=== PATIENT | female | born 1955 | race Caucasian/White ===

== ENCOUNTER 2020-07-02 12:55 | Observation (INO) | payer MEDICARE, SELFPAY ==
[2020-07-02] VITALS (10 sets, daily range): BP systolic 121–157; BP diastolic 62–90; PULSE 57–69; RESP 16–22; TEMP 36.3–36.8; O2SAT 94–100; BMI 54.7
--- NOTE | ~2020-07-02 | XR_ITS ---
EXAMINATION: XR chest 2V DATE: 07/02/2020 13:16 INDICATION: Chest pain. Shortness of breath. TECHNIQUE: Frontal and lateral views of the chest were obtained. COMPARISON: Chest single view 11/28/2018 FINDINGS: There is mild atelectasis in left upper lobe. No pleural effusion or pneumothorax. Cardiome maritza is noted. IMPRESSION: 1. Mild atelectasis in left upper lobe. 2. Cardiomegaly. Reviewed, dictated and finalized at location A.
--- NOTE | ~2020-07-02 | CT_ITS ---
EXAMINATION: CTA chest PE protocol DATE: 07/02/2020 15:26 INDICATION: Shortness of breath and chest pain TECHNIQUE: Computed tomography angiography (CTA) of the chest was performed with 100 mL Omnipaque-350 intravenous contrast timed to evaluate the pulmonary arteries. Coronal maximum intensity projection 3D-reconstructions were created by the technologist. The dose-length product (DLP) was 961.35 mGy-cm. Automated exposure control and iterative reconstruction technique were employed. COMPARISON: None. FINDINGS: The pulmonary arteries are well-opacified. No pulmonary embolism is identified. An apparent tiny filling defect of the right upper lobe adjacent to the superior vena cava is likely the result of beam hardening from contrast. There is mild emphysema. Mild atelectasis is noted in the lingula. T here is no pleural effusion or pneumothorax. No pathologically enlarged thoracic lymph nodes are iden tified. The heart size is normal. There is mild thoracic spondylosis. IMPRESSION: 1. No pulmonary embolism or acute cardiopulmonary abnormality. Reviewed, dictated and finalized at location A.
--- NOTE | ~2020-07-02 | CT_ITS ---
EXAMINATION: CT soft tissue neck wo con DATE: 07/03/2020 19:31 INDICATION: Neck pain TECHNIQUE: Computed tomography (CT) of the neck was performed without intravenous contrast. Automated exposure control and iterative reconstruction technique were employed. The dose-length product was 5 54.19 mGy-cm. COMPARISON: None FINDINGS: Thyroid gland is unremarkable. Submandibular and parotid glands are normal and symmetric. There are scattered normal-sized lymph nodes in the neck, no lymphadenopathy. No masses identified. Changes of bilateral intraocular lens replacement. Mild mucosal thickening in the bilateral ethmoid and maxillary sinuses. Patient is edentulous. Normal epiglottis. The airway and visualized apices of the lungs are clear. Superior mediastinum is unremarkable. Moderate cervical spondylosis with mild to moderate disc height loss at several levels and moderate to severe bilateral cervical facet osteoart hritis. Moderate left glenohumeral osteoarthritis IMPRESSION: 1. Moderate cervical spondylosis. Reviewed, dictated and finalized at location A.
--- NOTE | ~2020-07-02 | CT_ITS ---
EXAMINATION: CT brain wo con INDICATION: Dizziness COMPARISON: 11/28/2018 TECHNIQUE: Standard unenhanced head CT. The dose-length product (DLP) was 605.33 mGy-cm. The mA was a djusted according to patient size. Iterative reconstruction technique was employed. FINDINGS: There is no intracranial hemorrhage, acute infarction, or abnormal mass lesion. The ventric les are normal. There is no abnormal mass effect or midline shift. The barraza-white matter differentiat ion is normal. The basal cisterns are patent. The orbits are normal. There is mild mucosal thickening of the paranasal sinuses. IMPRESSION: 1. No acute intracranial abnormality. Reviewed, dictated and finalized at location A.
--- NOTE | ~2020-07-02 | CT_ITS ---
EXAMINATION: CT brain wo/w con DATE: 07/03/2020 19:30 INDICATION: Right-sided face and neck pain TECHNIQUE: Computed tomography (CT) of the head was performed without and with 100 mL Omnipaque-350 i ntravenous contrast. Sagittal and coronal reconstructions were performed. The mA was adjusted accordi ng to patient size. Iterative reconstruction technique was employed. The dose-length product was 1210 .67 mGy-cm. COMPARISON: head CT dated 07/02/2020 FINDINGS: No acute intracranial hemorrhage, acute infarction or abnormal extra axial fluid collection. Ventricl es are normal and symmetric. No mass/mass effect. Mild mucosal thickening the bilateral ethmoid and m axillary sinuses. The orbits and mastoid air cells are normal. No abnormally enhancing lesions. Hyper ostosis frontalis. IMPRESSION: 1. Normal brain. No acute intracranial process. Reviewed, dictated and finalized at location A.
--- NOTE | 2020-07-02 13:01 | ECG_ITS ---
Measurements Intervals [place] Rate: 67 P: 35 DE: 141 QRS: 61 QRSD: 88 T: 77 QT: 408 QTc: 433 Interpretive Statements SINUS RHYTHM WITH SINUS ARRHYTHMIA LOW QRS VOLTAGE IN PRECORDIAL LEADS NONSPECIFIC T-WAVE ABNORMALITY- ANTEROLAT/HIGH LAT LEADS BASELINE ARTIFACT- I, III, AVL BORDERLINE ECG Electronically Signed On 07-02-2020 13:18:30 CDT by Darin Xiong D.O.
--- NOTE | 2020-07-02 13:01 | PC.NURSE ---
pt says that she has taken 1162 mg of aspirin since midnight last night
[2020-07-02 13:17] LABS: Basophils Absolute Auto 0.1 K/mm3 (0.0-0.1); Basophils Percent Auto 0.6 % (0.2-1.2); Eosinophils Absolute Auto 0.5 K/mm3 (0-0.3); Eosinophils Percent Auto 5.4 % (0-4.4); Hemoglobin 12.3 g/dL (12.0-15.0); Immature Granulocyte Absolute 0.04 K/mm3 (0.00-0.031); Immature Granulocyte Percent A 0.4 % (0-0.5); Lymphocytes Absolute Auto 1.59 K/mm3 (0.9-3.2); Lymphocytes Percent Auto 16.5 % (18.3-44.2); Mean Corpuscular HGB Conc 33.2 g/dl (32-36); Mean Corpuscular Hemoglobin 31.9 pg (26-34); Mean Corpuscular Volume 95.9 fl (80-100); Mean Platelet Volume 10.1 fl (7.4-10.4); Monocytes Absolute Auto 0.7 K/mm3 (0.1-0.6); Monocytes Percent Auto 7.2 % (2.6-8.5); Neutrophils Absolute Auto 6.8 K/mm3 (1.3-6.7); Neutrophils Percent Auto 69.9 % (45.5-73.1); Platelet Count Result 341 k/mm3 (150-375); Red Blood Count 3.86 M/mm3 (4.2-5.4); Red Cell Distribution Width 15.1 % (11.5-14.5); White Blood Count 9.7 K/mm3 (4.5-10.0)
--- NOTE | 2020-07-02 13:32 | ED.CHESTPAIN ---
HPI - Chest Pain General Chief Complaint: Chest Pain Stated Complaint: CP Time Seen by Provider: 07/02/20 13:08 Source: patient Mode of arrival: EMS Limitations: no limitations History of Present Illness HPI narrative: This is a 64 year old female that presents to the ER for chest pain x 3 days. Reports it is intermittent in nature. It is sharp. Worse with exertion. Also reports she has been more short of breath than usual. Reports a sore throat. Reports some nausea. Reports she has been lightheaded. Denies fever, cough, abdominal pain, vomiting, or dysuria. Related Data Home Medications Medication Instructions Recorded Confirmed alprazolam 0.5 mg PO BID PRN 07/02/20 bupropion HCl 150 mg PO QAM 07/02/20 citalopram 40 mg PO DAILY 07/02/20 diphenhydramine HCl [Benadryl] 25 mg PO HS PRN 07/02/20 furosemide 20 mg PO DAILY 07/02/20 levothyroxine 75 mcg PO DAILY 07/02/20 ropinirole 1 mg PO BID 07/02/20 zolpidem 5 mg PO HS PRN 07/02/20 Allergies Allergy/AdvReac Type Severity Reaction Status Date / Time ibandronate sodium Allergy Severe Other Verified 07/02/20 13:02 morphine Allergy Intermediate Other Verified 07/02/20 13:02 Uilniuc-Tsy-Xqt Reductase Allergy Intermediate Other Verified 07/02/20 13:02 Inhibitor sertraline Allergy Mild Other Verified 07/02/20 13:02 Review of Systems Review of Systems: Narrative: CONSTITUTIONAL: Denies fever ENT: Reports sore throat. Denies rhinorrhea, congestion CARDIOVASCULAR: Reports chest pain. Denies edema. RESPIRATORY: Reports dyspnea. Denies cough GASTROINTESTINAL: Reports nausea. Denies abdominal pain, vomiting, or diarrhea. GENITOURINARY: Denies dysuria or hematuria. All systems reviewed & are unremarkable except as noted in HPI and below PMFSH Past Medical History Medical History (Updated 07/02/20 @ 17:12 by Marie Nolan PA-C) History of anxiety History of COPD History of hypothyroidism Social History Social History Gender identity (if verbalized by the patient): Female Exam Narrative: Exam Narrative: GENERAL: Well-appearing, obese, and in no acute distress. HEAD: Normocephalic, atraumatic. EYES: PERRLA and EOMI. ENT: Nares clear, no rhinorrhea or epistaxis. Mucous membranes moist. Oropharynx without tonsillar hypertrophy exudate or other lesions. Bilateral TMs pearly barraza non-bulging NECK: Supple. No adenopathy or masses. CHEST: Clear to auscultation. No respiratory distress. No wheezes rales or rhonchi HEART: Regular rate and rhythm. No murmur heard. Normal peripheral pulses. EXTREMITIES: Normal range of motion. No edema. Strength equal in bilateral upper and lower extremities (5/5) SKIN: Warm, dry, no rash. NEURO: No focal deficits. Alert and oriented x3. CN II-XII grossly intact PSYCH: Normal mood and affect Course Consultations Consultation #1: Spoke with hospitalist about patient and work-up who accepts admission. Date: 07/02/20 Time: 17:10 Consultation #2: Spoke with cardiology who will consult Date: 07/02/20 Time: 17:11 Vital Signs Vital signs: Vital Signs Temperature 98.2 F 07/02/20 12:56 Pulse Rate 69 07/02/20 12:56 Respiratory Rate 22 H 07/02/20 12:56 Blood Pressure 157/66 H 07/02/20 12:56 Pulse Oximetry 99 07/02/20 12:56 Temperature 98.2 F 07/02/20 12:56 Pulse Rate 65 07/02/20 15:36 Respiratory Rate 17 07/02/20 15:36 Blood Pressure 156/79 H 07/02/20 15:36 Pulse Oximetry 98 07/02/20 15:36 MDM - Chest Pain MDM Narrative Medical decision making narrative: Patient presents to the emergency department for intermittent chest pain and shortness of breath for the last 3 days. She is afebrile and nontoxic-appearing. CBC and metabolic panel without concerning findings. Lactic acid is not elevated. EKG with nonspecific ST changes. Baseline troponin is negative. Strep screen negative. Due to sore throat and shortness of breath coronavirus swab sent. Chest x-ray shows atelectasis and cardiomegaly. B
[2020-07-02 14:05] LABS: INR 1.1; Prothrombin Time 13.9 Seconds (11.1-14.7)
[2020-07-02 14:06] LABS: Partial Thromboplastin Time 28.9 SECONDS (22.3-36.8)
[2020-07-02 14:07] LABS: Alanine Aminotransferase 27 U/L (4-35); Albumin Level 3.8 g/dL (3.5-5.1); Alkaline Phosphatase 95 U/L (38-126); Anion Gap 6 mmol/L (8-16); Aspartate Amino Transferase 26 U/L (14-36); Bilirubin,Total 0.3 mg/dL (0.2-1.3); Blood Urea Nitrogen 18 mg/dL (7-17); Calcium 8.7 mg/dL (8.4-10.2); Carbon Dioxide 26 mmol/L (22-30); Chloride 105 mmol/L (98-107); Estimated Glomerular Filt Rate > 60; Glucose 114 mg/dL (65-105); Lipase 60 U/L (23-300); Potassium 4.1 mmol/L (3.4-5.0); Sodium 137 mmol/L (137-145)
[2020-07-02 14:08] LABS: D Dimer 0.84 ug/mL (<0.48); Lactic Acid Reflex 0.8 mmol/L (0.7-2.1)
[2020-07-02 14:16] LABS: NT Pro B Type Natriuretic Pept 67 PG/ML (5-100)
[2020-07-02 14:18] LABS: CRP 2.3 mg/dL (<1.0); Lactate Dehydrogenase 373 U/L (313-618); Troponin I < 0.012 ng/mL (0.000-0.034)
[2020-07-02 17:47] LABS: Troponin I < 0.012 ng/mL (0.000-0.034)
[2020-07-02 19:32] LABS: Troponin I < 0.012 ng/mL (0.000-0.034)
--- NOTE | 2020-07-02 20:50 | ADMGEN ---
This patient, Shanita Gallo, was admitted to Intensive Care Unit-1. Patient/family oriented to hospital policies and general routines including ID bracelet, bed and alarms, visiting hours, pain management, procedures, bathroom and other care routines, personal items, smoking policy, room service/diet, and visiting hours. Valuables list has been completed. Information on how to activate the Rapid Response Team has been discussed. Patient/Family are encouraged to report perceived risks to care and to ask questions if they do not understand what they are told or what they should do.
--- NOTE | 2020-07-02 23:30 | PM.IMHP ---
H&P: HPI History of Present Illness Date/Time: 07/02/20 23:30 <Soni Zhang PA-C - Last Filed: 07/03/20 01:06> Chief complaint: Chest pain. <Soni Zhang PA-C - Last Filed: 07/03/20 01:06> Narrative: Shanita Gallo is a 64-year-old female with COPD, obstructive sleep apnea on BiPAP, type 2 diabetes mellitus, and anxiety who presented to the emergency department earlier today home for evaluation of chest pain. Three days ago on Monday simply while sitting down she developed sudden onset of left upper chest pain that she describes as sharp and constant in nature. It lasted the entire day but did improve somewhat and she was able slept that night. Since that time, the pain has recurred intermittently, and without obvious pattern. She told the ED provider that the pain was worse with exertion, but she did not indicate that to me. Associated symptoms include intermittent nausea and shortness of breath. With further questioning, she has also had a mild sore throat and reports dysphagia with pills and bread. In fact, she took her Zantac for possible GERD, which seemed to help somewhat. She takes aspirin, up to 1000 milligrams at a time for generalized aches and pains, but not every day. She denies significant alcohol and caffeine intake. No vomiting, hematemesis, or melena. She also denies pleuritic pain and calf pain. Of note, she reports a history of PR, but it sounds as though she had no intervention on cardiac catheterization 2016. <Soni Zhang PA-C - Last Filed: 07/03/20 01:06> Review of Systems Review of Systems: Narrative: Twelve systems were reviewed with pertinent positives and negatives as per HPI. No fever, chills, or sweats. Currently complaining of a right sided headache. She denies concerns for aspiration. She wears upper and lower dentures. She denies sinus congestion, rhinorrhea, or otalgia. No recent travel or sick contacts. Denies exposure to those positive for COVID-19. No orthopnea or PND. She is compliant with her BiPAP at nighttime. She has chronic lower extremity edema, which is unchanged. <Soni Zhang PA-C - Last Filed: 07/03/20 01:06> [facility] Past Medical History Medical History: Medical History (Updated 07/03/20 @ 10:18 by Shane Perez MD) Anxiety Chronic obstructive pulmonary disease Coronary artery disease With reported history of PR in 2016. She had a cardiac catheterization at that time, with no intervention. Diastolic dysfunction Echocardiogram in December 2018 showed normal left ventricular size and function with an ejection fraction of 60% and diastolic dysfunction. Dysphagia Gastroesophageal reflux disease Hypothyroidism Morbid obesity with BMI of 50.0-59.9, adult Obstructive sleep apnea treated with BiPAP Osteoarthritis Tobacco abuse Type 2 diabetes mellitus <Soni Zhang PA-C - Last Filed: 07/03/20 01:06> Surgical History Surgical History: Surgical History (Updated 07/03/20 @ 00:48 by Soni Zhang PA-C) History of bilateral carpal tunnel release (~2005) History of bilateral cataract extraction (~2015) History of cardiac catheterization (~2016) History of hysterectomy (~1999) History of total bilateral knee replacement (~2017) History of tubal ligation (~1980) <Soni Zhang PA-C - Last Filed: 07/03/20 01:06> Family History Family History: Family History Father Chronic obstructive pulmonary disease Prostate carcinoma Diabetes mellitus Congestive heart failure Mother Cerebrovascular accident Grandparent Colon cancer Sibling Cystic fibrosis Chronic obstructive pulmonary disease Parkinson disease <Soni Zhang PA-C - Last Filed: 07/03/20 01:06> Social History Social History: Social History (Updated 07/03/20 @ 00:49 by Soni Zhang PA-C) Social History: Surrogate decision maker: Dev Banks
[2020-07-03] VITALS (17 sets, daily range): BP systolic 101–135; BP diastolic 46–92; PULSE 52–98; RESP 16–22; TEMP 35.9–36.7; O2SAT 92–97
[2020-07-03] MEDS: ACETAMINOPHEN 325 MG TABLET 650 MG PO ×3 (00:42→21:02)
[2020-07-03] MEDS: ZOLPIDEM TARTRATE 5 MG TABLET PO ×2 (00:57→21:59)
[2020-07-03] MEDS: diphenhydrAMINE HCl CAP 25 MG CAPSULE 50 MG PO ×2 (00:57→21:59)
[2020-07-03] MEDS: rOPINIRole HCL 1 MG TABLET PO ×2 (00:58→21:02)
[2020-07-03] MEDS: CITALOPRAM HYDROBROMIDE 20 MG TABLET 40 MG PO ×2 (00:58→21:03)
--- NOTE | 2020-07-03 01:05 | ECHO_ITS ---
Patient Info Name: Shanita Gallo Age: 64 years : 1955 Gender: Female Ht: 59 in Wt: 270 lbs BSA: 2.35 m2 HR: 55 bpm BP: 134 / 55 mmHg Technical Quality: Poor Exam Date: 07/03/2020 2:31 PM Exam Location: [facility] Patient Status: Outpatient Admit Date: 07/02/2020 Staff Ordering Physician: Soni Zhang PA-C Information Systems Coordinator: Jacqueline Reyna RDCS Attending Provider: Lenin Galvan MD Referring Physician: Vicente KEE; Exam Type: CA echo dop color flow w con Study Info Indications I51.7 - Cardiomegaly I10 - Essential (primary) hypertension R07.9 - Chest pain, unspecified Complete two-dimensional, color flow and Doppler transthoracic echocardiogram is performed with contrast to opacify the left ventricle and to improve the deliniation of the left ventricle endocardial borders. Contrast/Agitated Saline Contrast/Ag. Saline: Definity Amount: 2.50 ml Administered By: Philip Gutierrez RN Reason for Poor Study: patient body habitus Summary 1. Left ventricular chamber dimension is normal. 2. Definity contrast administered improved wall motion interpretation. 3. Left ventricular systolic function is normal, estimated at 65-70%. 4. There is mildly increased left ventricular wall thickness. 5. The left ventricular diastolic function is abnormal. 6. E/e' 12 is mildly elevated. 7. The aortic valve is not well visualized. 8. There is mild aortic valve sclerosis. 9. No pulmonary hypertension, estimated pulmonary arterial systolic pressure is 21 mmHg. Left Ventricle E/e' 12 is mildly elevated. Definity contrast administered improved wall motion interpretation. Left ventricular chamber dimension is normal. Left ventricular systolic function is normal, estimated at 65-70%. There is mildly increased left ventricular wall thickness. The left ventricular diastolic function is abnormal. Right Ventricle Right ventricular chamber dimension is normal. Right ventricular systolic function is normal. Left Atria Left atrial chamber dimension is normal. Right Atria Right atrial chamber dimension is normal. Aortic Valve Cannot determine number of aortic valve leaflets. The aortic valve is not well visualized. There is mild aortic valve sclerosis. There is no aortic valve stenosis. There is no aortic valve regurgitation. Pulmonic Valve There is no pulmonic regurgitation. Mitral Valve There is no mitral valve stenosis. There is no mitral valve regurgitation. Tricuspid Valve There is no tricuspid valve regurgitation. No pulmonary hypertension, estimated pulmonary arterial systolic pressure is 21 mmHg. Pericardium/Pleural There is no pericardial effusion. Inferior Vena Cava Normal inferior vena cava with >50% collapse upon inspiration consistent with normal right atrial pressure, 5 mmHg. Aorta The aortic root size at the sinus of Valsalva is normal. Left Ventricular Outflow Tract Name Value Normal LVOT 2D LVOT Diameter 2.01 cm LVOT Doppler LVOT Peak Gradient 11 mmHg LVOT Mean Gradien
[2020-07-03 02:53] LABS: SARS-CoV-2 RNA PCR Negative
[2020-07-03] MEDS: LEVOTHYROXINE SODIUM 75 MCG TABLET PO (06:06)
[2020-07-03 06:28] LABS: Anion Gap 5 mmol/L (8-16); Blood Urea Nitrogen 16 mg/dL (7-17); Calcium 8.4 mg/dL (8.4-10.2); Carbon Dioxide 27 mmol/L (22-30); Chloride 104 mmol/L (98-107); Estimated Glomerular Filt Rate > 60; Glucose 111 mg/dL (65-105); Potassium 4.2 mmol/L (3.4-5.0); Sodium 136 mmol/L (137-145)
[2020-07-03] MEDS: buPROPion HCL XL (24 HR) 150 MG TABCR PO (08:16)
[2020-07-03] MEDS: PANTOPRAZOLE SODIUM IV 40 MG VIAL IV PUSH ×2 (08:17→21:01)
--- NOTE | 2020-07-03 09:23 | PC.NURSE ---
This patient, Shanita Gallo, was transferred to [[id number]] on 07/03/20 at 0924. Personal belongings sent with patient. Report given to [Cat RN]. Appropriate documentation sent with patient.
--- NOTE | 2020-07-03 09:48 | PC.NURSE ---
This patient, Shanita Gallo, was received from [ ICU/1] on 07/03/20 at 0937. Personal belongings list checked and signed. Patient/family oriented to unit policies and routines. Report received from Nita Haynes RN.
--- NOTE | 2020-07-03 10:07 | WPDANESEPPF ---
Anes - Initial Pre Proc Eval Procedure: Operation Date: 07/03/20 12:45 Proposed Procedures p Esophagogastroduodenoscopy - Johnny Villalta MD Date/Time: 07/03/20 10:07 Surgeon: Lenin Galvan MD Pre Op Diagnosis: Chest pain. Patient Data Age: 64 Gender: F Height: 1.5 m Weight: 124.4 kg Last Vital Signs Temp 35.9 C L 07/03/20 08:00 Pulse 78 07/03/20 08:00 Resp 21 H 07/03/20 08:00 BP 109/66 07/03/20 08:00 Pulse Ox 92 07/03/20 08:00 Allergies Allergy/AdvReac Type Severity Reaction Status Date / Time ibandronate sodium Allergy Severe Other Verified 07/02/20 13:02 morphine Allergy Intermediate Other Verified 07/02/20 13:02 Bprnxpg-Niz-Vfz Reductase Allergy Intermediate Other Verified 07/02/20 13:02 Inhibitor sertraline Allergy Mild Other Verified 07/02/20 13:02 Home Medications Medication Instructions Recorded Confirmed Type alprazolam 0.5 mg PO TID PRN 07/02/20 07/02/20 History bupropion HCl 150 mg PO QAM 07/02/20 07/02/20 History citalopram 40 mg PO HS 07/02/20 07/02/20 History diphenhydramine HCl [Benadryl] 50 mg PO HS PRN 07/02/20 07/02/20 History furosemide 20 mg PO DAILY PRN 07/02/20 07/02/20 History levothyroxine 75 mcg PO DAILY 07/02/20 07/02/20 History ropinirole 1 mg PO HS 07/02/20 07/02/20 History zolpidem 5 mg PO HS PRN 07/02/20 07/02/20 History Laboratory Tests 07/02/20 07/02/20 07/02/20 13:10 13:10 13:42 WBC 9.7 K/mm3 K/mm3 (4.5-10.0) RBC 3.86 M/mm3 L M/mm3 (4.2-5.4) Hgb 12.3 g/dL g/dL (12.0-15.0) Hct 37.0 % % (37.0-47.0) MCV 95.9 fl fl (80-100) MCH 31.9 pg pg (26-34) MCHC 33.2 g/dl g/dl (32-36) RDW 15.1 % H % (11.5-14.5) Plt Count 341 k/mm3 k/mm3 (150-375) MPV 10.1 fl fl (7.4-10.4) Immature Gran % (Auto) 0.4 % % (0-0.5) Neut % (Auto) 69.9 % % (45.5-73.1) Lymph % (Auto) 16.5 % L % (18.3-44.2) [place] % (Auto) 7.2 % % (2.6-8.5) Eos % (Auto) 5.4 % H % (0-4.4) Baso % (Auto) 0.6 % % (0.2-1.2) Lymph # (Auto) 1.59 K/mm3 K/mm3 (0.9-3.2) [place] # (Auto) 0.7 K/mm3 H K/mm3 (0.1-0.6) Eos # (Auto) 0.5 K/mm3 H K/mm3 (0-0.3) Baso # (Auto) 0.1 K/mm3 K/mm3 (0.0-0.1) Abs Immat Gran (auto) 0.04 K/mm3 H K/mm3 (0.00-0.031) Absolute Neuts (auto) 6.8 K/mm3 H K/mm3 (1.3-6.7) Absolute Nucleated RBC 0.0 K/mm3 K/mm3 (0.0-0.012) Nucleated RBC % 0.0 % % (0.0-0.2) PT INR APTT D-Dimer Sodium Cancelled Potassium Cancelled Chloride Cancelled Carbon Dioxide Cancelled Anion Gap Cancelled BUN Cancelled Creatinine Cancelled Estim Creat Clear Calc Cancelled Estimated GFR Cancelled Glucose Cancelled Lactic Acid Calcium Cancelled Ferritin Total Bilirubin AST ALT Alkaline Phosphatase Lactate Dehydrogenase Troponin I C-Reactive Protein NT-Pro-B Natriuret Pep Total Protein Albumin Lipase TSH (Reflex) 2.290 uIU/mL uIU/mL (0.465-4.68) SARS-CoV-2 RNA (RT-PCR) 08/07/02/20 07/02/20 13:46 13:46 13:46 WBC RBC Hgb Hct MCV MCH MCHC RDW Plt Count MPV Immature Gran % (Auto) Neut % (Auto) Lymph % (Auto) [place] % (Auto) Eos % (Auto) Baso % (Auto) Lymph # (Auto) [place] # (Auto) Eos # (Auto) Baso # (Auto) Abs Gayle
--- NOTE | 2020-07-03 10:30 | WPDGICN ---
Assessment and Plan Assessment and plan (1) Dysphagia: Code(s): R13.10 - Dysphagia, unspecified Status: Acute Assessment and Plan: will proceed with EGD, I am concerned high amount of aspirin that she is taking, she may have ulcers, esophagitis, etc (2) Gastroesophageal reflux disease: Code(s): K21.9 - Gastro-esophageal reflux disease without esophagitis Status: Acute Assessment and Plan: start on ppi (3) Non-cardiac chest pain: Code(s): R07.89 - Other chest pain Status: Acute Assessment and Plan: cardiac work up negative (4) Obstructive sleep apnea treated with BiPAP: Code(s): G47.33 - Obstructive sleep apnea (adult) (pediatric) Status: Acute Assessment and Plan: on bipap as needed (5) Morbid obesity with BMI of 50.0-59.9, adult: Code(s): E66.01 - Morbid (severe) obesity due to excess calories; Z68.43 - Body mass index (BMI) 50.0-59.9, adult Status: Acute Assessment and Plan: she is planning to see a bariatric surgeon (6) Chronic obstructive pulmonary disease: Code(s): J44.9 - Chronic obstructive pulmonary disease, unspecified Status: Acute GI Consult Note Consult date/time: 07/03/20 10:28 Reason for consult: gerd, dysphagia HPI: Shanita Gallo is a 64 year old female with multiple medical problems including morbid obesity (she had EGD about 1 year ago apparently unremarkable as part of routine care before seeing a bariatric surgery, she says that ideally would like to get it done at some point), also COPD, obstructive sleep apnea on BiPAP, type 2 diabetes mellitus, and anxiety who came to ER with sudden onset of left upper chest pain, also sour taste and sensation of knot in throat, discomfort neck and right side of face. She occasioally will take antacids, not using ppi. She has been taking aspirin 1000mg daily for pain. Cardiac work up unremarkable. CTA chest and CT head unremarkable. Review of Systems Constitutional: Constitutional: Denies chills, Reports headache(s) and Reports lethargy Eyes: Eyes: Denies blurry vision ENT: Reports Normal hearing present, Denies headache(s) and Denies neck pain Comments: pain in neck Cardiovascular: Cardiovascular: Denies chest pain and Denies dyspnea Respiratory: Respiratory: Reports cough Gastrointestinal: Gastrointestinal: Reports nausea Genitourinary: Genitourinary: Denies dysuria Musculoskeletal: Musculoskeletal: Reports neck pain Integumentary/Breasts: Skin/Breast: Denies dry skin Neurologic: Reports Normal hearing present, Reports headache(s) and Denies weakness Psychiatric: Psychiatric: Reports anxiety Endocrine: Endocrine: Denies change in body appearance Hematologic/Lymphatic: Hematologic/Lymphatic: Denies easy bleeding Allergic/Immunologic: Allergic/Immunologic: Denies urticaria PMFSH Past Medical History Medical History (Updated 07/03/20 @ 13:38 by Johnny Villalta MD) Anxiety Chronic obstructive pulmonary disease Coronary artery disease With reported history of [place] in 2017. She had a cardiac catheterization at that time, with no intervention. Diastolic dysfunction Echocardiogram in December 2018 showed normal left ventricular size and function with an ejection fraction of 60% and diastolic dysfunction. Dysphagia Gastroesophageal reflux disease Hypothyroidism Morbid obesity with BMI of 50.0-59.9, adult Non-cardiac chest pain Obstructive sleep apnea treated with BiPAP Osteoarthritis Tobacco abuse Type 2 diabetes mellitus Surgical History Surgical History (Updated 07/03/20 @ 00:48 by Soni Zhang PA-C) History of bilateral carpal tunnel release (~2005) History of bilateral cataract extraction (~2015) History of cardiac catheterization (~2016) History of hysterectomy (~1999) History of total bilateral knee replacement (~2017) History of tubal ligation (~1980) Family History Family History (Reviewed 07/03/20 @ 0
--- NOTE | 2020-07-03 11:15 | PC.NURSE ---
To GI Lab per eric, IV saline locked. Report given to RISSA Garcia for EGD consent sent with patient on hard chart.
[2020-07-03] MEDS: LACTATED RINGERS 1,000 ML 150 ML IV CONT (11:37)
[2020-07-03 11:51] LABS: Glucose Point of Care 94 (65-105)
[2020-07-03] MEDS: BENZOCAINE (*SP) 60 ML SPRAY CAN (HURRICAINE) 1 SPRAY MUCOUS MEM (12:46)
--- NOTE | 2020-07-03 12:56 | PM.IMPN ---
Progress Note: A&P Assessment and Plan (1) Chest pain: Qualifiers: Chest pain type: unspecified Qualified Code(s): R07.9 - Chest pain, unspecified Code(s): R07.9 - Chest pain, unspecified Status: Acute Assessment and Plan: Ruled out for acute coronary syndrome by serial troponins. Given reported history of [place] and cardiomegaly, will obtain echocardiogram. Her chest pain is, however, atypical for cardiac pain in may very well be GI in etiology. 07/03/20 12:56 Patient is 64 y/o morbidly obese female with hx of COPD sleep apnea, on BiPAP, presented emergency department with a complaint of chest pain her 3 sets of cardiac enzymes are negative there was concern the patient may have GI issue rather than cardiac, today patient was seen by GI and had a EGD it showed patient has erosive gastritis and patient is being treated Protonix 40 mg IV b.i.d, currently patient denies any chest palpitation fever or chills, complaint of pain on the right side of her neck worse with movement most likely muscular will apply Lidoderm patch. continue to monitor the patient and further recommendation to, patient was discharged to COVID-19 and negative (2) Person under investigation for severe acute respiratory syndrome coronavirus 2 (SARS-CoV-2) infection: Code(s): Z20.828 - Contact with and (suspected) exposure to other viral communicable diseases Status: Acute Assessment and Plan: She was swabbed for COVID in the emergency department for unclear reasons. I have a very low suspicion for COVID, however she will need to be in isolation pending those results. (3) Obstructive sleep apnea treated with BiPAP: Code(s): G47.33 - Obstructive sleep apnea (adult) (pediatric) Status: Acute Assessment and Plan: BiPAP will be provided for the patient while she is hospitalized. (4) Hypothyroidism: Code(s): E03.9 - Hypothyroidism, unspecified Status: Acute Assessment and Plan: Continue levothyroxine check TSH. (5) Chronic obstructive pulmonary disease: Code(s): J44.9 - Chronic obstructive pulmonary disease, unspecified Status: Acute Assessment and Plan: No acute issues or bronchospasm. Continue maintenance inhalers. (6) Dysphagia: Code(s): R13.10 - Dysphagia, unspecified Status: Acute Assessment and Plan: Will start PPI given her symptoms. Dr. Villalta consulted. Subjective Date/time seen: 07/03/20 12:56 Patient is 64 y/o morbidly obese female with hx of COPD sleep apnea, on BiPAP, presented emergency department with a complaint of chest pain her 3 sets of cardiac enzymes are negative there was concern the patient may have GI issue rather than cardiac, today patient was seen by GI and had a EGD it showed patient has erosive gastritis and patient is being treated Protonix 40 mg IV b.i.d, currently patient denies any chest palpitation fever or chills, complaint of pain on the right side of her neck worse with movement most likely muscular will apply Lidoderm patch. continue to monitor the patient and further recommendation to, patient was discharged to [facility]-19 and negative Review of Systems Review of Systems: All systems reviewed & are unremarkable except as noted in HPI and below Exam Narrative: Exam Narrative: morbidly obese with BMI of 55 Const: General: comfortable and no acute distress HENMT: General nose exam: Normal nares present Mouth: Yes moist mucous membranes Eyes: General: appearance normal, both eyes and all related structures Neck: Neck: supple Other: tender
--- NOTE | 2020-07-03 13:38 | PC.NURSE ---
Returned from GI Lab. Report received from RISSA Loya.
[2020-07-03] MEDS: PERFLUTREN LIPID MICROSPHERES 1.5 ML VIAL DILUTED TO 10 ML TOTAL VOLUME IV PUSH (15:26)
--- NOTE | 2020-07-03 16:00 | PM.CNCAR ---
Assessment and Plan Additional Plan 64-year-old lady with morbid obesity admitted with chest pain syndrome which is very atypical and not suggestive in all myocardial ischemia. She provides the history of having had a negative coronary angiogram about 5 or 6 years ago. There is no evidence of acute coronary syndrome looking at her EKG and biomarkers. She was found to have some gastritis and some mild gastric ulcer disease the symptoms she is having TRACEY are not highly suggestive of her ulcer disease causing it but certainly that is a I suppose in the differential diagnosis. At this point I would not recommend further inpatient cardiac workup. She can be discharged for follow-up with her physicians. She does have established follow-up with Dr. Amandeep Howe of the [facility] medical group for Cardiology therefore I will not anticipate making her an appointment in our office. Tristian Hdz MD [facility] History of Present Illness History of Present Illness Consult date/time: 07/03/20 16:00 Consult reason: chest pain Reason For Visit: Chest pain. Narrative: This is a 64-year-old woman I am seeing at the request of the hospitalist because of some chest pain for which she was brought to the hospital yesterday at the request of her primary physician. Patient has a primary physician who is not on staff here at [facility] and who was consulted last evening with the patient on the telephone because she was experiencing intermittent episodes of chest pain for a couple of days. She describes sharp stabbing episodes of central and sometimes left lateral chest discomfort that would come and go in an unpredictable fashion. She was not reporting anything that sounds like exertional anginal-type chest pain. The patient has a blood pressure cuff at home was measuring her blood pressure would be reduced into the 90s when she would have these symptoms and so her physician told her to come in for evaluation. Her electrocardiogram in the emergency room was negative. She was admitted to the hospital for observation and evaluation. The patient has had 3- troponin samples done since admission to the hospital. I came by to see her in consultation earlier today but she was not in the room, she was downstairs in GI lab having an upper endoscopy performed. The endoscopic results did show some evidence of gastric ulcer disease which sounds like it is relatively mild as well as some erosive gastritis. Medical treatment of this has been recommended. The patient has not lived in this area for long she is a lady that he lived in [place] for many years recently moved here for family reasons. She is morbidly obese with a BMI of 55.4. She has been seeking the to consider bariatric surgery for treatment of this. She states that she is not known to have significant coronary artery disease she does remember being told of coronary calcium in her a a imaging studies in [place] 5 or 6 years ago this led to a coronary angiogram being done which she was told was unremarkable. She is sitting in the chair at the bedside in room at the time of this consultation her only complaint is occasional pain up the posterior aspect of her neck she apparently has some cervical spine disease that bothers her from time to time. The patient despite her obesity is moderately active and states she spends most of her time caring for her who is disabled and also a young granddaughter. She reports a history of hypercholesterolemia and she reports that she is intolerant of statins having been tried on several of them with severe muscle weakness resulting from all of the statins that have been attempted. She states her physicians have discussed with 3rd attempting to use a PSK 9 inhibitor. Review of Systems Constitutional: Constitutional: Reports fatigue Eyes: Eyes: Reports no additional eye complaints ENT: Reports system reviewed and no additional complaints, except as documented Cardiovascular: Cardio
[2020-07-03] MEDS: LIDOCAINE 5% PATCH 2 PATCH TRANSDERM (18:29)
[2020-07-04] VITALS: BP 128/58; PULSE 59; PULSE 63; RESP 20; TEMP 36.6; O2SAT 94
[2020-07-04 02:59] VITALS: PULSE 65; RESP 15; O2SAT 92
[2020-07-04 04:00] VITALS: BP 114/57; PULSE 63; RESP 20; TEMP 36.3; O2SAT 96
[2020-07-04 05:40] LABS: Basophils Absolute Auto 0.1 K/mm3 (0.0-0.1); Basophils Percent Auto 0.7 % (0.2-1.2); Eosinophils Absolute Auto 0.5 K/mm3 (0-0.3); Eosinophils Percent Auto 5.7 % (0-4.4); Hematocrit 36.1 % (37.0-47.0); Hemoglobin 11.4 g/dL (12.0-15.0); Immature Granulocyte Absolute 0.04 K/mm3 (0.00-0.031); Immature Granulocyte Percent A 0.5 % (0-0.5); Lymphocytes Absolute Auto 1.59 K/mm3 (0.9-3.2); Lymphocytes Percent Auto 18.8 % (18.3-44.2); Mean Corpuscular HGB Conc 31.6 g/dl (32-36); Mean Corpuscular Hemoglobin 30.8 pg (26-34); Mean Corpuscular Volume 97.6 fl (80-100); Mean Platelet Volume 9.2 fl (7.4-10.4); Monocytes Absolute Auto 0.6 K/mm3 (0.1-0.6); Monocytes Percent Auto 7.3 % (2.6-8.5); Neutrophils Absolute Auto 5.7 K/mm3 (1.3-6.7); Platelet Count Result 342 k/mm3 (150-375); Red Cell Distribution Width 14.5 % (11.5-14.5); White Blood Count 8.4 K/mm3 (4.5-10.0)
[2020-07-04 05:56] LABS: Alanine Aminotransferase 24 U/L (4-35); Albumin Level 3.6 g/dL (3.5-5.1); Alkaline Phosphatase 95 U/L (38-126); Anion Gap 5 mmol/L (8-16); Aspartate Amino Transferase 22 U/L (14-36); Bilirubin,Total 0.4 mg/dL (0.2-1.3); Blood Urea Nitrogen 16 mg/dL (7-17); Calcium 8.6 mg/dL (8.4-10.2); Carbon Dioxide 28 mmol/L (22-30); Chloride 103 mmol/L (98-107); Estimated Glomerular Filt Rate 50; Glucose 101 mg/dL (65-105); Magnesium 2.1 mg/dL (1.6-2.3); Potassium 4.2 mmol/L (3.4-5.0); Sodium 136 mmol/L (137-145)
[2020-07-04] MEDS: LEVOTHYROXINE SODIUM 75 MCG TABLET PO (06:20)
[2020-07-04 08:00] VITALS: PULSE 72
[2020-07-04] MEDS: PANTOPRAZOLE SODIUM IV 40 MG VIAL IV PUSH (08:15)
[2020-07-04] MEDS: buPROPion HCL XL (24 HR) 150 MG TABCR PO (08:15)
--- NOTE | 2020-07-04 09:21 | WPDGIPROGNO ---
Progress Note: A&P Assessment and Plan (1) Erosive gastritis: Code(s): K29.60 - Other gastritis without bleeding Status: Acute Assessment and Plan: found yesterday, probably from high dose of daily aspirin recommend to discontinue, avoid nsaids and she will need PPI twice daily she can follow up in office in 3-4 weeks ok to go home by gi standpoint (2) Non-cardiac chest pain: Code(s): R07.89 - Other chest pain Status: Acute Assessment and Plan: probably related to egd findings tolerating diet she also was evaluated by cardiology (3) Morbid obesity with BMI of 50.0-59.9, adult: Code(s): E66.01 - Morbid (severe) obesity due to excess calories; Z68.43 - Body mass index (BMI) 50.0-59.9, adult Status: Acute (4) Dysphagia: Code(s): R13.10 - Dysphagia, unspecified Status: Acute (5) Gastroesophageal reflux disease: Code(s): K21.9 - Gastro-esophageal reflux disease without esophagitis Status: Acute Assessment and Plan: will start ppi bid (6) Obstructive sleep apnea treated with BiPAP: Code(s): G47.33 - Obstructive sleep apnea (adult) (pediatric) Status: Acute Subjective Date/time seen: 07/04/20 09:21 Interval history: she is feeling better today with less pain and tolerating diet. EGD yesterday with erosive gastritis Review of Systems Review of Systems: All systems reviewed & are unremarkable except as noted in HPI and below Exam Const: General: comfortable and no acute distress Other: obese HENMT: General nose exam: Normal nares present Eyes: General: appearance normal, both eyes and all related structures Neck: Neck: no JVD Resp: Auscultation: clear to auscultation bilaterally Cardio: Rate: regular rate Rhythm: regular rhythm GI: Inspection: non-distended GI Palp: Yes Soft to palpation and No Tenderness to palpation present (GI) Auscultation: normal bowel sounds Skin: General skin exam: normal color Neuro: General: gait normal Speech: normal speech Extrem: General: normal to inspection Psych: Mental Status: mental status grossly normal Objective Data Vital Signs Vital Signs: Vital Signs - 24 hr 07/03/20 09:43 07/03/20 11:53 07/03/20 12:01 Temperature 98 F Pulse Rate 61 63 Respiratory Rate 20 Blood Pressure 114/46 L Pulse Oximetry 92 92 07/03/20 13:01 07/03/20 13:21 07/03/20 16:00 Temperature Pulse Rate 64 64 63 Respiratory Rate 17 17 Blood Pressure 135/55 L 127/51 L Pulse Oximetry 95 95 07/03/20 18:00 07/03/20 20:00 07/03/20 23:45 Temperature 98.1 F 97.5 F L Pulse Rate 75 65 59 L Respiratory Rate 20 22 H 16 Blood Pressure 129/57 L 128/70 Pulse Oximetry 95 94 97 07/04/20 00:00 07/04/20 02:59 07/04/20 04:00 Temperature 97.8 F 97.3 F L Pulse Rate 63 65 63 Respiratory Rate 20 15 20 Blood Pressure 128/58 L 114/57 L Pulse Oximetry 94 92 96 Intake/Output Intake/Output: Intake & Output 07/01/20 07/02/20 07/03/20 07/04/20 23:59 23:59 23:59 23:59 Intake Total 940 200 Output Total 450 450 Balance 490 -250 Meds/Results Medications: Active Medications Generic Name Dose Route Start Last Admin Trade Name Freq PRN Reason Stop Dose Admin Acetaminophen 650 mg 07/03/20 00:17 07/03/20 21:02 Tylenol Tablet PO 650 mg Q6H PRN Administration Mild Pain (1-3) or Fever Alprazolam 0.5 mg 07/03/20 00:31 Xanax PO TID PRN Anxiety Bupropion HCl 150 mg 07/03/20 09:00 07/04/20 08:15 Wellbutrin Xl (24 Hr) PO 150 mg QAM VALENTIN Administration Citalopram Hydrobromide 40 mg 07/03/20 21:00 07/03/20 21:03 Celexa PO 40 mg HS VALENTIN Administration Diphenhydramine HCl 50 mg 07/03/20 00:31 07/03/20 21:59 Benadryl Cap PO 50 mg HS PRN Administration Itching Furosemide 20 mg 07/03/20 00:31 Lasix Tablet PO DAILY PRN Edema Levothyroxine Sodium 75 mcg 07/03/20 06:30 07/04/20 06:20
[2020-07-04 10:00] VITALS: BP 106/56; PULSE 58; RESP 18; TEMP 36.6; O2SAT 97
--- NOTE | 2020-07-04 11:11 | WPDANESPN ---
Anes - Prog Note Post-Op Date/Time: 07/04/20 11:11 Cardiovascular status: normal Respiratory status: normal Airway patency: baseline Mental status: baseline Post-Op hydration status: normal Vital Signs: Last Vital Signs Temp 36.3 C L 07/04/20 04:00 Pulse 72 07/04/20 08:00 Resp 20 07/04/20 04:00 BP 114/57 L 07/04/20 04:00 Pulse Ox 96 07/04/20 04:00 I/O: Intake & Output 07/03/20 07/04/20 07/04/20 23:59 07:59 15:59 Intake Total 340 200 Output Total 450 Balance 340 -250 Laboratory Tests 07/04/20 05:04 07/04/20 05:04 07/03/20 07/04/20 07/04/20 11:30 05:04 05:04 WBC 8.4 RBC 3.70 L Hgb 11.4 L Hct 36.1 L MCV 97.6 MCH 30.8 MCHC 31.6 L RDW 14.5 Plt Count 342 MPV 9.2 Immature Gran % (Auto) 0.5 Neut % (Auto) 67.0 Lymph % (Auto) 18.8 Wilkes % (Auto) 7.3 Eos % (Auto) 5.7 H Baso % (Auto) 0.7 Lymph # (Auto) 1.59 Wilkes # (Auto) 0.6 Eos # (Auto) 0.5 H Baso # (Auto) 0.1 Abs Immat Gran (auto) 0.04 H Absolute Neuts (auto) 5.7 Absolute Nucleated RBC 0.0 Nucleated RBC % 0.0 Sodium 136 L Potassium 4.2 Chloride 103 Carbon Dioxide 28 Anion Gap 5 L BUN 16 Creatinine 1.10 H Estim Creat Clear Calc Not Reportable Estimated GFR 50 L Glucose 101 POC Capillary Glucose 94 Calcium 8.6 Magnesium 2.1 Total Bilirubin 0.4 AST 22 ALT 24 Alkaline Phosphatase 95 Total Protein 7.0 Albumin 3.6 Microbiology 07/02/20 14:05 Throat Group A Streptococcus Culture - Final 07/02/20 13:45 Blood Blood Culture - Preliminary 07/02/20 13:45 Blood Blood Culture - Preliminary Post-procedural complaints: none Patient Feedback: Patient satisfied with anesthetic care.
[2020-07-04 12:00] VITALS: PULSE 65
--- NOTE | 2020-07-30 10:51 | PM.DS ---
DS: Admitting Diagnosis Admitting Diagnosis Admitting Diagnosis: Chest pain. DS: Discharge Diagnosis Discharge Diagnosis (1) Chest pain: Qualifiers: Chest pain type: unspecified Qualified Code(s): R07.9 - Chest pain, unspecified Code(s): R07.9 - Chest pain, unspecified Status: Acute Assessment and Plan: Ruled out for acute coronary syndrome by serial troponins. Given reported history of [place] and cardiomegaly, will obtain echocardiogram. Her chest pain is, however, atypical for cardiac pain in may very well be GI in etiology. 07/03/20 12:56 Patient is 64 y/o morbidly obese female with hx of COPD sleep apnea, on BiPAP, presented emergency department with a complaint of chest pain her 3 sets of cardiac enzymes are negative there was concern the patient may have GI issue rather than cardiac, today patient was seen by GI and had a EGD it showed patient has erosive gastritis and patient is being treated Protonix 40 mg IV b.i.d, currently patient denies any chest palpitation fever or chills, complaint of pain on the right side of her neck worse with movement most likely muscular will apply Lidoderm patch. continue to monitor the patient and further recommendation to, patient was discharged to COVID-19 and negative (2) Person under investigation for severe acute respiratory syndrome coronavirus 2 (SARS-CoV-2) infection: Code(s): Z20.828 - Contact with and (suspected) exposure to other viral communicable diseases Status: Acute Assessment and Plan: She was swabbed for COVID in the emergency department for unclear reasons. I have a very low suspicion for COVID, however she will need to be in isolation pending those results. (3) Obstructive sleep apnea treated with BiPAP: Code(s): G47.33 - Obstructive sleep apnea (adult) (pediatric) Status: Acute Assessment and Plan: BiPAP will be provided for the patient while she is hospitalized. (4) Hypothyroidism: Code(s): E03.9 - Hypothyroidism, unspecified Status: Acute Assessment and Plan: Continue levothyroxine check TSH. (5) Chronic obstructive pulmonary disease: Code(s): J44.9 - Chronic obstructive pulmonary disease, unspecified Status: Acute Assessment and Plan: No acute issues or bronchospasm. Continue maintenance inhalers. (6) Dysphagia: Code(s): R13.10 - Dysphagia, unspecified Status: Acute Assessment and Plan: Will start PPI given her symptoms. Dr. Villalta consulted. DS: Summary Hospital Course Reason for hospitalization: Narrative: Shanita Gallo is a 64-year-old female with COPD, obstructive sleep apnea on BiPAP, type 2 diabetes mellitus, and anxiety who presented to the emergency department earlier today home for evaluation of chest pain. Three days ago on Monday simply while sitting down she developed sudden onset of left upper chest pain that she describes as sharp and constant in nature. It lasted the entire day but did improve somewhat and she was able slept that night. Since that time, the pain has recurred intermittently, and without obvious pattern. She told the ED provider that the pain was worse with exertion, but she did not indicate that to me. Associated symptoms include intermittent nausea and shortness of breath. With further questioning, she has also had a mild sore throat and reports dysphagia with pills and bread. In fact, she took her Zantac for possible GERD, which seemed to help somewhat. She takes aspirin, up to 1000 milligrams at a time for generalized aches and pains, bu
== END 2020-07-04 14:35 | disposition home or self-care (01) ==
LOC: ANHED 17:12 → ANHICU 20:27 → ANH2MED 07-03 09:35
PROVIDERS: Internal Medicine Gastroenterology; Physician Assistant; Admitting Provider Family Medicine; Emergency Provider Emergency Medicine; PCP Student in an Organized Health Care Education/Training Program; Visit Provider Family Medicine
PROC: 0DJ08ZZ Inspection of Upper Intestinal Tract, Via Natural or Artificial Opening Endoscopic (ICD-10-PCS; CPT 43235; principal; 2020-07-03 12:45)
DX: R07.89 Other chest pain (principal); K29.00 Acute gastritis without bleeding; K29.50 Unspecified chronic gastritis without bleeding; Z20.828 Contact with and (suspected) exposure to other viral communicable diseases; R13.10 Dysphagia, unspecified; M54.2 Cervicalgia; G47.33 Obstructive sleep apnea (adult) (pediatric); J44.9 Chronic obstructive pulmonary disease, unspecified; E66.01 Morbid (severe) obesity due to excess calories; Z68.43 Body mass index [BMI] 50.0-59.9, adult; E03.9 Hypothyroidism, unspecified; F17.210 Nicotine dependence, cigarettes, uncomplicated; F17.290 Nicotine dependence, other tobacco product, uncomplicated; E11.9 Type 2 diabetes mellitus without complications; F41.9 Anxiety disorder, unspecified; I25.10 Atherosclerotic heart disease of native coronary artery without angina pectoris; I25.2 Old myocardial infarction; Z79.82 Long term (current) use of aspirin; Z79.899 Other long term (current) drug therapy; Z96.653 Presence of artificial knee joint, bilateral
CPT/HCPCS: 43239; 36415; 70450; 70470; 70490; 71046; 71275; 80048; 80053; 82728; 83605; 83615; 83690; 83735; 83880; 84443; 84484; 85025; 85380; 85610; 85730; 86140; 87040; 87081; 87635; 87880; 88305; 93005; 96374; 96375; 96376; 99285; A9270; C8929; C9113; C9803; G0378; J2704; J7120; Q9957; Q9967; U0003

== ENCOUNTER → 2020-08-27 10:07 | Outpatient (CLI) | payer MEDICARE, SELFPAY ==
--- NOTE | ~2020-08-27 | MM_ITS ---
EXAMINATION: MM screening dimas BI w faiza HISTORY: Screening TECHNIQUE: Craniocaudal and mediolateral oblique 3-D tomosynthesis images were obtained and synthetic 2-D images were generated. CAD analysis was submitted and interpreted. COMPARISON: No prior mammogram is available for comparison at this institution. BREAST PARENCHYMAL COMPOSITION: There are scattered areas of fibroglandular density. FINDINGS: There is no evidence of suspicious mass, calcification, or architectural distortion to sugg est malignancy in either breast. There has been no suspicious interval change. IMPRESSION: 1. No mammographic evidence of malignancy. 2. Recommend routine screening mammography in one year. BI-RADS Category 1: Negative Reviewed, dictated and finalized at location A.
== END ==
PROVIDERS: PCP Student in an Organized Health Care Education/Training Program; Visit Provider Nurse Practitioner Obstetrics & Gynecology
DX: Z12.31 Encounter for screening mammogram for malignant neoplasm of breast (principal)
CPT/HCPCS: 77063; 77067

== ENCOUNTER → 2020-08-27 10:09 | Outpatient (CLI) | payer MEDICARE, SELFPAY ==
--- NOTE | ~2020-08-27 | DEXA_ITS ---
Bone Density Report Name: Shanita Gallo Age: 64 Sex: Female Ethnicity: White Date of : 1955 Indication: hyperparathyroidism; inflammatory bowel disease; anorexia or bulimia; asthma or emphysema; hysterectomy; secondary osteoporosis; postmenopausal Referring Provider: Wale, Tenzin Study: Bone densitometry was performed. Exam Date: August 27, 2020 Accession number: [id number] Bone Density: Region BMD T-score Z-score Classification AP Spine (L1-L4) 0.939 -1.0 0.9 Normal Femoral Neck (Left) 0.679 -1.5 0.1 Osteopenia Total Hip (Left) 0.983 0.3 1.7 Normal Femoral Neck (Right) 0.842 -0.1 1.5 Normal Total Hip (Right) 1.042 0.8 2.1 Normal Total Hip Mean 1.013 0.6 1.9 Normal World Health Organization criteria for BMD impression classify patients as: Normal (T-score at or above -1.0), Osteopenia (T-score between -1.0 and -2.5), or Osteoporosis (T-score at or below -2.5). 10-year Fracture Risk(1): Major Osteoporotic Fracture 7.1% Hip Fracture 0.7% Reported Risk Factors: [place] (), Neck BMD=0.679, BMI=55.8, secondary osteoporosis (1) FRAX(R) Version 3.08. Fracture probability calculated for an untreated patient. Fracture probability may be lower if the patient has received treatment. Clinical Information Provided by Patient: Has secondary osteoporosis Has used the following medications: Vitamin D, Calcium Has the following medical conditions: Anorexia or Bulimia, Asthma or Emphysema, Inflammatory bowel diseases, Hyperparathyroidism, Hysterectomy Patient maximum height was 59 Menopause Age: 45 No regular weight bearing exercise Does not regularly consume dairy products Drinks caffeinated beverages Onset of menses at age 9 Number of children 2 Impression: The patient has low bone mass, based on the Left Femoral Neck T-score. The patient has an estimated ten-year risk of hip fracture of 0.7% and an estimated ten-year risk of major fracture of 7.1%, based on the WHO FRAX algorithm. Discussion: BONE DENSITY IS LOW AT ONE OR MORE SKELETAL SITES. This patient's lowest T-score is low at one or more skeletal sites. It meets the World Health Organization's (WHO) criteria for ?low bone mass? (T-score between -1.0 and -2.5). The patient's 10-year risk of fracture as calculated by FRAX is less than the threshold where pharmacological therapy is recommended by the National Osteoporosis Foundation (NOF). However, all treatment decisions require clinical judgment and consideration of individual patient factors, including patient preferences, comorbidities, previous drug use, risk factors not captured in the FRAX model (e.g., frailty, falls, vitamin D deficiency, increased bone turnover, interval significant decline in bone density) and possible under or overestimation of fracture risk by
== END ==
PROVIDERS: PCP Student in an Organized Health Care Education/Training Program; Visit Provider Student in an Organized Health Care Education/Training Program
DX: Z78.0 Asymptomatic menopausal state (principal); M85.852 Other specified disorders of bone density and structure, left thigh
CPT/HCPCS: 77080

== ENCOUNTER → 2021-01-30 01:20 | Outpatient (CLI) | payer MEDICARE, SELFPAY ==
[2021-01-30 19:13] LABS: SARS-CoV-2 RNA PCR Negative
== END ==
PROVIDERS: PCP Student in an Organized Health Care Education/Training Program; Visit Provider Internal Medicine Gastroenterology
DX: Z01.812 Encounter for preprocedural laboratory examination (principal); Z20.822 Contact with and (suspected) exposure to COVID-19
CPT/HCPCS: C9803; U0003; U0005

== ENCOUNTER 2021-02-02 00:22 | Day surgery (SDC) | payer MEDICARE, SELFPAY ==
[2021-01-21 10:58] VITALS: BMI 57.4
[2021-02-02 07:47] VITALS: BP 152/78; PULSE 78; RESP 22; TEMP 36.1; O2SAT 93; BMI 56.9
--- NOTE | 2021-02-02 07:51 | PM.HPGS ---
History of Present Illness History of Present Illness Consent: Risks, benefits, and alternatives have been discussed and questions answered. Patient agrees to proceed with procedure. Chief complaint: neoplasm screening Narrative: Shanita Gallo is a 65 year old female here for colon cancer screening. Her grandmother had colon cancer Review of Systems Review of Systems: All systems reviewed & are unremarkable except as noted in HPI and below PMFSH Past Medical History Medical History Anxiety Chronic obstructive pulmonary disease Colon cancer screening Coronary artery disease With reported history of [place] in 2017. She had a cardiac catheterization at that time, with no intervention. Diastolic dysfunction Echocardiogram in December 2018 showed normal left ventricular size and function with an ejection fraction of 60% and diastolic dysfunction. Dysphagia Erosive gastritis Gastroesophageal reflux disease Hypothyroidism Morbid obesity with BMI of 50.0-59.9, adult Non-cardiac chest pain Obstructive sleep apnea treated with BiPAP Osteoarthritis Tobacco abuse Type 2 diabetes mellitus Surgical History Surgical History History of bilateral carpal tunnel release (~2005) History of bilateral cataract extraction (~2015) History of cardiac catheterization (~2016) History of hysterectomy (~1999) History of total bilateral knee replacement (~2017) History of tubal ligation (~1980) Family History Family History Father Chronic obstructive pulmonary disease Prostate carcinoma Diabetes mellitus Congestive heart failure Mother Cerebrovascular accident Grandparent Colon cancer Sibling Cystic fibrosis Chronic obstructive pulmonary disease Parkinson disease Social History Social History Social History: Surrogate decision maker: Dev Gallo, spouse. Code status: Full code. Smoking packs per day: 1 Smoking cigarettes per day: 20.0 Years smoked: 50 Smoking pack-years: 50.00 Smoking status: Former smoker Tobacco type: cigarettes Additional smoking assessment comments: As of June 2020, the patient vapes. Alcohol intake: never Substance use: never Substance use type: does not use Living arrangements: with family Additional living arrangements comments: Resides in [place] with her spouse. Gender identity (if verbalized by the patient): Female Spiritual care concerns: No Meds Home Medications and Allergies Home Medications Medication Instructions Recorded Confirmed Type alprazolam 0.5 mg PO TID PRN 07/02/20 02/02/21 History bupropion HCl 150 mg PO QAM 07/02/20 02/02/21 History citalopram 40 mg PO HS 07/02/20 02/02/21 History furosemide 20 mg PO DAILY PRN 07/02/20 02/02/21 History levothyroxine 75 mcg PO DAILY 07/02/20 02/02/21 History ropinirole 1 mg PO HS 07/02/20 02/02/21 History zolpidem 5 mg PO HS PRN 07/02/20 02/02/21 History sod picosulf 10 mg-magnes 3.5 160 ml PO BID #160 ml 01/19/21 02/02/21 Rx gram-citric 12 gram/160 mL oral solution diphenhydramine HCl [Benadryl] 50 mg PO HS 01/21/21 02/02/21 History pantoprazole [Protonix] 40 mg PO DAILY 01/21/21 02/02/21 History phentermine 37.5 mg PO DAILY 01/21/21 02/02/21 History Allergies Allergy/AdvReac Type Severity Reaction Status Date / Time sertraline [From Zoloft] Allergy Severe Hallucinati Verified 02/02/21 07:46 ng Zsgovfi-[id number]-Kab Reductase Allergy Severe Muscle Pain Verified 02/02/21 07:46 Inhibitor morphine Allergy Intermediate Hives Verified 02/02/21 07:46 Exam Const: General: cooperative Nutritional Appearance: obese Resp: Auscultation: clear to auscultation bilaterally Cardio: Rate: regular rate Rhythm: regular rhythm GI: GI Palp: No abdominal tenderness and Y
--- NOTE | 2021-02-02 07:52 | WPDANESEPPF ---
Anes - Initial Pre Proc Eval Procedure: Operation Date: 02/02/21 09:00 Proposed Procedures p Screening Colonoscopy - Shiva Xavier MD Date/Time: 02/02/21 07:52 Surgeon: Shiva Xavier MD Pre Op Diagnosis: neoplasm screening Patient Data Age: 65 Gender: F Height: 4 ft 11 in Weight: 129 kg Allergies Allergy/AdvReac Type Severity Reaction Status Date / Time sertraline [From Zoloft] Allergy Severe Hallucinati Verified 02/02/21 07:46 ng Mhnvlyc-Gys-Lpl Reductase Allergy Severe Muscle Pain Verified 02/02/21 07:46 Inhibitor morphine Allergy Intermediate Hives Verified 02/02/21 07:46 Home Medications Medication Instructions Recorded Confirmed Type alprazolam 0.5 mg PO TID PRN 07/02/20 02/02/21 History bupropion HCl 150 mg PO QAM 07/02/20 02/02/21 History citalopram 40 mg PO HS 07/02/20 02/02/21 History furosemide 20 mg PO DAILY PRN 07/02/20 02/02/21 History levothyroxine 75 mcg PO DAILY 07/02/20 02/02/21 History ropinirole 1 mg PO HS 07/02/20 02/02/21 History zolpidem 5 mg PO HS PRN 07/02/20 02/02/21 History sod picosulf 10 mg-magnes 3.5 160 ml PO BID #160 ml 01/19/21 02/02/21 Rx gram-citric 12 gram/160 mL oral solution diphenhydramine HCl [Benadryl] 50 mg PO HS 01/21/21 02/02/21 History pantoprazole [Protonix] 40 mg PO DAILY 01/21/21 02/02/21 History phentermine 37.5 mg PO DAILY 01/21/21 02/02/21 History Patient hx anesthesia problems: none Family hx anesthesia problems: none PMFSH Past Medical History Medical History (Updated 07/17/20 @ 12:19 by Johnny Villalta MD) Anxiety Chronic obstructive pulmonary disease Colon cancer screening Coronary artery disease With reported history of [place] in 2016. She had a cardiac catheterization at that time, with no intervention. Diastolic dysfunction Echocardiogram in December 2018 showed normal left ventricular size and function with an ejection fraction of 60% and diastolic dysfunction. Dysphagia Erosive gastritis Gastroesophageal reflux disease Hypothyroidism Morbid obesity with BMI of 50.0-59.9, adult Non-cardiac chest pain Obstructive sleep apnea treated with BiPAP Osteoarthritis Tobacco abuse Type 2 diabetes mellitus Surgical History Surgical History (Updated 07/03/20 @ 00:48 by Soni Zhang PA-C) History of bilateral carpal tunnel release (~2005) History of bilateral cataract extraction (~2015) History of cardiac catheterization (~2016) History of hysterectomy (~1999) History of total bilateral knee replacement (~2017) History of tubal ligation (~1980) Family History Family History Father Chronic obstructive pulmonary disease Prostate carcinoma Diabetes mellitus Congestive heart failure Mother Cerebrovascular accident Grandparent Colon cancer Sibling Cystic fibrosis Chronic obstructive pulmonary disease Parkinson disease Social History Social History (Updated 07/03/20 @ 00:49 by Soni Zhang PA-C) Social History: Surrogate decision maker: Dev Gallo, spouse. Code status: Full code. Smoking packs per day: 1 Smoking cigarettes per day: 20.0 Years smoked: 50 Smoking pack-years: 50.00 Smoking status: Former smoker Tobacco type: cigarettes Additional smoking assessment comments: As of June 2020, the patient vapes. Alcohol intake: never Substance use: never Substance use type: does not use Living arrangements: with family Additional living arrangements comments: Resides in [place] with her spouse. Gender identity (if verbalized by the patient): Female Spiritual care concerns: No Anes - Eval Final PreProcedure Day of Procedure 02/02/21 07:52 Patient weight: super morbidly obese Heart: regular rate and rhythm Lungs: clear to auscultation Airway: Mallampati scale class III Neurological: alert and oriented Last oral intake: >/= 8 hours ASA classification: IV Emergent: no
[2021-02-02] MEDS: LACTATED RINGERS 1,000 ML 150 ML IV CONT (08:09)
[2021-02-02 08:55] VITALS: BP 118/53; PULSE 88; RESP 22; O2SAT 100
[2021-02-02 09:05] VITALS: BP 122/50; PULSE 82; RESP 20; O2SAT 100
[2021-02-02 09:15] VITALS: BP 133/51; PULSE 80; RESP 20; O2SAT 100
== END 2021-02-02 09:26 | disposition home or self-care (01) ==
PROVIDERS: PCP Student in an Organized Health Care Education/Training Program; Visit Provider Internal Medicine Gastroenterology
PROC: 0DJD8ZZ Inspection of Lower Intestinal Tract, Via Natural or Artificial Opening Endoscopic (ICD-10-PCS; CPT 45378; principal; 2021-02-02 09:00)
DX: Z12.11 Encounter for screening for malignant neoplasm of colon (principal); D12.3 Benign neoplasm of transverse colon; I25.10 Atherosclerotic heart disease of native coronary artery without angina pectoris; J44.9 Chronic obstructive pulmonary disease, unspecified; I11.9 Hypertensive heart disease without heart failure; E03.9 Hypothyroidism, unspecified; G47.33 Obstructive sleep apnea (adult) (pediatric); E11.9 Type 2 diabetes mellitus without complications; K21.9 Gastro-esophageal reflux disease without esophagitis; F41.9 Anxiety disorder, unspecified; Z87.891 Personal history of nicotine dependence; E66.01 Morbid (severe) obesity due to excess calories; Z68.43 Body mass index [BMI] 50.0-59.9, adult
CPT/HCPCS: 45381; 45385; 88305; J2704; J7120

== ENCOUNTER 2021-06-14 13:11 | Emergency (ER) | payer MEDICARE, SELFPAY ==
--- NOTE | ~2021-06-14 | XR_ITS ---
EXAMINATION: XR chest 1V portable DATE: 06/14/2021 18:33 INDICATION: Bladder pain. TECHNIQUE: A single frontal view of the chest was obtained on 2 radiographs. COMPARISON: Chest 2 views 07/02/2020, CT abdomen and pelvis 06/14/2021 FINDINGS: There is mild atelectasis in left upper lobe. No pleural effusion or pneumothorax. The hear t size is normal. IMPRESSION: 1. Mild atelectasis in left upper lobe. Reviewed, dictated and finalized at location A.
--- NOTE | ~2021-06-14 | CT_ITS ---
EXAMINATION: CT abdomen pelvis w con DATE: 06/14/2021 17:31 INDICATION: Right upper quadrant abdominal pain and flank pain for one month. Hematuria. TECHNIQUE: Computed tomography (CT) of the abdomen and pelvis was performed with 100 cc Omnipaque 350 intravenous contrast. Automated exposure control and iterative reconstruction technique were employe d. Exam dose: 1393.09 mGy-cm total exam DLP. COMPARISON: 10/08/2019 right upper quadrant abdominal ultrasound examination FINDINGS: There is mild discoid atelectasis or scarring at the lung bases. Cardiomegaly. No pericardial or pleural effusion. The gallbladder is present. No gallbladder wall thickening or pericholecystic fluid or fat stranding. No hepatic space-occupying mass lesion or bile duct dilatation. No pancreatic mass lesion or calcific ation or pancreatic duct dilatation. Normal splenic size. Normal morphology of the adrenal glands. No renal or ureteral or urinary bladder calculus or hydroureteronephrosis is detected. No renal space occupying mass lesion. Normal caliber of the abdominal aorta and iliac arteries. No abdominal aortic aneurysm. No intraperitoneal or retroperitoneal or pelvic mass lesion or adenopathy or ascites is detected. Status post hysterectomy. Diverticulosis of the sigmoid colon and to a lesser extent right colon; no CT evidence of diverticuli tis. No bowel obstruction or intraperitoneal free air. No CT evidence of appendicitis. No suspicious osteolytic or osteoblastic lesions are noted. IMPRESSION: No urinary tract calculus or hydroureteronephrosis Diverticulosis of the colon; no CT evidence of diverticulitis Cardiomegaly Reviewed, dictated and finalized at Location A. Reviewed, dictated and finalized at location B.
[2021-06-14 13:22] VITALS: BP 152/84; PULSE 74; RESP 14; TEMP 36.4; O2SAT 99
[2021-06-14 13:44] LABS: Basophils Absolute Auto 0.1 K/mm3 (0.0-0.1); Basophils Percent Auto 0.8 % (0.2-1.2); Eosinophils Absolute Auto 0.5 K/mm3 (0-0.3); Eosinophils Percent Auto 5.7 % (0-4.4); Hematocrit 38.5 % (37.0-47.0); Hemoglobin 12.1 g/dL (12.0-15.0); Immature Granulocyte Absolute 0.05 K/mm3 (0.00-0.031); Immature Granulocyte Percent A 0.6 % (0-0.5); Lymphocytes Absolute Auto 1.75 K/mm3 (0.9-3.2); Lymphocytes Percent Auto 20.3 % (18.3-44.2); Mean Corpuscular HGB Conc 31.4 g/dl (32-36); Mean Corpuscular Hemoglobin 31.3 pg (26-34); Mean Corpuscular Volume 99.7 fl (80-100); Mean Platelet Volume 9.3 fl (7.4-10.4); Monocytes Absolute Auto 0.6 K/mm3 (0.1-0.6); Monocytes Percent Auto 7.2 % (2.6-8.5); Neutrophils Absolute Auto 5.7 K/mm3 (1.3-6.7); Neutrophils Percent Auto 65.4 % (45.5-73.1); Platelet Count Result 388 k/mm3 (150-375); Red Blood Count 3.86 M/mm3 (4.2-5.4); White Blood Count 8.6 K/mm3 (4.5-10.0)
[2021-06-14 14:17] LABS: Anion Gap 6 mmol/L (8-16); Blood Urea Nitrogen 16 mg/dL (7-17); Calcium 9.3 mg/dL (8.4-10.2); Carbon Dioxide 32 mmol/L (22-30); Chloride 100 mmol/L (98-107); Estimated Glomerular Filt Rate > 60; Glucose 124 mg/dL (65-110); Potassium 4.5 mmol/L (3.4-5.0); Sodium 138 mmol/L (137-145)
[2021-06-14 14:29] LABS: Add Urine Microscopic? YES; Appearance Urine Cloudy (Clear); Bacteria Urine Trace /hpf; Bilirubin Urine Negative (Negative); Blood Urine Negative (Negative); Color Urine Yellow (Yellow); Glucose Urine UA Negative (Negative); Ketones Urine Negative (Negative); Leukocyte Esterase Ur Negative LEU/UL (Negative); Mucus Urine Few /lpf; Nitrate Urine Negative (Negative); Protein Urine 1+ mg/dL (Negative); RBC Urine 0-2 /hpf (0-2); Specific Grav Ur 1.028 (1.001-1.035); Squamous Epithelial Cell Urine Many /hpf (Few); WBC Urine 0-3 /hpf
[2021-06-14 16:31] VITALS: PULSE 65; RESP 16; TEMP 35.7; O2SAT 97
--- NOTE | 2021-06-14 16:56 | PC.NURSE ---
called phlebotomy and added labs, spoke to Kinza at this time
--- NOTE | 2021-06-14 17:07 | ED.ABDPAIN ---
HPI - Abdominal Pain General Chief Complaint: Urogenital-Female Stated Complaint: uti Time Seen by Provider: 06/14/21 16:40 Source: patient and RN notes reviewed Limitations: no limitations History of Present Illness HPI narrative: Patient 65 years old white female presented to the ED with right upper quadrant pain radiating to right mid back and right shoulder started over 1 month ago. Intermittent. Associated with nausea and chills. History of hysterectomy, appendectomy. History of diabetes, not taking any medication anymore at this time, depression, peptic ulcer disease, anxiety, restless leg syndrome. Related Data Home Medications Medication Instructions Recorded Confirmed alprazolam 0.5 mg PO TID PRN 07/02/20 02/02/21 bupropion HCl 150 mg PO QAM 07/02/20 02/02/21 citalopram 40 mg PO HS 07/02/20 02/02/21 furosemide 20 mg PO DAILY PRN 07/02/20 02/02/21 levothyroxine 75 mcg PO DAILY 07/02/20 02/02/21 ropinirole 1 mg PO HS 07/02/20 02/02/21 zolpidem 5 mg PO HS PRN 07/02/20 02/02/21 diphenhydramine HCl [Benadryl] 50 mg PO HS 01/21/21 02/02/21 pantoprazole [Protonix] 40 mg PO DAILY 01/21/21 02/02/21 phentermine 37.5 mg PO DAILY 01/21/21 02/02/21 Allergies Allergy/AdvReac Type Severity Reaction Status Date / Time sertraline [From Zoloft] Allergy Severe Hallucinati Verified 06/14/21 16:37 ng Pwasfgu-Cxa-Bor Reductase Allergy Severe Muscle Pain Verified 06/14/21 16:37 Inhibitor morphine Allergy Intermediate Hives Verified 06/14/21 16:37 denosumab [From Prolia] Allergy Other Verified 06/14/21 16:37 Review of Systems Review of Systems: CONSTITUTIONAL: Denies fever, chills, or sweats. EYES: Denies visual changes, redness, or discharge. ENT: Denies rhinorrhea, congestion, sore throat, or otalgia. CARDIOVASCULAR: Denies chest pain, palpitations, or edema. RESPIRATORY: Denies cough or dyspnea. GASTROINTESTINAL: Denies abdominal pain, nausea, vomiting, or diarrhea. GENITOURINARY: Denies dysuria or hematuria. SKIN: Denies rash or itching. MUSCULOSKELETAL: Denies back pain, joint pain, or myalgia. NEUROLOGIC: Denies headache, numbness, or weakness. PSYCHIATRIC: Denies anxiety or depression. [facility] Past Medical History Medical History Anxiety Chronic obstructive pulmonary disease Colon cancer screening Coronary artery disease With reported history of [place] in [place]. She had a cardiac catheterization at that time, with no intervention. Diastolic dysfunction Echocardiogram in December 2018 showed normal left ventricular size and function with an ejection fraction of 60% and diastolic dysfunction. Dysphagia Erosive gastritis Gastroesophageal reflux disease Hypothyroidism Morbid obesity with BMI of 50.0-59.9, adult Non-cardiac chest pain Obstructive sleep apnea treated with BiPAP Osteoarthritis Tobacco abuse Type 2 diabetes mellitus Surgical History Surgical History History of bilateral carpal tunnel release (~2005) History of bilateral cataract extraction (~2015) History of cardiac catheterization (~2016) History of hysterectomy (~1999) History of total bilateral knee replacement (~2017) History of tubal ligation (~1980) Family History Family History Father Chronic obstructive pulmonary disease Prostate carcinoma Diabetes mellitus Congestive heart failure Mother Cerebrovascular accident Grandparent Colon cancer Sibling Cystic fibrosis Chronic obstructive pulmonary disease Parkinson disease Social History Social History Social History: Surrogate decision maker: Dev Gallo, spouse. Code status: Full code. Smoking packs per day: 1 Smoking cigarettes per day: 20.0 Years smoked: 50 Smoking pack-years: 50.00 Smoking status: Former smoker Tobacco type: cigarettes Additional smo
[2021-06-14 17:08] LABS: Alanine Aminotransferase 26 U/L (4-35); Alkaline Phosphatase 83 U/L (38-126); Aspartate Amino Transferase 29 U/L (14-36); Bilirubin,Total 0.2 mg/dL (0.2-1.3)
[2021-06-14] MEDS: SODIUM CHLORIDE 0.9% IV 1,000 ML 999 ML IV CONT (17:47)
[2021-06-14 18:24] VITALS: BP 139/86; PULSE 64; RESP 22; O2SAT 98
--- NOTE | 2021-06-14 19:26 | PC.NURSE ---
Assumed care of pt at this time. Pt alert and upright on stretcher, states she is ready to go home.
[2021-06-14 19:44] VITALS: BP 127/92; PULSE 93; RESP 16; O2SAT 96
--- NOTE | 2021-06-14 19:56 | PC.NURSE ---
Pt refused remaining amount of IV fluids.
== END 2021-06-14 20:03 | disposition home or self-care (01) ==
PROVIDERS: Emergency Medicine; Emergency Provider Emergency Medicine; PCP Student in an Organized Health Care Education/Training Program
DX: R10.11 Right upper quadrant pain (principal); M54.9 Dorsalgia, unspecified; E11.9 Type 2 diabetes mellitus without complications; F32.9 Major depressive disorder, single episode, unspecified; G25.81 Restless legs syndrome; J44.9 Chronic obstructive pulmonary disease, unspecified; I25.10 Atherosclerotic heart disease of native coronary artery without angina pectoris; F41.9 Anxiety disorder, unspecified; E66.01 Morbid (severe) obesity due to excess calories; Z68.43 Body mass index [BMI] 50.0-59.9, adult; G47.33 Obstructive sleep apnea (adult) (pediatric); M19.90 Unspecified osteoarthritis, unspecified site; Z87.11 Personal history of peptic ulcer disease; Z98.42 Cataract extraction status, left eye; Z98.41 Cataract extraction status, right eye; Z96.653 Presence of artificial knee joint, bilateral; Z87.891 Personal history of nicotine dependence; K57.90 Diverticulosis of intestine, part unspecified, without perforation or abscess without bleeding; I51.7 Cardiomegaly
CPT/HCPCS: 36415; 71045; 74177; 80048; 80076; 81001; 85025; 96360; 96361; 99284; J7030; Q9967

== ENCOUNTER → 2021-07-30 01:26 | Outpatient (CLI) | payer MEDICARE, SELFPAY ==
[2021-07-30 19:38] LABS: SARS-CoV-2 RNA PCR Negative
== END ==
PROVIDERS: PCP Student in an Organized Health Care Education/Training Program; Visit Provider Internal Medicine Gastroenterology
DX: Z01.812 Encounter for preprocedural laboratory examination (principal); Z20.822 Contact with and (suspected) exposure to COVID-19
CPT/HCPCS: C9803; U0003; U0005

== ENCOUNTER 2021-08-02 01:12 | Day surgery (SDC) | payer MEDICARE, SELFPAY ==
[2021-07-22 10:38] VITALS: BMI 57.6
[2021-08-02 08:02] VITALS: BP 145/66; PULSE 65; RESP 22; TEMP 36.7; O2SAT 96
[2021-08-02] MEDS: LACTATED RINGERS 1,000 ML 150 ML IV CONT (08:16)
--- NOTE | 2021-08-02 08:21 | WPDHPUPDATE1 ---
History and Physical Update Update Date/Time: 08/02/21 08:21 History and Physical has been reviewed, including an updated exam of the patient. There are NO changes in the patient's condition. Risks, benefits, and alternatives have been discussed and questions answered. Patient agrees to proceed with procedure.
--- NOTE | 2021-08-02 08:23 | WPDANESEPPF ---
Anes - Initial Pre Proc Eval Procedure: Operation Date: 08/02/21 09:00 Proposed Procedures p Esophagogastroduodenoscopy - Johnny Villalta MD Date/Time: 08/02/21 08:23 Surgeon: Johnny Villalta MD Pre Op Diagnosis: right upper quadrant pain Patient Data Age: 65 Gender: F Height: 1.5 m Weight: 130.6 kg Last Vital Signs Temp 98.1 F 08/02/21 08:02 Pulse 65 08/02/21 08:02 Resp 22 H 08/02/21 08:02 BP 145/66 H 08/02/21 08:02 Pulse Ox 96 08/02/21 08:02 Allergies Allergy/AdvReac Type Severity Reaction Status Date / Time sertraline [From Zoloft] Allergy Severe Hallucinati Verified 08/02/21 08:01 ng Upuprrr-Gdi-Ijt Reductase Allergy Severe Muscle Pain Verified 08/02/21 08:01 Inhibitor morphine Allergy Intermediate Hives Verified 08/02/21 08:01 denosumab [From Prolia] Allergy Other Verified 08/02/21 08:01 Home Medications Medication Instructions Recorded Confirmed Type alprazolam 0.5 mg PO TID PRN 07/02/20 08/02/21 History citalopram 40 mg PO HS 07/02/20 08/02/21 History furosemide 20 mg PO DAILY PRN 07/02/20 08/02/21 History ropinirole 1 mg PO HS 07/02/20 08/02/21 History zolpidem 5 mg PO HS PRN 07/02/20 08/02/21 History sod picosulf 10 mg-magnes 3.5 160 ml PO BID #160 ml 01/19/21 08/02/21 Rx gram-citric 12 gram/160 mL oral solution diphenhydramine HCl [Benadryl] 50 mg PO HS 01/21/21 08/02/21 History pantoprazole [Protonix] 40 mg PO DAILY 01/21/21 08/02/21 History levothyroxine 75 mcg tablet 100 mcg PO DAILY tablet 07/01/21 08/02/21 History Patient hx anesthesia problems: none Family hx anesthesia problems: none PMFSH Past Medical History Medical History (Updated 07/01/21 @ 14:08 by Johnny Villalta MD) Adenomatous colon polyp Anxiety Chronic obstructive pulmonary disease Colon cancer screening Coronary artery disease With reported history of [place] in 2017. She had a cardiac catheterization at that time, with no intervention. Diastolic dysfunction Echocardiogram in December 2018 showed normal left ventricular size and function with an ejection fraction of 60% and diastolic dysfunction. Dysphagia Erosive gastritis Gastroesophageal reflux disease Hypothyroidism Morbid obesity with BMI of 50.0-59.9, adult Non-cardiac chest pain Obstructive sleep apnea treated with BiPAP Osteoarthritis Tobacco abuse Type 2 diabetes mellitus Surgical History Surgical History History of bilateral carpal tunnel release (~2005) History of bilateral cataract extraction (~2015) History of cardiac catheterization (~2016) History of hysterectomy (~1999) History of total bilateral knee replacement (~2017) History of tubal ligation (~1980) Family History Family History Father Chronic obstructive pulmonary disease Prostate carcinoma Diabetes mellitus Congestive heart failure Mother Cerebrovascular accident Grandparent Colon cancer Sibling Cystic fibrosis Chronic obstructive pulmonary disease Parkinson disease Social History Social History Social History: Surrogate decision maker: Dev Gallo, spouse. Code status: Full code. Smoking packs per day: 1 Smoking cigarettes per day: 20.0 Years smoked: 54 Smoking pack-years: 54.00 Smoking status: Former smoker Tobacco type: cigarettes Additional smoking assessment comments: As of June 2020, the patient vapes. Alcohol intake: never Substance use: never Substance use type: does not use Additional living arrangements comments: Resides in [place] with her spouse. Gender identity (if verbalized by the patient): Female Spiritual care concerns: No Anes - Eval Final PreProcedure Day of Procedure 08/02/21 08:23 Patient weight: super morbidly obese Heart: regular rate and rhyt
[2021-08-02] MEDS: BENZOCAINE (*SP) 60 ML SPRAY CAN (HURRICAINE) 1 SPRAY MUCOUS MEM (08:27)
[2021-08-02 08:43] VITALS: BP 177/80; PULSE 81; RESP 20; O2SAT 94
[2021-08-02 08:53] VITALS: BP 161/77; PULSE 68; RESP 24; O2SAT 94
[2021-08-02 09:03] VITALS: BP 166/77; PULSE 66; RESP 22; O2SAT 94
== END 2021-08-02 09:20 | disposition home or self-care (01) ==
PROVIDERS: PCP Student in an Organized Health Care Education/Training Program; Visit Provider Internal Medicine Gastroenterology
PROC: 0DJ08ZZ Inspection of Upper Intestinal Tract, Via Natural or Artificial Opening Endoscopic (ICD-10-PCS; CPT 43235; principal; 2021-08-02 09:00)
DX: R10.11 Right upper quadrant pain (principal); K21.9 Gastro-esophageal reflux disease without esophagitis; K29.70 Gastritis, unspecified, without bleeding; I25.10 Atherosclerotic heart disease of native coronary artery without angina pectoris; I51.89 Other ill-defined heart diseases; E03.9 Hypothyroidism, unspecified; G47.33 Obstructive sleep apnea (adult) (pediatric); E11.9 Type 2 diabetes mellitus without complications; F41.9 Anxiety disorder, unspecified; J44.9 Chronic obstructive pulmonary disease, unspecified; F17.290 Nicotine dependence, other tobacco product, uncomplicated; E66.01 Morbid (severe) obesity due to excess calories; Z68.43 Body mass index [BMI] 50.0-59.9, adult
CPT/HCPCS: 43239; 88305; J7120

== ENCOUNTER 2021-08-25 11:37 | Outpatient (CLI) | payer MEDICARE, SELFPAY ==
--- NOTE | ~2021-08-25 | US_ITS ---
EXAMINATION: US venous doppler LE EXAM DATE: 08/25/2021 12:19 INDICATION: Bilateral lower extremity swelling. TECHNIQUE: Multiple grayscale, color flow and Doppler images of the lower extremity deep venous syste ms bilaterally were obtained and reviewed. There is no prior study for comparison. FINDINGS: Right side: The right common femoral, femoral and profunda veins demonstrate normal color flow, respi ratory variation, augmentation and compressibility. Compressibility, color flow confirmed within the right popliteal, posterior tibial, peroneal, and greater saphenous veins. Left side: The left common femoral, femoral and profunda veins demonstrate normal color flow, respira tory variation, augmentation and compressibility. Compressibility, color flow confirmed within the l eft popliteal, posterior tibial, peroneal, and greater saphenous veins. IMPRESSION: 1. No lower extremity deep venous thrombosis bilaterally. Reviewed, dictated and finalized at location A.
--- OUTSIDE RECORDS SUMMARY | 2021-12-28 11:26 | XMS_ITS | Referral Summary ---
:1955 Author Organization [facility] Address [address] [place] [id number] [place] [id number] Care Team Providers Name Role Phone Ederjudithperrydevante Devon JAY Primary Care Provider Stefanie Howe MD Unavailable Reason for Referral Consultation (Routine) - New Request Specialty Diagnoses / Procedures Referred By Contact Refer red To Contact ENDOCRINOLOGY Diagnoses Type 2 diabetes mellitus without complication, without long-term current use of insulin (CMS/HCC) Aleida Hicks FNP Sitaula, Sujata, MD [address] [place] [id number] [place] [phone] Fax: Referral ID Status Reason Start Date Expiration Date Visits V isits Requested Authorized [id number] New Request 12/20/2021 01/17/2023 1 1 C JOURNALIST Consultation (Routine) - New Request Specialty Diagnoses / Procedures Referred By Contact Refer red To Contact NUTRITION Diagnoses Type 2 diabetes mellitus without complication, without long-term current use of insulin (CMS/HCC) BMI 50.0-59.9, adult (CMS/HCC) Aleida Hicks FNP [address] [place] [id number] [place] [address]
== END 2021-08-25 11:38 | disposition home or self-care (01) ==
LOC: ANHIMG 11:41
PROVIDERS: PCP Student in an Organized Health Care Education/Training Program; Visit Provider Student in an Organized Health Care Education/Training Program
DX: M79.89 Other specified soft tissue disorders (principal)
CPT/HCPCS: 93970

== ENCOUNTER 2022-01-22 13:06 | Emergency (ER) | payer MEDICARE, SELFPAY ==
[2022-01-22] VITALS (23 sets, daily range): BP systolic 127–181; BP diastolic 63–84; PULSE 60–73; RESP 12–25; TEMP 36.2–36.3; O2SAT 78–100
--- NOTE | ~2022-01-22 | XR_ITS ---
EXAMINATION: XR chest 2V DATE: 01/22/2022 15:18 INDICATION: Shortness of breath and intermittent chest pain. Leg edema and weakness. TECHNIQUE: PA and lateral views of the chest were obtained. COMPARISON: Chest radiograph dated 06/14/2021 FINDINGS: Cardiomegaly and pulmonary vascular congestion but without gordo pulmonary edema. Couple unchanged li near bands of chronic discoid atelectasis/scarring at the left midlung zone. No pleural effusion or p neumothorax. Mediastinal silhouette is normal. Mild thoracic spondylosis. IMPRESSION: 1. Cardiomegaly with pulmonary vascular congestion but without gordo pulmonary edema. 2. Unchanged chronic discoid atelectasis/scarring at the left midlung zone. Reviewed, dictated and finalized at location A. TESTER
--- NOTE | ~2022-01-22 | NM_ITS ---
EXAMINATION: NM pulmonary perfusion DATE: 01/22/2022 18:28 INDICATION: Wrist pain, shortness of breath and elevated d-dimer. TECHNIQUE: 5.1 Tc-99m MAA by intravenous route. Scintigraphic images of the chest were obtained. COMPARISON: Chest radiograph dated 01/22/[address] dated 07/02/2020 FINDINGS: There is relatively homogeneous perfusion throughout the lungs. No discrete perfusion defects identif ied. Cardiomegaly. IMPRESSION: 1. Low probability for pulmonary embolism. Reviewed, dictated and finalized at location A. ERS SUPERVISOR
--- NOTE | 2022-01-22 13:07 | ECG_ITS ---
Measurements Intervals [place] Rate: 63 P: 60 DE: 141 QRS: 63 QRSD: 89 T: 72 QT: 367 QTc: 377 Interpretive Statements SINUS RHYTHM LOW QRS VOLTAGE IN PRECORDIAL LEADS [QRS DEFLECTION < 1.0 mV IN CHEST LEADS] NONSPECIFIC T-WAVE ABNORMALITY COMPARED TO ECG 07/02/2020 13:04:28 NO SIGNIFICANT CHANGE Electronically Signed On 01-22-2022 13:24:56 POINT OF CARE TECHNICIAN by Muna Young M.D.
[2022-01-22 13:49] LABS: Basophils Absolute Auto 0.1 K/mm3 (0.0-0.1); Basophils Percent Auto 0.8 % (0.2-1.2); Eosinophils Absolute Auto 0.4 K/mm3 (0-0.3); Eosinophils Percent Auto 4.8 % (0-4.4); Hematocrit 38.4 % (37.0-47.0); Hemoglobin 12.3 g/dL (12.0-15.0); Immature Granulocyte Absolute 0.04 K/mm3 (0.00-0.031); Immature Granulocyte Percent A 0.5 % (0-0.5); Lymphocytes Absolute Auto 1.34 K/mm3 (0.9-3.2); Lymphocytes Percent Auto 17.5 % (18.3-44.2); Mean Corpuscular Hemoglobin 31.5 pg (26-34); Mean Corpuscular Volume 98.5 fl (80-100); Mean Platelet Volume 8.9 fl (7.4-10.4); Monocytes Absolute Auto 0.5 K/mm3 (0.1-0.6); Monocytes Percent Auto 6.9 % (2.6-8.5); Neutrophils Absolute Auto 5.3 K/mm3 (1.3-6.7); Neutrophils Percent Auto 69.5 % (45.5-73.1); Platelet Count Result 345 k/mm3 (150-375); White Blood Count 7.7 K/mm3 (4.5-10.0)
[2022-01-22 14:01] LABS: Alanine Aminotransferase 25 U/L (4-35); Albumin Level 4.2 g/dL (3.5-5.1); Alkaline Phosphatase 92 U/L (38-126); Anion Gap 7 mmol/L (8-16); Aspartate Amino Transferase 27 U/L (14-36); Bilirubin,Total 0.4 mg/dL (0.2-1.3); Blood Urea Nitrogen 17 mg/dL (7-17); Calcium 8.7 mg/dL (8.4-10.2); Carbon Dioxide 30 mmol/L (22-30); Chloride 102 mmol/L (98-107); Estimated Glomerular Filt Rate > 60; Glucose 134 mg/dL (65-110); Potassium 4.3 mmol/L (3.4-5.0); Sodium 139 mmol/L (137-145)
--- NOTE | 2022-01-22 14:17 | PC.NURSE ---
IV attempts x2 unsuccessful per this RN.
--- NOTE | 2022-01-22 14:20 | PC.NURSE ---
Note dyspnea on approx 10 foot trip to restroom. Pt states for the past 4 weeks has been feeling more short of breath.
[2022-01-22 14:39] LABS: NT Pro B Type Natriuretic Pept 66 pg/mL (5-100)
--- NOTE | 2022-01-22 14:40 | ED.SOB ---
HPI - SOB/Dyspnea General Chief Complaint: Shortness of Breath/Dyspnea Stated Complaint: shortness of breath Time Seen by Provider: 01/22/22 13:52 Source: patient Mode of arrival: ambulatory Limitations: no limitations History of Present Illness HPI Narrative: This is a 66 year old female that presents to the ER for worsening shortness of breath. Ongoing over the last couple of weeks. Worsened with exertion. Reports some chest tightness intermittently noted over the last couple of days. Does report a cough and lower extremity edema. Denies fever. Related Data Home Medications Medication Instructions Recorded Confirmed alprazolam 0.5 mg PO TID PRN 07/02/20 08/02/21 citalopram 40 mg PO HS 07/02/20 08/02/21 furosemide 20 mg PO DAILY PRN 07/02/20 08/02/21 ropinirole 1 mg PO HS 07/02/20 08/02/21 zolpidem 5 mg PO HS PRN 07/02/20 08/02/21 diphenhydramine HCl [Benadryl] 50 mg PO HS 01/21/21 08/02/21 pantoprazole [Protonix] 40 mg PO DAILY 01/21/21 08/02/21 levothyroxine 75 mcg tablet 100 mcg PO DAILY tablet 07/01/21 08/02/21 duloxetine mg PO 01/22/22 01/22/22 Allergies Allergy/AdvReac Type Severity Reaction Status Date / Time morphine Allergy Intermediate Hives Verified 01/22/22 13:59 denosumab [From Prolia] Allergy Unknown Other Verified 01/22/22 13:59 sertraline [From Zoloft] AdvReac Severe Hallucinati Verified 01/22/22 13:59 ng Whfttnc-TVA-UpA Reductase AdvReac Severe Muscle Pain Verified 01/22/22 13:59 Inhibitor [Yqdcrvf-Jzo-Edj Reductase Inhibitor] Review of Systems Review of Systems: CONSTITUTIONAL: Denies fever CARDIOVASCULAR: Reports chest pain, and edema. RESPIRATORY: Reports cough and dyspnea. All systems reviewed & are unremarkable except as noted in HPI and below PMFSH Past Medical History Medical History (Updated 01/22/22 @ 19:11 by Marie Nolan PA-C) Adenomatous colon polyp Anxiety Chronic obstructive pulmonary disease Colon cancer screening Coronary artery disease With reported history of [place] in 2017. She had a cardiac catheterization at that time, with no intervention. Diastolic dysfunction Echocardiogram in December 2018 showed normal left ventricular size and function with an ejection fraction of 60% and diastolic dysfunction. Dysphagia Erosive gastritis Gastroesophageal reflux disease Hypothyroidism Morbid obesity with BMI of 50.0-59.9, adult Non-cardiac chest pain Obstructive sleep apnea treated with BiPAP Osteoarthritis Tobacco abuse Type 2 diabetes mellitus Surgical History Surgical History History of bilateral carpal tunnel release (~2005) History of bilateral cataract extraction (~2015) History of cardiac catheterization (~2016) History of hysterectomy (~1999) History of total bilateral knee replacement (~2017) History of tubal ligation (~1980) Family History Family History Father Chronic obstructive pulmonary disease Prostate carcinoma Diabetes mellitus Congestive heart failure Mother Cerebrovascular accident Grandparent Colon cancer Sibling Cystic fibrosis Chronic obstructive pulmonary disease Parkinson disease Social History Social History Social History: Surrogate decision maker: Dev Gallo, spouse. Code status: Full code. Smoking packs per day: 1 Smoking cigarettes per day: 20.0 Years smoked: 54 Smoking pack-years: 54.00 Smoking status: Former smoker Tobacco type: cigarettes Additional smoking assessment comments: As of June 2020, the patient vapes. Alcohol intake: never Substance use: never Substance use type: does not use Additional living arrangements comments: Resides in [place] with her spouse. Gender identity (if verbalized by the patient): Female Spiritual care concerns: No Exam Narrative: GENERAL:
[2022-01-22 14:55] LABS: Troponin I < 0.012 ng/mL (0.000-0.034)
[2022-01-22 14:58] LABS: Alveolar/Arterial O2 Gradient 25.7 mmHg; Base Excess ABG 1.7 mEq/l (+/-2.0); Carboxyhemoglobin 0.6 % THb (0-2.0); Fractional Inspired Oxygen 21 %; HCO3 ABG 26.1 mEq/l (22.0-26.0); Methemoglobin ABG 0.2 %THb (0-1.5); Oxygen Content ABG 17.2 %vol (16.0-22.0); Oxygen Saturation ABG 95.6 % (95.0-100.0); Oxyhemoglobin 94.1 % THb (90.0-100.0); PCO2 ABG 40.2 mmHg (35.0-45.0); PO2 ABG 75.9 mmHg (80.0-100.0); PO2 FiO2 Ratio Arterial Blood 3.61 %; Reduced Hemoglobin 5.1 %THb (0-5.0)
[2022-01-22 14:59] LABS: Device ROOM AIR; Modified Allen's Test Pass; Site Drawn RIGHT RADIAL
--- NOTE | 2022-01-22 15:29 | PC.NURSE ---
Pt returns from second trip to xray. Erik Rios, attempting to initiate IV with ultrasound.
--- NOTE | 2022-01-22 15:46 | PC.NURSE ---
IV unsuccessful with ultrasound per RISSA Rios.
[2022-01-22 16:42] LABS: INR 0.9; Prothrombin Time 12.1 Seconds (11.1-14.7)
--- NOTE | 2022-01-22 17:02 | PC.NURSE ---
Note d-dimer elevated, continue to attempt to obtain IV access for further testing.
--- NOTE | 2022-01-22 17:34 | PC.NURSE ---
VQ contacted to come in for Scan as unable to obtain IV access after numerous attempts.
--- NOTE | 2022-01-22 17:56 | PC.NURSE ---
Per Keira in Nuclear med states an IV is needed in order to do a scan. JOSE ANTONIO Salazar, and Dr. Forman made aware.
--- NOTE | 2022-01-22 19:12 | PC.NURSE ---
Report to RISSA Giraldo, to continue care. Pt ambulatory to br
== END 2022-01-22 20:00 | disposition home or self-care (01) ==
PROVIDERS: Physician Assistant; Emergency Provider Emergency Medicine; PCP Student in an Organized Health Care Education/Training Program
DX: R06.00 Dyspnea, unspecified (principal); J44.9 Chronic obstructive pulmonary disease, unspecified; I25.10 Atherosclerotic heart disease of native coronary artery without angina pectoris; I25.2 Old myocardial infarction; E03.9 Hypothyroidism, unspecified; G47.33 Obstructive sleep apnea (adult) (pediatric); E11.9 Type 2 diabetes mellitus without complications; K21.9 Gastro-esophageal reflux disease without esophagitis; F41.9 Anxiety disorder, unspecified; Z86.010 Personal history of colon polyps; Z98.42 Cataract extraction status, left eye; Z98.41 Cataract extraction status, right eye; Z96.653 Presence of artificial knee joint, bilateral; F17.290 Nicotine dependence, other tobacco product, uncomplicated; I51.7 Cardiomegaly; R09.89 Other specified symptoms and signs involving the circulatory and respiratory systems; R94.31 Abnormal electrocardiogram [ECG] [EKG]
CPT/HCPCS: 36415; 36600; 71046; 78580; 80053; 82375; 82805; 83050; 83880; 84484; 85025; 85380; 85610; 85730; 93005; 99284; A9540

== ENCOUNTER → 2022-02-15 00:26 | Outpatient (CLI) | payer MEDICARE, SELFPAY ==
[2022-02-15 11:12] LABS: SARS-CoV-2 RNA PCR Negative
== END ==
PROVIDERS: Visit Provider Internal Medicine Critical Care Medicine
DX: R68.89 Other general symptoms and signs (principal); Z20.822 Contact with and (suspected) exposure to COVID-19
CPT/HCPCS: C9803; U0003; U0005

== ENCOUNTER 2022-02-17 07:40 | Outpatient (CLI) | payer MEDICARE, SELFPAY ==
--- NOTE | 2022-03-03 15:27 | WPDSLEEPSTUD ---
Sleep Study Date of Study: 02/17/22 Ordering Provider: Daljit Franks MD Interpreting Physician: Imelda Gonzalez, Sleep Study Type: BiPAP Titration Height: 1.5 m Weight: 133.81 kg Body Mass Index: 59.5 Neck Circumference (inches): 23 [place]: 0 Reason for Sleep Study The patient is currently on BPAP with oxygen at home. She feels like she is not getting enough air. Sleep History The patient is a 66-year-old female with anxiety, COPD, coronary artery disease, congestive heart failure, GERD, hypothyroidism, morbid obesity, type 2 diabetes, DAE on BiPAP, history of tobacco use and history of myocardial infarction and 2017 had a BiPAP titration ordered by her disability representative. The patient is currently on BiPAP 21/16 cm H2O. Her residual AHI is 1.1. The patient frequently awakens from sleep short of breath. She rarely awakens at night with heartburn, belching or cough. She denies snoring loud enough that others complain. She rarely has trouble sleeping she has a cold. She occasionally wakes up gasping for air throughout the night. She denies having breathing problems at night observed by herself or others. She occasionally sweats excessively at night. She occasionally has heart palpitations or irregular heartbeats during the night. She frequently falls asleep during the day but never while driving. She denies sleep paralysis, and cataplexy. She rarely experiences vivid dreamlike scenes upon awakening or falling asleep. She denies having nightmares. She occasionally remembers her dreams. She occasionally has thoughts racing through her mind. She denies feeling sad or depressed. She denies having anxiety. He frequently has muscular tension. She rarely notices parts of her body jerk. She rarely kicks during the night. He rarely has crawling and aching feelings in her legs but denies leg pain during the night. She denies grinding her teeth during sleep and awakening with morning jaw pain. She is constantly bothered by pain during the day. She constantly wakes up feeling stiff in the morning with sore or achy muscles. She constantly wakes up with pain in the neck, spine and other joints. She goes to bed between 11:00 p.m. and 1:00 a.m. on both weekdays and weekends. He can take a 1-2 hours to fall asleep with the medication. She wakes up 2-3 times throughout the night. When she awakens, she will go back to sleep after she checks her mask for air. She can fall back asleep within 2-3 minutes. She wakes up between 630 and 7:00 a.m. on both weekdays and weekends. She typically gets 4-5 hours of sleep per night. She will stay in bed for 15 minutes after waking up in the morning. She currently lives with her . She denies consuming any caffeinated beverages within 2 hours of bedtime. She does not engage in physical exercise before bedtime. She will watch television before falling asleep. She will take naps in the afternoon or the evening but they are not refreshing. She currently drinks 2 cups of caffeinated beverage per day. She quit smoking cigarettes 2 years ago. She denies alcohol and recreational drug use. [facility] Past Medical History Medical History Adenomatous colon polyp Anxiety Chronic obstructive pulmonary disease Colon cancer screening Coronary artery disease With reported history of [place] in 2016. She had a cardiac catheterization at that time, with no intervention. Diastolic dysfunction Echocardiogram in December 2018 showed normal left ventricular size and function with an ejection fraction of 60% and diastolic dysfunction. Dysphagia Erosive gastritis Gastroesophageal reflux disease Hypothyroidism Morbid obesity with BMI of 50.0-59.9, adult Non-cardiac chest pain Obstructive sleep apnea treated with BiPAP Osteoarthritis Tobacco abuse Type 2 diabetes mellitus Surgical History Surgical History (Reviewed 03/03/22 @ 15:42 by Imelda Gonzalez
[2022-03-03 15:31] VITALS: BMI 59.5
== END 2022-02-18 06:56 | disposition home or self-care (01) ==
LOC: ANHCSM 10:00
PROVIDERS: Visit Provider Internal Medicine Pulmonary Disease
DX: G47.33 Obstructive sleep apnea (adult) (pediatric) (principal)
CPT/HCPCS: 95811

== ENCOUNTER 2022-02-22 12:44 | Outpatient (CLI) | payer MEDICARE, SELFPAY ==
[2022-02-22 13:00] VITALS: PULSE 69; O2SAT 93
[2022-02-22 13:05] VITALS: PULSE 96; O2SAT 87
[2022-02-22 13:10] VITALS: PULSE 102; O2SAT 88
[2022-02-22 13:15] VITALS: PULSE 112; O2SAT 90
[2022-02-22 13:25] VITALS: PULSE 72; O2SAT 93
--- NOTE | 2022-02-22 15:08 | HOMEO2EVAL ---
Evaluation was performed at [facility] Home Oxygen Evaluation RC: Home Oxygen (O2) Evaluation Start: 02/22/22 15:05 Freq: Status: Active Protocol: RPE Activity Type Activity Date Activity User E-Sign Co-Sign Detail Recorded Client Recorded Date Recorded By Document 02/22/22 13:00 DJO [email or web address] 02/22/22 15:08 DJO Document 02/22/22 13:05 DJO [email or web address] 02/22/22 15:08 DJO Document 02/22/22 13:10 DJO [email or web address] 02/22/22 15:08 DJO Document 02/22/22 13:15 [email or web address] [email or web address] 02/22/22 15:08 DJO Document 02/22/22 13:25 DJO [email or web address] 02/22/22 15:08 DJO 02/22/22 02/22/22 02/22/22 13:00 13:05 13:10 Home O2 Evaluation Test Phase Resting Exercise Exercise Oxygen Delivery Room Air Room Air Nasal Cannula Oxygen Flow Rate (L/min) 1 Pulse Oximetry (90-100 %) 93 87 L 88 L Pulse Rate (60-100 beats/min) 69 96 102 H Activity Tolerance Ambulation Distance (feet) Ambulation Distance (meters) Treatment Charges O2 Evaluation - Outpatient 02/22/22 02/22/22 13:15 13:25 Home O2 Evaluation Test Phase Exercise Resting Oxygen Delivery Nasal Cannula Room Air Oxygen Flow Rate (L/min) 2 Pulse Oximetry (90-100 %) 90 93 Pulse Rate (60-100 beats/min) 112 H 72 Activity Tolerance Poor Ambulation Distance (feet) 400 Ambulation Distance (meters) 121.91 Treatment Charges
--- NOTE | 2022-02-22 16:45 | WPDPFTINT ---
PFT Procedure Performed PFT Procedure Performed Spirometry with Pre/Post Bronchodilator Plethysmography (Lung Vol) Diffusing Cap (DLCO) Flow Vol Loop PFT Interpretation This is a pulmonary function test with pre and post-bronchodilator spirometry, plethysmography and diffusing capacity. The test was performed and results interpreted in accordance with the 2019 and 2005 ATS/ERS Task Force guidelines respectively using the Global Lung Function Initiative-2012 reference equations. Patient demonstrated good effort and cooperation. Reproducibility criteria were met. The quality of the pre bronchodilator spirometry maneuver was Grade A and post bronchodilator spirometry maneuver was Grade A. Findings: Spirometry: There is decreased maximal expiratory airflow at all lung volumes with a concave expiratory flow tracing. The pre bronchodilator FVC is 1.60 L, 66% predicted. The pre bronchodilator FEV1 is 1.02 L, 53% predicted. The FEV1: FVC ratio 64%. The post bronchodilator FVC is 1.54 L, representing a 3% decrease. The post bronchodilator FEV1 is 1.05 L, representing a 3% increase. The post bronchodilator FEV1: FVC ratio 68%. Plethysmography: The total lung capacity is 3.77 L, 88% predicted. The functional residual capacity is 1.95 L, 80% predicted. The residual volume is 1.90 L, 100% predicted. Diffusing capacity: The diffusing capacity unadjusted for hemoglobin and carboxyhemoglobin is 12.1, 65% predicted. The diffusing capacity adjusted for alveolar volume is 5.18, 114% predicted. Impression: There is a moderately severe obstructive abnormality without significant improvement after inhaling a single dose of albuterol. The lung volumes are normal. The diffusing capacity unadjusted for hemoglobin and carboxyhemoglobin is mildly decreased and normalizes when adjusted for alveolar volume. There are no prior studies for comparison
== END 2022-02-22 12:45 | disposition home or self-care (01) ==
LOC: ANHPFT 12:45
PROVIDERS: Visit Provider Internal Medicine Pulmonary Disease
DX: R06.02 Shortness of breath (principal); J44.9 Chronic obstructive pulmonary disease, unspecified; E66.01 Morbid (severe) obesity due to excess calories
CPT/HCPCS: 94060; 94618; 94726; 94729

== ENCOUNTER 2022-03-09 14:30 | Outpatient (RCR) | payer MEDICARE, SELFPAY | END 2022-05-09 13:14 | disposition home or self-care (01) | LOC: ANHDMC 14:30 | DX: E11.65 Type 2 diabetes mellitus with hyperglycemia (principal); Z68.43 Body mass index [BMI] 50.0-59.9, adult; Z71.89 Other specified counseling | CPT/HCPCS: 99199; C9803; G0108; G0109; U0003; U0005 ==

== ENCOUNTER 2022-03-16 10:06 | Outpatient (CLI) | payer MEDICARE, SELFPAY ==
--- NOTE | ~2022-03-16 | MR_ITS ---
CORRECTED REPORT Report and images moved from [id number] to [id number] 03/30/[facility] EXAMINATION: MR cervical spine wo con DATE: 03/16/2022 11:12 INDICATION: Left shoulder pain. Cervical radiculopathy. TECHNIQUE: Magnetic resonance imaging (MRI) of the cervical spine was performed without intravenous contrast. Sequences included sagittal T2-weighted FSE, sagittal T2-weighted FS FSE, sagittal T1-weighted FSE, axial MERGE, and axial T2-weighted FSE. COMPARISON: None FINDINGS: There is kyphosis of cervical spine. Vertebral body heights are normal. There is mildly decreased disc height at C6-C7. There is a hemangioma in T2 vertebral body. The spinal cord signal intensity is normal. The following disc levels are specifically discussed: C2-C3: There is a central protrusion. There is no uncovertebral joint osteoarthritis. There is moderate bilateral facet joint osteoarthritis. There is no neural foraminal stenosis. There is no central canal stenosis. C3-C4: The disc does not extend beyond the endplate margin. There is no uncovertebral joint osteoarthritis. There is severe right and moderate left facet joint osteoarthritis. There is mild bilateral neural foraminal stenosis. There is no central canal stenosis. C4-C5: The disc does not extend beyond the endplate margin. There is no uncovertebral joint osteoarthritis. There is severe right and mild left facet joint osteoarthritis. There is mild bilateral neural foraminal stenosis. There is no central canal stenosis. C5-C6: The disc does not extend beyond the endplate margin. There is no uncovertebral joint osteoarthritis. There is moderate right facet joint osteoarthritis. There is no neural foraminal stenosis. There is no central canal stenosis. C6-C7: There is a right central protrusion. There is moderate right and mild left uncovertebral joint osteoarthritis. There is moderate right and mild left facet joint osteoarthritis. There is mild right neural foraminal stenosis. There is mild central canal stenosis. C7-T1: The disc is bulging. There is mild bilateral uncovertebral joint osteoarthritis. There is mild bilateral facet joint osteoarthritis. There is mild left neural foraminal stenosis. There is mild central canal stenosis. IMPRESSION: 1. Mild cervical spondylosis. Reviewed, dictated and finalized at location B. MTDD
== END 2022-03-16 10:07 | disposition home or self-care (01) ==
DX: M47.23 Other spondylosis with radiculopathy, cervicothoracic region (principal); M48.03 Spinal stenosis, cervicothoracic region
CPT/HCPCS: 72141

== ENCOUNTER 2022-03-29 09:23 | Emergency (ER) | payer MEDICARE, SELFPAY ==
[2022-03-29] VITALS (8 sets, daily range): BP systolic 125–161; BP diastolic 47–86; PULSE 64–90; RESP 18–26; TEMP 36.2; O2SAT 88–99
--- NOTE | ~2022-03-29 | XR_ITS ---
XR chest 1V portable 03/29/2022 10:21 Indication: Dyspnea. Covid Procedure: AP portable chest Comparison: Comparison to multiple prior studies sequentially, with oldest reviewed study dated 11/28. Findings: Cardiomegaly. No focal air space disease, pulmonary edema, pleural effusion or suspected pn eumothorax. Impression: 1: No acute cardiopulmonary disease. Reviewed, dictated and finalized at location A. Impression: 1: No acute cardiopulmonary disease.
--- NOTE | 2022-03-29 09:34 | ECG_ITS ---
Measurements Intervals [place] Rate: 68 P: HI: 0 QRS: 76 QRSD: 99 T: 110 QT: 392 QTc: 419 Interpretive Statements SINUS RHYTHM WITH SINUS ARRHYTHMIA ATRIAL PREMATURE COMPLEX DELAYED PRECORDIAL R/S TRANSITION BORDERLINE T WAVE ABNORMALITY- DIFFUSE LEADS BASELINE ARTIFACT- I, II, III, AVR, AVL, AVF, V1-V6 BORDERLINE ECG Electronically Signed On 03-29-2022 10:20:27 CDT by Darin Xiong D.O.
[2022-03-29 09:46] LABS: Basophils Percent Auto 0.7 % (0.2-1.2); Eosinophils Absolute Auto 0.1 K/mm3 (0-0.3); Eosinophils Percent Auto 1.6 % (0-4.4); Hematocrit 38.7 % (37.0-47.0); Hemoglobin 11.9 g/dL (12.0-15.0); Immature Granulocyte Absolute 0.04 K/mm3 (0.00-0.031); Immature Granulocyte Percent A 0.9 % (0-0.5); Lymphocytes Absolute Auto 0.94 K/mm3 (0.9-3.2); Mean Corpuscular HGB Conc 30.7 g/dl (32-36); Mean Corpuscular Hemoglobin 30.9 pg (26-34); Mean Corpuscular Volume 100.5 fl (80-100); Monocytes Absolute Auto 0.5 K/mm3 (0.1-0.6); Neutrophils Absolute Auto 2.7 K/mm3 (1.3-6.7); Neutrophils Percent Auto 63.8 % (45.5-73.1); Platelet Count Result 284 k/mm3 (150-375); Red Blood Count 3.85 M/mm3 (4.2-5.4); Red Cell Distribution Width 15.1 % (11.5-14.5); White Blood Count 4.3 K/mm3 (4.5-10.0)
--- NOTE | 2022-03-29 09:53 | ED.SOB ---
HPI - SOB/Dyspnea General Chief Complaint: Shortness of Breath/Dyspnea Stated Complaint: difficulty breathing, ?COVID+ Time Seen by Provider: 03/29/22 09:28 Source: patient Mode of arrival: EMS Limitations: no limitations History of Present Illness HPI Narrative: 66 y/o female presents to the ER today for complaints of fever, cough, body aches and shortness of breath. She says that symptoms started 4 days ago. Her is currently in the ICU with covid. She is morbidly obese with history of COPD and CHF. She says that she has not had her lasix for the past couple of days because she has been feeling so poorly. She says that the cough and shortness of breath got much worse this morning. EMS put her on 2L of O2 for comfort because she was tachypnic. Her O2 sats have been in the mid 90s. She has not had any tylenol or motrin this morning. she reports nausea but has not had any nausea or vomiting. Related Data Home Medications Medication Instructions Recorded Confirmed alprazolam 0.5 mg PO TID PRN 07/02/20 08/02/21 citalopram 40 mg PO HS 07/02/20 08/02/21 furosemide 20 mg PO DAILY PRN 07/02/20 08/02/21 zolpidem 5 mg PO HS PRN 07/02/20 08/02/21 diphenhydramine HCl [Benadryl] 50 mg PO HS 01/21/21 08/02/21 pantoprazole [Protonix] 40 mg PO DAILY 01/21/21 08/02/21 levothyroxine 75 mcg tablet 100 mcg PO DAILY tablet 07/01/21 08/02/21 duloxetine mg PO 01/22/22 01/22/22 duloxetine mg PO 03/29/22 furosemide 03/29/22 levothyroxine 03/29/22 nitroglycerin mg 03/29/22 pantoprazole PO 03/29/22 ropinirole mg 03/29/22 zolpidem 03/29/22 Allergies Allergy/AdvReac Type Severity Reaction Status Date / Time morphine Allergy Intermediate Hives Verified 02/01/22 14:53 denosumab [From Prolia] Allergy Unknown Other Verified 02/01/22 14:53 sertraline [From Zoloft] AdvReac Severe Hallucinati Verified 02/01/22 14:53 ng Luhxpct-UPG-LcK Reductase AdvReac Severe Muscle Pain Verified 02/01/22 14:53 Inhibitor [Gbwasgo-Mlc-Lwe Reductase Inhibitor] Review of Systems Constitutional: Constitutional: Reports chills, Reports fatigue and Reports fever(s) Eyes: Eyes: Reports no additional eye complaints ENT: Denies nasal congestion and Denies sore throat Cardiovascular: Cardiovascular: Denies chest pain Respiratory: Respiratory: Reports cough, Reports dyspnea and Reports wheezing Gastrointestinal: Gastrointestinal: Denies diarrhea, Reports nausea and Denies vomiting Genitourinary: Genitourinary: Reports no additional female genitourinary complaints Musculoskeletal: Musculoskeletal: Denies back pain and Denies myalgias Integumentary/Breasts: Skin/Breast: Denies rash Neurologic: Denies vertigo, Denies dizziness, Denies syncope and Denies focal weakness Psychiatric: Psychiatric: Reports no additional psychiatric complaints Endocrine: Endocrine: Reports fatigue Hematologic/Lymphatic: Hematologic/Lymphatic: Reports no additional hematologic/lymphatic complaints Allergic/Immunologic: Allergic/Immunologic: Reports no additional allergic/immunologic complaints [facility] Past Medical History Medical History Adenomatous colon polyp Anxiety Chronic obstructive pulmonary disease Colon cancer screening Coronary artery disease With reported history of [place] in 2017. She had a cardiac catheterization at that time, with no intervention. Diastolic dysfunction Echocardiogram in December 2018 showed normal left ventricular size and function with an ejection fraction of 60% and diastolic dysfunction. Dysphagia Erosive gastritis Gastroesophageal reflux disease Hypothyroidism Morbid obesity with BMI of 50.0-59.9, adult Non-cardiac chest pain Obstructive sleep apnea treated with BiPAP Osteoarthritis Tobacco abuse Type 2 diabetes mellitus Surgical History Surgical History History of bilateral carpal tunnel release (~
[2022-03-29 09:57] LABS: Alanine Aminotransferase 29 U/L (6-35); Albumin Level 3.8 g/dL (3.5-5.1); Alkaline Phosphatase 95 U/L (38-126); Anion Gap 6 mmol/L (8-16); Aspartate Amino Transferase 31 U/L (14-36); Bilirubin,Total 0.3 mg/dL (0.2-1.3); Blood Urea Nitrogen 12 mg/dL (7-17); Calcium 8.1 mg/dL (8.4-10.2); Carbon Dioxide 27 mmol/L (22-30); Chloride 103 mmol/L (98-107); Estimated Glomerular Filt Rate 49; Glucose 155 mg/dL (65-110); Magnesium 1.9 mg/dL (1.6-2.3); Potassium 3.9 mmol/L (3.4-5.0); Sodium 136 mmol/L (137-145)
[2022-03-29 10:02] LABS: Prothrombin Time 12.9 Seconds (11.1-14.7)
[2022-03-29 10:03] LABS: Partial Thromboplastin Time 31.7 SECONDS (22.3-36.8)
[2022-03-29 10:09] LABS: NT Pro B Type Natriuretic Pept 52 pg/mL (5-100); Troponin I < 0.012 ng/mL (0.000-0.034)
[2022-03-29] MEDS: ALBUTEROL SULFATE NEB 2.5 MG/3 ML INH 5 MG INHALATION ×3 (10:18→11:05)
[2022-03-29] MEDS: IPRATROPIUM BR 0.02% INH SOLN 0.5 MG/2.5 ML VIAL INHALATION (10:19)
[2022-03-29 10:24] LABS: Appearance Urine Clear (Clear); Bilirubin Urine Negative (Negative); Blood Urine Negative (Negative); Color Urine Yellow (Yellow); Glucose Urine UA Negative (Negative); Ketones Urine Negative (Negative); Leukocyte Esterase Ur Negative LEU/UL (Negative); Nitrate Urine Negative (Negative); Protein Urine Trace mg/dL (Negative); Urobilinogen Urine 0.2 mg/dL (<2.0); pH Urine 5.5 (5.0-9.0)
[2022-03-29 10:29] LABS: Influenza A QL RT-PCR Negative (Negative); Influenza B QL RT-PCR Negative (Negative); SARS-CoV-2 RNA PCR Positive
[2022-03-29 10:30] LABS: Mucus Urine Rare /lpf; RBC Urine 0-2 /hpf (0-2); Squamous Epithelial Cell Urine Rare /hpf (Few); WBC Urine 0-3 /hpf
[2022-03-29 10:34] LABS: Add Urine Microscopic? NO
--- NOTE | 2022-03-29 12:02 | PC.NURSE ---
this tech road test this patient. Patient was winded and weak O2 dropped to 91%. While patient was walking, patient became very weak and began shaking. pt was then placed in wheelchair and taken back to room. EDP and Nurse made aware.
--- NOTE | 2022-03-29 12:15 | PM.SD2 ---
Same Day Admit/Disch: HPI History of Present Illness Chief complaint: difficulty breathing, ?COVID+ Narrative: Shanita Gallo is a 66 year old female Who presented to the emergency room with complaints of shortness of breath. Patient states that her had been having similar complaints and tested himself for COVID on Monday and came back positive. Patient states that she began having a runny nose, sore throat, and headache on Monday. Patient states that she then noted shortness of breath on Monday and she took a home COVID-19 test which was negative. Patient states she took a 2nd test yesterday which was also negative. Patient states her shortness of breath continued and with a history of COPD she decided to come the emergency room for further evaluation. Patient states she did no fevers at home with a T-max of 101.4? F. upon evaluation in emergency room patient was noted to be saturating in the low 90s. With ambulation patient became extremely tachypneic and appeared to have increased work of breathing per the emergency room staff. Patient's saturations were 89-90% while ambulating. it was decided to admit the patient to the hospital so she can be monitored overnight to see if home oxygen was needed. Patient denied any chest pain, lightheadedness, dizziness, syncopal, or near syncopal episodes. Patient denied being vaccinated for COVID-19 at any point. Patient has a known history of hypothyroidism, depression, restless leg syndrome, peptic ulcer disease, and obstructive sleep apnea. Patient states she has smoked a pack of cigarettes a day for last 50 years. [facility] Past Medical History Medical History Adenomatous colon polyp Anxiety Chronic obstructive pulmonary disease Colon cancer screening Coronary artery disease With reported history of [place] in 2016. She had a cardiac catheterization at that time, with no intervention. Diastolic dysfunction Echocardiogram in December 2018 showed normal left ventricular size and function with an ejection fraction of 60% and diastolic dysfunction. Dysphagia Erosive gastritis Gastroesophageal reflux disease Hypothyroidism Morbid obesity with BMI of 50.0-59.9, adult Non-cardiac chest pain Obstructive sleep apnea treated with BiPAP Osteoarthritis Tobacco abuse Type 2 diabetes mellitus Surgical History Surgical History History of bilateral carpal tunnel release (~2005) History of bilateral cataract extraction (~2015) History of cardiac catheterization (~2016) History of hysterectomy (~1999) History of total bilateral knee replacement (~2017) History of tubal ligation (~1980) Family History Family History Father Chronic obstructive pulmonary disease Prostate carcinoma Diabetes mellitus Congestive heart failure Mother Cerebrovascular accident Grandparent Colon cancer Sibling Cystic fibrosis Chronic obstructive pulmonary disease Parkinson disease Social History Social History Social History: Surrogate decision maker: Dev Gallo, spouse. Code status: Full code. Smoking packs per day: 1 Smoking cigarettes per day: 20.0 Years smoked: 54 Smoking pack-years: 54.00 Smoking status: Former smoker Tobacco type: cigarettes Additional smoking assessment comments: As of June 2020, the patient vapes. Alcohol intake: never Substance use: never Substance use type: does not use Additional living arrangements comments: Resides in [place] with her spouse. Gender identity (if verbalized by the patient): Female Spiritual care concerns: No Same Day Admit/Disch: Med Pre-admit Medications Home Medications Medication Instructions Recorded Confirmed Type alprazolam 0.5 mg PO TID PRN 07/02/20 08/02/21 Hist
[2022-03-29 12:53] LABS: Alveolar/Arterial O2 Gradient 45.6 mmHg; Base Excess ABG -0.4 mEq/l (+/-2.0); Fractional Inspired Oxygen 21 %; HCO3 ABG 24.3 mEq/l (22.0-26.0); Oxygen Content ABG 15.4 %vol (16.0-22.0); Oxygen Saturation ABG 89.2 % (95.0-100.0); Oxyhemoglobin 88.4 % THb (90.0-100.0); PCO2 ABG 40.2 mmHg (35.0-45.0); PO2 FiO2 Ratio Arterial Blood 2.67 %; Total Hemoglobin 12.4 g/dL (12.0-18.0)
[2022-03-29 12:57] LABS: Modified Allen's Test Pass; Site Drawn LEFT RADIAL
--- NOTE | 2022-03-29 14:09 | PC.NURSE ---
patient called sign writer hand into room stating that she feels like she is able to go home. she has home O2 and has assistance if needed
--- NOTE | 2022-03-29 14:19 | PC.NURSE ---
Agus Simpson aware that patient would like to go home and not be admitted. AMA papers signed.
--- NOTE | 2022-03-29 14:37 | PC.NURSE ---
patient was able to get dressed and ambulate without assistance in room prior to leaving AMA. after getting in wheelchair, patient has labored breathing. offered patient to stay and return on oxygen. she refused stating, I'll get oxygen when I get home . daughter on way to pickle maker patient
== END 2022-03-29 14:40 | disposition left against medical advice (07) ==
PROVIDERS: Emergency Provider Nurse Practitioner Family
DX: U07.1 COVID-19 (principal); R09.02 Hypoxemia; R06.00 Dyspnea, unspecified; I50.9 Heart failure, unspecified; I25.10 Atherosclerotic heart disease of native coronary artery without angina pectoris; E03.9 Hypothyroidism, unspecified; E11.9 Type 2 diabetes mellitus without complications; Z87.891 Personal history of nicotine dependence
CPT/HCPCS: 36415; 36600; 51701; 71045; 80053; 81003; 82805; 83735; 83880; 84484; 85025; 85610; 85730; 87502; 93005; 94640; 96374; 99284; C9803; J1100; U0003; U0005

== ENCOUNTER 2022-05-02 09:27 | Outpatient (CLI) | payer MEDICARE, SELFPAY ==
--- NOTE | ~2022-05-02 | US_ITS ---
EXAMINATION: US carotid duplex BI DATE: 05/02/2022 11:41 INDICATION: Near syncope TECHNIQUE: Grayscale, color Doppler, and pulsed Doppler images of the cervical carotid arteries were obtained. The degree of vessel stenosis is placed in one of the following categories: normal, <50%, 5 0-69%, >=70% but less than near-occlusion, near-occlusion, or total occlusion. Note that percent sten osis relative to normal distal artery lumen diameter is indirectly measured from velocity measurement s as described by Jacob, et al. Radiology 2003; 229:[id number]. COMPARISON: None. FINDINGS: RIGHT: The right common carotid artery (CCA) peak systolic velocity (PSV) is 113 cm/s. The right internal ca rotid artery (ICA) PSV is 105 cm/s. The right ICA end-diastolic velocity (EDV) is 22 cm/s. The right ICA/CCA PSV ratio is 0.9. Grayscale and color Doppler images yield an estimate of <50% diameter reduc tion from plaque in the ICA. The external carotid artery (ECA) PSV is 144 cm/s. There is antegrade fl ow in the right vertebral artery. LEFT: The left CCA PSV is 111 cm/s. The left ICA PSV is 124 cm/s. The left ICA EDV is 29 cm/s. The left ICA /CCA PSV ratio is 1.1. Grayscale and color Doppler images yield an estimate of <50% diameter reductio n from plaque in the ICA. The ECA PSV is 158 cm/s. There is antegrade flow in the left vertebral michel ry. IMPRESSION: 1. <50% stenosis in the right internal carotid artery. 2. <50% stenosis in the left internal carotid artery. Reviewed, dictated and finalized at location B.
[2022-05-02 10:45] LABS: Basophils Absolute Auto 0.1 K/mm3 (0.0-0.1); Basophils Percent Auto 0.5 % (0.2-1.2); Eosinophils Absolute Auto 0.2 K/mm3 (0-0.3); Eosinophils Percent Auto 1.7 % (0-4.4); Hematocrit 38.5 % (37.0-47.0); Hemoglobin 12.3 g/dL (12.0-15.0); Immature Granulocyte Absolute 0.12 K/mm3 (0.00-0.031); Immature Granulocyte Percent A 1.2 % (0-0.5); Lymphocytes Absolute Auto 2.08 K/mm3 (0.9-3.2); Lymphocytes Percent Auto 20.7 % (18.3-44.2); Mean Corpuscular HGB Conc 31.9 g/dl (32-36); Mean Corpuscular Hemoglobin 31.1 pg (26-34); Mean Corpuscular Volume 97.2 fl (80-100); Mean Platelet Volume 9.3 fl (7.4-10.4); Monocytes Absolute Auto 0.9 K/mm3 (0.1-0.6); Monocytes Percent Auto 8.7 % (2.6-8.5); Neutrophils Absolute Auto 6.8 K/mm3 (1.3-6.7); Neutrophils Percent Auto 67.2 % (45.5-73.1); Platelet Count Result 407 k/mm3 (150-375); Red Blood Count 3.96 M/mm3 (4.2-5.4); Red Cell Distribution Width 15.4 % (11.5-14.5); White Blood Count 10.1 K/mm3 (4.5-10.0)
[2022-05-02 11:14] LABS: Free T4 Free Thyroxine 1.43 ng/mL (0.78-2.19)
[2022-05-02 11:33] LABS: Alanine Aminotransferase 30 U/L (6-35); Albumin Level 4.1 g/dL (3.5-5.1); Alkaline Phosphatase 84 U/L (38-126); Anion Gap 6 mmol/L (8-16); Aspartate Amino Transferase 26 U/L (14-36); Bilirubin,Total 0.3 mg/dL (0.2-1.3); Blood Urea Nitrogen 22 mg/dL (7-17); Carbon Dioxide 31 mmol/L (22-30); Chloride 102 mmol/L (98-107); Estimated Glomerular Filt Rate 45; Glucose 100 mg/dL (65-110); Potassium 3.8 mmol/L (3.4-5.0); Sodium 139 mmol/L (137-145)
[2022-05-02 11:46] LABS: Hepatitis C Virus Antibody Negative (Negative)
[2022-05-02 12:26] LABS: Vitamin B12 > 1000.0 pg/mL (239-931)
== END 2022-05-02 09:28 | disposition home or self-care (01) ==
PROVIDERS: PCP Student in an Organized Health Care Education/Training Program; Referring Provider Nurse Practitioner Family; Visit Provider Student in an Organized Health Care Education/Training Program
DX: E03.9 Hypothyroidism, unspecified (principal); E11.9 Type 2 diabetes mellitus without complications; U07.1 COVID-19; R55 Syncope and collapse; Z11.59 Encounter for screening for other viral diseases; J12.82 Pneumonia due to coronavirus disease 2019; I65.23 Occlusion and stenosis of bilateral carotid arteries
CPT/HCPCS: 36415; 80053; 82607; 84439; 84443; 85025; 86803; 93880

== ENCOUNTER 2022-06-30 13:13 | Outpatient (CLI) | payer MEDICARE, SELFPAY ==
--- NOTE | ~2022-06-30 | US_ITS ---
US thyroid INDICATION: Dysphagia TECHNIQUE: Real-time sonographic images of the thyroid gland were obtained. COMPARISON: No prior studies for comparison. FINDINGS: The right thyroid lobe measures 3.2 x 1.3 x 1.3 cm. The left thyroid lobe measures 3 x 1.3 x 0.9 cm. There is normal echotexture and echogenicity throughout the thyroid gland. In the right lo be there is a circumscribed oval hypoechoic mass which appears solid, wider than tall, smoothly manish nated without punctate echogenic foci. This mass measures 6 x 4 x 4 mm. (TR 4). Left lobe measures 3 x 1.3 x 0.9 cm and the left lobe there is a 5 mm cyst, benign. Normal vascular flow is present. IMPRESSION: 1. Right thyroid mass measuring 6 mm, TR 4. This does not meet sonographic criteria for biopsy. Alexander gn left thyroid cyst measuring 5 mm. Reviewed, dictated and finalized at location B. IMPRESSION: 1. Right thyroid mass measuring 6 mm, TR 4. This does not meet sonographic cri teria for biopsy. Benign left thyroid cyst measuring 5 mm.
== END 2022-06-30 13:14 | disposition home or self-care (01) ==
LOC: ANHIMG 13:15
PROVIDERS: PCP Student in an Organized Health Care Education/Training Program; Visit Provider Nurse Practitioner Family
DX: E03.9 Hypothyroidism, unspecified (principal); R13.10 Dysphagia, unspecified
CPT/HCPCS: 76536

== ENCOUNTER 2022-06-30 13:16 | Outpatient (CLI) | payer MEDICARE, SELFPAY ==
--- NOTE | ~2022-06-30 | CT_ITS ---
EXAMINATION: CT lung screening DATE: 06/30/2022 14:23 INDICATION: Personal history of tobacco dependence TECHNIQUE: Computed tomography (CT) of the chest was performed without intravenous contrast. The dose -length product was 548.76 mGy-cm. Automated exposure control and iterative reconstruction technique were employed. COMPARISON: CT dated 07/02/2020 FINDINGS: There is atherosclerosis of the aorta and coronary arteries. Mild cardiomegaly. No signific ant pleural or pericardial effusion. Visualized aspects of the upper abdomen are unremarkable. There is lingular and left lower lobe atelectasis. No focal pneumonia. No endobronchial lesions. No pneumot horax. There were a few small 1-2 mm pulmonary nodules, likely benign. Mild emphysema. Mild thoracic spondylosis. No acute osseous abnormality. IMPRESSION: 1. Lung-RADS category 2: Benign appearance or behavior. Continue annual screening with noncontrast lo w-dose chest CT in 12 months. Reviewed, dictated and finalized at location B. IMPRESSION: 1. Lung-RADS category 2: Benign appearance or behavior. Continue annual screeni ng with noncontrast low-dose chest CT in 12 months.
== END 2022-06-30 13:17 | disposition home or self-care (01) ==
PROVIDERS: PCP Student in an Organized Health Care Education/Training Program; Visit Provider Student in an Organized Health Care Education/Training Program
DX: F17.210 Nicotine dependence, cigarettes, uncomplicated (principal)
CPT/HCPCS: 71271; 76536

== ENCOUNTER 2022-07-14 14:41 | Outpatient (CLI) | payer MEDICARE, SELFPAY ==
--- NOTE | ~2022-07-14 | MM_ITS ---
EXAMINATION: MM screening dimas BI w faiza HISTORY: Screening mammogram TECHNIQUE: Craniocaudal and mediolateral oblique 3-D tomosynthesis images were obtained and synthetic 2-D images were generated. CAD analysis was submitted and interpreted. COMPARISON: 08/27/2020 BREAST PARENCHYMAL COMPOSITION: There are scattered areas of fibroglandular density. FINDINGS: There is no suspicious mass, calcification, or architectural distortion to suggest malignan cy in either breast. There has been no suspicious interval change. IMPRESSION: 1. No mammographic evidence of malignancy. 2. Recommend routine screening mammography in one year. BI-RADS Category 1: Negative Reviewed, dictated and finalized at location A.
== END 2022-07-14 14:42 | disposition home or self-care (01) ==
PROVIDERS: PCP Student in an Organized Health Care Education/Training Program; Visit Provider Nurse Practitioner Family
DX: Z12.31 Encounter for screening mammogram for malignant neoplasm of breast (principal)
CPT/HCPCS: 77063; 77067

== ENCOUNTER 2023-01-25 07:19 | Outpatient (CLI) | payer MEDICARE, SELFPAY ==
--- NOTE | ~2023-01-25 | US_ITS ---
Limited Abdominal Sonogram: Real-time sonographic imaging of the right upper quadrant was performed. Clinical History: Right upper quadrant pain Findings: The liver appears mildly echogenic, with no evidence of mass lesion or bile duct dilatatio n. Main portal vein demonstrates normal direction of flow. The gallbladder is well distended, and shani ears normal with no evidence of gallstone or wall thickening. The common bile duct measures 7 mm. Th e visualized pancreas, aorta, and IVC are unremarkable. Impression: Fatty infiltration of liver. Reviewed, dictated and finalized at location M. Impression: Fatty infiltration of liver.
[2023-01-25 09:25] LABS: Basophils Absolute Auto 0.1 K/mm3 (0.0-0.1); Basophils Percent Auto 0.8 % (0.2-1.2); Eosinophils Absolute Auto 0.5 K/mm3 (0-0.3); Eosinophils Percent Auto 6.2 % (0-4.4); Hematocrit 37.6 % (37.0-47.0); Hemoglobin 12.1 g/dL (12.0-15.0); Immature Granulocyte Absolute 0.03 K/mm3 (0.00-0.031); Immature Granulocyte Percent A 0.4 % (0-0.5); Lymphocytes Absolute Auto 1.63 K/mm3 (0.9-3.2); Mean Corpuscular HGB Conc 32.2 g/dl (32-36); Mean Corpuscular Hemoglobin 31.5 pg (26-34); Mean Corpuscular Volume 97.9 fl (80-100); Mean Platelet Volume 9.1 fl (7.4-10.4); Monocytes Absolute Auto 0.6 K/mm3 (0.1-0.6); Monocytes Percent Auto 6.4 % (2.6-8.5); Neutrophils Absolute Auto 5.8 K/mm3 (1.3-6.7); Neutrophils Percent Auto 67.2 % (45.5-73.1); Platelet Count Result 352 k/mm3 (150-375); Red Blood Count 3.84 M/mm3 (4.2-5.4); Red Cell Distribution Width 14.9 % (11.5-14.5); White Blood Count 8.6 K/mm3 (4.5-10.0)
[2023-01-25 09:35] LABS: Alanine Aminotransferase 19 U/L (6-35); Albumin Level 4.2 g/dL (3.5-5.1); Alkaline Phosphatase 92 U/L (38-126); Anion Gap 5 mmol/L (8-16); Aspartate Amino Transferase 21 U/L (14-36); Bilirubin,Total 0.5 mg/dL (0.2-1.3); Blood Urea Nitrogen 16 mg/dL (7-17); Calcium 8.7 mg/dL (8.4-10.2); Carbon Dioxide 30 mmol/L (22-30); Chloride 103 mmol/L (98-107); Cholesterol 184 mg/dL (0-200); Creatine Kinase 56 U/L (30-135); Estimated Glomerular Filt Rate 55; Glucose 93 mg/dL (65-110); HDL Direct 35 mg/dL; Potassium 4.4 mmol/L (3.4-5.0); Sodium 138 mmol/L (137-145); Triglycerides 228 mg/dL (<150)
[2023-01-25 09:46] LABS: LDL Cholesterol Direct 90 mg/dL
[2023-01-25 10:35] LABS: Vitamin D 25 Hydroxy 25.5 ng/mL
[2023-01-25 14:25] LABS: Free T4 Free Thyroxine Reflex 0.92 ng/dL (0.78-2.19)
[2023-01-25 16:00] LABS: Total Triiodothyronine (T3) 1.14 NG/ML (0.97-1.69)
== END 2023-01-25 07:20 | disposition home or self-care (01) ==
PROVIDERS: PCP Student in an Organized Health Care Education/Training Program; Visit Provider Student in an Organized Health Care Education/Training Program
DX: R10.11 Right upper quadrant pain (principal); E11.9 Type 2 diabetes mellitus without complications; I50.32 Chronic diastolic (congestive) heart failure; E78.2 Mixed hyperlipidemia; E55.9 Vitamin D deficiency, unspecified; K76.0 Fatty (change of) liver, not elsewhere classified
CPT/HCPCS: 36415; 76705; 80053; 80061; 82306; 82550; 84439; 84443; 84480; 85025

== ENCOUNTER 2023-07-31 16:38 | Outpatient (CLI) | payer MEDICARE, SELFPAY ==
--- NOTE | ~2023-07-31 | CT_ITS ---
EXAMINATION: CT brain wo con INDICATION: Speech difficulty, visual disturbance COMPARISON: 07/03/2020 TECHNIQUE: Standard unenhanced head CT. The dose-length product (DLP) was 605.33 mGy-cm. The mA was a djusted according to patient size. Iterative reconstruction technique was employed. FINDINGS: No acute intraparenchymal hemorrhage. No evidence of mass lesion. No evidence of acute infa rction. There is mild periventricular and subcortical hypodensity probably related to small vessel is chemic disease. There is mild prominence of the sulci and ventricles related to cerebral atrophy. Int racranial calcified cerebral atherosclerosis is noted. No extra-axial collections. No mass effect or midline shift. Changes in the globes are likely from ocular lens surgery. The visualized sinuses and mastoid air cells are well aerated. IMPRESSION: 1. No acute intracranial abnormality. 2. Age related findings. Reviewed, dictated and finalized at location B.
== END 2023-07-31 16:39 | disposition home or self-care (01) ==
PROVIDERS: PCP Student in an Organized Health Care Education/Training Program; Visit Provider Student in an Organized Health Care Education/Training Program
DX: G45.9 Transient cerebral ischemic attack, unspecified (principal)
CPT/HCPCS: 70450

== ENCOUNTER 2023-09-08 07:44 | Outpatient (CLI) | payer MEDICARE, SELFPAY ==
[2023-09-08 08:42] LABS: Basophils Absolute Auto 0.1 K/mm3 (0.0-0.1); Basophils Percent Auto 0.8 % (0.2-1.2); Eosinophils Absolute Auto 0.6 K/mm3 (0-0.3); Eosinophils Percent Auto 7.1 % (0-4.4); Hematocrit 38.4 % (37.0-47.0); Hemoglobin 12.2 g/dL (12.0-15.0); Immature Granulocyte Absolute 0.02 K/mm3 (0.00-0.031); Immature Granulocyte Percent A 0.3 % (0-0.5); Lymphocytes Absolute Auto 1.65 K/mm3 (0.9-3.2); Lymphocytes Percent Auto 20.6 % (18.3-44.2); Mean Corpuscular HGB Conc 31.8 g/dl (32-36); Mean Corpuscular Hemoglobin 31.6 pg (26-34); Mean Corpuscular Volume 99.5 fl (80-100); Mean Platelet Volume 8.9 fl (7.4-10.4); Monocytes Absolute Auto 0.5 K/mm3 (0.1-0.6); Monocytes Percent Auto 6.5 % (2.6-8.5); Neutrophils Absolute Auto 5.2 K/mm3 (1.3-6.7); Neutrophils Percent Auto 64.7 % (45.5-73.1); Platelet Count Result 393 k/mm3 (150-375); Red Blood Count 3.86 M/mm3 (4.2-5.4); Red Cell Distribution Width 14.1 % (11.5-14.5)
[2023-09-08 09:00] LABS: Alanine Aminotransferase 22 U/L (6-35); Alkaline Phosphatase 87 U/L (38-126); Anion Gap 6 mmol/L (8-16); Aspartate Amino Transferase 22 U/L (14-36); Bilirubin,Total 0.6 mg/dL (0.2-1.3); Blood Urea Nitrogen 20 mg/dL (7-17); Calcium 9.1 mg/dL (8.4-10.2); Carbon Dioxide 26 mmol/L (22-30); Chloride 105 mmol/L (98-107); Estimated Glomerular Filt Rate 45; Glucose 98 mg/dL (65-110); Potassium 4.3 mmol/L (3.4-5.0); Sodium 137 mmol/L (137-145)
== END 2023-09-08 07:45 | disposition home or self-care (01) ==
PROVIDERS: PCP Student in an Organized Health Care Education/Training Program; Visit Provider Student in an Organized Health Care Education/Training Program
DX: I10 Essential (primary) hypertension (principal); G45.9 Transient cerebral ischemic attack, unspecified
CPT/HCPCS: 36415; 80053; 84443; 85025

== ENCOUNTER 2023-09-08 07:50 | Outpatient (CLI) | payer MEDICARE, SELFPAY ==
--- NOTE | ~2023-09-08 | CT_ITS ---
EXAMINATION:CT lung screening DATE: 09/08/2023 09:11 INDICATION: Nicotine dependence. Smoker who quit 4 years ago with 50 pack year history. TECHNIQUE: Computed tomography (CT) of the chest was performed without intravenous contrast. Automate d exposure control and iterative reconstruction technique were employed. The dose-length product (DLP ) was 498.26 mGy-cm. COMPARISON: Chest CT 06/30/2022 FINDINGS: The lungs demonstrate mild atelectasis. A calcified right lung nodule is consistent with ol d granulomatous disease. No pleural effusion. The heart size is normal. No pericardial effusion. Ther e is moderate cervical spondylosis and mild thoracic spondylosis. IMPRESSION: 1. Lung-RADS category 1: Negative. Continue annual screening with noncontrast low-dose chest CT in 12 months. Reviewed, dictated and finalized at location E. IMPRESSION: 1. Lung-RADS category 1: Negative. Continue annual screening with noncontrast l ow-dose chest CT in 12 months.
== END 2023-09-08 07:51 | disposition home or self-care (01) ==
LOC: ANHIMG 07:51
PROVIDERS: PCP Student in an Organized Health Care Education/Training Program; Visit Provider Student in an Organized Health Care Education/Training Program
DX: Z12.2 Encounter for screening for malignant neoplasm of respiratory organs (principal); Z87.891 Personal history of nicotine dependence
CPT/HCPCS: 36415; 71271; 80053; 84443; 85025

== ENCOUNTER 2023-11-21 07:54 | Outpatient (CLI) | payer MEDICARE, SELFPAY ==
--- NOTE | ~2023-11-21 | DEXA_ITS ---
Bone Density Report Name: LILLI SUERO Age: 68 Sex: Female Ethnicity: White Date of : 1955 Indication: postmenopausal; screening for osteoporosis; height loss; asthma or emphysema; hysterectomy; Referring Provider: THU HASSAN Study: Bone densitometry was performed. Exam Date: November 21, 2023 Accession number: [id number] Bone Density: Region BMD T-score Z-score Classification AP Spine(L1-L4) 0.964 -0.8 1.4 Normal Femoral Neck (Left) 0.605 -2.2 -0.4 Osteopenia Total Hip (Left) 0.992 0.4 1.9 Normal Femoral Neck (Right) 0.729 -1.1 0.7 Osteopenia Total Hip (Right) 1.017 0.6 2.1 Normal Total Hip Mean 1.005 0.5 2.0 Normal World Health Organization criteria for BMD impression classify patients as: Normal (T-score at or above -1.0), Osteopenia (T-score between -1.0 and -2.5), or Osteoporosis (T-score at or below -2.5). 10-year Fracture Risk(1): Major Osteoporotic Fracture 10% Hip Fracture 3.0% Reported Risk Factors: [place] (), Neck BMD=0.605, BMI=51.2, smoking (1) FRAX(R) Version 3.08. Fracture probability calculated for an untreated patient. Fracture probability may be lower if the patient has received treatment. Clinical Information Provided by Patient: Smokes Has used the following medications: Vitamin D, Calcium Has the following medical conditions: Asthma or Emphysema, Hysterectomy Patient maximum height was 59.0 Menopause Age: 33 No regular weight bearing exercise Drinks caffeinated beverages Onset of menses at age 9 Number of children 2 Impression: The patient has low bone mass, based on the Left Femoral Neck T-score. The patient has an estimated ten-year risk of hip fracture of 3% and an estimated ten-year risk of major fracture of 10%, based on the WHO FRAX algorithm. The patient has risk factors, including: smoking. Discussion: BONE DENSITY IS LOW AT ONE OR MORE SKELETAL SITES. THE PATIENT'S BMD AND CLINICAL RISK FACTORS CONTRIBUTE TO THIS PATIENT'S INCREASED RISK OF FRACTURE. This patient's lowest T-score is low at one or more skeletal sites. It meets the World Health Organization's (WHO) criteria for ?low bone mass? (T-score between -1.0 and -2.5). The patient's 10-year risk of hip fracture as calculated by FRAX exceeds the threshold where pharmacological therapy is recommended by the National Osteoporosis Foundation (NOF). However, all treatment decisions require clinical judgment and consideration of individual patient factors, including patient preferences, comorbidities, previous drug use, risk factors not captured in the FRAX model (e.g., frailty, falls, vitamin D deficiency, increased bone turnover, interval significant decline in bone density) and possible under or overestimation of fracture risk by FRAX. The patient should follow a
== END 2023-11-21 07:55 | disposition home or self-care (01) ==
PROVIDERS: PCP Student in an Organized Health Care Education/Training Program; Visit Provider Internal Medicine Endocrinology, Diabetes & Metabolism
DX: M85.88 Other specified disorders of bone density and structure, other site (principal); Z78.0 Asymptomatic menopausal state
CPT/HCPCS: 77080

== ENCOUNTER 2023-11-30 15:20 | Outpatient (CLI) | payer MEDICARE, SELFPAY ==
--- NOTE | ~2023-11-30 | MM_ITS ---
EXAMINATION: MM screening dimas BI w faiza HISTORY: Screening TECHNIQUE: Craniocaudal and mediolateral oblique 3-D tomosynthesis images were obtained and synthetic 2-D images were generated. CAD analysis was submitted and interpreted. COMPARISON: No prior mammogram is available for comparison at this institution. BREAST PARENCHYMAL COMPOSITION: There are scattered areas of fibroglandular density. FINDINGS: There is no evidence of suspicious mass, calcification, or architectural distortion to sugg est malignancy in either breast. There has been no suspicious interval change. IMPRESSION: 1. No mammographic evidence of malignancy. 2. Recommend routine screening mammography in one year. BI-RADS Category 1: Negative Reviewed, dictated and finalized at location A. [employer]
== END 2023-11-30 15:21 | disposition home or self-care (01) ==
PROVIDERS: PCP Student in an Organized Health Care Education/Training Program; Visit Provider Student in an Organized Health Care Education/Training Program
DX: Z12.31 Encounter for screening mammogram for malignant neoplasm of breast (principal)
CPT/HCPCS: 77063; 77067

== ENCOUNTER 2024-06-22 12:02 | Emergency (ER) | payer MEDICARE, SELFPAY ==
[2024-06-22 12:04] VITALS: BP 137/63; PULSE 69; RESP 20; TEMP 36.3; O2SAT 98
--- NOTE | 2024-06-22 14:24 | PC.NURSE ---
1423-PATIENT STATES SHE DOES NOT WISH TO WAIT ANY LONGER. PATIENT ENCOURAGED TO WAIT BUT DECLINED.
== END 2024-06-22 14:23 | disposition left against medical advice (07) ==
PROVIDERS: PCP Student in an Organized Health Care Education/Training Program
DX: R19.7 Diarrhea, unspecified (principal)
CPT/HCPCS: 99199

== ENCOUNTER 2024-08-12 10:03 | Outpatient (CLI) | payer MEDICARE, SELFPAY ==
[2024-08-12 10:50] LABS: Basophils Absolute Auto 0.1 K/mm3 (0.0-0.1); Basophils Percent Auto 0.9 % (0.2-1.2); Eosinophils Absolute Auto 0.6 K/mm3 (0-0.3); Eosinophils Percent Auto 6.5 % (0-4.4); Hematocrit 40.8 % (37.0-47.0); Hemoglobin 13.2 g/dL (12.0-15.0); Immature Granulocyte Absolute 0.05 K/mm3 (0.00-0.031); Immature Granulocyte Percent A 0.6 % (0-0.5); Lymphocytes Absolute Auto 2.37 K/mm3 (0.9-3.2); Lymphocytes Percent Auto 26.4 % (18.3-44.2); Mean Corpuscular HGB Conc 32.4 g/dl (32-36); Mean Corpuscular Hemoglobin 33.1 pg (26-34); Mean Corpuscular Volume 102.3 fl (80-100); Mean Platelet Volume 9.3 fl (7.4-10.4); Monocytes Absolute Auto 0.6 K/mm3 (0.1-0.6); Monocytes Percent Auto 6.9 % (2.6-8.5); Neutrophils Absolute Auto 5.3 K/mm3 (1.3-6.7); Neutrophils Percent Auto 58.7 % (45.5-73.1); Platelet Count Result 373 k/mm3 (150-375); Red Blood Count 3.99 M/mm3 (4.2-5.4)
[2024-08-12 11:11] LABS: LDL Cholesterol Direct 169 mg/dL
[2024-08-12 11:44] LABS: MALB Creatinine Ratio 8.3 mg/g (0-30); Microalbumin Urine Random 13.4 mg/L (0-16.7)
[2024-08-12 12:10] LABS: Alanine Aminotransferase 16 U/L (6-35); Albumin Level 3.8 g/dL (3.5-5.1); Alkaline Phosphatase 79 U/L (38-126); Anion Gap 8 mmol/L (4-12); Aspartate Amino Transferase 23 U/L (14-36); Bilirubin,Total 0.4 mg/dL (0.2-1.3); Blood Urea Nitrogen 17 mg/dL (7-17); Calcium 9.1 mg/dL (8.4-10.2); Carbon Dioxide 27 mmol/L (22-30); Chloride 104 mmol/L (98-107); Cholesterol 293 mg/dL (0-200); Estimated Glomerular Filt Rate 55; Glucose 83 mg/dL (65-110); HDL Direct 46 mg/dL; Potassium 5.2 mmol/L (3.4-5.0); Sodium 139 mmol/L (137-145); Triglycerides 206 mg/dL (<150)
[2024-08-12 14:10] LABS: Vitamin D 25 Hydroxy 33.7 ng/mL
== END 2024-08-12 10:04 | disposition home or self-care (01) ==
PROVIDERS: PCP Student in an Organized Health Care Education/Training Program; Visit Provider Student in an Organized Health Care Education/Training Program
DX: E11.9 Type 2 diabetes mellitus without complications (principal); E55.9 Vitamin D deficiency, unspecified
CPT/HCPCS: 36415; 80053; 80061; 82043; 82306; 84443; 85025

== ENCOUNTER 2025-02-19 07:28 | Outpatient (CLI) | payer MEDICARE, MEDICAID, SELFPAY ==
--- OUTSIDE RECORDS SUMMARY | 2025-02-19 07:36 | XMS_ITS | Clinical Summary ---
Author Organization [facility] Address [facility] [place] [address] Care Team Providers Care Manager Employee Relations Name Role Phone Tenzin Echevarria DO Primary Care Provider + Amandeep Howe MD Unavailable [phone] Allergies Active Allergy Reactions Criticality Noted Date Comments Morphine Hives,Swelling 11/19/2018 Denosumab Redness 11/19/2018 Soybean-Containing Drug Products GI Upset 09/13/2019 Statins Myalgias Medium 05/27/2019 ALL STATINS - Horrible muscle cramps Sertraline Hallucinations 01/21/2019 Medications diphenhydrAMINE 25 MG tablet Take 1 tablet (25 mg total) by mouth every 6 (six) hours as needed for Itching. Active Multiple Vitamins-Minerals (MULTIVITAMIN ADULT EXTRA C OR) Take 1 tablet by mouth daily. Active OneTouch Delica Lancets 33G MiscIndications:Ty pe 2 diabetes mellitus without complication, without long-term current use of insulin ([facility] HHS/HCC) Test once daily 100 each 1 02/23/20 22 Active semaglutide (OZEMPIC, 1 MG/DOSE,) 2 MG/1.5ML injection (PEN) Inject 1 mg into the skin every 7 days. Active ONETOUCH VERIO test stripIndications:T ype 2 diabetes mellitus without complication, without long-term current use of insulin ([facility] HHS/HCC) USE TO TEST BLOOD SUGARS ONCE DAILY 100 strip 1 03/02/20 23 Active Cholecalciferol (VITAMIN D-3) 25 MCG (1000 UT) Cap Take 1 capsule by mouth daily. Active albuterol sulfate HFA 108 (90 Base) MCG/ACT inhalerIndications :Chronic obstructive pulmonary disease, unspecified COPD type ([facility] HHS/HCC) Inhale 2 puffs into the lungs every 4 (four) hours as needed for Wheezing or Shortness of breath. 18 g 5 03/21/20 24 Active levothyroxine (SYNTHROID) 112 MCG tabletIndications: Acquired hypothyroidism take 1 tablet by mouth every morning 30 tablet 2 04/09/20 24 Active pravastatin (PRAVACHOL) 20 MG tablet TAKE 1 TABLET (20 MG TOTAL) BY MOUTH NIGHTLY AT BEDTIME. ON MONDAYS AND THURSDAYS 24 tablet 1 04/18/20 24 Active Additional Information Patient not taking.Reported on 10/18/2024 CPAP MACHINE Active nitroglycerin (NITROSTAT) 0.4 MG SL tabletIndications: Chronic diastolic heart failure ([facility] HHS/HCC) Place 1 tablet (0.4 mg total) under the tongue every 5 (five) minutes as needed for Chest Pain. Max of 3 doses, then call 911 25 tablet 1 07/03/20 24 Active betamethasone dipropionate 0.05 % creamIndications:R izabel Apply topically 2 (two) times daily. Do not use for more than 4 weeks continuously 45 g 1 07/03/20 24 Active HYDROcodone-acetam inophen (NORCO) 5-325 MG tabletIndications: Acute Pain < 7 Day Supply Take 1 tablet by mouth every 6 (six) hours as needed for Pain. Indications: Acute Pain < 7 Day Supply 28 tablet 10/18/20 24 Active pregabalin (LYRICA) 150 MG capsuleIndications :Other chronic pain TAKE 1 CAPSULE BY MOUTH TWICE A DAY 60 capsule 2 11/19/19 25 Active zolpidem (AMBIEN) 5 MG tabletIndications: Primary insomnia TAKE 0.5 TABLETS BY MOUTH NIGHTLY NEEDED FOR SLEEP. 45 tablet 12/18/19 25 Active furosemide (LASIX) 80 MG tabletIndications: Chronic diastolic heart failure ([facility] HHS/HCC) TAKE 1 TABLET (80 MG TOTAL) BY MOUTH DAILY NEEDED (SWELLING). 90 tablet 1 12/30/19 25 Active rOPINIRole (REQUIP) 1 MG tabletIndications: RLS (restless legs syndrome) TAKE 2 TABLETS BY MOUTH AT BEDTIME 180 tablet 01/07/20 25 Active DULoxetine (CYMBALTA) 60 MG capsuleIndications :Current mild episode of major depressive disorder, unspecified whether recurrent TAKE 2 CAPSULES BY MOUTH EVERY DAY 180 capsule 01/07/20 25 Active buPROPion XL (WELLBUTRIN XL) 300 MG 24 hr tabletIndications: Current mild episode of major depressive disorder, unspecified whether recurrent Take 1 tablet (300 mg total) by mouth daily. 30 tablet 5 01/08/20 25 Active cefdinir (OMNICEF) 300 MG Cap capsule Take 1 capsule (300 mg total) by mouth 2 (two) times daily for 6 days. 12 capsule 02/16/20 25 025 Active azithromycin (ZITHROMAX) 250 MG tablet Please take 1 tablet daily for the next 4 days. 4 tablet 02/16/20 25 025 Active Problems Problem Noted Date Diagnosed Date Morbid (severe) obesity due to excess calories 0 01/18/2024 Body mass index (BMI) 45.0-49.9, adult 4 Primary osteoarthritis of right shoulder 023 Nontraumatic incomplete tear of right rotator cu ff 08/08/2023 Impingement syndrome of right shoulder 3 Osteoarthritis of right acromioclavicular joint 08/08/2023 Nicotine dependence, cigaret mayra, with other nicotine-induced disorders 01/05/2023 Carotid artery plaque, bilateral 09/16/2022 Coronary artery calcification seen on CAT scan 1 11/13/2021 Body mass index (BMI) 50.0-59.9, adult 2 Adenomatous colon polyp 02/03/2022 Dyspnea 02/03/2022 Mixed hyperlipidemia 10/13/2021 Pericardial effusion (HHS/HCC) 10/13/2021 Syncope and collapse 07/14/2021 Dysphagia 06/16/2021 Cigarette nicotine dependence in remission 12/14 Stomach ulcer 07/13/2020 Chronic respiratory failure with hypoxia and hypercapnia (CMS/HCC HHS/HCC) 09/05/2019 Acquired hypothyroidism 05/27/2019 Overview (01/21/2021): Last Assessment & Plan: continue current Levothyroxine 50 mcg oral daily Recheck TSH now, based on that further plans Instructions for taking levothyroxine Brand name is preferred Take thyroid pill all by itself Take thyroid pill one hour before food or 2 to 3 hours after food Heat, humidity, and direct sunlight will cause a loss of potency Never store thyroid pill in the bathroom The medication should be taken daily. If one or more pills are missing in a week, they can be taken all together at once, making sure at the end of the week, 7 tabs have been taken. Last Assessment & Plan: Patient currently on Levothyroxine 100 mcg oral daily Recheck thyroid labs soon and based on that further plans Follow up in 6 months Familial hypercholesterolemia 05/27/2019 Overview (01/21/2021): Last Assessment & Plan: Hyperlipidemia noted Currently patient patient on Zetia Patient intolerant to statin therapy No known cardiovascular disease at this point Family history of hypercholesterolemia Positive for smoking ASCVD risk calculator shows high risk Follows with Appliance Service Supervisor Thyroid cyst 05/27/2019 Overview (01/21/2021): Last Assessment & Plan: Performed thyroid ultrasound in office 05/2019 Noted subcentimeter simple right thyroid cyst No FNA needed No follow up thyroid uls needed , until physical exam or pt symptoms warrants Exercise hypoxemia 02/25/2019 Chronic obstructive pulmonar y disease, unspecified COPD type ([facility]) 02/25/2019 Vitamin D deficiency 01/21/2019 Diastolic dysfunction with heart failure ([facility]) 01/21/2019 Nocturnal hypoxemia 12/21/2018 Shortness of breath 12/21/2018 Essential hypertension 11/23/2018 Current mild episode of alverto r depressive disorder, unspecified whether recurrent 11/23/2018 Type 2 diabetes mellitus wit hout complication, without long-term current use of insulin ([facility]) 11/23/2018 Overview (01/21/2021): Last Assessment & Plan: A1c Today 5.8% Continue dietary control Increase physical activity Start ozempic 0.25 mg SQ weekly for 2 weeks than increase to 0.5 mg SQ weekly Multinodular goiter 11/23/2018 Overview (10/11/2019): Last Assessment & Plan: Performed thyroid ultrasound in office 05/2019 Noted subcentimeter simple right thyroid cyst No FNA needed No follow up thyroid uls needed , until physical exam or pt symptoms warrants DAE on CPAP 11/23/2018 Resolved Problems Problem Noted Date Diagnosed Date Resolved Date Statin intolerance 10/18/2019 3 Small vessel disease 01/21/2019 023 Encounter for screening for lung cancer 12/21/2018 07/24/2020 Tobacco abuse 11/23/2018 09/05/2019 Cigarette smoker 11/23/2018 09/05/2019 Encounters Date Type Department Care Team Description 02/14/2025 3:48 PM CDT - 02/14/2025 9:52 PM CDT Emergency [facility] [place] [address] Thlema Hernandez, Chest Pain Discharge Disposition: Home or Self Care (Routine Discharge) 02/14/2025 Travel 01/08/2025 Scan [facility] Scanned, [facility] 12/14/2024 Scan [facility] INFO SRVCS Scanned, Doc [facility] from Last 3 Months Immunizations Name Administration Dates Next Due Fluzone 6 Months+ Quad (0.5 mL Prefilled Syringe) 08/28/2020 Fluzone High Dose - >Age 65 (Prefilled Syringe) 08/17/2023,10/05/2022,08/25/2021,2018 Influenza Adult (Generic) 08/17/2023 Pneumococcal (Pneumovax 23) 07/01/2020, 3 Pneumococcal (Prevnar 13) 11/20/2018 Td (Generic) 12/19/2012 Family History Medical History Relation Comments Colon Cancer Brother Early Brother Arthritis Father COPD Father Cancer Father Diabetes Father Early Father Early Hearing Loss Father Heart Disease Father Hypertension Father Lung Disease Father Colon Cancer Maternal Grandmother Stroke Maternal Grandmother Depression Mother Early Mother Heart Disease Mother Hypertension Mother Kidney Disease Mother Miscarriages / Stillbirths Mother Stroke Mother Cancer Paternal Grandmother Stroke Paternal Grandmother Early Sister Other Sister cystic fibrosis Relation Status Comments Brother Father Maternal Grandmother Mother Paternal Grandmother Sister Social History Tobacco Use Types Packs/Day Years Used Date Smoking Tobacco: Some Days Cigarettes Last attempted to quit: 12/19/1968 Passive Smoke Exposure: Past Smokeless Tobacco: Never Tobacco Cessation:Ready to Q uit: No; Counseling Given: Yes Comments:Provider to residence counselor patient smoking 1 pack per week Reports quitting 3 beginning of Jul. Reports smoking cigarettes some days when it gets really bad . Reported usage 1 pack per month. 10/18/2024. Alcohol Use Standard Drinks/Week Comments Yes 0 (1 standard drink = 0.6 oz pur e alcohol) maybe a few times a year AUDIT-C Answer Date Recorded Q1: How often do you have a drink containing alcohol? Monthly or less 07/02/2024 Q2: How many drinks containi ng alcohol do you have on a typical day when you are drinking? Patient does not drink Q3: How often do you have si x or more drinks on one occasion? Never 07/02/2024 PHQ-2 Answer Date Recorded Patient Health Questionnaire-2 Score 1 07/02/2024 Comments No Sex and Gender Information Value Date Recorded Sex Assigned at Female 01/12/2023 2:48 PM EYEGLASS FITTER Legal Sex Female 1:07 PM EYEGLASS FITTER Gender Identity Female 01/12/2023 2:48 PM EYEGLASS FITTER Sexual Orientation Straight 01/12/2023 2: 48 PM EYEGLASS FITTER Occupation Industry Job Start Date Job End Date Not on file Not on file Not on file Not on file Last Filed Vital Signs Vital Sign Reading Time Taken Comments Blood Pressure 148/66 02/14/2025 9:00 PM CDT Pulse 69 02/14/2025 9:00 PM CDT Temperature 36.7 C (98 F) 02/14/2025 9:00 PM CDT Respiratory Rate 14 02/14/2025 9:00 PM CDT Oxygen Saturation 96% 02/14/2025 9:00 PM CDT Inhaled Oxygen Concentration - - Weight 115 kg (253 lb 8.5 oz) 02/14/2025 3:50 PM CDT Height 147.3 cm (4' 10 ) 02/14/2025 3:50 PM CDT Body Mass Index 52.99 02/14/2025 3:50 PM CDT Plan of Treatment Upcoming Encounters Date Type Department Care Team (Late st Contact Info) Description 02/21/2025 8:40 AM CDT Office Visit [facility] - [place] [address] [place] [address] Tenzin Echevarria DO [address] [place] [address] Health Maintenance Due Date Last Done Comments Zoster Vaccines (1 of 2) 2003 DTaP, Tdap and Td Vaccines (1 - Tdap) 12/20/2012 12/19/2012 RSV Immunization or 60+ Years (1 - Risk 60-74 years 1-dose series) 2013 ASCVD LDL 12/23/2022 12/23/2021, 03/13, 09/27/2019, Additional history exists Lipid Panel 12/23/2022 12/23/2021, 03/13, 01/18/2021, Additional history exists Diabetes: Retinopathy Eye Exam 11/01/2024 11/01/2022, 01/20/2021, 09/08/2020 PHQ-2 (Physician [place]) 11/13/2024 07/02/2024 Mammogram Screening 11/30/2024 11/30/2023, 07/14/2022, 08/27/2020 Hemoglobin A1C 04/18/2025 10/18/2024, 06/14, 01/18/2024, Additional history exists Annual Medicare Wellness Visit 07/04/2025 07/03/2024 Kidney Health Evaluation 08/12/2025 08/12/2024 COVID-19 Vaccine ( season) 2025 Postponed from 07/14/2024 (Patient Refused) Colorectal Cancer Screening Colonoscopy (10 Years) 02/02/2026 Pneumococcal Vaccine: 65+ Years Completed 07/01/2020, 11/20/2018, 03/02/2013 Hepatitis C Completed 05/02/2022 Dexa Scan (General) Completed 11/21/2023, 0 Meningococcal B Vaccine Aged Out No l onger eligible based on patient's age to complete this topic Meningococcal Vaccine Aged Out No isaac zachary eligible based on patient's age to complete this topic RSV Immunizations Under 20 Months Aged Out No longer eligible based on patient's age to complete this topic Procedures Procedure Name Priority Date/Time Associated Diagnosis Comments TROPONIN, QUANT STAT 02/14/2025 6:20 PM CDT ECG 12-LEAD STAT 02/14/2025 5:53 PM CDT D-DIMER, QUANTITATIVE STAT 02/14/2025 5:00 PM CDT PRO-BRAIN NATRIURETIC PEPTIDE STAT 02/14/2025 5:00 PM CDT CBC W/DIFF AUTOMATED EMORY 02/14/2025 5:00 PM CDT XR CHEST PORTABLE STAT 02/14/2025 4:3 2 PM CDT TROPONIN, QUANT STAT 02/14/2025 3:56 PM CDT COMPREHENSIVE METABOLIC PANEL STAT 02/14/2025 3:56 PM CDT ECG 12-LEAD STAT 02/14/2025 3:49 PM CDT HEMOGLOBIN, GLYCOSYLATED Routine 10/18/2024 Type 2 diabetes mellitus without complication, without long-term current use of insulin ([facility]HCC [facility]) MAMMOGRAM GENERIC (SCAN ORDER) 11/30/2023 BONE DENSITY GENERIC (SCAN ORDER) 11/21/2023 DIABETIC RETINOPATHY EXAM (NEGATIVE)(SCAN ORDER) Routine 11/01/2022 HEP C SCANNED ORDERS Routine 05/02/2022 LIPID PANEL Routine 12/23/2021 8:01 AM EYEGLASS FITTER Type 2 diabetes mellitus without complication, without long-term current use of insulin Essential hypertension from Last 3 Months or Most Recently Relevant to Health Maintenance Results * TROPONIN, QUANT (02/14/2025 6:20 PM CDT) Only the most recent of2 resultswithin the time period is included. TROPONIN I HIGH SENSITIVITY 6 <54 ng/L 02/14/2025 6:58 PM CDT [facility] Comment: HIGH DOSES OF BIOTIN, TROPONIN-SPECIFIC AUTOANTIBODIES, AND ANTIBODY THERAPY CONTAINING HAMA MAY INTERFERE WITH THIS TEST RESULT. CORRELATION TO CLINICAL HISTORY AND PRESENTATION RECOMMENDED. 02/14/2025 6:20 PM CDT Thelma Hernandez DO LABORATORY Final Result [facility] [address] [place] [address], * ECG 12 lead (02/14/2025 5:53 PM CDT) Only the most recent of2 resultswithin the time period is included. 02/14/2025 5:53 PM CDT Narrative [facility] (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 : 1955 Requested By: THELMA HERNANDEZ Order Number: [id number] Reading MD: Helga Caballero Measurements Intervals [place] Rate: 66 P: 44 MT: 161 QRS: 75 QRSD: 86 T: 77 QT: 390 QTc: 410 Interpretive Statements SINUS RHYTHM WITH SINUS ARRHYTHMIA LOW QRS VOLTAGE IN PRECORDIAL LEADS [QRS DEFLECTION < 1.0 mV IN CHEST LEADS] POSSIBLE RIGHT VENTRICULAR CONDUCTION DELAY [RSR (QR) IN V1/V2] NONSPECIFIC T-WAVE ABNORMALITY Compared to ECG 02/14/2025 15:49:30 Low QRS voltage now present Procedure Note Helga Caballero MD - 02/14/[address] Test Date: 2025-02-14 Pat Name: SHANITA SUERO Department: 41 Room: [place] [address] 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) RAD * PRO-BRAIN NATRIURETIC PEPTIDE (02/14/2025 5:00 PM CDT) PRO-B TYPE NATRIURETIC PEPTIDE 121 <125 PG/ML 02/14/2025 5:41 PM CDT [facility] Comment: CUT POINTS ESTABLISHED BY [employer] ON NT PROBNP (ICON) STUDY (2006). AGE INDEPENDENT: <300 PG/ML HAS A 99% NEGATIVE PREDICTIVE VALUE FOR EXCLUDING ACUTE CHF <50 YEARS: >450 PG/ML IS CONSISTENT WITH ACUTE CHF 50-75 YEARS: >900 PG/ML IS CONSISTENT WITH ACUTE CHF >75 YEARS: >1800 PG/ML IS CONSISTENT WITH ACUTE CHF IN PATIENTS WITH RENAL INSUFFICIENCY (GFR <60), >1200 PG/ML YIELDS A DIAGNOSTIC SENSITIVITY AND SPECIFICITY OF 89% AND 72% FOR ACUTE CHF. 02/14/2025 5:00 PM CDT us Thelma Hernandez DO LABORATORY Final Result Performing Organization Address City/[facility]/ZIP Co de Phone Number [facility] [address] [place] [address], [place] [phone] * (ABNORMAL) D-DIMER, QUANTITATIVE (02/14/2025 5:00 PM CDT) D-DIMER 664(HH) 0 - 500 ng{FEU}/mL 02/14/2025 5:50 PM CDT [facility] Comment: D-Dimer values less than or equal to 500 ng/mL FEU have a negative predictive value of >95% for exclusion of deep vein thrombosis and pulmonary embolism. In patients over 50 (who tend to have higher normal baseline D-Dimer values), recent studies suggest age-adjusted D-Dimer cutoff values (calculated as: age [years] x 10 ng/mL) result in equivalent outcomes and no additional false negative findings. Successful Call: DDIMR called 02/14/2025 05:51 PM to EMERGENCY ROOM ([place]/EUGENIA DIAZ) by [id number]. Read Back: Yes 02/14/2025 5:00 PM CDT Thelma Hernandez DO LABORATORY Final Result Performing Organization Address City/[facility]/ZIP Co de Phone Number [facility] [address] [place] [address], [place] [phone] * (ABNORMAL) CBC W/DIFF AUTOMATED (02/14/2025 5:00 PM CDT) WBC 9.86 4.5 - 11.0 x10'3/uL 02/14/2025 5:14 PM CDT [facility] RBC 3.76(L) 4.20 - 5.40 x10'6/uL 02/14/2025 5:14 PM CDT [facility] HGB 12.1 12.0 - 16.0 G/DL 02/14/2025 5:14 PM CDT [facility] HCT 37.0(L) 38.0 - 48.0 % 02/14/2025 5:14 PM CDT [facility] MCV 98.4 81.0 - 99.0 FL 02/14/2025 5:14 PM CDT [facility] MCH 32.2(H) 27.0 - 31.0 PG 02/14/2025 5:14 PM CDT [facility] MCHC 32.7 32.0 - 36.0 G/DL 02/14/2025 5:14 PM CDT [facility] RDW 14.1 11.5 - 14.5 % 02/14/2025 5:14 PM CDT [facility] PLT 385 130 - 400 x10'3/uL 02/14/2025 5:14 PM CDT [facility] MPV 9.7 9.3 - 12.2 FL 02/14/2025 5:14 PM CDT [facility] DIFFERENTIAL TYPE AUTOMATED DIFFERENTIAL 02/14/2025 5:14 PM CDT [facility] NEUTROPHILS % 59.9 % 02/14/2025 5:14 PM CDT [facility] LYMPHOCYTES % 26.9 % 02/14/2025 5:14 PM CDT [facility] MONOCYTES % 6.9 % 02/14/2025 5:14 PM CDT [facility] EOSINOPHILS 5.1 % 02/14/2025 5:14 PM CDT [facility] BASOPHILS 0.8 % 02/14/2025 5:14 PM CDT [facility] IMMATURE GRANS % 0.4 % 02/15/20 5:14 PM CDT [facility] ABS. NEUTROPHILS 5.91 1.80 - 7.70 x10'3/uL 02/14/2025 5:14 PM CDT [facility] ABS. LYMPHOCYTES 2.65 1.00 - 4.80 x10'3/uL 02/14/2025 5:14 PM CDT [facility] ABS. MONOCYTES 0.68 0.24 - 0.86 x10'3/uL 02/14/2025 5:14 PM CDT [facility] ABS. EOSINOPHILS 0.50(H) 0.04 - 0.36 x10'3/uL 02/14/2025 5:14 PM CDT [facility] ABS. BASOPHILS 0.08 0.01 - 0.08 x10'3/uL 02/14/2025 5:14 PM CDT [facility] ABS. IMMATURE GRANULOCYTES 0.04 0.00 - 0.49 x10'3/uL 02/14/2025 5:14 PM CDT [facility] 02/14/2025 5:00 PM CDT Thelma Hernandez DO LABORATORY Final Result [facility] [address] [place] [address], * XR CHEST PORTABLE (02/14/2025 4:32 PM CDT) Anatomical Region Laterality Modality Chest Radiographic Libra ging 02/14/2025 4:33 PM CDT Impressions 02/14/2025 4:38 PM CDT IMPRESSION: Nonspecific opacity silhouetting the left costophrenic angle, atelectasis, pleural effusion, and/or infection are all possible. Referred By: Interpreted By: Fabio Rabago MD, 02/14/2025 4:33 PM Narrative 02/14/2025 4:38 PM [address]T [address] [address] Examination: XR CHEST PORTABLE Exam time: 02/14/2025 4:10 PM Indication: Chest pain. Comparison: 04/12/2022 Technique: Portable AP view of the chest, one image. Findings: Mild prominence of the cardiac silhouette with minimal prominence of the pulmonary vasculature, unchanged from the prior examination. Linear areas of atelectasis in the left midlung. No pneumothorax. Silhouetting of the left costophrenic angle, nonspecific and could represent atelectasis, early infection, or pleural effusion. No acute osseous abnormality. Procedure Note Fabio Rabago MD - 02/14/[address] [address] Examination: XR CHEST PORTABLE Exam time: 02/14/2025 4:10 PM Indication: Chest pain. Comparison: 04/12/2022 Technique: Portable AP view of the chest, one image. Findings: Mild prominence of the cardiac silhouette with minimalprominence of the pulmonary vasculature, unchanged from the priorexamination. Linear areas of atelectasis in the left midlung. Nopneumothorax. Silhouetting of the left costophrenic angle, nonspecificand could represent atelectasis, early infection, or pleural effusion. Noacute osseous abnormality. IMPRESSION: Nonspecific opacity silhouetting the left costophrenic angle,atelectasis, pleural effusion, and/or infection are all possible. Referred By: Interpreted By: Fabio Rabago MD, 02/14/2025 4:33 PM Thelma Hernandez DO GENERAL IMAGING Final Result * (ABNORMAL) COMPREHENSIVE METABOLIC PANEL (02/14/2025 3:56 PM CDT) [facility] GLUCOSE 81 70 - 99 MG/DL 02/14/2025 5:25 PM CDT [facility] BUN 17 7 - 18 MG/DL 02/14/2025 5:25 PM CDT [facility] CREATININE S/P/B 0.92 0.55 - 1.02 MG/DL 02/14/2025 5:25 PM CDT [facility] SODIUM S/P/B 137 136 - 145 MMOL/L 02/14/2025 5:25 PM CDT [facility] POTASSIUM S/P/B 4.2 3.5 - 5.1 MMOL/L 02/14/2025 5:25 PM CDT [facility] CHLORIDE S/P/B 107 97 - 115 MMOL/L 02/14/2025 5:25 PM CDT [facility] CO2 23.6 21 - 32 MMOL/L 02/14/2025 5:25 PM CDT [facility] CALCIUM S/P/B 8.6 8.5 - 10.1 MG/DL 02/14/2025 5:25 PM CDT [facility] BILIRUBIN TOTAL S/P/B 0.2 0.2 - 1.2 MG/DL 02/14/2025 5:25 PM CDT [facility] Comment: THIS ASSAY IS NOT RECOMMENDED FOR PATIENTS UNDERGOING TREATMENT WITH ELTROMBOPAG DUE TO THE POTENTIAL FOR FALSELY ELEVATED RESULTS. TOTAL PROTEIN S/P/B 7.5 6.4 - 8.2 G/DL 02/14/2025 5:25 PM CDT [facility] ALBUMIN S/P/B 3.0(L) 3.4 - 5.0 G/DL 02/14/2025 5:25 PM CDT [facility] AST 19 15 - 37 U/L 02/14/2025 5:25 PM CDT [facility] ALT 22 14 - 55 U/L 02/14/2025 5:25 PM CDT [facility] ALKALINE PHOSPHATASE S/P/B 77 50 - 136 U/L 02/14/2025 5:25 PM CDT [facility] ANION GAP 6.4 2 - 10 MMOL/L 02/14/2025 5:25 PM CDT [facility] BUN CREATININE RATIO 18.4 6 - 26 02/14/2025 5:25 PM CDT [facility] A/G RATIO 0.7(L) 1.0 - 2.0 RATIO 02/14/2025 5:25 PM CDT [facility] GFR ESTIMATE 67(L) >90 ML/MIN/1.7 3 M2 02/14/2025 5:25 PM CDT [facility] Comment: NOTE: eGFR is not calculated for patients <18 years of age or gender unknown. This is an estimated GFR calculation using the new CKD EPI creatinine equation without race and so does not require a correction factor for race. This estimated GFR should not be used for calculating drug doses. 02/14/2025 3:56 PM CDT Thelma Hernandez DO LABORATORY Final Result [facility] [address] [place] [address], [place] [phone] * HEMOGLOBIN, GLYCOSYLATED (10/18/2024) HGB A1C 5.5 % [facility] 10/18/2024 us Tenzin Echevarria DO LABORATORY Final Re sult [facility] [address] [place] [address], [place] * MAMMOGRAM GENERIC (SCAN ORDER) (11/30/2023) Anatomical Region Laterality Modality Other 11/30/2023 us Doc [facility] Scanned SCANNING Final Resu lt * BONE DENSITY GENERIC (11/21/2023) Anatomical Region Laterality Modality Other 11/21/2023 us [facility] Scanned SCANNING Final Resu lt * DIABETIC RETINOPATHY EXAM (NEGATIVE)(SCAN) (11/01/2022) us Doc Med Group Scanned SCANNING Final Resu lt [facility] * HEP C SCANNED ORDERS (05/02/2022) us Documents Scanned SCANNING Final Result Performing Organization Address City/[facility]/ZIP Co de Phone Number [facility] * (ABNORMAL) LIPID PANEL (12/23/2021 8:01 AM EYEGLASS FITTER) CHOLESTEROL 262(H) 100 - 199 mg/dL [facility] 1 TRIGLYCERIDES 258(H) 0 - 149 mg/dL [facility] 1 HDL 41 >39 mg/dL [facility] 1 VLDL CALCULATION 49(H) 5 - 40 mg/dL [facility] 1 LDL (CALCULATED) 172(H) 0 - 99 mg/dL [facility] 1 12/23/2021 8:01 AM EYEGLASS FITTER 12/23/2021 Narrative [facility] - 12/24/2021 4:10 PM EYEGLASS FITTER Performed at: 01 - [facility] [address] [id number] Float Builder: Ruddy Evrin PhD, Phone: [phone] us Aleida Hicks CLIENT SALES AND SERVICE OFFICER LABORATORY Final Result [facility] [address] [place] [address] [facility] 1 from Last 3 Months or Most Recently Relevant to Health Maintenance Insurance [employer] MEDICAID Care Teams Manager Employee Relations Relationship Specialty Start Date End Date Tenzin Echevarria DO [address] [place] [id number] PCP - General FAMILY PRACTICE 11/19/18 Amandeep Howe MD [address] [facility] [address] [place] [address] [employer] Service Supervisor CARDIOVASCULAR DISEASE 08/27/19
--- OUTSIDE RECORDS SUMMARY | 2025-02-19 07:36 | XMS_ITS | Clinical Summary ---
Author Organization [facility] [address] [place] [id number] Care Team Providers Care Primer Inserting Machine Operator Name Role Phone Tenzin Echevarria DO Primary Care Provide r Allergies Active Allergy Reactions Criticality Noted Date Comments Morphine Hives Medium 05/27/2019 Denosumab Other (See comments) Low 05/27/2019 Warm feeling Mpldgjk-Ylw-Aym Reductase Inhibitors Muscle pain Medium 05/27/2019 Sertraline Hallucinations Medium 05/27/2019 Medications albuterol HFA (PROVENTIL HFA,VENTOLIN HFA,PROAIR HFA) 90 mcg/actuation inhaler Inhale 2 puffs daily as needed 3 9 Active ergocalciferol (VITAMIN D) 50,000 unit capsule Take 1 capsule (50,000 Units total) by mouth 2 (two) times a week 1 9 Active rOPINIRole (REQUIP) 1 mg tablet Take 1 tablet (1 mg total) by mouth daily 1 9 Active zolpidem (AMBIEN) 5 mg tabletIndicatio ns:Sleep-Onset Insomnia Take 1 tablet (5 mg total) by mouth nightly as needed for sleep Active ALPRAZolam (XANAX) 0.5 mg tablet Take 1 tablet (0.5 mg total) by mouth nightly as needed for anxiety Active triamcinolone (KENALOG) 0.1 % ointment Apply topically 2 (two) times a day 15 g 9 Active cyanocobalamin (Vitamin B-12) 250 mcg tablet Take 1 tablet (250 mcg total) by mouth daily Active diphenhydrAMINE (BENADRYL ALLERGY) 25 mg capsule Take 1 tablet/capsule (25 mg total) by mouth 2 (two) times a day 9 Active oxygen 2 L/min by Not Applicable route nightly 9 Active multivitamin tablet Take 1 tablet by mouth daily Active pantoprazole DR (PROTONIX) 40 mg EC tablet Take 1 tablet (40 mg total) by mouth daily [address] (CYMBALTA) 60 mg capsule Take 1 capsule (60 mg total) by mouth daily 1 Active furosemide (LASIX) 20 mg tablet Take 4 tablets (80 mg total) by mouth daily 1 Active nitroglycerin (NITROSTAT) 0.[address] 1 TABLET UNDER TONGUE EVERY 5 MINS, UP TO 3 DOSES NEEDED FOR CHEST PAIN, THEN CALL 911 2 Active levothyroxine (SYNTHROID) 112 mcg tablet Take 1 tablet (112 mcg total) by mouth every morning 4 Active cholecalciferol (VITAMIN D-3) 1,000 unit capsule Take 1 capsule (1,000 Units total) by mouth daily Active semaglutide (Ozempic) 1 mg/dose (2 mg/1.5 mL) pen injector injection Inject 1 mg under the skin once a week Active Active Problems Problem Noted Date Diagnosed Date DAE (obstructive sleep apnea) 03/04/2024 Assessment & Plan (06/17/2024 10:44 AM CDT): Patient continue to wear her CPAP 16 cm water pressure. The patient's DME is [employer]. Assessment & Plan (03/04/2024 11:28 AM CDT): The patient is currently using BiPAP with oxygen at 2 L bled into the circuit. She has recently intentionally lost almost 100 lb and I have recommended a new diagnostic nocturnal polysomnogram with a split night protocol if necessary and no MSLT. I would then order a new CPAP/BiPAP unit for her. I will also send an order to [employer]-who will be her new supplier-to show her a variety of new styles of fullface mask. She will follow up here in 3 months. I will also ask her to sign a release so we can get any sleep studies that were performed at [facility]. Chronic diastolic heart failure 02/24/2022 Type 2 diabetes mellitus wit hout complication, without long-term current use of insulin 05/27/2019 Assessment & Plan (04/01/2021 4:22 PM CDT): A1c 5.5 on no medication for diabetes. Continue to focus on diet and exercise. Check BG once daily rotating.Schedule dilated eye exam. BP improved after sitting and she reports 120/80 at home Assessment & Plan (01/18/2021 5:00 PM SEASONAL GREENERY BUNDLER): A1c Today 5.8% Continue dietary control Increase physical activity Start ozempic 0.25 mg SQ weekly for 2 weeks than increase to 0.5 mg SQ weekly Assessment & Plan (08/03/2020 1:27 PM CDT): Recent 07/2020 A1c 5.7% Continue dietary control Increase physical activity Recommend no medications at this point Assessment & Plan (04/13/2020 3:45 PM CDT): A1c today 5.7% Continue dietary control Increase physical activity Recommend no medications at this point Assessment & Plan (09/16/2019 9:29 PM SEASONAL GREENERY BUNDLER): A1c today 5.7% Continue dietary control Increase physical activity Recommend no medications at this point Assessment & Plan (05/27/2019 5:22 PM CDT): A1c today 5.7% Continue dietary control Increase physical activity Recommend no medications at this point Acquired hypothyroidism 05/27/2019 Assessment & Plan (04/01/2021 4:24 PM CDT): TSH elevated, FT4 WNL. Missed 10 days of medication. Discussed importance of taking medication regularly and to take missed doses the next morning rather than skipping them. Assessment & Plan (01/18/2021 1:06 PM SEASONAL GREENERY BUNDLER): Patient currently on Levothyroxine 100 mcg oral daily Recheck thyroid labs soon and based on that further plans Follow up in 6 months Assessment & Plan (08/03/2020 1:27 PM CDT): Reviewed recent TSH - 6.6 Increase Levothyroxine to 100 mcg oral daily Recheck TSH in 3 months Assessment & Plan (04/13/2020 3:47 PM CDT): Reviewed recent TSH levels 03/2020 worsening Plan to increase Levothyroxine to 75 mcg oral daily Recheck TSH in 3 months Assessment & Plan (09/16/2019 9:32 PM SEASONAL GREENERY BUNDLER): continue current Levothyroxine 50 mcg oral daily [...] the week, 7 tabs have been taken. Assessment & Plan (05/27/2019 5:22 PM CDT): Currently patient off of levothyroxine therapy Recheck TSH level and further plans based on the test results Thyroid cyst 05/27/2019 Assessment & Plan (08/03/2020 1:29 PM CDT): Performed thyroid ultrasound in office 05/2019 Noted subcentimeter simple right thyroid cyst No FNA needed No follow up thyroid uls needed , until physical exam or pt symptoms warrants Assessment & Plan (04/13/2020 3:45 PM CDT): Performed thyroid ultrasound in office 05/2019 Noted subcentimeter simple right thyroid cyst No FNA needed No follow up thyroid uls needed , until physical exam or pt symptoms warrants Assessment & Plan (09/16/2019 9:37 PM SEASONAL GREENERY BUNDLER): Performed thyroid ultrasound in office 05/2019 Noted subcentimeter simple right thyroid cyst No FNA needed No follow up thyroid uls needed , until physical exam or pt symptoms warrants Assessment & Plan (05/27/2019 5:23 PM CDT): Performed thyroid ultrasound in office today Noted subcentimeter simple right thyroid cyst No FNA needed Recommend nofollow-up thyroid ultrasound needed at this point under physical examination or pt symptoms warrants Morbid obesity with BMI of 50.0-59.9, adult 05/13 Assessment & Plan (04/01/2021 4:18 PM CDT): Agree with pt decision to pursue bariatric surgery in the Fall. Assessment & Plan (01/18/2021 5:01 PM SEASONAL GREENERY BUNDLER): Chronic,, worsening Discussed about healthy lifestyle habits advise to work on healthy diet, avoid processed foods , increase vegetables and protein and cut back on carb portions and also avoid fruit juices and regular soda and desserts Increase physical activity , recommend at least 150 min of aerobic activity per week and include resistance training 2 x weekly - advised patient to strongly consider Bariatric surgery On Phentermine therapy - failed Topiramate in past Assessment & Plan (08/03/2020 1:29 PM CDT): Chronic, slowly improving Discussed about healthy lifestyle habits advise to work on healthy diet, avoid processed foods , increase vegetables and protein and cut back on carb portions and also avoid fruit juices and regular soda and desserts Increase physical activity , recommend at least 150 min of aerobic activity per week and include resistance training 2 x weekly - pt not interested in Bariatric surgery Restart Phentermine therapy Assessment & Plan (04/13/2020 3:46 PM CDT): Chronic, improving with lifestyle modifications Recommend healthy lifestyle options Advised to do a carb control, portion control diet Advised to increase physical activity as tolerated Restart Phentermine therapy Assessment & Plan (09/16/2019 9:35 PM SEASONAL GREENERY BUNDLER): Chronic, worsening Recommend healthy lifestyle options Advised to do a carb control, portion control diet Advised to increase physical activity as tolerated Pt is currently enrolled into a dietary program in a Bariatric clinic Assessment & Plan (05/27/2019 5:24 PM CDT): Chronic, worsening Recommend healthy lifestyle options Advised to do a carb control, portion control diet Advised to increase physical activity as tolerated Familial hypercholesterolemia 05/27/2019 Assessment & Plan (04/01/2021 4:21 PM CDT): LDL , trigs and T chol elevated. Focus on diet. Agree with bariatric surgery. Consider low dose statin. Assessment & Plan (08/03/2020 1:28 PM CDT): Hyperlipidemia noted Currently patient patient on Zetia Patient intolerant to statin therapy No known cardiovascular disease at this point Family history of hypercholesterolemia Positive for smoking ASCVD risk calculator shows high risk Follows with Emergency Department Clinician Assessment & Plan (04/13/2020 3:46 PM CDT): Hyperlipidemia noted Currently patient patient on Zetia Patient intolerant to statin therapy No known cardiovascular disease at this point Family history of hypercholesterolemia Positive for smoking ASCVD risk calculator shows high risk Follows with Emergency Department Clinician Assessment & Plan (09/16/2019 9:36 PM SEASONAL GREENERY BUNDLER): Hyperlipidemia noted Currently patient patient on Zetia Patient intolerant to statin therapy No known cardiovascular disease at this point Family history of hypercholesterolemia Positive for smoking ASCVD risk calculator shows 8.1% - plan to recheck fasting lipid panel and further plans based on that Assessment & Plan (05/27/2019 5:27 PM CDT): Hyperlipidemia noted Currently patient patient on Zetia Patient intolerant to statin therapy No known cardiovascular disease at this point Family history of hypercholesterolemia Positive for smoking ASCVD risk calculator shows 8.1% - plan to recheck fasting lipid panel and further plans based on that Surgical History Surgery Date Site/Laterality Comments TUBAL LIGATION HYSTERECTOMY total REPLACEMENT TOTAL KNEE BILATERAL KNEE ARTHROSCOPY W/ ACL RECONSTRUCTION Le ft CARPAL TUNNEL RELEASE Bilateral CATARACT EXTRACTION, BILATERAL TRIGGER FINGER RELEASE Bilateral Medical History Medical History Date Comments Type 2 diabetes mellitus (HCC) Anxiety COPD (chronic obstructive pulmonary disease) (HC C) Hearing loss Hyperlipidemia History of stomach ulcers Family History Medical History Relation Name Comments Diabetes Brother Hypertension Brother Skin cancer Brother Diabetes Father Heart failure Father Hypertension Father Prostate cancer Father Skin cancer Father Colon cancer Maternal Grandmother d Hypertension Mother Kidney failure Mother Stroke Mother Relation Name Status Comments Brother Father Maternal Grandmother Mother Social History Tobacco Use Types Packs/Day Years Used Date Smoking Tobacco: Every Day Vaping Smokeless Tobacco: Never Tobacco Cessation:Ready to Q uit: Not Asked; Counseling Given: Not Answered Alcohol Use Standard Drinks/Week Comments Not Currently 0 (1 standard drink = 0.6 oz pur e alcohol) AUDIT-C Answer Date Recorded Q1: How often do you have a drink containing alcohol? Never 06/17/2024 Q2: How many drinks containi ng alcohol do you have on a typical day when you are drinking? Patient does not drink Q3: How often do you have si x or more drinks on one occasion? Never 06/17/2024 PHQ-2 Answer Date Recorded PHQ-2 Total Score (If total score is 3 or more points, staff should administer the PHQ-9) 0 01/18/2021 Personal Safety Answer Date Recorded Getting School Help Needed Not on file 01/27 Comments Unknown Sex and Gender Information Value Date Recorded Sex Assigned at Not on file Legal Sex Female 11:36 AM CDT Gender Identity Not on file Sexual Orientation Not on file Obstetrics History Last Filed Vital Signs Vital Sign Reading Time Taken Comments Blood Pressure 108/64 06/17/2024 9:48 AM CDT Pulse 73 06/17/2024 9:48 AM CDT Temperature 36.1 C (97 F) 06/17/2024 9:48 AM CDT Respiratory Rate 18 06/17/2024 9:48 AM CDT Oxygen Saturation 97% 06/17/2024 9:48 AM CDT Inhaled Oxygen Concentration - - Weight 105.7 kg (233 lb) 06/17/2024 9:48 AM CDT Height 149.9 cm (4' 11 ) 06/17/2024 9:48 AM CDT Body Mass Index 47.06 06/17/2024 9:48 AM CDT Plan of Treatment Health Maintenance Due Date Last Done Comments Colon Cancer Screening-Colonoscopy 1955 Fall Risk Assessment 1955 Hepatitis C Screening 1955 Osteoporosis Screening-Bone Density Scan 1955 Dilated Eye Exam 1953 Hepatitis B Screening 1971 Zoster Vaccine (1 of 2) 2003 DTaP/Tdap/Td Vaccine (1 - Tdap) 12/20/2012 3 Well Visit 65+ 2018 Albumin Creatinine Ratio, Urine 05/28/2020 9 eGFR 07/22/2021 07/22/2020, 05/28/2019 Breast Cancer Screening-Mammogram 08/27/2021 020 Hemoglobin A1C 10/02/2021 04/01/2021, 03/0 06/2021, 07/22/2020, Additional history exists Depression Screening 01/18/2022 01/18/2021, 08/03/2020, 04/13/2020, Additional history exists Foot Exam 04/01/2022 04/01/2021, 03/0 06/2021, 08/03/2020, Additional history exists Lipid Panel 12/23/2022 12/23/2021, 03/13, 01/18/2021, Additional history exists Influenza Vaccine (#1) 2024 3, 08/28/2020, 11/20/2018 Pneumococcal vaccine 65+ Completed 020, 11/20/2018, 03/02/2013 Procedures Procedure Name Priority Date/Time Associated Diagnosis Comments POCT HEMOGLOBIN A1C Routine 04/01/2021 1 1:09 AM CDT Type 2 diabetes mellitus without complication, without long-term current use of insulin (HCC) POCT LIPID PANEL Routine 01/18/2021 1:12 PM SEASONAL GREENERY BUNDLER Type 2 diabetes mellitus without complication, without long-term current use of insulin (HCC) COMPREHENSIVE METABOLIC PANEL Routine 07/22/2020 8:00 AM CDT ALBUMIN CREATININE RATIO, URINE Routine 05/28/2019 8:25 AM CDT from Last 3 Months or Most Recently Relevant to Health Maintenance Results * POCT hemoglobin A1c (04/01/2021 11:09 AM CDT) Hemoglobin A1C, POC 5.5 4.0 - 6.0 Blood specimen (specimen) 04/01/2021 11:09 AM CDT Jane Nur NP POINT OF CARE TEST ORDERABLE S Final Result * POCT lipid panel (01/18/2021 1:12 PM SEASONAL GREENERY BUNDLER) Cholesterol, POC 289 mg/dL HDL, POC 40 mg/dL Triglycerides, POC 295 mg/dL LDL Cholesterol POC 190 mg/dL Capillary blood 01/18/2021 1 :12 PM SEASONAL GREENERY BUNDLER Bee Rodriguez MD POINT OF CARE TEST ORDERABLES Final Result * (ABNORMAL) Comprehensive metabolic panel (07/22/2020 8:00 AM CDT) SCRIBED Sodium 139 134 - 144 mmol/L EXTERNAL LAB SCRIBED Potassium 4.8 3.5 - 5.2 mmol/L EXTERNAL LAB SCRIBED Chloride 100 96 - 106 mmol/L EXTERNAL LAB SCRIBED Carbon Dioxide 28 20 - 29 mmol/L EXTERNAL LAB SCRIBED Urea Nitrogen (BUN) 15 12 - 28 mg/dl EXTERNAL LAB SCRIBED Creatinine 1.08(A) 0.57 - 1.00 mg/dl EXTERNAL LAB SCRIBED Glucose 102(A) 65 - 99 mg/dl EXTERNAL LAB SCRIBED Calcium 8.9 8.7 - 10.3 mg/dl EXTERNAL LAB SCRIBED Bilirubin 0.2 0.0 - 1.2 mg/dl EXTERNAL LAB SCRIBED Plasma Protein 6.9 6.0 - 8.5 g/dl EXTERNAL LAB SCRIBED Albumin 4.0 3.8 - 4.8 g/dl EXTERNAL LAB SCRIBED Alkaline Phosphatase 98 39 - 117 Units/L EXTERNAL LAB SCRIBED Alanine Transaminase (ALT) 26 0 - 40 Units/L EXTERNAL LAB SCRIBED Aspartate Transaminase (AST) 19 0 - 40 Units/L EXTERNAL LAB SCRIBED eGFR in 62 >59 - NA EXTERNAL LAB SCRIBED eGFR in NonAfrican Citizen Of [place] 54 >59 - NA EXTERNAL LAB Blood specimen (specimen) 07/22/2020 8:00 AM CDT us Historical Provider LAB BLOOD ORDERABLES Edit ed Result - Final EXTERNAL LAB * (ABNORMAL) Albumin Creatinine Ratio, Urine (05/28/2019 8:25 AM CDT) Creatinine ur 83.6 Not Estab. mg/dL [facility] - 01 Microalbumin, ur 71.1 Not Estab. ug/mL [facility] - 01 Microalbumin/cr eat ratio 85.0(H) 0.0 - 30.0 mg/g creat [facility] - 01 Comment: Normal: 0.0 - 30.0 Albuminuria: 31.0 - 300.0 Clinical albuminuria: >300.0 05/28/2019 8:25 AM CDT 05/28/2019 Narrative [facility] - 05/29/2019 2:09 PM CDT Performed at: [address] [place] [id number] Baby Sitter: Ruddy Ervin PhD, Phone: [phone] Bee Rodriguez MD LAB URINE ORDERABLE S Final Result Performing Organization Address City/[facility] Co de Phone Number [facility] - 01 from Last 3 Months or Most Recently Relevant to Health Maintenance Insurance MEDICARE COMMERCIAL GENERIC Care Teams Primer Inserting Machine Operator Relationship Specialty Start Date End Date Tenzin Echevarria DO PCP - General Family Medicine 03/07/19
--- OUTSIDE RECORDS SUMMARY | 2025-02-19 07:36 | XMS_ITS | Clinical Summary ---
Author Organization [facility] Address [address] [place] [address] Care Team Providers Care Greenbelt Name Role Phone EderjudithTenzin medina Devon JAY Primary Care Provider + Source Comments [facility],non-owned Affiliates and Associated Physician Practices is amultiple site organization consisting of ambulatory clinics and hospital sitesin [place], [place], [place] and [place]. This disclosure is being madepursuant to the Care Everywhere program and may not contain all information available regarding this patient. Last updated 18.[facility] Allergies Active Allergy Reactions Criticality Noted Date Comments Morphine Swelling 07/12/2018 Medications * Be aware that medications may not be up to date on this document. Alwaysverify current medications with the patient. Medication Sig Dispensed Refills Start Date End Date Status metFORMIN (GLUCOPHAGE) 500 MG tablet Take 500 mg by mouth 2 times daily with morning and evening meal Active furosemide (LASIX) 20 MG tablet Take 20 mg by mouth once daily Active ezetimibe (ZETIA) 10 MG tablet Take 10 mg by mouth once daily Active vitamin D, ergocalciferol, (DRISDOL) 55833 UNITS capsule Take 50,000 Units by mouth every 30 days Active citalopram (CELEXA) 40 MG tablet Take 40 mg by mouth once daily Active zolpidem SL (EDLUAR) 5 MG tablet Dissolve 5 mg under the tongue nightly as needed for Insomnia Active diphenhydrAMINE (BENADRYL ALLERGY) 25 MG capsule Take 25 mg by mouth at bedtime Active cyclobenzaprine (FLEXERIL) 5 MG tablet Take 5 mg by mouth 3 times daily as needed Active levothyroxine (SYNTHROID) 112 MCG tablet Take 112 mcg by mouth daily before breakfast Active Family History Medical History Relation Name Comments CAD (Coronary Artery Disease) Father Diabetes - Type 2 Father Cancer - Colon Maternal Grandmother CAD (Coronary Artery Disease) Mother CVA Mother Hypertension Mother Relation Name Status Comments Father Maternal Grandmother Mother Social History Tobacco Use Types Packs/Day Years Used Date Smoking Tobacco: Former Smokeless Tobacco: Former Comments:quit 3 years Alcohol Use Standard Drinks/Week Comments Yes 0 (1 standard drink = 0.6 oz pur e alcohol) rare Sex and Gender Information Value Date Recorded Sex Assigned at Not on file Gender Identity Not on file Sexual Orientation Not on file Last Filed Vital Signs Vital Sign Reading Time Taken Comments Blood Pressure 138/76 07/12/2018 1:27 PM CDT Pulse 56 07/12/2018 1:27 PM CDT Temperature - - Respiratory Rate - - Oxygen Saturation - - Inhaled Oxygen Concentration - - Weight 116.6 kg (257 lb) 07/12/2018 2:49 PM CDT Height 143.5 cm (4' 8.5 ) 07/12/2018 2:49 PM CDT Body Mass Index 56.6 07/12/2018 2:49 PM CDT Plan of Treatment Health Maintenance Due Date Last Done Comments BONE DENSITY TESTING 1955 COLOGUARD (AGES 45-75) - COL ON CA SCREENING 1953 COLON MONITORING 1953 COLONOSCOPY - COLON CA SCREENING 1953 CT COLONOGRAPHY - COLON CA SCREENING 1955 Colorectal Cancer Screening 1955 FIT - COLON CA SCREENING 1953 FLEX SIG - COLON CA SCREENING 1953 LIPID TESTING 1955 MAMMOGRAM 1955 MEDICARE AWV 12 MONTHS 1953 HEPATITIS C SCREENING 10/23/1971 DTAP/TDAP/TD VACCINES (1 - Tdap) 1972 PNEUMOCOCCAL VACCINE 50+ (1 of 1 - PCV) 2003 ZOSTER VACCINE (1 of 2) 2003 Respiratory Syncytial Virus (RSV) Vaccine Pt: or over 60 yrs (1 - Risk 60-74 years 1-dose series) 2013 SCREENING FOR DIABETES 07/12/2018 COVID-19 VACCINE ( - 2023-2 5 season) 2024 DEPRESSION SCREENING 11/13/2024 INFLUENZA VACCINE (Season Ended) 2025 HEPATITIS B VACCINE Aged Out No longe r eligible based on patient's age to complete this topic HIB VACCINE Aged Out No longer eligi ble based on patient's age to complete this topic HPV VACCINE Aged Out No longer eligi ble based on patient's age to complete this topic MENINGOCOCCAL (Group B) VACC INE SHARED DECISION-MAKING Aged Out No longer eligibl e based on patient's age to complete this topic MENINGOCOCCAL GROUPS A/C/Y/W VACCINE Aged Out No longer eligible b ased on patient's age to complete this topic Care Teams Greenbelt Relationship Specialty Start Date End Date Tenzin Echevarria DO [address] [place] [id number] PCP - General 02/18/21
--- OUTSIDE RECORDS SUMMARY | 2025-02-19 07:36 | XMS_ITS | Referral Summary ---
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 Chronic diastolic heart failure 02/24/2022 Type [...] home Assessment & Plan (01/18/2021 5:00 PM LIME SUPERVISOR): A1c Today 5.8% Continue dietary control Increase [...] point Assessment & Plan (09/16/2019 9:29 PM LIME SUPERVISOR): A1c today 5.7% Continue dietary control Increase [...] them. Assessment & Plan (01/18/2021 1:06 PM LIME SUPERVISOR): Patient currently on Levothyroxine 100 mcg oral [...] months Assessment & Plan (09/16/2019 9:32 PM LIME SUPERVISOR): continue current Levothyroxine 50 mcg oral daily [...] warrants Assessment & Plan (09/16/2019 9:37 PM LIME SUPERVISOR): Performed thyroid ultrasound in office 05/2019 Noted [...] Fall. Assessment & Plan (01/18/2021 5:01 PM LIME SUPERVISOR): Chronic,, worsening Discussed about healthy lifestyle habits [...] therapy Assessment & Plan (09/16/2019 9:35 PM LIME SUPERVISOR): Chronic, worsening Recommend healthy lifestyle options Advised [...] risk calculator shows high risk Follows with Montessori Lead Teacher Assessment & Plan (04/13/2020 3:46 PM CDT): Hyperlipidemia noted Currently patient patient on Zetia Patient intolerant to statin therapy No known cardiovascular disease at this point Family history of hypercholesterolemia Positive for smoking ASCVD risk calculator shows high risk Follows with [facility] Lead Teacher Assessment & Plan (09/16/2019 9:36 PM LIME SUPERVISOR): Hyperlipidemia noted Currently patient patient on Zetia [...] panel and further plans based on that Social History Tobacco Use Types Packs/Day Years [...] 06/17/2024 9:48 AM CDT Plan of Treatment Not on file Procedures Procedure Name Priority Date/Time Associated Diagnosis Comments POCT HEMOGLOBIN A1C Routine 04/01/2021 1 1:09 AM CDT Type 2 diabetes mellitus without complication, without long-term current use of insulin (HCC) POCT LIPID PANEL Routine 01/18/2021 1:12 PM LIME SUPERVISOR Type 2 diabetes mellitus without complication, without [...] * POCT lipid panel (01/18/2021 1:12 PM LIME SUPERVISOR) Cholesterol, POC 289 mg/dL HDL, POC 40 mg/dL Triglycerides, POC 295 mg/dL LDL Cholesterol POC 190 mg/dL Capillary blood 01/18/2021 1 :12 PM LIME SUPERVISOR Bee Rodriguez MD POINT OF CARE TEST [...] NA EXTERNAL LAB SCRIBED eGFR in NonAfrican [place]er 54 >59 - NA EXTERNAL LAB Blood specimen (specimen) 07/22/2020 8:00 AM CDT Historical Provider LAB BLOOD ORDERABLES Edit ed Result - Final Performing Organization Address City/[facility]/ZIP Co de Phone Number EXTERNAL LAB * (ABNORMAL) Albumin Creatinine Ratio, [...] - 05/29/2019 2:09 PM CDT Performed at: 01 - [facility] [place] [id number] [place]: Ruddy Ervin PhD, Phone: [phone] Bee Rodriguez MD LAB URINE ORDERABLE S Final Result Performing Organization Address [facility] de Phone Number [facility] - 01 from Last 3 Months or Most Recently Relevant to Health Maintenance Insurance MEDICARE COMMERCIAL GENERIC Care Teams Tire Recapping Machine Operator Relationship Specialty Start Date End Date Tenzin Echevarria DO PCP - General Family Medicine 03/07/19
--- OUTSIDE RECORDS SUMMARY | 2025-02-19 07:36 | XMS_ITS | Data Portability ---
Author Organization [facility] [place] Address [address] [place] [address] Assessment Encounter Date Assessment Date Assessment LastModified by Organization Details LastModified Time 05/20/2020 05/20/2020 Annual gynecological exam performed. Patient will come back in a year unless there are new symptoms. [email or web address] Not available 05/20/2020 11:00:38 Plan of Treatment Reminders Order Date Submit Date Provider Last Modified By Organization Details Last Modified Time Details Appointments None record ed. Lab None record ed. Referral None record ed. Procedures None record ed. Surgeries None record ed. Imaging None record ed. Medication Orders None record ed. Patient TargetsNo targets recorded. Patient Instructions Encounter Date Encounter Id Patient Instructions Last Modified By Organization Details Last Modified Time 05/20/2020 [id number] [email or web address] Not available 11:30:45 Reason for Referral None Reported. Results Created Date Observation Date Name Description Value Unit Range Abnormal Flag Note LastModifiedBy Organization Detail LastModifiedTime 08/27/2008/27/2020 MAMMO , scree timbo, bilat eral No observ ation [facility] ed. [facility] [address], [place], [address], 09/01/2020 15:30:22 08/28/20 20 08/27/2020 bone densi ty No observ ation record ed. [facility] [address], [place], [address], 09/03/2020 12:16:56 Result Notes None recorded. Procedures Surgical History Date Name Laterality Status Provider Name and Address Organization Details Recorded Time Tubal Ligation completed Lucero Nguyen [place] - [facility] 05/20/2020 11:05:23 Total Hysterectomy completed [facility] 05/20/2020 11:05:29 Carpal tunnel surgery completed [facility] 05/20/2020 11:05:39 cataract surgery [address] [facility] 05/20/2020 11:05:48 Total knee arthroplasty completed [facility] 05/20/2020 11:05:54 Imaging Results Imaging Date Name Status LastModified by Organiz ation Details LastModified Time 08/27/2020 MAMMO, screening, bilateral completed [facility] [address], [place], [address], 09/01/2020 15:30:22 08/27/2020 bone density completed [facility] [address], [place], [address], 09/03/2020 12:16:56 Procedure Notes None recorded. Medical Equipment None Reported. Allergies No known drug allergies Medications Name Sig Start Date Stop Date Status Note LastModified by Organization Details LastModified Time ropinirole 1 mg tablet active Not Available Not Available Not Available citalopram 40 mg tablet active Not Available Not Available No t Available triamcinolone acetonide 0.1 % topical cream active Not Available Not Availabl e Not Available levothyroxine 75 mcg tablet active Not Available Not Availabl e Not Available alprazolam 0.5 mg tablet active Not Available Not Available No t Available oseltamivir 75 mg capsule active Not Available Not Available N ot Available zolpidem 10 mg tablet active Not Available Not Available Not Available bupropion HCl XL 150 mg 24 hr tablet, extended release active Not Available Not Available Not Available levothyroxine active Not Available Not Available Not Available citalopram active Not Available Not Av ailable Not Available phentermine active Not Available Not A vailable Not Available ropinirole active Not Available Not Av ailable Not Available furosemide active Not Available Not Av ailable Not Available alprazolam active Not Available Not Av ailable Not Available zolpidem active Not Available Not Avai lable Not Available HCG active Not Available Not Availa ble Not Available topiramate active Not Available Not Av ailable Not Available triamcinolone (bulk) active Not Available Not Available Not Available bupropion HBr active Not Available Not Available Not Available Vitals Date Recorded Body height Body mass index (BMI) Body weight Systolic blood pressure Diastolic blood pressure Provider Name and Address Organization Details Last Updated DateTime 05/20/2020 149.86 cm 54.7 kg/m2 856247.5 3 g 103 mm[Hg] 65 mm[Hg] Lucero Nguyen [facility] 0 11:10:40 Social History None recorded. Functional Status None recorded. Mental Status None recorded. Family History Relationship Description Onset Age of this Age Resolved Age Notes LastModified by Organization Details LastModified Time Father Anemia [email or web address] Not available 11:03:14 Father Asthma [email or web address] Not available 11:03:20 Father Heart disease [email or web address] Not available 2019 11:03:56 Father Diabetes mellitus [email or web address] Not available 2019 11:04:13 Father Hypercholest erolemia [email or web address] Not available 2019 11:04:41 Father Hypertensive disorder [email or web address] Not available 2019 11:04:56 Paternal Grandmother Carcinoma in situ of breast [email or web address] Not available 2019 11:03:33 Paternal Grandmother Hypercholest erolemia [email or web address] Not available 2019 11:04:41 Maternal Aunt Carcinoma in situ of breast [email or web address] Not available 2019 11:03:33 Maternal Grandmother Carcinoma in situ of colon [email or web address] Not available 2019 11:03:46 Maternal Grandmother Hypercholest erolemia [email or web address] Not available 2019 11:04:41 Mother Heart disease [email or web address] Not available 2019 11:03:56 Mother Hypercholest erolemia [email or web address] Not available 2019 11:04:41 Mother Hypertensive disorder [email or web address] Not available 2019 11:04:56 Paternal Grandfather Diabetes mellitus [email or web address] Not available 2019 11:04:13 Paternal Grandfather Hypercholest erolemia [email or web address] Not available 2019 11:04:41 Brother Diabetes mellitus [email or web address] Not available 2019 11:04:13 Brother Hypercholest erolemia [email or web address] Not available 2019 11:04:41 Brother Hypertensive disorder [email or web address] Not available 2019 11:04:56 Medical History Condition Response Thyroid Problems Y Gynecological History Statement/Question Response Current Control Method None Obstetrics History GPAL:G 0 P 0 0 0 0 Past Encounters Encounter ID Performer Location Encounter Start Date Encounter Closed Date Diagnosis/Indication Diagnosis SNOMED-CT Code Diagnosis ICD10 Code Diagnosis Note [id number] Chasity Mendes , [facility] [address] [address] 05/20/2020 10:57:04 05/20/2020 11:45:59 Gynecologic examination 47039316 Z01.419 Take Calcium with Vitamin D 12-1500mg daily. Do monthly self breast exams. It is advised to get annual flu shot in the fall and she could obtain at [facility] or [facility] care clinic. If you haven't received the Tdap vaccine in the last 10 years you should obtain one as well. Have mammogram yearly, bone density every 2-3 years and colonoscop y every 5-10 years depending on findings and history. Engage in daily exercise of low impact aerobic exercise 45-60 minutes 4-5 times weekly. Avoid tobacco and illicit drugs as well as using moderation with alcohol intake less than 1-2 8 oz beverages daily. This lifestyle behavior pattern will lead to less health conditions and longer life span. If BMI greater than 25 weight watchers or dietary consult advised. Questions have been answered. Patient appears to understand instructio ns, but if you have any further questions call or respond to this email Mammo ordered Dexa PCP Colonoscop y UTD PCP Pap/HPV d/c. Hx hysterecot my for benign indication s. Health Concerns Section Related Observation LastModified by Organization Detai ls LastModified Time None Recorded Concern Status LastModified by Organization Details LastModified Time None Recorded Advance Directives Directive None Recorded Payers Encounter Date Sequence Insurance Name Policy Number Policy Aguilar Covered Member ID Aguilar Member ID Guarantor Name 05/20/2020 2 BASIL (MEDICARE SUPPLEMENT) Shanita Gallo [id number] Shanita Gallo 05/20/2020 1 [place] Shanita Lloyd Gallo [id number] Shanita Gallo Notes Date Note Type Note Provider Name and Address Organization Details Recorded Time 05/20/2020 text/html Annual GYNReport ed bypatient.History: Hx hysterectomy for benign indications. Menstrual cycle:Normal menses Urinary symptoms:No hematuria; No incontinence Vulva:No genital lesion Vagina:Normal vaginal discharge Breast:No breast pain; No breast lump; No nipple discharge Current Contraception:Post menopause Sexual complaints:No sexual complaints; No pain during intercourse; Normal libido Menopausal Symptoms:No menopausal symptoms; Normal vaginal lubrication Psychological symptoms:No depression; No anxiety; No PMDD Preventive measures:Encourage self breast examination; Encourage regular exercise; Encourage no tobacco use; Needs to schedule mammogram; Up to date on colonoscopy screening; Considering weight loss surgery Chasity Mendes, [facility]- [address], [place], [address], [facility] 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 Status 05/20/20 20 1 CLOSED Fetus Data First Name Last Name Admitted to NICU Weight (g) Sex Living Outcome Pediatric Complications Fetus ID Race Codes Race Delivery Type [id number] Darrell Calculation Initial Darrell Date Initial Exam Date Initial Exam Provider Initial Ultrasound Date Last Menstrual Period Date Ultra Sound Weeks Gestation 0 Eighteen To Twenty Week Darrell Update Ultra Sound Date Fundal Height At Umbil Quickening Date Ultra Sound Latest Weeks Gestation Final Darrell Confirmed By Final Darrell Confirmed Date Final Darrell Date Ultra Sound Latest Days Gestation 0 0 Menstrual History Last Menstrual Date Menses Monthly On Bcp Conception Prior Menses Frequency Hcg Plus Date Menarche Onset Age Delivery Information Delivery Date Delivery Type Labor Anesthesia Weeks Gestation Incision Type Labor Labor Length Hrs Delivered By Post Complications Tubal Sterilization Discharge Date Comments 3 Discharge Information Feeding Method Contraceptive Method Maternal HG B and HCT Levels Ob Episode Information Episode Created Date Number of Fetuses Patient Bloodtype Patient rh Status Prepregnancy Weight lbs Domestic Partner Domestic Partner Phone Father Name Branch Billing Payroll Clerk Status 05/20/20 20 1 CLOSED Fetus Data First Name Last Name Admitted to NICU Weight (g) Sex Living Outcome Pediatric Complications Fetus ID Race Codes Race Delivery Type [id number] Darrell Calculation Initial Darrell Date Initial Exam Date Initial Exam Provider Initial Ultrasound Date Last Menstrual Period Date Ultra Sound Weeks Gestation 0 Eighteen To Twenty Week Darrell Update Ultra Sound Date Fundal Height At Umbil Quickening Date Ultra Sound Latest Weeks Gestation Final Darrell Confirmed By Final Darrell Confirmed Date Final Darrell Date Ultra Sound Latest Days Gestation 0 0 Menstrual History Last Menstrual Date Menses Monthly On Bcp Conception Prior Menses Frequency Hcg Plus Date Menarche Onset Age Delivery Information Delivery Date Delivery Type Labor Anesthesia Weeks Gestation Incision Type Labor Labor Length Hrs Delivered By Post Complications Tubal Sterilization Discharge Date Comments 7 Discharge Information Feeding Method Contraceptive Method Maternal HG B and HCT Levels
[2025-02-19 08:29] LABS: Alanine Aminotransferase 33 U/L (6-35); Alkaline Phosphatase 83 U/L (38-126); Anion Gap 8 mmol/L (4-12); Aspartate Amino Transferase 28 U/L (14-36); Bilirubin,Total 0.4 mg/dL (0.2-1.3); Blood Urea Nitrogen 17 mg/dL (7-17); Calcium 8.9 mg/dL (8.4-10.2); Carbon Dioxide 31 mmol/L (22-30); Chloride 101 mmol/L (98-107); Cholesterol 192 mg/dL (0-200); Estimated Glomerular Filt Rate 51; Glucose 98 mg/dL (65-110); HDL Direct 50 mg/dL; Potassium 4.4 mmol/L (3.4-5.0); Sodium 140 mmol/L (137-145); Triglycerides 196 mg/dL (<150)
[2025-02-19 08:41] LABS: LDL Cholesterol Direct 92 mg/dL
[2025-02-19 09:28] LABS: Parathyroid Intact 84.9 pg/mL (14.5-75.2)
[2025-02-19 10:01] LABS: Microalbumin Urine Random 16.4 mg/L (0-16.7)
[2025-02-19 10:02] LABS: Creatinine Urine 119.7 mg/dL; MALB Creatinine Ratio 13.7 mg/g (0-30)
[2025-02-19 10:34] LABS: Free T4 Free Thyroxine 1.01 ng/dL (0.78-2.19)
[2025-02-19 15:52] LABS: Vitamin D 25 Hydroxy 36.8 ng/mL
== END 2025-02-19 07:29 | disposition home or self-care (01) ==
PROVIDERS: PCP Student in an Organized Health Care Education/Training Program; Visit Provider Internal Medicine Endocrinology, Diabetes & Metabolism
DX: M85.80 Other specified disorders of bone density and structure, unspecified site (principal); Z78.0 Asymptomatic menopausal state; E03.9 Hypothyroidism, unspecified; R79.89 Other specified abnormal findings of blood chemistry; E11.9 Type 2 diabetes mellitus without complications
CPT/HCPCS: 36415; 80053; 80061; 82043; 82306; 82607; 83970; 84439; 84443

== ENCOUNTER 2025-02-21 10:22 | Outpatient (CLI) | payer MEDICARE, MEDICAID, SELFPAY ==
--- NOTE | ~2025-02-21 | US_ITS ---
EXAMINATION:US venous doppler LE BI INDICATION:Localized swelling TECHNIQUE: Multiple grayscale, color flow and Doppler images of the bilateral lower extremity deep ve nous systems were obtained and reviewed. COMPARISON:Ultrasound dated 08/25/2021 FINDINGS: The common femoral, superficial femoral and popliteal veins demonstrate normal respiratory variation, augmentation and compressibility. Color flow is also seen within the posterior tibial, pe roneal, greater saphenous and profunda veins. IMPRESSION: 1: No lower extremity deep venous thrombosis. Reviewed, dictated and finalized at location A.
--- OUTSIDE RECORDS SUMMARY | 2025-02-21 11:00 | XMS_ITS | Clinical Summary ---
Author Organization [facility] Address [facility] [place] [address] Care Team Providers Care Public Policy Professor Name Role Phone Tenzin Echevarria DO Primary Care Provider + Amandeep Howe MD Unavailable [phone] Allergies Active Allergy Reactions Criticality Noted [...] mouth daily. Active OneTouch Delica Lancets 33G MiscIndications:T ype 2 diabetes mellitus without complication, without long-term current use of insulin ([facility] HHS/HCC) Test once daily 100 each 1 02/23/20 22 Active semaglutide (OZEMPIC, 1 MG/DOSE,) 2 MG/1.5ML injection (PEN) Inject 1 mg into the skin every 7 days. Active ONETOUCH VERIO test stripIndications: Type 2 diabetes mellitus without complication, without long-term current use of insulin ([facility] HHS/HCC) USE TO TEST BLOOD SUGARS ONCE DAILY 100 strip 1 03/02/20 23 Active Cholecalciferol (VITAMIN D-3) 25 MCG (1000 UT) Cap Take 1 capsule by mouth daily. Active levothyroxine (SYNTHROID) 112 MCG tabletIndications :Acquired hypothyroidism take 1 tablet by mouth every morning 30 tablet 2 04/09/20 24 Active CPAP MACHINE Active nitroglycerin (NITROSTAT) 0.4 MG SL tabletIndications :Chronic diastolic heart failure ([facility] HHS/HCC) Place 1 tablet (0.4 mg total) under the tongue every 5 (five) minutes as needed for Chest Pain. Max of 3 doses, then call 911 25 tablet 1 07/03/20 24 Active betamethasone dipropionate 0.05 % creamIndications: Rash Apply topically 2 (two) times daily. Do not use for more than 4 weeks continuously 45 g 1 07/03/20 24 Active HYDROcodone-aceta minophen (NORCO) 5-325 MG tabletIndications :Acute Pain < 7 Day Supply Take 1 tablet by mouth every 6 (six) hours as needed for Pain. Indications: Acute Pain < 7 Day Supply 28 tablet 10/18/20 24 Active furosemide (LASIX) 80 MG tabletIndications :Chronic diastolic heart failure ([facility] HHS/HCC) Take 1 tablet (80 mg total) by mouth daily as needed (swelling). Take 1 tablet twice daily for 2 weeks, then take 1 tablet daily as needed 02/22/20 25 Active Suvorexant (BELSOMRA) 10 MG TabIndications:Pr imary insomnia Take 10 mg by mouth daily as needed. 30 tablet 2 02/22/20 25 Active albuterol sulfate HFA 108 (90 Base) MCG/ACT inhalerIndication s:Chronic obstructive pulmonary disease, unspecified COPD type ([facility]) Inhale 2 puffs into the lungs every 4 (four) hours as needed for Wheezing or Shortness of breath. 18 g 5 02/22/20 25 Active rOPINIRole (REQUIP) 1 MG tabletIndications :RLS (restless legs syndrome) Take 1 tablet (1 mg total) by mouth nightly at bedtime. 90 tablet 1 02/22/20 25 Active pregabalin (LYRICA) 150 MG capsuleIndication s:Other chronic pain Take 1 capsule (150 mg total) by mouth 2 (two) times daily. 60 capsule 2 02/22/20 25 Active albuterol sulfate HFA 108 (90 Base) MCG/ACT inhalerIndication s:Chronic obstructive pulmonary disease, unspecified COPD type ([facility]) Inhale 2 puffs into the lungs every 4 (four) hours as needed for Wheezing or Shortness of breath. 18 g 5 03/21/20 24 025 Discontinu ed(Reorder ) pravastatin (PRAVACHOL) 20 MG tablet TAKE 1 TABLET (20 MG TOTAL) BY MOUTH NIGHTLY AT BEDTIME. ON MONDAYS AND THURSDAYS 24 tablet 1 04/18/20 24 025 Discontinu ed(Therapy completed) pregabalin (LYRICA) 150 MG capsuleIndication s:Other chronic pain TAKE 1 CAPSULE BY MOUTH TWICE A DAY 60 capsule 2 11/19/19 25 025 Discontinu ed(Reorder ) zolpidem (AMBIEN) 5 MG tabletIndications :Primary insomnia TAKE 0.5 TABLETS BY MOUTH NIGHTLY NEEDED FOR SLEEP. 45 tablet 12/18/19 25 025 Discontinu ed(Side effects) furosemide (LASIX) 80 MG tabletIndications :Chronic diastolic heart failure ([facility]) TAKE 1 TABLET (80 MG TOTAL) BY MOUTH DAILY NEEDED (SWELLING). 90 tablet 1 12/30/19 25 025 Discontinu ed(Reorder ) rOPINIRole (REQUIP) 1 MG tabletIndications :RLS (restless legs syndrome) TAKE 2 TABLETS BY MOUTH AT BEDTIME 180 tablet 01/07/20 25 025 Discontinu ed(Formula ry change) DULoxetine (CYMBALTA) 60 MG capsuleIndication s:Current mild episode of major depressive disorder, unspecified whether recurrent TAKE 2 CAPSULES BY MOUTH EVERY DAY 180 capsule 01/07/20 25 025 Discontinu ed(Therapy completed) buPROPion XL (WELLBUTRIN XL) 300 MG 24 hr tabletIndications :Current mild episode of major depressive disorder, unspecified whether recurrent Take 1 tablet (300 mg total) by mouth daily. 30 tablet 5 01/08/20 25 025 Discontinu ed(Therapy completed) cefdinir (OMNICEF) 300 MG Cap capsule Take 1 capsule (300 mg total) by mouth 2 (two) times daily for 6 days. 12 capsule 02/16/20 25 025 Discontinu ed(Therapy completed) azithromycin (ZITHROMAX) 250 MG tablet Please take 1 tablet daily for the next 4 days. 4 tablet 02/16/20 25 025 rOPINIRole (REQUIP) 1 MG tablet Take 1 tablet (1 mg total) by mouth nightly at bedtime. 025 Discontinu ed(Reorder ) Active Problems Problem Noted Date Diagnosed Date [...] risk calculator shows high risk Follows with Speedometer Inspector Thyroid cyst 05/27/2019 Overview (01/21/2021): Last Assessment & Plan: Performed thyroid ultrasound in office 05/2019 Noted subcentimeter simple right thyroid cyst No FNA needed No follow up thyroid uls needed , until physical exam or pt symptoms warrants Exercise hypoxemia 02/25/2019 Chronic obstructive pulmonar y disease, unspecified COPD type ([facility]) 02/25/2019 Vitamin D deficiency 01/21/2019 Diastolic dysfunction with heart failure ([facility]) 01/21/2019 Nocturnal hypoxemia 12/21/2018 Shortness of breath 12/21/2018 Essential hypertension 11/23/2018 Current mild episode of alverto r depressive disorder, unspecified whether recurrent 11/23/2018 Type 2 diabetes mellitus wit hout complication, without long-term current use of insulin ([facility]) 11/23/2018 Overview (01/21/2021): Last Assessment & Plan: [...] Encounters Date Type Department Care Team Description 02/21/2025 8:40 AM CDT Office Visit [facility] [address] [address] Tenzin Echevarria DO Diabetes (3 month follow up ); ER F/U (The patient went to [facility] for pneumonia 1 week ago. ) 02/21/2025 Care Management [facility] [address] [address] Georgette Smith, RESEARCH ENGINEER [employer] 02/21/2025 Travel 02/14/2025 3:48 PM CDT - 02/14/2025 9:52 PM CDT Emergency [facility] [place] [address] Thelma Hernandez DO Chest Pain Discharge Disposition: Home or Self [...] uit: No; Counseling Given: Yes Comments:Provider to appliance counselor patient smoking 1 pack per week Reports quitting 3 beginning of Jul. Reports smoking cigarettes some days when it gets really bad . Reported usage 1 pack per month. 10/18/2024. Alcohol Use Standard Drinks/Week Comments Not Currently 0 (1 standard drink = 0.6 oz pur e alcohol) Above 2a year AUDIT-C Answer Date Recorded Q1: How [...] Answer Date Recorded Patient Health Questionnaire-2 Score 0 02/21/2025 Comments No Sex and Gender Information Value Date Recorded Sex Assigned at Female 01/12/2023 2:48 PM DEPARTMENT SECRETARY Legal Sex Female 1:07 PM DEPARTMENT SECRETARY Gender Identity Female 01/12/2023 2:48 PM DEPARTMENT SECRETARY Sexual Orientation Straight 01/12/2023 2: 48 PM DEPARTMENT SECRETARY Occupation Industry Job Start Date Job End Date Not on file Not on file Not on file Not on file Last Filed Vital Signs Vital Sign Reading Time Taken Comments Blood Pressure 124/70 02/21/2025 9:00 AM CDT Pulse 73 02/21/2025 9:00 AM CDT Temperature 36.8 C (98.3 F) 02/21/2025 9:00 AM CDT Respiratory Rate 16 02/21/2025 9:00 AM CDT Oxygen Saturation 97% 02/21/2025 9:00 AM CDT Inhaled Oxygen Concentration - - Weight 115.4 kg (254 lb 8 oz) 02/21/2025 9:00 AM CDT Height 147.3 cm (4' 10 ) 02/21/2025 9:00 AM CDT Body Mass Index 53.19 02/21/2025 9:00 AM CDT Plan of Treatment Health Maintenance Due Date Last Done Comments ASCVD LDL 12/23/2022 12/23/2021, 03/13, 09/27/2019, Additional history exists Lipid Panel 12/23/2022 12/23/2021, 03/13, 01/18/2021, Additional history exists Diabetes: Retinopathy Eye Exam 11/01/2024 11/01/2022, 01/20/2021, 09/08/2020 Mammogram Screening 11/30/2024 11/30/2023, 07/14/2022, 08/27/2020 Annual Medicare Wellness Visit 07/04/2025 07/03/2024 Kidney Health Evaluation 08/12/2025 08/12/2024 Hemoglobin A1C 08/23/2025 02/21/2025, 12/0 04/2024, 07/03/2024, Additional history exists COVID-19 Vaccine ( season) 2025 Postponed from 07/14/2024 (Patient Refused) Dexa Scan (General) 11/21/2025 11/21/2023, Colorectal Cancer Screening Colonoscopy (10 Years) 02/02/2026 DTaP, Tdap and Td Vaccines (1 - Tdap) 02/21/2026 12/19/2012 Postponed from 12/20/2012 (No Insurance Coverage) RSV Immunization or 60+ Years (1 - Risk 60-74 years 1-dose series) 02/21/2026 Postponed fro m 2013 (Going to Outside Clinic) Zoster Vaccines (1 of 2) 02/21/2026 Pos tponed from 2003 (Going to Outside Clinic) Pneumococcal Vaccine: 65+ Years Completed 07/01/2020, 11/20/2018, 03/02/2013 Hepatitis C Completed 05/02/2022 PHQ-2 (Physician [place]) Completed 02/21/2025 Meningococcal B Vaccine Aged Out No l onger eligible based on patient's age to complete this topic Meningococcal Vaccine Aged Out No isaac zachary eligible based on patient's age to complete this topic RSV Immunizations Under 20 Months Aged Out No longer eligible based on patient's age to complete this topic Procedures Procedure Name Priority Date/Time Associated Diagnosis Comments COLLECT.CAPILLARY (FNGR,HEEL,EAR) Routine 02/21/2025 8:48 AM CDT Type 2 diabetes mellitus without complication, without long-term current use of insulin ([facility]) HEMOGLOBIN, GLYCOSYLATED Routine 02/21/2025 Type 2 diabetes mellitus without complication, without long-term current use of insulin ([facility]) TROPONIN, QUANT STAT 02/14/2025 6:20 PM CDT [...] ECG 12-LEAD STAT 02/14/2025 3:49 PM CDT MAMMOGRAM GENERIC (SCAN ORDER) 11/30/2023 BONE DENSITY GENERIC (SCAN ORDER) 11/21/2023 DIABETIC RETINOPATHY EXAM (NEGATIVE)(SCAN ORDER) Routine 11/01/2022 HEP C SCANNED ORDERS Routine 05/02/2022 LIPID PANEL Routine 12/23/2021 8:01 AM DEPARTMENT SECRETARY Type 2 diabetes mellitus without complication, without long-term current use of insulin Essential hypertension from Last 3 Months or Most Recently Relevant to Health Maintenance Results * HEMOGLOBIN, GLYCOSYLATED (02/21/2025) HGB A1C 5.5 % [facility] 02/21/2025 Tenzin Echevarria DO LABORATORY Final Re sult [facility] [address] [place] [address], [place] * TROPONIN, QUANT (02/14/2025 6:20 PM CDT) Only the most recent of2 resultswithin the time period is included. Pathologist [facility] TROPONIN I HIGH SENSITIVITY 6 <54 ng/L 02/14/2025 6:58 PM CDT [facility] Comment: HIGH DOSES OF BIOTIN, TROPONIN-SPECIFIC AUTOANTIBODIES, AND ANTIBODY THERAPY CONTAINING HAMA MAY INTERFERE WITH THIS TEST RESULT. CORRELATION TO CLINICAL HISTORY AND PRESENTATION RECOMMENDED. 02/14/2025 6:20 PM CDT Thelma Hernandez DO LABORATORY Final Result Performing Organization Address City/[facility]/ZIP Co de Phone Number [facility] [address] [place] [address], [place] [phone] * ECG 12 lead (02/14/2025 5:53 PM CDT) Only the most recent of2 resultswithin the time period is included. 02/14/2025 5:53 PM CDT Narrative [facility] ([facility]) RAD - 02/14/2025 6:02 PM CDT [address] Test Date: 2025-02-14 Pat Name: SHANITA SUERO Department: 41 Room: [place] [address] Gender: Female Slunk Skinner: [id number] : 1955 Requested By: THELMA HERNANDEZ Order Number: [id number] [place] MD: Helga Caballero Measurements Intervals Smiley Rate: 66 P: 44 MT: 161 QRS: [...] Procedure Note Helga Caballero MD - 02/14/[address] Test Date: 2025-02-14 Pat Name: SHANITA SUERO Department: 41 Room: [place] [address] Gender: Female Slunk Skinner: [id number] : 1955 Requested By: THELMA HERNANDEZ Order Number: [id number] [place] MD: Helga Caballero Measurements Intervals Smiley Rate: 66 P: 44 MT: 161 QRS: [...] Thelma Hernandez DO ECG ORDERABLES Final Result [facility] ([facility]) RAD * PRO-BRAIN NATRIURETIC PEPTIDE (02/14/2025 5:00 PM CDT) PRO-B TYPE NATRIURETIC PEPTIDE 121 <125 PG/ML 02/14/2025 5:41 PM CDT [facility] Comment: CUT POINTS ESTABLISHED BY INTERNATIONAL [...] FOR ACUTE CHF. 02/14/2025 5:00 PM CDT Thelma Hernandez DO LABORATORY Final Result Performing Organization Address City/[facility]/ZIP Co de Phone Number [facility] [address] [place] [address], [place] [phone] * (ABNORMAL) D-DIMER, QUANTITATIVE (02/14/2025 5:00 PM CDT) D-DIMER 664(HH) 0 - 500 ng{FEU}/mL 02/14/2025 5:50 PM CDT [facility] Comment: D-Dimer values less than or [...] PM to EMERGENCY ROOM ([place]/EUGENIA DIAZ) by [id number]. Read Back: Yes 02/14/2025 5:00 PM CDT Thelma Hernandez DO LABORATORY Final Result Performing Organization Address City/[facility]/ZIP Co de Phone Number [facility] [address] [place] [address], [place] [phone] * (ABNORMAL) CBC W/DIFF AUTOMATED (02/14/2025 5:00 PM CDT) [facility] WBC 9.86 4.5 - 11.0 x10'3/uL 02/14/2025 5:14 PM CDT [facility] RBC 3.76(L) 4.20 - 5.40 x10'6/uL 02/14/2025 5:14 PM CDT [facility] HGB 12.1 12.0 - 16.0 G/DL 02/14/2025 5:14 PM CDT [facility] HCT 37.0(L) 38.0 - 48.0 % 02/14/2025 5:14 PM CDT [facility] MCV 98.4 81.0 - 99.0 FL 02/14/2025 5:14 PM CDT [facility] MCH 32.2(H) 27.0 - 31.0 PG 02/14/2025 5:14 PM CDT [facility] MCHC 32.7 32.0 - 36.0 G/DL 02/14/2025 5:14 PM CDT [facility] RDW 14.1 11.5 - 14.5 % 02/14/2025 5:14 PM CDT [facility] PLT 385 130 - 400 x10'3/uL 02/14/2025 5:14 PM CDT [facility] MPV 9.7 9.3 - 12.2 FL 02/14/2025 5:14 PM CDT [facility] DIFFERENTIAL TYPE AUTOMATED DIFFERENTIAL 02/14/2025 5:14 PM CDT [facility] NEUTROPHILS % 59.9 % 02/14/2025 5:14 PM CDT [facility] LYMPHOCYTES % 26.9 % 02/14/2025 5:14 PM CDT [facility] MONOCYTES % 6.9 % 02/14/2025 5:14 PM CDT [facility] EOSINOPHILS 5.1 % 02/14/2025 5:14 PM CDT [facility] BASOPHILS 0.8 % 02/14/2025 5:14 PM CDT [facility] IMMATURE GRANS % 0.4 % 02/15/20 5:14 PM CDT [facility] ABS. NEUTROPHILS 5.91 1.80 - 7.70 x10'3/uL 02/14/2025 5:14 PM CDT [facility] ABS. LYMPHOCYTES 2.65 1.00 - 4.80 x10'3/uL 02/14/2025 5:14 PM CDT [facility] ABS. MONOCYTES 0.68 0.24 - 0.86 x10'3/uL 02/14/2025 5:14 PM CDT [facility] ABS. EOSINOPHILS 0.50(H) 0.04 - 0.36 x10'3/uL 02/14/2025 5:14 PM CDT [facility] ABS. BASOPHILS 0.08 0.01 - 0.08 x10'3/uL 02/14/2025 5:14 PM CDT [facility] ABS. IMMATURE GRANULOCYTES 0.04 0.00 - 0.49 x10'3/uL 02/14/2025 5:14 PM CDT [facility] 02/14/2025 5:00 PM CDT us Thelma Hernandez DO LABORATORY Final Result [facility] [address] [place] [address], [place] [phone] * XR CHEST PORTABLE (02/14/2025 4:32 PM CDT) Anatomical Region Laterality Modality Chest Radiographic Libra ging 02/14/2025 4:33 PM CDT Impressions 02/14/2025 4:38 PM CDT IMPRESSION: Nonspecific opacity silhouetting the left costophrenic angle, atelectasis, pleural effusion, and/or infection are all possible. Referred By: Interpreted By: Fabio Rabago MD, 02/14/2025 4:33 PM Narrative 02/14/2025 4:38 PM [address]T [address] [address] Examination: XR CHEST PORTABLE Exam time: 02/14/2025 [...] Procedure Note Fabio Rabago MD - 02/14/[address] [address] Examination: XR CHEST PORTABLE Exam time: 02/14/2025 [...] Rabago MD, 02/14/2025 4:33 PM Thelma Hernandez GENERAL IMAGING Final Result * (ABNORMAL) COMPREHENSIVE METABOLIC PANEL (02/14/2025 3:56 PM CDT) Pathologist [facility] GLUCOSE 81 70 - 99 MG/DL 02/14/2025 5:25 PM CDT [facility] BUN 17 7 - 18 MG/DL 02/14/2025 5:25 PM CDT [facility] CREATININE S/P/B 0.92 0.55 - 1.02 MG/DL 02/14/2025 5:25 PM CDT [facility] SODIUM S/P/B 137 136 - 145 MMOL/L 02/14/2025 5:25 PM CDT [facility] POTASSIUM S/P/B 4.2 3.5 - 5.1 MMOL/L 02/14/2025 5:25 PM CDT [facility] CHLORIDE S/P/B 107 97 - 115 MMOL/L 02/14/2025 5:25 PM CDT [facility] CO2 23.6 21 - 32 MMOL/L 02/14/2025 5:25 PM CDT [facility] CALCIUM S/P/B 8.6 8.5 - 10.1 MG/DL 02/14/2025 5:25 PM CDT [facility] BILIRUBIN TOTAL S/P/B 0.2 0.2 - 1.2 MG/DL 02/14/2025 5:25 PM CDT [facility] Comment: THIS ASSAY IS NOT RECOMMENDED FOR PATIENTS UNDERGOING TREATMENT WITH ELTROMBOPAG DUE TO THE POTENTIAL FOR FALSELY ELEVATED RESULTS. TOTAL PROTEIN S/P/B 7.5 6.4 - 8.2 G/DL 02/14/2025 5:25 PM CDT [facility] ALBUMIN S/P/B 3.0(L) 3.4 - 5.0 G/DL 02/14/2025 5:25 PM CDT [facility] AST 19 15 - 37 U/L 02/14/2025 5:25 PM CDT [facility] ALT 22 14 - 55 U/L 02/14/2025 5:25 PM CDT [facility] ALKALINE PHOSPHATASE S/P/B 77 50 - 136 U/L 02/14/2025 5:25 PM CDT [facility] ANION GAP 6.4 2 - 10 MMOL/L 02/14/2025 5:25 PM CDT [facility] BUN CREATININE RATIO 18.4 6 - 26 02/14/2025 5:25 PM CDT [facility] A/G RATIO 0.7(L) 1.0 - 2.0 RATIO 02/14/2025 5:25 PM CDT [facility] GFR ESTIMATE 67(L) >90 ML/MIN/1.7 3 M2 02/14/2025 5:25 PM CDT [facility] Comment: NOTE: eGFR is not calculated for patients <18 years of age or gender unknown. This is an estimated GFR calculation using the new CKD EPI creatinine equation without race and so does not require a correction factor for race. This estimated GFR should not be used for calculating drug doses. 02/14/2025 3:56 PM CDT us Thelma Hernandez DO LABORATORY Final Result [facility] [address] [place] [address], * MAMMOGRAM GENERIC (SCAN ORDER) (11/30/2023) Anatomical Region Laterality Modality Other 11/30/2023 [facility] Scanned SCANNING Final Resu lt * BONE DENSITY GENERIC (11/21/2023) Anatomical Region Laterality Modality Other 11/21/2023 [facility] Scanned SCANNING Final Resu lt * DIABETIC RETINOPATHY EXAM (NEGATIVE)(SCAN) (11/01/2022) [facility] Scanned SCANNING Final Resu lt [facility] * HEP C SCANNED ORDERS (05/02/2022) us Documents Scanned SCANNING Final Result [facility] * (ABNORMAL) LIPID PANEL (12/23/2021 8:01 AM DEPARTMENT SECRETARY) CHOLESTEROL 262(H) 100 - 199 mg/dL [facility] 1 TRIGLYCERIDES 258(H) 0 - 149 mg/dL [facility] 1 HDL 41 >39 mg/dL [facility] 1 VLDL CALCULATION 49(H) 5 - 40 mg/dL [facility] 1 LDL (CALCULATED) 172(H) 0 - 99 mg/dL [facility] 1 12/23/2021 8:01 AM DEPARTMENT SECRETARY 12/23/2021 Narrative [facility] - 12/24/2021 4:10 PM DEPARTMENT SECRETARY Performed at: 01 - [address] [id number] Glass Glazier: Ruddy Ervin PhD, Phone: [phone] us Aleida Hicks CUSTOMER COMPLAINT SERVICE SUPERVISOR LABORATORY Final Result [facility] [address] [place] [address] [facility] 1 from Last 3 Months or Most Recently Relevant to Health Maintenance Insurance [employer]ICA[employer] Care Teams Public Policy Professor Relationship Specialty Start Date End Date Tenzin Echevarria DO [address] [place] [id number] PCP - General FAMILY PRACTICE 11/19/18 Amandeep Howe MD [address] [facility] [address] [place] [id number] [place] Speedometer Inspector CARDIOVASCULAR DISEASE 08/27/19
--- OUTSIDE RECORDS SUMMARY | 2025-02-21 11:00 | XMS_ITS | Data Portability ---
Author Organization [facility], [place] Address [address] [place] [address] Assessment Encounter Date Assessment Date Assessment LastModified [...] By Organization Details Last Modified Time 05/20/2020 [id number] [email or web address] Not available 11:30:45 Reason for Referral None Reported. Results Created Date Observation Date Name Description Value Unit Range Abnormal Flag Note LastModifiedBy Organization Detail LastModifiedTime 08/27/2008/27/2020 MAMMO , scree timbo, bilat eral No observ ation record ed[facility] [address], [place], [address], 09/01/2020 15:30:22 08/28/20 20 08/27/2020 bone densi ty No observ ation record ed. [facility] [address], [place], [address], 09/03/2020 12:16:56 Result Notes None recorded. Procedures Surgical History Date Name Laterality Status Provider Name and Address Organization Details Recorded Time Tubal Ligation completed Lucero Nguyen [place] - [facility] 05/20/2020 11:05:23 Total Hysterectomy completed [facility] 05/20/2020 11:05:29 Carpal tunnel surgery completed [facility] 05/20/2020 11:05:39 cataract surgery completed [facility] 05/20/2020 11:05:48 Total knee arthroplasty completed [facility] 05/20/2020 11:05:54 Imaging Results Imaging Date Name Status LastModified by Organiz ation Details LastModified Time 08/27/2020 MAMMO, screening, bilateral completed [facility] [address], [place], [address], 09/01/2020 15:30:22 08/27/2020 bone density completed [facility] [address], [place], [address], 09/03/2020 12:16:56 Procedure Notes None recorded. Medical [...] Updated DateTime 05/20/2020 149.86 cm 54.7 kg/m2 375390.5 3 g 103 mm[Hg] 65 mm[Hg] Lucero Nguyen [facility] 0 11:10:40 Social History None recorded. [...] SNOMED-CT Code Diagnosis ICD10 Code Diagnosis Note [id number] hCasity Mendes , [facility] [address] [address] 05/20/2020 10:57:04 05/20/2020 11:45:59 Gynecologic examination [id number] Z01.419 Take Calcium with Vitamin D 12-1500mg daily. Do monthly self breast exams. It is advised to get annual flu shot in the fall and she could obtain at [facility] or [facility] care clinic. If you haven't received the [...] 05/20/2020 2 BASIL (MEDICARE SUPPLEMENT) Shanita Gallo [id number] Shanita Gallo 05/20/2020 1 [place] ([place]IC[place]) Shanita Lloyd Gallo [id number] Shanita Gallo Notes Date Note Type Note [...] screening; Considering weight loss surgery Chasity Mendes, [facility]- [address], [place], [address], [facility] 05/20/2020 11:31:11 OBGyn Episode Ob Episode Information Episode Created Date Number of Fetuses Patient Bloodtype Patient rh Status Prepregnancy Weight lbs Domestic Partner Domestic Partner Phone Father Name Electronic Gluer Status 05/20/20 20 1 CLOSED Fetus Data [...] Weeks Gestation Final Darrell Confirmed By Final Adrrell Confirmed Date Final Darrell Date Ultra Sound [...] Domestic Partner Domestic Partner Phone Father Name Electronic Gluer Status 05/20/20 20 1 CLOSED Fetus Data [...]
--- OUTSIDE RECORDS SUMMARY | 2025-02-21 11:00 | XMS_ITS | Encounter Summary ---
Author Organization [facility] Address [facility] [place] [address] Care Team Providers Care Independent Contractor Name Role Phone Tenzin Echevarria DO Primary Care Provider + Amandeep Howe MD Unavailable [phone] Encounter Details Date Type Department Care Team (Late st Contact Info) Description 02/21/2025 Care Management [facility] Family & Internal Medicine [address] [address] Georgette Smith, JUNIOR DATA ANALYST [address] [place] [address] Social History Tobacco Use Types Packs/Day Years Used Date Smoking Tobacco: Some Days Cigarettes Last attempted to quit: 12/19/1968 Passive Smoke Exposure: Past Smokeless Tobacco: Never Comments:Provider to certified genetic counselor patient smoking 1 pack per week [...] Sex Assigned at Female 01/12/2023 2:48 PM NAIL PROFESSIONAL Legal Sex Female 1:07 PM NAIL PROFESSIONAL Gender Identity Female 01/12/2023 2:48 PM NAIL PROFESSIONAL Sexual Orientation Straight 01/12/2023 2: 48 PM NAIL PROFESSIONAL Occupation Industry Job Start Date Job End Date Not on file Not on file Not on file Not on file documented as of this encounter Plan of Treatment Not on file documented as of this encounter Visit Diagnoses Not on filedocumented in this encounter Additional Health Concerns Assessment Noted Time PHQ-9 Depression Total Score: 9 07/02/20 24 1:42 PM CDT documented as of this encounter Care Teams Independent Contractor Relationship Specialty Start Date End Date Tenzin Echevarria DO [address] [place] [address] PCP - General FAMILY PRACTICE 11/19/18 Amandeep Howe MD [address] [facility] [address] [place] [phone] [place] Sales And Marketing Engineer CARDIOVASCULAR DISEASE 08/27/19 documented as of this encounter
--- OUTSIDE RECORDS SUMMARY | 2025-02-21 11:00 | XMS_ITS | Encounter Summary ---
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 [...] Sex Assigned at Female 01/12/2023 2:48 PM FIELD TRAFFIC INVESTIGATOR Legal Sex Female 1:07 PM FIELD TRAFFIC INVESTIGATOR Gender Identity Female 01/12/2023 2:48 PM FIELD TRAFFIC INVESTIGATOR Sexual Orientation Straight 01/12/2023 2: 48 PM FIELD TRAFFIC INVESTIGATOR Occupation Industry Job Start Date Job End [...] documented as of this encounter Care Teams Chronic Care Nurse Relationship Specialty Start Date End Date Tenzin Echevarria DO [address] [place] [address] PCP - General FAMILY PRACTICE 11/19/18 Amandeep Howe MD [address] [facility] [address] [place] [address] [employer] Professional CARDIOVASCULAR DISEASE 08/27/19 documented as of this encounter
--- OUTSIDE RECORDS SUMMARY | 2025-02-21 11:00 | XMS_ITS | Clinical Summary ---
Author Organization [facility] Address [address] [facility] [place] [address] Care Team Providers Care Spine Supervisor Name Role Phone EderjudithTenzin medina Devon JAY Primary Care Provider + Source Comments [facility],non-owned Affiliates and Associated Physician Practices is amultiple site organization consisting of ambulatory clinics and hospital sitesin [place], [place], [place]. This disclosure is being madepursuant to the Care Everywhere program and may not contain all information available regarding this patient. Last updated 18.[facility] Allergies Active Allergy Reactions Criticality Noted Date [...] once daily Active vitamin D, ergocalciferol, (DRISDOL) 43605 UNITS capsule Take 50,000 Units by mouth [...] age to complete this topic Care Teams Spine Supervisor Relationship Specialty Start Date End Date Tenzin Echevarria DO [address] [place] [address] PCP - General 02/18/21
--- OUTSIDE RECORDS SUMMARY | 2025-02-21 11:00 | XMS_ITS | Encounter Summary ---
Author Organization [facility] Address [facility] [place] [address] Care Team Providers Care Diet Consultant Name Role Phone Tenzin Echevarria DO Primary Care Provider + Amandeep Howe MD Unavailable [phone] Reason for Referral * Imaging (Emergency) - Authorized Specialty Diagnoses / Procedures Referred By Contac t Referred To Contact RADIOLOGY Diagnoses Leg swelling Procedures USV CLAUDINE DUPLEX LOW EXT TAMMI Tenzin Echevarria DO [address] [place] [address] Phone: tel: fax: [place] [address] Phone: tel: fax: Referral ID Status Reason Start Date Expiration Date V isits Requested Visits Authorized [id number] Authorized 02/21/2025 02/21/2026 1 1 * Imaging (Routine) - Authorized Specialty Diagnoses / Procedures Referred By Contac t Referred To Contact RADIOLOGY Diagnoses Screening mammogram for breast cancer Procedures MG SCREENING W DEWAYNE TAMMI DIGI Tenzin Echevarria DO [address] [place] [address] Phone: tel: fax: [place] [address] Phone: tel: fax: Referral ID Status Reason Start Date Expiration Date V isits Requested Visits Authorized [id number] Authorized 02/21/2025 04/23/2026 1 1 Reason for Visit * Reason Comments Diabetes 3 month follow up ER F/U The patient went to [facility] for pneumonia 1 week ago. Encounter Details Date Type Department Care Team (Late st Contact Info) Description 02/21/2025 8:40 AM CDT Office Visit [facility] Family & Internal Medicine [address] [address] Tenzin Echevarria DO [address] [place] [address] Diabetes (3 month follow up ); ER F/U (The patient went to [facility] for pneumonia 1 week ago. 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 smoking 1 pack per week [...] Sex Assigned at Female 01/12/2023 2:48 PM KEYPUNCHER Legal Sex Female 1:07 PM KEYPUNCHER Gender Identity Female 01/12/2023 2:48 PM KEYPUNCHER Sexual Orientation Straight 01/12/2023 2: 48 PM KEYPUNCHER Occupation Industry Job Start Date Job End Date Not on file Not on file Not on file Not on file documented as of this encounter Last Filed Vital Signs Vital Sign Reading [...] Mass Index 53.19 02/21/2025 9:00 AM CDT documented in this encounter Plan of Treatment Scheduled Orders Name Type Priority Associated Diagnoses Orde r Schedule MG SCREENING W DEWAYNE TAMMI DIGI MAMMO Routine Screening mammogram for breast cancer Expected: 02/21/2025, Expires: 04/23/2026 USV CLAUDINE DUPLEX LOW EXT TAMMI US VASC STAT Leg swelling Expected: 02/21/2025, Expires: 02/21/2026 documented as of this encounter Procedures Procedure Name Priority Date/Time Associated Diagnosis Comments COLLECT.CAPILLARY (FNGR,HEEL,EAR) Routine 02/21/2025 8:48 AM CDT Type 2 diabetes mellitus without complication, without long-term current use of insulin ([facility] HEMOGLOBIN, GLYCOSYLATED Routine 02/21/2025 Type 2 diabetes mellitus without complication, without long-term current use of insulin ([facility]) documented in this encounter Results * HEMOGLOBIN, GLYCOSYLATED (02/21/2025) HGB A1C 5.5 % YOHANNES NICHOLS 02/21/2025 us Tenzin Echevarria DO LABORATORY Final Re sult -[facility] [address] [place] [address], documented in this encounter Visit Diagnoses Diagnosis Pneumonia of left lung due to infectious organism, unspecified part of lung- Primary Leg swelling Swelling of limb Primary insomnia Persistent disorder of initiating or maintaining sleep Chronic diastolic heart failure ([facility]) Chronic diastolic heart failure Type 2 diabetes mellitus without complication, without long-term current use of insulin ([facility]) Screening mammogram for breast cancer Chronic obstructive pulmonary disease, unspecified COPD type ([facility]) Other chronic pain RLS (restless legs syndrome) Restless legs syndrome (RLS) documented in this encounter Additional Health Concerns Assessment Noted Time PHQ-9 Depression Total Score: 9 07/02/20 24 1:42 PM CDT documented as of this encounter Care Teams Diet Consultant Relationship Specialty Start Date End Date Tenzin Echevarria DO [address] [place] [address] PCP - General FAMILY PRACTICE 11/19/18 Amandeep Howe MD [address] [facility] [address] [place] [address] [place] Trauma Registrar CARDIOVASCULAR DISEASE 08/27/19 documented as of this encounter
== END 2025-02-21 10:23 | disposition home or self-care (01) ==
PROVIDERS: PCP Student in an Organized Health Care Education/Training Program; Visit Provider Student in an Organized Health Care Education/Training Program
DX: M79.89 Other specified soft tissue disorders (principal)
CPT/HCPCS: 93970

== ENCOUNTER 2025-02-24 09:33 | Outpatient (CLI) | payer MEDICARE, MEDICAID, SELFPAY ==
--- OUTSIDE RECORDS SUMMARY | 2025-02-24 10:25 | XMS_ITS | Clinical Summary ---
Author Organization [facility] [address] [place] [address] Care Team Providers Care Chemical Plant Operator Name Role Phone Tenzin Echevarria DO Primary Care Provide r Allergies Active Allergy Reactions Criticality Noted Date Comments Morphine Hives Medium 05/27/2019 Denosumab Other (See comments) Low 05/27/2019 Warm feeling Fxnfpxk-Bqp-Iod Reductase Inhibitors Muscle pain Medium 05/27/2019 Sertraline [...] any sleep studies that were performed at [facility]. Chronic diastolic heart failure 02/24/2022 Type 2 [...] home Assessment & Plan (01/18/2021 5:00 PM TAMPING MACHINE OPERATOR): A1c Today 5.8% Continue dietary control Increase [...] point Assessment & Plan (09/16/2019 9:29 PM TAMPING MACHINE OPERATOR): A1c today 5.7% Continue dietary control Increase [...] them. Assessment & Plan (01/18/2021 1:06 PM TAMPING MACHINE OPERATOR): Patient currently on Levothyroxine 100 mcg oral [...] months Assessment & Plan (09/16/2019 9:32 PM TAMPING MACHINE OPERATOR): continue current Levothyroxine 50 mcg oral daily [...] warrants Assessment & Plan (09/16/2019 9:37 PM TAMPING MACHINE OPERATOR): Performed thyroid ultrasound in office 05/2019 Noted [...] Fall. Assessment & Plan (01/18/2021 5:01 PM TAMPING MACHINE OPERATOR): Chronic,, worsening Discussed about healthy lifestyle habits [...] therapy Assessment & Plan (09/16/2019 9:35 PM TAMPING MACHINE OPERATOR): Chronic, worsening Recommend healthy lifestyle options Advised [...] risk calculator shows high risk Follows with Lead Burner Supervisor Assessment & Plan (04/13/2020 3:46 PM CDT): Hyperlipidemia noted Currently patient patient on Zetia Patient intolerant to statin therapy No known cardiovascular disease at this point Family history of hypercholesterolemia Positive for smoking ASCVD risk calculator shows high risk Follows with Lead Burner Supervisor Assessment & Plan (09/16/2019 9:36 PM TAMPING MACHINE OPERATOR): Hyperlipidemia noted Currently patient patient on Zetia [...] POCT LIPID PANEL Routine 01/18/2021 1:12 PM TAMPING MACHINE OPERATOR Type 2 diabetes mellitus without complication, without [...] * POCT lipid panel (01/18/2021 1:12 PM TAMPING MACHINE OPERATOR) Cholesterol, POC 289 mg/dL HDL, POC 40 mg/dL Triglycerides, POC 295 mg/dL LDL Cholesterol POC 190 mg/dL Capillary blood 01/18/2021 1 :12 PM TAMPING MACHINE OPERATOR Bee Rodriguez MD POINT OF CARE TEST [...] NA EXTERNAL LAB SCRIBED eGFR in NonAfrican Uzbek 54 >59 - NA EXTERNAL LAB Blood [...] - 05/29/2019 2:09 PM CDT Performed at: [address] [place] [id number] Biotechnician: Ruddy Ervin PhD, Phone: [phone] Bee Rodriguez MD LAB URINE ORDERABLE S Final Result Performing Organization Address City/[facility] Co de Phone Number [facility] - 01 from Last 3 Months or Most Recently Relevant to Health Maintenance Insurance MEDICARE COMMERCIAL GENERIC Care Teams Chemical Plant Operator Relationship Specialty Start Date End Date Tenzin Echevarria DO PCP - General Family Medicine 03/07/19
--- OUTSIDE RECORDS SUMMARY | 2025-02-24 10:25 | XMS_ITS | Referral Summary ---
Author Organization [facility] [address] [place] [address] Care Team Providers Care Dog License Officer Supervisor Name Role Phone Tenzin Echevarria DO Primary Care Provide r Allergies Active Allergy Reactions Criticality Noted Date Comments Morphine Hives Medium 05/27/2019 Denosumab Other (See comments) Low 05/27/2019 Warm feeling Awwaxuh-Yrd-Sls Reductase Inhibitors Muscle pain Medium 05/27/2019 Sertraline [...] any sleep studies that were performed at [facility]. Chronic diastolic heart failure 02/24/2022 Type [...] home Assessment & Plan (01/18/2021 5:00 PM SCRATCHER): A1c Today 5.8% Continue dietary control Increase [...] point Assessment & Plan (09/16/2019 9:29 PM SCRATCHER): A1c today 5.7% Continue dietary control Increase [...] them. Assessment & Plan (01/18/2021 1:06 PM SCRATCHER): Patient currently on Levothyroxine 100 mcg oral [...] months Assessment & Plan (09/16/2019 9:32 PM SCRATCHER): continue current Levothyroxine 50 mcg oral daily [...] warrants Assessment & Plan (09/16/2019 9:37 PM SCRATCHER): Performed thyroid ultrasound in office 05/2019 Noted [...] Fall. Assessment & Plan (01/18/2021 5:01 PM SCRATCHER): Chronic,, worsening Discussed about healthy lifestyle habits [...] therapy Assessment & Plan (09/16/2019 9:35 PM SCRATCHER): Chronic, worsening Recommend healthy lifestyle options Advised [...] risk calculator shows high risk Follows with Drier Helper Assessment & Plan (04/13/2020 3:46 PM CDT): Hyperlipidemia noted Currently patient patient on Zetia Patient intolerant to statin therapy No known cardiovascular disease at this point Family history of hypercholesterolemia Positive for smoking ASCVD risk calculator shows high risk Follows with Drier Helper Assessment & Plan (09/16/2019 9:36 PM SCRATCHER): Hyperlipidemia noted Currently patient patient on Zetia [...] POCT LIPID PANEL Routine 01/18/2021 1:12 PM SCRATCHER Type 2 diabetes mellitus without complication, without [...] * POCT lipid panel (01/18/2021 1:12 PM SCRATCHER) Cholesterol, POC 289 mg/dL HDL, POC 40 mg/dL Triglycerides, POC 295 mg/dL LDL Cholesterol POC 190 mg/dL Capillary blood 01/18/2021 1 :12 PM SCRATCHER Bee Rodriguez MD POINT OF CARE TEST [...] NA EXTERNAL LAB SCRIBED eGFR in NonAfrican Kittitian 54 >59 - NA EXTERNAL LAB Blood specimen (specimen) 07/22/2020 8:00 AM CDT Historical Provider LAB BLOOD ORDERABLES Edit ed Result - Final Performing Organization Address City/[facility]/ZIP Co de Phone Number EXTERNAL LAB * [...] 2:09 PM CDT Performed at: 01 - [facility] [id number] Sap Basis Consultant: Ruddy Ervin PhD, Phone: [phone] Bee Rodriguez MD LAB URINE ORDERABLE S Final Result Performing Organization Address [facility] de Phone Number [facility] - 01 from Last 3 Months or Most Recently Relevant to Health Maintenance Insurance MEDICARE COMMERCIAL GENERIC Care Teams Dog License Officer Supervisor Relationship Specialty Start Date End Date Tenzin Echevarria DO PCP - General Family Medicine 03/07/19
--- OUTSIDE RECORDS SUMMARY | 2025-02-24 10:25 | XMS_ITS | Clinical Summary ---
Author Organization [facility] Address [facility] [place] [address] Care Team Providers Care [place] Name Role Phone Tenzin Echevarria DO Primary Care Provider + Amandeep Howe MD Unavailable [phone] Allergies Active Allergy Reactions Criticality Noted [...] complication, without long-term current use of insulin ([facility] HHS/HCC) Test once daily 100 each 1 02/23/20 22 Active semaglutide (OZEMPIC, 1 MG/DOSE,) 2 MG/1.5ML injection (PEN) Inject 1 mg into the skin every 7 days. Active ONETOUCH VERIO test stripIndications: Type 2 diabetes mellitus without complication, without long-term current use of insulin ([facility] HHS/HCC) USE TO TEST BLOOD [...] MG SL tabletIndications :Chronic diastolic heart failure ([facility] HHS/HCC) Place 1 tablet (0.4 [...] 80 MG tabletIndications :Chronic diastolic heart failure ([facility] HHS/HCC) Take 1 tablet (80 [...] s:Chronic obstructive pulmonary disease, unspecified COPD type ([facility] HHS/[facility]) Inhale 2 puffs into the [...] s:Chronic obstructive pulmonary disease, unspecified COPD type ([facility]) Inhale 2 puffs into the [...] 80 MG tabletIndications :Chronic diastolic heart failure ([facility]) TAKE 1 TABLET (80 MG [...] risk calculator shows high risk Follows with Manager Of Warehouse Thyroid cyst 05/27/2019 Overview (01/21/2021): Last Assessment & Plan: Performed thyroid ultrasound in office 05/2019 Noted subcentimeter simple right thyroid cyst No FNA needed No follow up thyroid uls needed , until physical exam or pt symptoms warrants Exercise hypoxemia 02/25/2019 Chronic obstructive pulmonar y disease, unspecified COPD type ([facility]) 02/25/2019 Vitamin D deficiency 01/21/2019 Diastolic dysfunction with heart failure ([facility]) 01/21/2019 Nocturnal hypoxemia 12/21/2018 Shortness of breath 12/21/2018 Essential hypertension 11/23/2018 Current mild episode of alverto r depressive disorder, unspecified whether recurrent 11/23/2018 Type 2 diabetes mellitus wit hout complication, without long-term current use of insulin ([facility]) 11/23/2018 Overview (01/21/2021): Last Assessment [...] Description 02/21/2025 8:40 AM CDT Office Visit [facility] [address] [address] Tenzin Echevarria, Diabetes (3 month follow up ); ER F/U (The patient went to [facility] for pneumonia 1 week ago. ) 02/21/2025 Telephone [facility] [address] [address] Tenzin Echevarria DO Results 02/21/2025 Care Management [facility] [address] [phone] Georgette Smith, GRACIELA 02/21/2025 Travel 02/14/2025 3:48 PM CDT - 02/14/2025 9:52 PM CDT Emergency [facility] [place] [address] Thelma Hernandez DO Chest Pain Discharge Disposition: Home or Self Care (Routine Discharge) 02/14/2025 Travel 01/08/2025 Scan HEALTH INFO SRVCS Scanned, [facility] 12/14/2024 Scan HEALTH INFO SRVCS Scanned, [facility] from Last 3 Months Immunizations Immunization Administration Dates Next Due Fluzone 6 Months+ [...] uit: No; Counseling Given: Yes Comments:Provider to [facility] patient smoking 1 pack per week Reports [...] Sex Assigned at Female 01/12/2023 2:48 PM MEAT WASHER Legal Sex Female 1:07 PM MEAT WASHER Gender Identity Female 01/12/2023 2:48 PM MEAT WASHER Sexual Orientation Straight 01/12/2023 2: 48 PM MEAT WASHER Occupation Industry Job Start Date Job End [...] 07/03/2024, Additional history exists COVID-19 Vaccine ( - season) 2025 Postponed from 07/14/2024 (Patient Refused) [...] 2003 (Going to Outside Clinic) Pneumococcal Vaccine: 50+ Years Completed 07/01/2020, 11/20/2018, 03/02/2013 Hepatitis C Completed 05/02/2022 PHQ-2 (Physician [place]) Completed 02/21/2025 Meningococcal B Vaccine Aged Out [...] complication, without long-term current use of insulin ([facility]) HEMOGLOBIN, GLYCOSYLATED Routine 02/21/2025 Type 2 diabetes mellitus without complication, without long-term current use of insulin ([facility]) TROPONIN, QUANT STAT 02/14/2025 6:20 [...] 05/02/2022 LIPID PANEL Routine 12/23/2021 8:01 AM MEAT WASHER Type 2 diabetes mellitus without complication, without long-term current use of insulin Essential hypertension from Last 3 Months or Most Recently Relevant to Health Maintenance Results * HEMOGLOBIN, GLYCOSYLATED (02/21/2025) HGB A1C 5.5 % [facility] 02/21/2025 Tenzin Echevarria DO LABORATORY Final Re sult Performing Organization Address City/[facility]/ZIP Co de Phone Number [facility] [address] [place] [address], [place] * TROPONIN, QUANT (02/14/2025 6:20 PM CDT) Only the most recent of2 resultswithin the time period is included. TROPONIN I HIGH SENSITIVITY 6 <54 ng/L 02/14/2025 6:58 PM CDT [facility] Comment: HIGH DOSES OF BIOTIN, TROPONIN-SPECIFIC AUTOANTIBODIES, AND ANTIBODY THERAPY CONTAINING HAMA MAY INTERFERE WITH THIS TEST RESULT. CORRELATION TO CLINICAL HISTORY AND PRESENTATION RECOMMENDED. 02/14/2025 6:20 PM CDT Thelma Hernandez DO LABORATORY Final Result Performing Organization Address City/[facility] Co de Phone Number [facility] [address] [place] [address], [place] [phone] * ECG 12 lead (02/14/2025 5:53 PM CDT) Only the most recent of2 resultswithin the time period is included. 02/14/2025 5:53 PM CDT Narrative [facility] ([facility]) RAD - 02/14/2025 6:02 PM CDT [address] Test Date: 2025-02-14 Pat Name: SHANITAOLIVERIO TIANPER Department: 41 Room: [id number] Gender: Female Swimming Coach: [id number] : 1955 Requested By: THELMA HERNANEDZ Order Number: [id number] Reading MD: Helga Caballero Measurements Intervals [place] Rate: 66 P: 44 VT: 161 QRS: 75 QRSD: 86 T: 77 QT: 390 QTc: 410 Interpretive Statements SINUS RHYTHM WITH SINUS ARRHYTHMIA LOW QRS VOLTAGE IN PRECORDIAL LEADS [QRS DEFLECTION < 1.0 mV IN CHEST LEADS] POSSIBLE RIGHT VENTRICULAR CONDUCTION DELAY [RSR (QR) IN V1/V2] NONSPECIFIC T-WAVE ABNORMALITY Compared to ECG 02/14/2025 15:49:30 Low QRS voltage now present Procedure Note Helga Caballero MD - 02/14/[address] Test Date: 2025-02-14 Pat Name: SHANITA SUERO Department: 41 Room: [place] [address] Gender: Female Swimming Coach: [id number] : 1955 Requested By: THELMA HERNANDEZ Order Number: [id number] Reading MD: Helga Caballero Measurements Intervals [place] Rate: 66 P: 44 VT: 161 QRS: 75 QRSD: 86 T: 77 QT: 390 QTc: 410 Interpretive Statements SINUS RHYTHM WITH SINUS ARRHYTHMIA LOW QRS VOLTAGE IN PRECORDIAL LEADS [QRS DEFLECTION < 1.0 mV IN CHESTLEADS] POSSIBLE RIGHT VENTRICULAR CONDUCTION DELAY [RSR (QR) IN V1/V2] NONSPECIFIC T-WAVE ABNORMALITY Compared to ECG 02/14/2025 15:49:30 Low QRS voltage now present us Thelma Hernandez DO ECG ORDERABLES Final Result [facility]) RAD * PRO-BRAIN NATRIURETIC PEPTIDE (02/14/2025 5:00 PM CDT) PRO-B TYPE NATRIURETIC PEPTIDE 121 <125 PG/ML 02/14/2025 5:41 PM CDT [facility] Comment: CUT POINTS ESTABLISHED BY [...] CDT Thelma Hernandez DO LABORATORY Final Result [facility] [address] [place] [address], * (ABNORMAL) D-DIMER, QUANTITATIVE (02/14/2025 5:00 PM CDT) Pathologist [facility] D-DIMER 664(HH) 0 - 500 ng{FEU}/mL 02/14/2025 5:50 PM CDT [facility] Comment: D-Dimer values less than or [...] PM to EMERGENCY ROOM ([place]/EUGENIA DIAZ) by [id number]. Read Back: Yes 02/14/2025 5:00 PM CDT Thelma Hernandez DO LABORATORY Final Result [facility] [address] [place] [address], * (ABNORMAL) CBC W/DIFF AUTOMATED (02/14/2025 5:00 PM CDT) [facility] WBC 9.86 4.5 - 11.0 x10'3/uL 02/14/2025 5:14 PM CDT [facility] RBC 3.76(L) 4.20 - 5.40 x10'6/uL 02/14/2025 5:14 PM CDT [facility] HGB 12.1 12.0 - 16.0 G/DL 02/14/2025 5:14 PM CDT [facility] HCT 37.0(L) 38.0 - 48.0 % 02/14/2025 5:14 PM CDT [facility] MCV 98.4 81.0 - 99.0 FL 02/14/2025 5:14 PM CDT [facility] MCH 32.2(H) 27.0 - 31.0 PG 02/14/2025 5:14 PM CDT [facility] MCHC 32.7 32.0 - 36.0 G/DL 02/14/2025 5:14 PM CDT [facility] RDW 14.1 11.5 - 14.5 % 02/14/2025 5:14 PM CDT [facility] PLT 385 130 - 400 x10'3/uL 02/14/2025 5:14 PM CDT [facility] MPV 9.7 9.3 - 12.2 FL 02/14/2025 5:14 PM CDT [facility] DIFFERENTIAL TYPE AUTOMATED DIFFERENTIAL 02/14/2025 5:14 PM CDT [facility] NEUTROPHILS % 59.9 % 02/14/2025 5:14 PM CDT [facility] LYMPHOCYTES % 26.9 % 02/14/2025 5:14 PM CDT [facility] MONOCYTES % 6.9 % 02/14/2025 5:14 PM CDT [facility] EOSINOPHILS 5.1 % 02/14/2025 5:14 PM CDT [facility] BASOPHILS 0.8 % 02/14/2025 5:14 PM CDT [facility] IMMATURE GRANS % 0.4 % 02/15/20 5:14 PM CDT [facility] ABS. NEUTROPHILS 5.91 1.80 - 7.70 x10'3/uL 02/14/2025 5:14 PM CDT [facility] ABS. LYMPHOCYTES 2.65 1.00 - 4.80 x10'3/uL 02/14/2025 5:14 PM CDT [facility] ABS. MONOCYTES 0.68 0.24 - 0.86 x10'3/uL 02/14/2025 5:14 PM CDT [facility] ABS. EOSINOPHILS 0.50(H) 0.04 - 0.36 x10'3/uL 02/14/2025 5:14 PM CDT [facility] ABS. BASOPHILS 0.08 0.01 - 0.08 x10'3/uL 02/14/2025 5:14 PM CDT [facility] ABS. IMMATURE GRANULOCYTES 0.04 0.00 - 0.49 x10'3/uL 02/14/2025 5:14 PM CDT [facility] 02/14/2025 5:00 PM CDT Thelma Hernandez DO LABORATORY Final Result [facility] [address] [place] [address], * XR CHEST PORTABLE (02/14/2025 4:32 PM CDT) Anatomical Region Laterality Modality Chest Radiographic Libra ging 02/14/2025 4:33 PM CDT Impressions 02/14/2025 4:38 PM CDT IMPRESSION: Nonspecific opacity silhouetting the left costophrenic angle, atelectasis, pleural effusion, and/or infection are all possible. Referred By: Interpreted By: Fabio Rabago MD, 02/14/2025 4:33 PM Narrative 02/14/2025 4:38 PM CDT [address] [address] Examination: XR CHEST PORTABLE Exam time: 02/14/2025 [...] Procedure Note Fabio Rabago MD - 02/14/[address] [address] Examination: XR CHEST PORTABLE Exam time: 02/14/2025 [...] By: Fabio Rabago MD, 02/14/2025 4:33 PM us Thelma Hernandez DO GENERAL IMAGING Final Result * (ABNORMAL) COMPREHENSIVE METABOLIC PANEL (02/14/2025 3:56 PM CDT) GLUCOSE 81 70 - 99 MG/DL 02/14/2025 5:25 PM CDT [facility] BUN 17 7 - 18 MG/DL 02/14/2025 5:25 PM CDT [facility] CREATININE S/P/B 0.92 0.55 - 1.02 MG/DL 02/14/2025 5:25 PM CDT [facility] SODIUM S/P/B 137 136 - 145 MMOL/L 02/14/2025 5:25 PM CDT [facility] POTASSIUM S/P/B 4.2 3.5 - 5.1 MMOL/L 02/14/2025 5:25 PM CDT [facility] CHLORIDE S/P/B 107 97 - 115 MMOL/L 02/14/2025 5:25 PM CDT [facility] CO2 23.6 21 - 32 MMOL/L 02/14/2025 5:25 PM CDT [facility] CALCIUM S/P/B 8.6 8.5 - 10.1 MG/DL 02/14/2025 5:25 PM CDT [facility] BILIRUBIN TOTAL S/P/B 0.2 0.2 - 1.2 MG/DL 02/14/2025 5:25 PM CDT [facility] Comment: THIS ASSAY IS NOT RECOMMENDED FOR PATIENTS UNDERGOING TREATMENT WITH ELTROMBOPAG DUE TO THE POTENTIAL FOR FALSELY ELEVATED RESULTS. TOTAL PROTEIN S/P/B 7.5 6.4 - 8.2 G/DL 02/14/2025 5:25 PM CDT [facility] ALBUMIN S/P/B 3.0(L) 3.4 - 5.0 G/DL 02/14/2025 5:25 PM CDT [facility] AST 19 15 - 37 U/L 02/14/2025 5:25 PM CDT [facility] ALT 22 14 - 55 U/L 02/14/2025 5:25 PM CDT [facility] ALKALINE PHOSPHATASE S/P/B 77 50 - 136 U/L 02/14/2025 5:25 PM CDT [facility] ANION GAP 6.4 2 - 10 MMOL/L 02/14/2025 5:25 PM CDT [facility] BUN CREATININE RATIO 18.4 6 - 26 02/14/2025 5:25 PM CDT [facility] A/G RATIO 0.7(L) 1.0 - 2.0 RATIO 02/14/2025 5:25 PM T [facility] GFR ESTIMATE 67(L) >90 ML/MIN/1.7 3 M2 02/14/2025 5:25 PM T [facility] Comment: NOTE: eGFR is not calculated [...] DO LABORATORY Final Result Performing Organization Address City/[facility]/ZIP Co de Phone Number [facility] [address] [place] [address], [place] [phone] * MAMMOGRAM GENERIC (SCAN ORDER) (11/30/2023) Anatomical Region Laterality Modality Other 11/30/2023 us [facility] Scanned SCANNING Final Resu lt * BONE DENSITY GENERIC (11/21/2023) Anatomical Region Laterality Modality Other 11/21/2023 [facility] Scanned SCANNING Final Resu lt * DIABETIC RETINOPATHY EXAM (NEGATIVE)(SCAN) (11/01/2022) [facility] Scanned SCANNING Final Resu lt Performing Organization Address City/[facility]/ZIP Co de Phone Number [facility] * HEP C SCANNED ORDERS (05/02/2022) Documents Scanned SCANNING Final Result Performing Organization Address City/[facility]/ZIP Co de Phone Number [facility] * (ABNORMAL) LIPID PANEL (12/23/2021 8:01 AM MEAT WASHER) CHOLESTEROL 262(H) 100 - 199 mg/dL [facility] 1 TRIGLYCERIDES 258(H) 0 - 149 mg/dL [facility] 1 HDL 41 >39 mg/dL [facility] 1 VLDL CALCULATION 49(H) 5 - 40 mg/dL [facility] 1 LDL (CALCULATED) 172(H) 0 - 99 mg/dL [facility] 1 12/23/2021 8:01 AM MEAT WASHER 12/23/2021 Narrative [facility] - 12/24/2021 4:10 PM MEAT WASHER Performed at: 01 - [facility] [id number] Flash Welding Machine Operator: Ruddy Ervin PhD, Phone: [phone] Aleida Hicks MICROGRINDER OPERATOR LABORATORY Final Result [facility] [address] [place] [address] [facility] 1 from Last 3 Months or Most Recently Relevant to Health Maintenance Insurance [employer] MEDICAID Care Teams [place] Relationship Specialty Start Date End Date Tenzin Echevarria DO [address] [place] [id number] PCP - General FAMILY PRACTICE 11/19/18 Amandeep Howe MD [address] [address] Markie Manager Of Warehouse CARDIOVASCULAR DISEASE 08/27/19
--- OUTSIDE RECORDS SUMMARY | 2025-02-24 10:25 | XMS_ITS | Clinical Summary ---
Author Organization [facility] Address [address] [place] [address] Care Team Providers Care Tire Manager Name Role Phone Tenzin Echevarria Devon JAY Primary Care Provider + Source Comments [facility],non-owned Affiliates and Associated Physician Practices is amultiple site organization consisting of ambulatory clinics and hospital sitesin [place], [place], [place] and [place]. This disclosure is being madepursuant to the Care Everywhere program and may not contain all information available regarding this patient. Last updated 18.[facility] Allergies Active Allergy Reactions Criticality Noted Date Comments Morphine Swelling 07/12/2018 Medications * Be aware that medications may not be up to date on this document. Alwaysverify current medications with the patient. metFORMIN (GLUCOPHAGE) 500 MG tablet Take 500 mg by mouth 2 times daily with morning and evening meal Active furosemide (LASIX) 20 MG tablet Take 20 mg by mouth once daily Active ezetimibe (ZETIA) 10 MG tablet Take 10 mg by mouth once daily Active vitamin D, ergocalciferol, (DRISDOL) 93858 UNITS capsule Take 50,000 Units by mouth [...] = 0.6 oz pur e alcohol) rare Comments Unknown Sex and Gender Information Value Date Recorded Sex Assigned at Not on file Legal Sex Female 11:17 AM CDT Gender Identity Not on file [...] 2013 SCREENING FOR DIABETES 07/12/2018 COVID-19 VACCINE (2023-2 5 season) 2024 DEPRESSION SCREENING 11/13/2024 INFLUENZA [...] on patient's age to complete this topic Insurance MEDICARE COMMERCIAL GENERIC Care Teams Tire Manager Relationship Specialty Start Date End Date Tenzin Echevarria DO [address] [place] [id number] PCP - General 02/18/21
[2025-02-24 11:45] LABS: Total Volume 24 Hour Urine 2650 ml
[2025-02-24 11:55] LABS: Creatinine 24 Hour Urine 1.3 gm/24 (0.8-1.8); Creatinine Urine 50.1 mg/dL
== END 2025-02-24 09:34 | disposition home or self-care (01) ==
PROVIDERS: PCP Student in an Organized Health Care Education/Training Program; Visit Provider Internal Medicine Endocrinology, Diabetes & Metabolism
DX: R79.89 Other specified abnormal findings of blood chemistry (principal); M85.80 Other specified disorders of bone density and structure, unspecified site; Z78.0 Asymptomatic menopausal state
CPT/HCPCS: 81050; 82340; 82570

== ENCOUNTER 2025-03-21 13:15 | Outpatient (CLI) | payer MEDICARE, MEDICAID, SELFPAY ==
--- NOTE | ~2025-03-21 | MM_ITS ---
EXAMINATION: [facility] HISTORY: Screening TECHNIQUE: Craniocaudal and mediolateral oblique 3-D tomosynthesis images were obtained and synthetic 2-D images were generated. CAD analysis was submitted and interpreted. COMPARISON: Comparison to multiple prior studies sequentially, with oldest reviewed study dated 08/13. BREAST PARENCHYMAL COMPOSITION: Not Dense: The breasts are almost entirely fatty. FINDINGS: There is no evidence of suspicious mass, calcification, or architectural distortion to sugg est malignancy in either breast. There has been no suspicious interval change. IMPRESSION: 1. No mammographic evidence of malignancy. 2. Recommend routine screening mammography in one year. BI-RADS Category 1: Negative Reviewed, dictated and finalized at location A.
--- OUTSIDE RECORDS SUMMARY | 2025-03-21 13:22 | XMS_ITS | Clinical Summary ---
Author Organization [facility] Address [address] [place] [address] Care Team Providers Care Information Assoc Name Role Phone Tenzin Echevarria Devon JAY Primary Care Provider + Source Comments [facility],non-owned Affiliates and Associated Physician Practices is amultiple site organization consisting of ambulatory clinics and hospital sitesin [place], [place], [place] and [place]. This disclosure is being madepursuant to the Care Everywhere program and may not contain all information available regarding this patient. Last updated 18.[facility] Allergies Active Allergy Reactions Criticality Noted Date [...] once daily Active vitamin D, ergocalciferol, (DRISDOL) 30477 UNITS capsule Take 50,000 Units by mouth [...] SCREENING 1955 LIPID TESTING 1955 MAMMOGRAM 1955 HEPATITIS C SCREENING 10/23/1971 DTAP/TDAP/TD VACCINES [...] topic Insurance MEDICARE COMMERCIAL GENERIC Care Teams Information Assoc Relationship Specialty Start Date End Date Tenzin Echevarria DO [address] [place] [id number] [facility] - General 02/18/21
--- OUTSIDE RECORDS SUMMARY | 2025-03-21 13:22 | XMS_ITS | Referral Summary ---
Author Organization [facility] [address] [place] [phone] Care Team Providers Care Environmental Marketer Name Role Phone Tenzin Echevarria DO Primary Care Provide r Allergies Active Allergy Reactions Criticality Noted Date Comments Morphine Hives Medium 05/27/2019 Denosumab Other (See comments) Low 05/27/2019 Warm feeling Svbwqvp-Yuf-Qfz Reductase Inhibitors Muscle pain Medium 05/27/2019 Sertraline [...] any sleep studies that were performed at [facility]. Chronic diastolic heart failure 02/24/2022 Type 2 [...] home Assessment & Plan (01/18/2021 5:00 PM EARLY EDUCATION TEACHER): A1c Today 5.8% Continue dietary control Increase [...] point Assessment & Plan (09/16/2019 9:29 PM EARLY EDUCATION TEACHER): A1c today 5.7% Continue dietary control Increase [...] them. Assessment & Plan (01/18/2021 1:06 PM EARLY EDUCATION TEACHER): Patient currently on Levothyroxine 100 mcg oral [...] months Assessment & Plan (09/16/2019 9:32 PM EARLY EDUCATION TEACHER): continue current Levothyroxine 50 mcg oral daily [...] warrants Assessment & Plan (09/16/2019 9:37 PM EARLY EDUCATION TEACHER): Performed thyroid ultrasound in office 05/2019 Noted [...] Fall. Assessment & Plan (01/18/2021 5:01 PM EARLY EDUCATION TEACHER): Chronic,, worsening Discussed about healthy lifestyle habits [...] therapy Assessment & Plan (09/16/2019 9:35 PM EARLY EDUCATION TEACHER): Chronic, worsening Recommend healthy lifestyle options Advised [...] risk calculator shows high risk Follows with Revenue Enforcement Agent Assessment & Plan (04/13/2020 3:46 PM CDT): Hyperlipidemia noted Currently patient patient on Zetia Patient intolerant to statin therapy No known cardiovascular disease at this point Family history of hypercholesterolemia Positive for smoking ASCVD risk calculator shows high risk Follows with Revenue Enforcement Agent Assessment & Plan (09/16/2019 9:36 PM EARLY EDUCATION TEACHER): Hyperlipidemia noted Currently patient patient on Zetia [...] POCT LIPID PANEL Routine 01/18/2021 1:12 PM EARLY EDUCATION TEACHER Type 2 diabetes mellitus without complication, without [...] * POCT lipid panel (01/18/2021 1:12 PM EARLY EDUCATION TEACHER) Cholesterol, POC 289 mg/dL HDL, POC 40 mg/dL Triglycerides, POC 295 mg/dL LDL Cholesterol POC 190 mg/dL Capillary blood 01/18/2021 1 :12 PM EARLY EDUCATION TEACHER Bee Rodriguez MD POINT OF CARE TEST [...] LAB SCRIBED eGFR in NonAfrican Citizen Of [place] 54 >59 - NA EXTERNAL LAB Blood specimen (specimen) 07/22/2020 8:00 AM CDT Historical Provider LAB BLOOD ORDERABLES Edit ed Result - Final Performing Organization Address City/[facility]/ZIP Co de Phone Number EXTERNAL LAB [...] 2:09 PM CDT Performed at: 01 - [facility] [place] [id number] Hand Pattern Marker: Ruddy Ervin PhD, Phone: [phone] Bee Rodriguez MD LAB URINE ORDERABLE S Final Result Performing Organization Address [facility] de Phone Number [facility] - 01 from Last 3 Months or Most Recently Relevant to Health Maintenance Insurance MEDICARE COMMERCIAL GENERIC Care Teams Environmental Marketer Relationship Specialty Start Date End Date Tenzin Echevarria DO PCP - General Family Medicine 03/07/19
--- OUTSIDE RECORDS SUMMARY | 2025-03-21 13:22 | XMS_ITS | Clinical Summary ---
Author Organization [facility] Address [address] [place] [address] Care Team Providers Care Cap Blocker Name Role Phone Tenzin Echevarria DO Primary Care Provider + Amandeep Howe MD Unavailable [phone] Allergies Active Allergy Reactions Criticality Noted [...] complication, without long-term current use of insulin ([facility] HHS/HCC) Test once daily 100 each 1 02/23/20 22 Active semaglutide (OZEMPIC, 1 MG/DOSE,) 2 MG/1.5ML injection (PEN) Inject 1 mg into the skin every 7 days. Active ONETOUCH VERIO test stripIndications:T ype 2 diabetes mellitus without complication, without long-term current use of insulin ([facility] HHS/HCC) USE TO TEST BLOOD SUGARS ONCE DAILY 100 strip 1 03/02/20 23 Active Cholecalciferol (VITAMIN D-3) 25 MCG (1000 UT) Cap Take 1 capsule by mouth daily. Active levothyroxine (SYNTHROID) 112 MCG tabletIndications: Acquired hypothyroidism take 1 tablet by mouth every morning 30 tablet 2 04/09/20 24 Active CPAP MACHINE Active nitroglycerin (NITROSTAT) 0.4 MG SL tabletIndications: Chronic diastolic heart failure ([facility] HHS/HCC) Place 1 tablet (0.4 [...] 10/18/20 24 Active furosemide (LASIX) 80 MG tabletIndications: Chronic diastolic heart failure ([facility] HHS/HCC) Take 1 tablet (80 mg total) by mouth daily as needed (swelling). Take 1 tablet twice daily for 2 weeks, then take 1 tablet daily as needed 02/22/20 25 Active albuterol sulfate HFA 108 (90 Base) MCG/ACT inhalerIndications :Chronic obstructive pulmonary disease, unspecified COPD type ([facility] HHS/HCC) Inhale 2 puffs into the lungs every 4 (four) hours as needed for Wheezing or Shortness of breath. 18 g 5 02/22/20 25 Active rOPINIRole (REQUIP) 1 MG tabletIndications: RLS (restless legs syndrome) Take 1 tablet (1 mg total) by mouth nightly at bedtime. 90 tablet 1 02/22/20 25 Active pregabalin (LYRICA) 150 MG capsuleIndications :Other chronic pain Take 1 capsule (150 mg total) by mouth 2 (two) times daily. 60 capsule 2 02/22/20 25 Active doxepin (SILENOR) 3 mg tabletIndications: Primary insomnia Take 1 tablet (3 mg total) by mouth nightly at bedtime. 30 tablet 2 02/26/20 25 Active albuterol sulfate HFA 108 (90 Base) MCG/ACT inhalerIndications :Chronic obstructive pulmonary disease, unspecified COPD type ([facility]) Inhale 2 puffs into the lungs every 4 (four) hours as needed for Wheezing or Shortness of breath. 18 g 5 03/21/20 24 025 Discontin ued(Reord er) pravastatin (PRAVACHOL) 20 MG tablet TAKE 1 TABLET (20 MG TOTAL) BY MOUTH NIGHTLY AT BEDTIME. ON MONDAYS AND THURSDAYS 24 tablet 1 04/18/20 24 025 Discontin ued(Thera py completed ) pregabalin (LYRICA) 150 MG capsuleIndications :Other chronic pain TAKE 1 CAPSULE BY MOUTH TWICE A DAY 60 capsule 2 11/19/19 25 025 Discontin ued(Reord er) zolpidem (AMBIEN) 5 MG tabletIndications: Primary insomnia TAKE 0.5 TABLETS BY MOUTH NIGHTLY NEEDED FOR SLEEP. 45 tablet 12/18/19 25 025 Discontin ued(Side effects) furosemide (LASIX) 80 MG tabletIndications: Chronic diastolic heart failure ([facility]) TAKE 1 TABLET (80 MG TOTAL) BY MOUTH DAILY NEEDED (SWELLING). 90 tablet 1 12/30/19 25 025 Discontin ued(Reord er) rOPINIRole (REQUIP) 1 MG tabletIndications: RLS (restless legs syndrome) TAKE 2 TABLETS BY MOUTH AT BEDTIME 180 tablet 01/07/20 25 025 Discontin ued(Formu isela change) DULoxetine (CYMBALTA) 60 MG capsuleIndications :Current mild episode of major depressive disorder, unspecified whether recurrent TAKE 2 CAPSULES BY MOUTH EVERY DAY 180 capsule 01/07/20 25 025 Discontin ued(Thera py completed ) buPROPion XL (WELLBUTRIN XL) 300 MG 24 hr tabletIndications: Current mild episode of major depressive disorder, unspecified whether recurrent Take 1 tablet (300 mg total) by mouth daily. 30 tablet 5 01/08/20 25 025 Discontin ued(Thera py completed ) cefdinir (OMNICEF) 300 MG Cap capsule Take 1 capsule (300 mg total) by mouth 2 (two) times daily for 6 days. 12 capsule 02/16/20 25 025 Discontin ued(Thera py completed ) rOPINIRole (REQUIP) 1 MG tablet Take 1 tablet (1 mg total) by mouth nightly at bedtime. 025 Discontin ued(Reord er) Suvorexant (BELSOMRA) 10 MG TabIndications:Татьяна noel insomnia Take 10 mg by mouth daily as needed. 30 tablet 2 02/22/20 25 025 Discontin ued(Cost of medicatio n) Active Problems Problem Noted Date Diagnosed Date [...] risk calculator shows high risk Follows with [facility] Thyroid cyst 05/27/2019 Overview (01/21/2021): Last Assessment & Plan: Performed thyroid ultrasound in office 05/2019 Noted subcentimeter simple right thyroid cyst No FNA needed No follow up thyroid uls needed , until physical exam or pt symptoms warrants Exercise hypoxemia 02/25/2019 Chronic obstructive pulmonar y disease, unspecified COPD type ([facility]) 02/25/2019 Vitamin D deficiency 01/21/2019 Diastolic dysfunction with heart failure ([facility]) 01/21/2019 Nocturnal hypoxemia 12/21/2018 Shortness of breath 12/21/2018 Essential hypertension 11/23/2018 Current mild episode of alverto r depressive disorder, unspecified whether recurrent 11/23/2018 Type 2 diabetes mellitus wit hout complication, without long-term current use of insulin ([facility]) 11/23/2018 Overview (01/21/2021): Last Assessment [...] Encounters Date Type Department Care Team Description 02/25/2025 Telephone [facility] [address] [phone] Tenzin Echevarria, DO Prior Authorization (Belsomra) 02/23/2025 Scan [facility] SRVCS Scanned, [facility] Lab (SCAN) 02/21/2025 8:40 AM CDT Office Visit [facility] Internal [address] [phone] Tenzin Echevarria, Diabetes (3 month follow up ); ER F/U (The patient went to [facility] for pneumonia 1 week ago. ) 02/21/2025 Scan [facility] INFO SRVCS Scanned, [facility] Vascular Lab Study (SCAN) 02/21/[address] [phone] Tenzin Echevarria, Results 02/21/2025 Care Management [address] [address] Georgette Smith, HOSPITAL INTERN 02/21/2025 Travel 02/19/2025 Scan [facility] INFO SRVCS Scanned, [facility] (SCAN) 02/14/2025 3:48 PM CDT - 02/14/2025 9:52 PM CDT Emergency [facility] [place] [address] Thelma Hernandez, Chest Pain Discharge Disposition: Home or [...] uit: No; Counseling Given: Yes Comments:Provider to personnel counselor patient smoking 1 pack per week [...] Sex Assigned at Female 01/12/2023 2:48 PM INJECTION MOLDING OPERATOR Legal Sex Female 1:07 PM INJECTION MOLDING OPERATOR Gender Identity Female 01/12/2023 2:48 PM INJECTION MOLDING OPERATOR Sexual Orientation Straight 01/12/2023 2: 48 PM INJECTION MOLDING OPERATOR Occupation Industry Job Start Date Job End [...] 03/02/2013 Hepatitis C Completed 05/02/2022 PHQ-2 (Physician [place]) Completed 02/21/2025 Meningococcal B Vaccine Aged Out No l onger eligible based on patient's age to complete this topic Meningococcal Vaccine Aged Out No isaac zachary eligible based on patient's age to complete this topic RSV Immunizations Under 20 Months Aged Out No longer eligible based on patient's age to complete this topic Procedures Procedure Name Priority Date/Time Associated Diagnosis Comments OUTSIDE LAB (SCAN ORDER) 02/23/2025 OUTSIDE LAB (SCAN ORDER) 02/23/2025 COLLECT.CAPILLARY (FNGR,HEEL,EAR) Routine 02/21/2025 8:48 AM CDT Type 2 diabetes mellitus without complication, without long-term current use of insulin ([facility]) VASCULAR LAB GENERIC (SCAN ORDER) 02/21/2025 VASCULAR LAB GENERIC (SCAN ORDER) 02/21/2025 HEMOGLOBIN, GLYCOSYLATED Routine 02/21/2025 Type 2 diabetes mellitus without complication, without long-term current use of insulin ([facility]) OUTSIDE LAB (SCAN ORDER) 02/19/2025 OUTSIDE LAB (SCAN ORDER) 02/19/2025 TROPONIN, QUANT STAT 02/14/2025 6:20 PM CDT [...] 05/02/2022 LIPID PANEL Routine 12/23/2021 8:01 AM INJECTION MOLDING OPERATOR Type 2 diabetes mellitus without complication, without long-term current use of insulin Essential hypertension from Last 3 Months or Most Recently Relevant to Health Maintenance Results * OUTSIDE LAB (SCAN ORDER) (02/23/2025) Only the most recent of4 resultswithin the time period is included. 02/23/2025 [facility] Scanned SCANNING Final Resu lt * VASCULAR LAB GENERIC (SCAN ORDER) (02/21/2025) 02/21/2025 [facility] Scanned SCANNING Final Resu lt * VASCULAR LAB GENERIC (SCAN ORDER) (02/21/2025) 02/21/2025 [facility] Scanned SCANNING Final Resu lt * HEMOGLOBIN, GLYCOSYLATED (02/21/2025) HGB A1C 5.5 % [facility] 02/21/2025 Tenzin Echevarria DO LABORATORY Final Re sult Performing Organization Address City/[facility]/ZIP Co de Phone Number [facility] [address] [place] [address], [place] * TROPONIN, QUANT (02/14/2025 6:20 PM CDT) Only the most recent of2 resultswithin the time period is included. Pathologist [facility] TROPONIN I HIGH SENSITIVITY 6 <54 ng/L 02/14/2025 6:58 PM CDT [facility] Comment: HIGH DOSES OF BIOTIN, TROPONIN-SPECIFIC AUTOANTIBODIES, AND ANTIBODY THERAPY CONTAINING HAMA MAY INTERFERE WITH THIS TEST RESULT. CORRELATION TO CLINICAL HISTORY AND PRESENTATION RECOMMENDED. 02/14/2025 6:20 PM CDT Thelma Hernandez DO LABORATORY Final Result Performing Organization Address City/[facility] Co de Phone Number [facility] [address] [place] [address], [place] [phone] * ECG 12 lead (02/14/2025 5:53 PM CDT) Only the most recent of2 resultswithin the time period is included. 02/14/2025 5:53 PM CDT Narrative [facility] ([facility]) RAD - 02/14/2025 6:02 PM CDT [address] Test Date: 2025-02-14 Pat Name: SHANITA SUERO Department: 41 Room: [place] [address] Gender: Female Compress Trucker: [id number] : 1955 Requested By: THELMA HERNANDEZ Order Number: [id number] [place] MD: Helga Caballero Measurements Intervals [place] Rate: 66 P: 44 HI: 161 QRS: 75 QRSD: 86 T: 77 QT: 390 QTc: 410 Interpretive Statements SINUS RHYTHM WITH SINUS ARRHYTHMIA LOW QRS VOLTAGE IN PRECORDIAL LEADS [QRS DEFLECTION < 1.0 mV IN CHEST LEADS] POSSIBLE RIGHT VENTRICULAR CONDUCTION DELAY [RSR (QR) IN V1/V2] NONSPECIFIC T-WAVE ABNORMALITY Compared to ECG 02/14/2025 15:49:30 Low QRS voltage now present Procedure Note Helga Caballero MD - 02/14/[address] Test Date: 2025-02-14 Pat Name: SHANITA SUERO Department: 41 Room: [place] [address] Gender: Female Compress Trucker: [id number] : 1955 Requested By: THELMA HERNANDEZ Order Number: [id number] [place] MD: Helga Caballero Measurements Intervals [place] Rate: 66 P: 44 HI: 161 QRS: 75 QRSD: 86 T: 77 QT: 390 QTc: 410 Interpretive Statements SINUS RHYTHM WITH SINUS ARRHYTHMIA LOW QRS VOLTAGE IN PRECORDIAL LEADS [QRS DEFLECTION < 1.0 mV IN CHESTLEADS] POSSIBLE RIGHT VENTRICULAR CONDUCTION DELAY [RSR (QR) IN V1/V2] NONSPECIFIC T-WAVE ABNORMALITY Compared to ECG 02/14/2025 15:49:30 Low QRS voltage now present us Thelma Hernandez DO ECG ORDERABLES Final Result [facility] ([place]) RAD * PRO-BRAIN NATRIURETIC PEPTIDE (02/14/2025 5:00 PM CDT) PRO-B TYPE NATRIURETIC PEPTIDE 121 <125 PG/ML 02/14/2025 5:[address] [facility] Comment: CUT POINTS ESTABLISHED BY INTERNATIONAL [...] DO LABORATORY Final Result Performing Organization Address [facility] Co de Phone Number [facility] [address] [place] [address], [place] [phone] * (ABNORMAL) D-DIMER, QUANTITATIVE (02/14/2025 5:00 PM CDT) D-DIMER 664(HH) 0 - 500 ng{FEU}/mL 02/14/2025 5:[address] [facility] Comment: D-Dimer values less than or [...] no additional false negative findings. Successful Call: SHIVAM called 02/14/2025 05:51 PM to EMERGENCY ROOM ([id number]/EUGENIA DIAZ) by [id number]. Read Back: Yes 02/14/2025 5:00 PM CDT Thelma Hernandez DO LABORATORY Final Result Performing Organization Address [facility] Co de Phone Number [facility] [address] [place] [address], [place] [phone] * (ABNORMAL) CBC W/DIFF AUTOMATED (02/14/2025 5:00 PM CDT) [facility] WBC 9.86 4.5 - 11.0 x10'3/uL 02/14/2025 5:[address] [facility] RBC 3.76(L) 4.20 - 5.40 x10'6/uL 02/14/2025 5:[address] [facility] HGB 12.1 12.0 - 16.0 G/DL 02/14/2025 5:[address] [facility] HCT 37.0(L) 38.0 - 48.0 % 02/14/2025 5:[address] [facility] MCV 98.4 81.0 - 99.0 FL 02/14/2025 5:[address] [facility] MCH 32.2(H) 27.0 - 31.0 PG 02/14/2025 5:[address] [facility] MCHC 32.7 32.0 - 36.0 G/DL 02/14/2025 5:[address] [facility] RDW 14.1 11.5 - 14.5 % 02/14/2025 5:[address] [facility] PLT 385 130 - 400 x10'3/uL 02/14/2025 5:[address] [facility] MPV 9.7 9.3 - 12.2 FL 02/14/2025 5:[address] [facility] DIFFERENTIAL TYPE AUTOMATED DIFFERENTIAL 02/14/2025 5:[address] [facility] NEUTROPHILS % 59.9 % 02/14/2025 5:[address] [facility] LYMPHOCYTES % 26.9 % 02/14/2025 5:[address] [facility] MONOCYTES % 6.9 % 02/14/2025 5:[address] [facility] EOSINOPHILS 5.1 % 02/14/2025 5:[address] [facility] BASOPHILS 0.8 % 02/14/2025 5:[address] [facility] IMMATURE GRANS % 0.4 % 02/15/20 5:[address] [facility] ABS. NEUTROPHILS 5.91 1.80 - 7.70 x10'3/uL 02/14/2025 5:[address] [facility] ABS. LYMPHOCYTES 2.65 1.00 - 4.80 x10'3/uL 02/14/2025 5:[address] [facility] ABS. MONOCYTES 0.68 0.24 - 0.86 x10'3/uL 02/14/2025 5:[address] [facility] ABS. EOSINOPHILS 0.50(H) 0.04 - 0.36 x10'3/uL 02/14/2025 5:[address] [facility] ABS. BASOPHILS 0.08 0.01 - 0.08 x10'3/uL 02/14/2025 5:[address] [facility] ABS. IMMATURE GRANULOCYTES 0.04 0.00 - 0.49 x10'3/uL 02/14/2025 5:[address] [facility] 02/14/2025 5:00 PM CDT us Thelma Hernandez DO LABORATORY Final Result [facility] [address] [place] [address], [place] [phone] * XR CHEST PORTABLE (02/14/2025 4:32 PM CDT) Anatomical Region Laterality Modality Chest Radiographic Libra ging 02/14/2025 4:33 PM CDT Impressions 02/14/2025 4:38 PM CDT IMPRESSION: Nonspecific opacity silhouetting the left costophrenic angle, atelectasis, pleural effusion, and/or infection are all possible. Referred By: Interpreted By: Fabio Rabago MD, 02/14/2025 4:33 PM Narrative 02/14/2025 4:[address] [address] Examination: XR CHEST PORTABLE Exam time: 02/14/2025 [...] Procedure Note Fabio Rabago MD - 02/14/[address] [address] Examination: XR CHEST PORTABLE Exam time: 02/14/2025 [...] COMPREHENSIVE METABOLIC PANEL (02/14/2025 3:56 PM CDT) [facility] GLUCOSE 81 70 - 99 MG/DL 02/14/2025 5:[address] [facility] BUN 17 7 - 18 MG/DL 02/14/2025 5:[address] [facility] CREATININE S/P/B 0.92 0.55 - 1.02 MG/DL 02/14/2025 5:[address] [facility] SODIUM S/P/B 137 136 - 145 MMOL/L 02/14/2025 5:[address] [facility] POTASSIUM S/P/B 4.2 3.5 - 5.1 MMOL/L 02/14/2025 5:[address] [facility] CHLORIDE S/P/B 107 97 - 115 MMOL/L 02/14/2025 5:[address] [facility] CO2 23.6 21 - 32 MMOL/L 02/14/2025 5:[address] [facility] CALCIUM S/P/B 8.6 8.5 - 10.1 MG/DL 02/14/2025 5:[address] [facility] BILIRUBIN TOTAL S/P/B 0.2 0.2 - 1.2 MG/DL 02/14/2025 5:[address] [facility] Comment: THIS ASSAY IS NOT RECOMMENDED FOR PATIENTS UNDERGOING TREATMENT WITH ELTROMBOPAG DUE TO THE POTENTIAL FOR FALSELY ELEVATED RESULTS. TOTAL PROTEIN S/P/B 7.5 6.4 - 8.2 G/DL 02/14/2025 5:[address] [facility] ALBUMIN S/P/B 3.0(L) 3.4 - 5.0 G/DL 02/14/2025 5:[address] [facility] AST 19 15 - 37 U/L 02/14/2025 5:[address] [facility] ALT 22 14 - 55 U/L 02/14/2025 5:[address] [facility] ALKALINE PHOSPHATASE S/P/B 77 50 - 136 U/L 02/14/2025 5:[address] [facility] ANION GAP 6.4 2 - 10 MMOL/L 02/14/2025 5:[address] [facility] BUN CREATININE RATIO 18.4 6 - 26 02/14/2025 5:[address] [facility] A/G RATIO 0.7(L) 1.0 - 2.0 RATIO 02/14/2025 5:[address] [facility] GFR ESTIMATE 67(L) >90 ML/MIN/1.7 3 M2 02/14/2025 5:[address] [facility] Comment: NOTE: eGFR is not calculated for patients <18 years of age or gender unknown. This is an estimated GFR calculation using the new CKD EPI creatinine equation without race and so does not require a correction factor for race. This estimated GFR should not be used for calculating drug doses. 02/14/2025 3:56 PM CDT us Thelma Hernandez DO LABORATORY Final Result [facility] [address] [place] [address], * MAMMOGRAM GENERIC (SCAN ORDER) (11/30/2023) Anatomical Region Laterality Modality Other 11/30/2023 [facility] Scanned SCANNING Final Resu lt * BONE DENSITY GENERIC (11/21/2023) Anatomical Region Laterality Modality Other 11/21/2023 [facility] Scanned SCANNING Final Resu lt * DIABETIC RETINOPATHY EXAM (NEGATIVE)(SCAN) (11/01/2022) [facility] Scanned SCANNING Final Resu lt [facility] * HEP C SCANNED ORDERS (05/02/2022) us Documents Scanned SCANNING Final Result [facility] * (ABNORMAL) LIPID PANEL (12/23/2021 8:01 AM INJECTION MOLDING OPERATOR) CHOLESTEROL 262(H) 100 - 199 mg/dL [facility] TRIGLYCERIDES 258(H) 0 - 149 mg/dL [facility] 1 HDL 41 >39 mg/dL [facility] 1 VLDL CALCULATION 49(H) 5 - 40 mg/dL [facility] 1 LDL (CALCULATED) 172(H) 0 - 99 mg/dL [facility] 1 12/23/2021 8:01 AM INJECTION MOLDING OPERATOR 12/23/2021 Narrative [facility] - 12/24/2021 4:10 PM INJECTION MOLDING OPERATOR Performed at: 01 - [facility] [address] [id number] [employer] Superintendent: Ruddy Ervin PhD, Phone: [phone] us Aleida Hicks INSTRUMENT LENS GENERATOR LABORATORY Final Result [facility] [address] [place] [address] [facility] 1 from Last 3 Months or Most Recently Relevant to Health Maintenance Insurance [employer] MEDICA[employer] Care Teams Cap Blocker Relationship Specialty Start Date End Date Tenzin Echevarria DO [address] [place] [id number] PCP - General FAMILY PRACTICE 11/19/18 Amandeep Howe MD [address] [facility] [address] [place] [address] [employer] [employer] CARDIOVASCULAR DISEASE 08/27/19
--- OUTSIDE RECORDS SUMMARY | 2025-03-21 13:22 | XMS_ITS | Clinical Summary ---
Author Organization [facility] [address] [place] [id number] Care Team Providers Care Research Project Coordinator Name Role Phone Tenzin Echevarria DO Primary Care Provide r Allergies Active Allergy Reactions Criticality Noted Date Comments Morphine Hives Medium 05/27/2019 Denosumab Other (See comments) Low 05/27/2019 Warm feeling Oycknxg-Rsa-Gku Reductase Inhibitors Muscle pain Medium 05/27/2019 Sertraline [...] any sleep studies that were performed at [facility]. Chronic diastolic heart failure 02/24/2022 Type [...] home Assessment & Plan (01/18/2021 5:00 PM MANAGEMENT SUPERVISOR): A1c Today 5.8% Continue dietary control [...] point Assessment & Plan (09/16/2019 9:29 PM MANAGEMENT SUPERVISOR): A1c today 5.7% Continue dietary control [...] them. Assessment & Plan (01/18/2021 1:06 PM MANAGEMENT SUPERVISOR): Patient currently on Levothyroxine 100 mcg [...] months Assessment & Plan (09/16/2019 9:32 PM MANAGEMENT SUPERVISOR): continue current Levothyroxine 50 mcg oral [...] warrants Assessment & Plan (09/16/2019 9:37 PM MANAGEMENT SUPERVISOR): Performed thyroid ultrasound in office 05/2019 [...] Fall. Assessment & Plan (01/18/2021 5:01 PM MANAGEMENT SUPERVISOR): Chronic,, worsening Discussed about healthy lifestyle [...] therapy Assessment & Plan (09/16/2019 9:35 PM MANAGEMENT SUPERVISOR): Chronic, worsening Recommend healthy lifestyle options [...] risk calculator shows high risk Follows with Helmet Binder Assessment & Plan (04/13/2020 3:46 PM CDT): Hyperlipidemia noted Currently patient patient on Zetia Patient intolerant to statin therapy No known cardiovascular disease at this point Family history of hypercholesterolemia Positive for smoking ASCVD risk calculator shows high risk Follows with Helmet Binder Assessment & Plan (09/16/2019 9:36 PM MANAGEMENT SUPERVISOR): Hyperlipidemia noted Currently patient patient on [...] POCT LIPID PANEL Routine 01/18/2021 1:12 PM MANAGEMENT SUPERVISOR Type 2 diabetes mellitus without complication, [...] * POCT lipid panel (01/18/2021 1:12 PM MANAGEMENT SUPERVISOR) Cholesterol, POC 289 mg/dL HDL, POC 40 mg/dL Triglycerides, POC 295 mg/dL LDL Cholesterol POC 190 mg/dL Capillary blood 01/18/2021 1 :12 PM MANAGEMENT SUPERVISOR Bee Rodriguez MD POINT OF CARE [...] NA EXTERNAL LAB SCRIBED eGFR in NonAfrican Algerian 54 >59 - NA EXTERNAL LAB Blood [...] - 05/29/2019 2:09 PM CDT Performed at: [address] [place] [id number] Ecclesiastical Worker: Ruddy Ervin PhD, Phone: [phone] Bee Rodriguez MD LAB URINE ORDERABLE S Final Result Performing Organization Address City/[facility] Co de Phone Number [facility] - 01 from Last 3 Months or Most Recently Relevant to Health Maintenance Insurance MEDICARE COMMERCIAL GENERIC Care Teams Research Project Coordinator Relationship Specialty Start Date End Date Tenzin Echevarria DO PCP - General Family Medicine 03/07/19
--- OUTSIDE RECORDS SUMMARY | 2025-03-21 13:22 | XMS_ITS | Data Portability ---
Author Organization [facility], [place] Address [address] [place] [address] Assessment Encounter Date Assessment Date Assessment LastModified [...] By Organization Details Last Modified Time 05/20/2020 [id number] [email or web address] Not available 11:30:45 Reason for Referral None Reported. Results Created Date Observation Date Name Description Value Unit Range Abnormal Flag Note LastModifiedBy Organization Detail LastModifiedTime 08/27/2008/27/2020 MAMMO , scree timbo, bilat eral No observ ation [facility] [address], [place], [address], 09/01/2020 15:30:22 08/28/20 20 08/27/2020 bone densi ty No observ ation record ed. [facility] [address], [place], [address], 09/03/2020 12:16:56 Result Notes None recorded. Procedures Surgical History Date Name Laterality Status Provider Name and Address Organization Details Recorded Time Tubal Ligation completed Lucero Nguyen [place] - [facility] 05/20/2020 11:05:23 Total Hysterectomy completed [facility] 05/20/2020 11:05:29 Carpal tunnel surgery completed [facility] 05/20/2020 11:05:[address] [facility] 05/20/2020 11:05:48 Total knee arthroplasty completed [facility] 05/20/2020 11:05:54 Imaging Results Imaging Date Name Status LastModified by Organiz ation Details LastModified Time 08/27/2020 MAMMO, screening, bilateral completed [facility] [address], [place], [address], 09/01/2020 15:30:22 08/27/2020 bone density completed [facility] [address], [place], [address], 09/03/2020 12:16:56 Procedure Notes None recorded. Medical [...] Updated DateTime 05/20/2020 149.86 cm 54.7 kg/m2 843868.5 3 g 103 mm[Hg] 65 mm[Hg] Lucero Nguyen [facility] 0 11:10:40 Social History None recorded. [...] SNOMED-CT Code Diagnosis ICD10 Code Diagnosis Note [id number] Chasity Mendes , [facility] [address] [address] 05/20/2020 10:57:04 05/20/2020 11:45:59 Gynecologic examination [id number] Z01.419 Take Calcium with Vitamin D 12-1500mg daily. Do monthly self breast exams. It is advised to get annual flu shot in the fall and she could obtain at [facility] or [facility] care clinic. If you haven't received the [...] 05/20/2020 2 BASIL (MEDICARE SUPPLEMENT) Shanita Gallo [id number] Shanita Gallo 05/20/2020 1 [place] Shanita Lloyd Gallo [id number] Shanita Gallo Notes Date Note Type Note [...] screening; Considering weight loss surgery Chasity Mendes, [facility]- [address], [place], [address], [facility] 05/20/2020 11:31:11 OBGyn Episode Ob Episode Information Episode Created Date Number of Fetuses Patient Bloodtype Patient rh Status Prepregnancy Weight lbs Domestic Partner Domestic Partner Phone Father Name Manometer Technician Status 05/20/20 20 1 CLOSED Fetus Data [...] Domestic Partner Domestic Partner Phone Father Name Manometer Technician Status 05/20/20 20 1 CLOSED Fetus Data [...]
== END 2025-03-21 13:16 | disposition home or self-care (01) ==
LOC: ANHIMG 13:19
PROVIDERS: PCP Student in an Organized Health Care Education/Training Program; Visit Provider Student in an Organized Health Care Education/Training Program
DX: Z12.31 Encounter for screening mammogram for malignant neoplasm of breast (principal)
CPT/HCPCS: 77063; 77067

== ENCOUNTER 2025-04-29 08:12 | Inpatient (IN) | payer MEDICARE, MEDICAID, SELFPAY ==
[2025-04-29] VITALS (16 sets, daily range): BP systolic 106–144; BP diastolic 49–62; PULSE 62–78; RESP 17–22; TEMP 36.2–36.5; O2SAT 91–100; BMI 54.5
--- NOTE | ~2025-04-29 | CT_ITS ---
CTA chest PE protocol Ordering provider: David Winter MD History: 69 years Female with . dyspnea . Comparison: None. Technique: CT angiogram chest was performed following timed intravenous injection of contrast. Thin s lice axial images and reformatted coronal images were obtained. Three dimensional reformatted images of the chest were also obtained using a [employer] workstation. . Automated exposure control and iterati ve reconstruction technique were employed. The dose-length product was 1026.79 mGy-cm. 100 mL Omnipaq ue 350 was given IV. Findings: PULMONARY ARTERIES: No pulmonary embolus. VISUALIZED THORACIC INLET: Normal. MEDIASTINUM: Aorta/coronary arteries: Mild atheromatous disease. Heart/other: The heart is not enlarged. Lymph nodes: Paratracheal lymph node measuring 1.9 cm is noted. Subcarinal lymph node is seen measuri ng 1.7 cm. Right hilar lymph node measuring 1.7 cm also seen. LUNGS: Nodule measuring 1 cm is seen adjacent to the oblique fissure in the right lower lobe. 3 months follo w-up advised. Minimal atelectatic changes seen in the right lower lobe laterally. Minimal atelectatic changes seen in the lingula. No pulmonary masses. No infiltrates or effusions. No pneumothorax. VISUALIZED UPPER ABDOMEN: the visualized upper abdomen is normal. MUSCULOSKELETAL: Soft tissues: The superficial soft tissues are normal. Bones: Age appropriate degenerative changes of the spine. IMPRESSION: 1. No pulmonary embolism. 2. Mediastinal lymphadenopathy. 3. Nodule in the right lower lobe measuring 1 cm. Three-month follow-up CT or PET-CT is advised. Reviewed, dictated and finalized at location A.
--- NOTE | ~2025-04-29 | XR_ITS ---
EXAMINATION: XR chest 2V DATE: 04/29/2025 08:43 INDICATION: Shortness of breath TECHNIQUE: Frontal and lateral views of the chest were obtained. COMPARISON: Chest CT dated 09/08/2023 FINDINGS: There are couple unchanged linear bands of discoid atelectasis/scarring at the lateral left midlung z one. No pulmonary edema, pleural effusion or pneumothorax. The cardiomediastinal silhouette is normal . Small electronic device external to the patient along the anterior chest. IMPRESSION: 1. Mild discoid atelectasis/scarring at the left midlung zone. Reviewed, dictated and finalized at location A.
--- NOTE | 2025-04-29 08:23 | ECG_ITS ---
Test Date: 2025-04-29 08:21:12 Measurements Intervals Tracy Rate: 67 P: 50 MA: 149 QRS: 74 QRSD: 94 T: 51 QT: 396 QTc: 421 Interpretive Statements SINUS RHYTHM WITH ATRIAL PREMATURE COMPLEX INCOMPLETE RIGHT BUNDLE BRANCH BLOCK DELAYED PRECORDIAL R/S TRANSITION BORDERLINE T WAVE ABNORMALITY- ANTEROLATERAL LEADS BASELINE ARTIFACT- I, II, III, AVR, AVL, AVF, V1-V6 BORDERLINE ECG No previous ECG available for comparison Electronically Signed On 04-29-2025 08:30:08 CDT by Darin Xiong D.O.
--- NOTE | 2025-04-29 08:36 | PC.NURSE ---
Pt to Xray on tele and O2 monitor at this time
[2025-04-29] MEDS: methylPREDNISolone SOD SUCC 125 MG VIAL IV PUSH (08:44)
--- OUTSIDE RECORDS SUMMARY | 2025-04-29 08:47 | XMS_ITS | Data Portability ---
Author Organization [facility], [place] Address [address] [place] [address] Assessment Encounter Date Assessment Date Assessment LastModified [...] By Organization Details Last Modified Time 05/20/2020 [id number] [email or web address] Not available 11:30:45 Reason for Referral None Reported. Results Created Date Observation Date Name Description Value Unit Range Abnormal Flag Note LastModifiedBy Organization Detail LastModifiedTime 08/27/2008/27/2020 MAMMO , scree timbo, bilat eral No observ ation record ed. [facility] [address], [place], [address], 09/01/2020 15:30:22 08/28/20 20 08/27/2020 bone densi ty No observ ation record ed. [facility] [address], [place], [address], 09/03/2020 12:16:56 Result Notes None recorded. Procedures Surgical History Date Name Laterality Status Provider Name and Address Organization Details Recorded Time Tubal Ligation completed Lucero Nguyen [place] - [facility] 05/20/2020 11:05:23 Total Hysterectomy completed [facility] 05/20/2020 11:05:29 Carpal tunnel surgery completed [facility] 05/20/2020 11:05:39 cataract surgery [address] [facility] 05/20/2020 11:05:48 Total knee arthroplasty completed [facility] 05/20/2020 11:05:54 Imaging Results None recorded. Procedure Notes None recorded. Medical Equipment None [...] Updated DateTime 05/20/2020 149.86 cm 54.7 kg/m2 818205.5 3 g 103 mm[Hg] 65 mm[Hg] [facility] 0 11:10:40 Social History None recorded. [...] SNOMED-CT Code Diagnosis ICD10 Code Diagnosis Note [id number] Chasity Candidorolando , [facility] [address] [address] 05/20/2020 10:57:04 05/20/2020 11:45:59 Gynecologic examination [id number] Z01.419 Take Calcium with Vitamin D 12-1500mg daily. Do monthly self breast exams. It is advised to get annual flu shot in the fall and she could obtain at [facility] or [facility] care clinic. If [...] Recorded Advance Directives Directive None Recorded Payers Insurance Date Sequence Insurance Name Policy Number Policy Aguilar Covered Member ID Aguilar Member ID Guarantor Name 05/20/2020 2 BASIL (MEDICARE SUPPLEMENT) Shanita Gallo [id number] Shanita Gallo 01/20/2021 1 [place] Shanita Gallo [id number] Shanita Gallo Notes Date Note Type Note [...] screening; Considering weight loss surgery Chasity Mendes, [facility]- [address], [place], [address], [facility] 05/20/2020 11:31:11 OBGyn Episode Ob Episode Information Episode Created Date Number of Fetuses Patient Bloodtype Patient rh Status Prepregnancy Weight lbs Domestic Partner Domestic Partner Phone Father Name Chief Wharfinger Status 05/20/20 20 1 CLOSED Fetus Data [...] Domestic Partner Domestic Partner Phone Father Name Chief Wharfinger Status 05/20/20 20 1 CLOSED Fetus Data [...]
--- OUTSIDE RECORDS SUMMARY | 2025-04-29 08:47 | XMS_ITS | Clinical Summary ---
Author Organization [facility] Address [address] [place] [address] Care Team Providers Care Market Survey Representative Name Role Phone Tenzin Echevarria Primary Care Provider + Source Comments [facility]non-owned Affiliates and Associated Physician Practices is amultiple site organization consisting of ambulatory clinics and hospital sitesin [place], [place], [place] and [place]. This disclosure is being madepursuant to the Care Everywhere program and may not contain all information available regarding this patient. Last updated 18.[facility] Allergies Active Allergy Reactions Criticality Noted Date [...] once daily Active vitamin D, ergocalciferol, (DRISDOL) 74976 UNITS capsule Take 50,000 Units by mouth [...] 2:49 PM CDT Height 143.5 cm (4' 8.5) 07/12/2018 2:49 PM CDT Body Mass Index [...] topic Insurance MEDICARE COMMERCIAL GENERIC Care Teams Market Survey Representative Relationship Specialty Start Date End Date Tenzin Echevarria DO [address] [place] [id number] [facility] - General 02/18/21
--- OUTSIDE RECORDS SUMMARY | 2025-04-29 08:47 | XMS_ITS | Encounter Summary ---
Author Organization [facility] Address [facility] [place] [address] Care Team Providers Care Product Inspection Supervisor Name Role Phone FlacodevanteTenzin Devon JAY Primary Care Provider + Amandeep Howe MD Unavailable [phone] Encounter Details Date Type Department Care Team (Latest Contact Info) Description 08/08/2023 Scan [facility] Scanned, Doc Med Group Social History Tobacco Use Types Packs/Day Years Used Date Smoking Tobacco: Former Cigarettes 0.3 50 0 12/19/1968 - 12/19/2018 Electronic Cigarettes Passive Smoke Exposure: Past Smokeless Tobacco: Never 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 Reports quitting 3 beginning of Jul Alcohol Use Standard Drinks/Week Comments Yes 0 (1 standard drink = 0.6 oz pure alcohol) drinks 1-2 times a year on special occasions AUDIT-C Answer Date Recorded Q1: How often [...] Sex Assigned at Female 01/12/2023 2:48 PM DRAPERY SEAMSTRESS Legal Sex Female 1:07 PM DRAPERY SEAMSTRESS Gender Identity Female 01/12/2023 2:48 PM DRAPERY SEAMSTRESS Sexual Orientation Straight 01/12/2023 2: 48 PM DRAPERY SEAMSTRESS Occupation Industry Job Start Date Job End Date Not on file Not on file Not on file Not on file documented as of this encounter Functional Status * Audit-C Score Answer Date of Assessment Author Status 1 07/02/2024 1:42 PM CDT [facility], [facility] Prov ider Active * Q1: How often do you have a drink containing alcohol? Answer Date of Assessment Author Status Monthly or less 07/02/2024 1:42 PM CDT Mychart, [facility] P rovider Active * Q2: How many drinks containing alcohol do you have on a typical day when you are drinking? Answer Date of Assessment Author Status Patient does not drink 07/02/2024 1:42 PM CDT Mychart, [facility] Provider Active * Q3: How often do you have six or more drinks on one occasion? Answer Date of Assessment Author Status Never 07/02/2024 1:42 PM CDT Mychart, [facility] Prov ider Active * Over the past 2 weeks, how often have you been bothered by any of the following problems? Question Answer Date of Assessment Author Status Little interest or pleasure in doing things Not at all 02/21/2025 9:02 AM CDT Tracie Ansari MA Acti ve Feeling down, depressed, or hopeless Not at all 02/21/2025 9:02 AM CDT Tracie Ansari MA Active Patient Health Questionnaire-2 Score 0 02/21/2025 9:02 AM CDT Tracie Ansari M A Active * Question Answer Date of Assessment Author Status Patient Health Questionnaire-9 Score 9 07/02/2024 1:42 PM CDT Mychart, [facility] Provi zac Active * Trouble falling or staying asleep, or sleeping too much Answer Date of Assessment Author Status More than half the days 07/02/2024 1:42 PM CDT Mychart , [facility] Provider Active * Feeling tired or having little energy Answer Date of Assessment Author Status Several days 07/02/2024 1:42 PM CDT Mychart, [facility] Prov ider Active * Poor appetite or overeating Answer Date of Assessment Author Status Several days 07/02/2024 1:42 PM CDT Mychart, [facility] Prov ider Active * Feeling bad about yourself - or that you are a failure or have let yourself or your family down Answer Date of Assessment Author Status Several days 07/02/2024 1:42 PM CDT [facility] Prov ider Active * Trouble concentrating on things, such as reading the newspaper or watching television Answer Date of Assessment Author Status More than half the days 07/02/2024 1:42 PM CDT [facility] Provider Active * Moving or speaking so slowly that other people could have noticed? Or the opposite - being so fidgety or restless that you have been moving around a lot more than usual. Answer Date of Assessment Author Status Several days 07/02/2024 1:42 PM CDT [facility] Prov ider Active * Thoughts that you would be better off or hurting yourself in some way Answer Date of Assessment Author Status Not at all 07/02/2024 1:42 PM CDT [facility] Prov ider Active * Calculated C-SSRS Risk Score (Lifetime/Recent) Answer Date of Assessment Author Status No Risk Indicated 02/14/2025 3:49 PM Fawn Baldwin RN Active * How difficult have these problems made it for you to do your work, take care of things at home, or get along with other people? Answer Date of Assessment Author Status Somewhat difficult 07/02/2024 1:42 PM Sabi Lazaro s Provider Active * [place] Suicide Severity Rating Scale (Screener/Recent Self-Report) Question Answer Date of Assessment Author Status 1. Wish to be (Past 1 Month) No 02/14/2025 3:49 PM Anita Baldwin RN Active 2. Non-Specific Active Suicidal Thoughts (Past 1 Month) No 02/14/2025 3:49 PM Anita Baldwin RN Active 6. Suicidal Behavior (Lifetime) No 02/14/2025 3:49 PM Anita Baldwin RN Active documented as of this encounter Plan of Treatment Not on file documented as of this encounter Visit Diagnoses Not on filedocumented in this encounter Additional Health Concerns Infection Onset Date Last Indicated Resolved Time COVID-19 Rule Out 11/02/2023 11/02/2023 11/02/2023 1:07 PM DRAPERY SEAMSTRESS COVID-19 Rule Out 11/02/2023 11/02/2023 11/02/2023 2:55 PM DRAPERY SEAMSTRESS Assessment Noted Time PHQ-9 Depression Total Score: 12 022 12:11 PM DRAPERY SEAMSTRESS documented as of this encounter Care Teams Product Inspection Supervisor Relationship Specialty Start Date End Date Tenzin Echevarria DO [facility] [place] [address] PCP - General FAMILY PRACTICE 11/19/18 Amandeep Howe MD [address] [facility] [address] [place] [address] [place] Research Chemist CARDIOVASCULAR DISEASE 08/27/19 documented as of this encounter
--- OUTSIDE RECORDS SUMMARY | 2025-04-29 08:47 | XMS_ITS | Clinical Summary ---
Author Organization [facility] Address Formerly [facility] [place] [address] Care Team Providers Care Radiology Rn Name Role Phone Tenzin Echevarria DO Primary Care Provider + Amandeep Howe MD Unavailable [phone] Allergies Active Allergy Reactions Criticality Noted [...] complication, without long-term current use of insulin ([facility]) Test once daily 100 each 1 022 Active semaglutide (OZEMPIC, 1 MG/DOSE,) 2 MG/1.5ML injection (PEN) Inject 1 mg into the skin every 7 days. Active ONETOUCH VERIO test stripIndications: Type 2 diabetes mellitus without complication, without long-term current use of insulin ([facility]) USE TO TEST BLOOD SUGARS ONCE DAILY 100 strip 1 023 Active Cholecalciferol (VITAMIN D-3) 25 MCG (1000 UT) Cap Take 1 capsule by mouth daily. Active levothyroxine (SYNTHROID) 112 MCG tabletIndications :Acquired hypothyroidism take 1 tablet by mouth every morning 30 tablet 2 024 Active CPAP MACHINE Active nitroglycerin (NITROSTAT) 0.4 MG SL tabletIndications :Chronic diastolic heart failure ([facility]) Place 1 tablet (0.4 mg total) under the tongue every 5 (five) minutes as needed for Chest Pain. Max of 3 doses, then call 911 25 tablet 1 024 Active betamethasone dipropionate 0.05 % creamIndications: Rash Apply topically 2 (two) times daily. Do not use for more than 4 weeks continuously 45 g 1 024 Active HYDROcodone-aceta minophen (NORCO) 5-325 MG tabletIndications :Acute Pain < 7 Day Supply Take 1 tablet by mouth every 6 (six) hours as needed for Pain. Indications: Acute Pain < 7 Day Supply 28 tablet 024 Active furosemide (LASIX) 80 MG tabletIndications :Chronic diastolic heart failure ([facility]) Take 1 tablet (80 mg total) by mouth daily as needed (swelling). Take 1 tablet twice daily for 2 weeks, then take 1 tablet daily as needed 025 Active albuterol sulfate HFA 108 (90 Base) MCG/ACT inhalerIndication s:Chronic obstructive pulmonary disease, unspecified COPD type ([facility]) Inhale 2 puffs into the lungs every 4 (four) hours as needed for Wheezing or Shortness of breath. 18 g 5 025 Active pregabalin (LYRICA) 150 MG capsuleIndication s:Other chronic pain Take 1 capsule (150 mg total) by mouth 2 (two) times daily. 60 capsule 2 025 Active buPROPion SR (WELLBUTRIN SR) 150 MG 12 hr tablet Take 1 tablet (150 mg total) by mouth 2 (two) times daily. Active DULoxetine (CYMBALTA) 60 MG capsule Take 2 capsules (120 mg total) by mouth daily. Active rOPINIRole (REQUIP) 1 MG tabletIndications :RLS (restless legs syndrome) Take 2 tablets (2 mg total) by mouth nightly at bedtime. at bedtime 180 tablet 025 Active doxepin (SINEQUAN) 10 MG/ML solutionIndicatio ns:Primary insomnia,Current mild episode of major depressive disorder, unspecified whether recurrent Take 0.3 mLs (3 mg total) by mouth nightly at bedtime. 118 mL 2 025 Active rOPINIRole (REQUIP) 1 MG tabletIndications :RLS (restless legs syndrome) Take 1 tablet (1 mg total) by mouth nightly at bedtime. 90 tablet 1 025 2024 Discontinued doxepin (SILENOR) 3 mg tabletIndications :Primary insomnia Take 1 tablet (3 mg total) by mouth nightly at bedtime. 30 tablet 2 025 2024 Discontinued(C ost of medication) doxepin (SINEQUAN) 10 MG/ML solutionIndicatio ns:Primary insomnia Take 0.3 mLs (3 mg total) by mouth nightly at bedtime. 118 mL 2 025 2024 Discontinued Active Problems Problem Noted Date Diagnosed Date [...] risk calculator shows high risk Follows with [employer] Thyroid cyst 05/27/2019 Overview (01/21/2021): Last Assessment & Plan: Performed thyroid ultrasound in office 05/2019 Noted subcentimeter simple right thyroid cyst No FNA needed No follow up thyroid uls needed , until physical exam or pt symptoms warrants Exercise hypoxemia 02/25/2019 Chronic obstructive pulmonar y disease, unspecified COPD type ([facility]) 02/25/2019 Vitamin D deficiency 01/21/2019 Diastolic dysfunction with heart failure ([facility]) 01/21/2019 Nocturnal hypoxemia 12/21/2018 Shortness of breath 12/21/2018 Essential hypertension 11/23/2018 Current mild episode of alverto r depressive disorder, unspecified whether recurrent 11/23/2018 Type 2 diabetes mellitus wit hout complication, without long-term current use of insulin ([facility]) 11/23/2018 Overview (01/21/2021): Last Assessment & Plan: [...] Encounters Date Type Department Care Team Description 04/28/2025 Telephone [facility] [address] [address] Tenzin Echevarria, DO Medication Request 03/24/[address] [address] Tenzin Echevarria, DO Results 03/21/2025 Scan [facility] Scanned, [facility] 02/25/2025 Telephone [facility] [address] [phone] Tenzin Echevarria, DO Prior Authorization ([facility]) 02/23/2025 Scan [facility] Scanned, [facility] Lab (SCAN) 02/21/2025 8:40 AM CDT Office Visit [facility] [address] [phone] Tenzin Echevarria, DO Diabetes (3 month follow up ); ER F/U (The patient went to [facility] for pneumonia 1 week ago. ) 02/21/2025 Scan [facility] SRVCS Scanned, [facility] Vascular Lab Study (SCAN) 02/21/2025 Telephone [facility] [address] [phone] Tenzin Echevarria, DO Results 02/21/2025 Care Management [facility] [address] [phone] Georgette Smith, [employer] MANAGER 02/21/2025 Travel 02/19/2025 Scan [facility] INFO SRVCS Scanned, Doc [facility] Lab (SCAN) 02/14/2025 3:48 PM CDT - 02/14/2025 9:52 PM CDT Emergency [facility] [place] [address] Thelma Hernandez, Chest Pain Discharge Disposition: Home or Self Care (Routine Discharge) 02/14/2025 Travel from Last 3 Months Immunizations Immunization Administration [...] uit: No; Counseling Given: Yes Comments:Provider to dianetic counselor patient smoking 1 pack per week Reports quitting 3 beginning of Jul. Reports smoking cigarettes some days when it gets really bad. Reported usage 1 pack per month. 10/18/2024. [...] Sex Assigned at Female 01/12/2023 2:48 PM RN TRANSFER Legal Sex Female 1:07 PM RN TRANSFER Gender Identity Female 01/12/2023 2:48 PM RN TRANSFER Sexual Orientation Straight 01/12/2023 2: 48 PM RN TRANSFER Occupation Industry Job Start Date Job End [...] 9:00 AM CDT Height 147.3 cm (4' 10) 02/21/2025 9:00 AM CDT Body Mass Index 53.19 02/21/2025 9:00 AM CDT Plan of Treatment Health Maintenance Due Date Last Done Comments ASCVD LDL 12/23/2022 12/23/2021, 03/13, 09/27/2019, Additional history exists Lipid Panel 12/23/2022 12/23/2021, 03/13, 01/18/2021, Additional history exists Diabetes: Retinopathy Eye Exam 11/01/2024 11/01/2022, 01/20/2021, 09/08/2020 Annual Medicare Wellness Visit 07/04/2025 07/03/2024 Kidney Health Evaluation 08/12/2025 08/12/2024 Hemoglobin A1C 08/23/2025 02/21/2025, 12/04/2024, 07/03/2024, Additional history exists COVID-19 Vaccine ( [...] tponed from 2003 (Going to Outside Clinic) Mammogram Screening 03/21/2026 03/21/2025, 11/30/2023, 07/14/2022, Additional history exists Pneumococcal Vaccine: 50+ Years Completed 07/01/2020, 11/20/2018, 03/02/2013 Hepatitis C Completed 05/02/2022 PHQ-2 (Physician Ewiiaapaayp) Completed 02/21/2025 Meningococcal B Vaccine Aged Out No l onger eligible based on patient's age to complete this topic Meningococcal Vaccine Aged Out No isaac zachary eligible based on patient's age to complete this topic RSV Immunizations Under 20 Months Aged Out No longer eligible based on patient's age to complete this topic Procedures Procedure Name Priority Date/Time Associated Diagnosis Comments MAMMOGRAM GENERIC (SCAN ORDER) 03/21/2025 OUTSIDE LAB (SCAN ORDER) 02/23/2025 OUTSIDE LAB (SCAN ORDER) 02/23/2025 COLLECT.CAPILLARY (FNGR,HEEL,EAR) Routine 02/21/2025 8:48 AM CDT Type 2 diabetes mellitus without complication, without long-term current use of insulin ([facility]) VASCULAR LAB GENERIC (SCAN ORDER) 02/21/2025 VASCULAR LAB GENERIC (SCAN ORDER) 02/21/2025 HEMOGLOBIN, GLYCOSYLATED Routine 02/21/2025 Type 2 diabetes mellitus without complication, without long-term current use of insulin ([facility]) OUTSIDE LAB (SCAN ORDER) 02/19/2025 OUTSIDE LAB [...] ECG 12-LEAD STAT 02/14/2025 3:49 PM CDT BONE DENSITY GENERIC (SCAN ORDER) 11/21/2023 DIABETIC RETINOPATHY EXAM (NEGATIVE)(SCAN ORDER) Routine 11/01/2022 HEP C SCANNED ORDERS Routine 05/02/2022 LIPID PANEL Routine 12/23/2021 8:01 AM RN TRANSFER Type 2 diabetes mellitus without complication, without long-term current use of insulin Essential hypertension from Last 3 Months or Most Recently Relevant to Health Maintenance Results * MAMMOGRAM GENERIC (SCAN ORDER) (03/21/2025) Anatomical Region Laterality Modality Other 03/21/2025 [facility] Scanned SCANNING Final Resu lt * OUTSIDE LAB (SCAN ORDER) (02/23/2025) Only the most recent of4 resultswithin the time period is included. 02/23/2025 [facility] Scanned SCANNING Final Resu lt * VASCULAR LAB GENERIC (SCAN ORDER) (02/21/2025) 02/21/2025 [facility] Scanned SCANNING Final Resu lt * VASCULAR LAB GENERIC (SCAN ORDER) (02/21/2025) 02/21/2025 [facility] Scanned SCANNING Final Resu lt * HEMOGLOBIN, GLYCOSYLATED (02/21/2025) HGB A1C 5.5 % [facility] 02/21/2025 Tenzin Echevarria DO LABORATORY Final Re sult Performing Organization Address City/[facility]/ZIP Co de Phone Number [facility] [address] [place] [address], [place] * TROPONIN, QUANT (02/14/2025 6:20 PM CDT) Only the most recent of2 resultswithin the time period is included. TROPONIN I HIGH SENSITIVITY 6 <54 ng/L 02/14/2025 6:58 PM CDT [facility] Comment: HIGH DOSES OF BIOTIN, TROPONIN-SPECIFIC AUTOANTIBODIES, AND ANTIBODY THERAPY CONTAINING HAMA MAY INTERFERE WITH THIS TEST RESULT. CORRELATION TO CLINICAL HISTORY AND PRESENTATION RECOMMENDED. 02/14/2025 6:20 PM CDT Thelma Hernandez DO LABORATORY Final Result [facility] [address] [place] [address], [place] [phone] * ECG 12 lead (02/14/2025 5:53 PM CDT) Only the most recent of2 resultswithin the time period is included. 02/14/2025 5:53 PM CDT Narrative [facility] - 02/14/2025 6:02 PM CDT [address] Test Date: 2025-02-14 Pat Name: SHANITA SUERO Department: 41 Room: [id number] Gender: Female Binder Operator: [id number] : 1955 Requested By: THELMA HERNANDEZ Order Number: [id number] Reading MD: Helga Caballero Measurements Intervals [place] Rate: 66 P: 44 MT: 161 QRS: [...] Procedure Note Helga Caballero MD - 02/14/[address] Test Date: 2025-02-14 Pat Name: SHANITA SUERO Department: 41 Room: [id number] Gender: Female Binder Operator: [id number] : 1955 Requested By: THELMA HERNANDEZ Order Number: [id number] Reading MD: Helga Caballero Measurements Intervals [place] Rate: 66 P: 44 MT: 161 QRS: 75 QRSD: 86 T: 77 QT: 390 QTc: 410 Interpretive Statements SINUS RHYTHM WITH SINUS ARRHYTHMIA LOW QRS VOLTAGE IN PRECORDIAL LEADS [QRS DEFLECTION < 1.0 mV IN CHESTLEADS] POSSIBLE RIGHT VENTRICULAR CONDUCTION DELAY [RSR (QR) IN V1/V2] NONSPECIFIC T-WAVE ABNORMALITY Compared to ECG 02/14/2025 15:49:30 Low QRS voltage now present Thelma Hernandez DO ECG ORDERABLES Final Result Performing Organization Address [facility] Co de Phone Number [facility] * PRO-BRAIN NATRIURETIC PEPTIDE (02/14/2025 5:00 PM CDT) PRO-B TYPE NATRIURETIC PEPTIDE 121 <125 PG/ML 02/14/2025 5:[address] [facility] Comment: CUT POINTS ESTABLISHED BY [...] CDT Thelma Hernandez DO LABORATORY Final Result [facility] [address] [place] [address], [place] [phone] * (ABNORMAL) D-DIMER, QUANTITATIVE (02/14/2025 5:00 PM CDT) [facility] D-DIMER 664(HH) 0 - 500 ng{FEU}/mL 02/14/2025 5:[address] [facility] Comment: D-Dimer values less than [...] called 02/14/2025 05:51 PM to EMERGENCY ROOM ([id number]/EUGENIA DIAZ) by [id number]. Read Back: Yes 02/14/2025 5:00 PM CDT Thelma Hernandez DO LABORATORY Final Result [facility] [address] [place] [address], [place] [phone] * (ABNORMAL) CBC W/DIFF AUTOMATED (02/14/2025 5:00 PM CDT) [facility] WBC 9.86 4.5 - 11.0 x10'3/uL 02/14/2025 5:[address] [facility] RBC 3.76(L) 4.20 - 5.40 x10'6/uL 02/14/2025 5:[address] [facility] HGB 12.1 12.0 - 16.0 G/DL 02/14/2025 5:[address] [facility] HCT 37.0(L) 38.0 - 48.0 % 02/14/2025 5:[address] [facility] MCV 98.4 81.0 - 99.0 FL 02/14/2025 5:[address] [facility] MCH 32.2(H) 27.0 - 31.0 PG 02/14/2025 5:[address] [facility] MCHC 32.7 32.0 - 36.0 G/DL 02/14/2025 5:[address] [facility] RDW 14.1 11.5 - 14.5 % 02/14/2025 5:[address] [facility] PLT 385 130 - 400 x10'3/uL 02/14/2025 5:[address] [facility] MPV 9.7 9.3 - 12.2 FL 02/14/2025 5:[address] [facility] DIFFERENTIAL TYPE AUTOMATED DIFFERENTIAL 02/14/2025 5:[address] [facility] NEUTROPHILS % 59.9 % 02/14/2025 5:[address] [facility] LYMPHOCYTES % 26.9 % 02/14/2025 5:[address] [facility] MONOCYTES % 6.9 % 02/14/2025 5:[address] [facility] EOSINOPHILS 5.1 % 02/14/2025 5:[address] [facility] BASOPHILS 0.8 % 02/14/2025 5:[address] [facility] IMMATURE GRANS % 0.4 % 02/15/20 5:[address] [facility] ABS. NEUTROPHILS 5.91 1.80 - 7.70 x10'3/uL 02/14/2025 5:[address] [facility] ABS. LYMPHOCYTES 2.65 1.00 - 4.80 x10'3/uL 02/14/2025 5:[address] [facility] ABS. MONOCYTES 0.68 0.24 - 0.86 x10'3/uL 02/14/2025 5:[address] [facility] ABS. EOSINOPHILS 0.50(H) 0.04 - 0.36 x10'3/uL 02/14/2025 5:[address] [facility] ABS. BASOPHILS 0.08 0.01 - 0.08 x10'3/uL 02/14/2025 5:[address] [facility] ABS. IMMATURE GRANULOCYTES 0.04 0.00 - 0.49 x10'3/uL 02/14/2025 5:[address] [facility] 02/14/2025 5:00 PM CDT Thelma Hernandez DO LABORATORY Final Result [facility] [address] [place] [address], [place] [phone] * XR CHEST PORTABLE (02/14/2025 4:32 PM CDT) Anatomical Region Laterality Modality Chest Radiographic Libra ging 02/14/2025 4:33 PM CDT Impressions 02/14/2025 4:38 PM CDT IMPRESSION: Nonspecific opacity silhouetting the left costophrenic angle, atelectasis, pleural effusion, and/or infection are all possible. Referred By: Interpreted By: Fabio Rabago MD, 02/14/2025 4:33 PM Narrative 02/14/2025 4:38 PM CDT [facility] [address] [place], [place] [address] Examination: XR CHEST PORTABLE Exam time: 02/14/2025 [...] Procedure Note Fabio Rabago MD - 02/14/[address] [address] Examination: XR CHEST PORTABLE Exam time: 02/14/2025 [...] METABOLIC PANEL (02/14/2025 3:56 PM CDT) Pathologist [facility] GLUCOSE 81 70 - 99 MG/DL 02/14/2025 5:[address] [facility] BUN 17 7 - 18 MG/DL 02/14/2025 5:[address] [facility] CREATININE S/P/B 0.92 0.55 - 1.02 MG/DL 02/14/2025 5:[address] [facility] SODIUM S/P/B 137 136 - 145 MMOL/L 02/14/2025 5:[address] [facility] POTASSIUM S/P/B 4.2 3.5 - 5.1 MMOL/L 02/14/2025 5:[address] [facility] CHLORIDE S/P/B 107 97 - 115 MMOL/L 02/14/2025 5:[address] [facility] CO2 23.6 21 - 32 MMOL/L 02/14/2025 5:[address] [facility] CALCIUM S/P/B 8.6 8.5 - 10.1 MG/DL 02/14/2025 5:[address] [facility] BILIRUBIN TOTAL S/P/B 0.2 0.2 - 1.2 MG/DL 02/14/2025 5:[address] [facility] Comment: THIS ASSAY IS NOT RECOMMENDED FOR PATIENTS UNDERGOING TREATMENT WITH ELTROMBOPAG DUE TO THE POTENTIAL FOR FALSELY ELEVATED RESULTS. TOTAL PROTEIN S/P/B 7.5 6.4 - 8.2 G/DL 02/14/2025 5:[address] [facility] ALBUMIN S/P/B 3.0(L) 3.4 - 5.0 G/DL 02/14/2025 5:[address] [facility] AST 19 15 - 37 U/L 02/14/2025 5:[address] [facility] ALT 22 14 - 55 U/L 02/14/2025 5:[address] [facility] ALKALINE PHOSPHATASE S/P/B 77 50 - 136 U/L 02/14/2025 5:[address] [facility] ANION GAP 6.4 2 - 10 MMOL/L 02/14/2025 5:[address] [facility] BUN CREATININE RATIO 18.4 6 - 26 02/14/2025 5:[address] [facility] A/G RATIO 0.7(L) 1.0 - 2.0 RATIO 02/14/2025 5:[address] [facility] GFR ESTIMATE 67(L) >90 ML/MIN/1.7 3 M2 02/14/2025 5:[address] [facility] Comment: NOTE: eGFR is not [...] DO LABORATORY Final Result Performing Organization Address City/[facility]/ZIP Co de Phone Number [facility] [address] [place] [address], [place] [phone] * BONE DENSITY GENERIC (11/21/2023) Anatomical Region Laterality Modality Other 11/21/2023 [facility] Scanned SCANNING Final Resu lt * DIABETIC RETINOPATHY EXAM (NEGATIVE)(SCAN) (11/01/2022) [facility] Scanned SCANNING Final Resu lt HS ONBASE * HEP C SCANNED ORDERS (05/02/2022) us Documents Scanned SCANNING Final Result HS ONBASE * (ABNORMAL) LIPID PANEL (12/23/2021 8:01 AM RN TRANSFER) CHOLESTEROL 262(H) 100 - 199 mg/dL [facility] TRIGLYCERIDES 258(H) 0 - 149 mg/dL [facility] 1 HDL 41 >39 mg/dL [facility] VLDL CALCULATION 49(H) 5 - 40 mg/dL [facility] 1 LDL (CALCULATED) 172(H) 0 - 99 mg/dL [facility] 1 12/23/2021 8:01 AM RN TRANSFER 12/23/2021 Narrative [facility] - 12/24/2021 4:10 PM RN TRANSFER Performed at: 01 - [facility] [address] [id number] Emt/Dispatcher: Ruddy Ervin PhD, Phone: [phone] Aleida Hicks PRODUCT DEVELOPER LABORATORY Final Result [facility] [address] [place] [address] [facility] 1 from Last 3 Months or Most Recently Relevant to Health Maintenance Insurance [employer] MEDICA[employer] Care Teams Radiology Rn Relationship Specialty Start Date End Date Tenzin Echevarria DO [address] [place] [id number] PCP - General FAMILY PRACTICE 11/19/18 Amandeep Howe MD 3 [facility] [place] [address] [place] [address] [place] [employer] CARDIOVASCULAR DISEASE 08/27/19
[2025-04-29 09:00] LABS: Basophils Percent Auto 0.5 % (0.2-1.2); Eosinophils Absolute Auto 0.4 K/mm3 (0-0.3); Eosinophils Percent Auto 4.9 % (0-4.4); Hematocrit 41.2 % (37.0-47.0); Hemoglobin 12.7 g/dL (12.0-15.0); Immature Granulocyte Absolute 0.04 K/mm3 (0.00-0.031); Immature Granulocyte Percent A 0.5 % (0-0.5); Lymphocytes Absolute Auto 1.26 K/mm3 (0.9-3.2); Lymphocytes Percent Auto 16.2 % (18.3-44.2); Mean Corpuscular HGB Conc 30.8 g/dl (32-36); Mean Corpuscular Volume 100.5 fl (80-100); Mean Platelet Volume 9.2 fl (7.4-10.4); Monocytes Absolute Auto 0.8 K/mm3 (0.1-0.6); Monocytes Percent Auto 10.8 % (2.6-8.5); Neutrophils Absolute Auto 5.2 K/mm3 (1.3-6.7); Neutrophils Percent Auto 67.1 % (45.5-73.1); Platelet Count Result 296 k/mm3 (150-375); Red Cell Distribution Width 14.3 % (11.5-14.5); White Blood Count 7.8 K/mm3 (4.5-10.0)
[2025-04-29] MEDS: IPRATROPIUM 0.5 MG/ALBUTEROL SULFATE 2.5 MG AMPUL.NEB 3 ML INHALATION ×3 (09:05→19:45)
[2025-04-29 09:12] LABS: Alanine Aminotransferase 23 U/L (6-35); Albumin Level 3.9 g/dL (3.5-5.1); Alkaline Phosphatase 75 U/L (38-126); Anion Gap 6 mmol/L (4-12); Aspartate Amino Transferase 28 U/L (14-36); Bilirubin,Total 0.4 mg/dL (0.2-1.3); Blood Urea Nitrogen 15 mg/dL (7-17); Carbon Dioxide 29 mmol/L (22-30); Chloride 104 mmol/L (98-107); Estimated Glomerular Filt Rate 55; Glucose 102 mg/dL (65-110); Magnesium 1.9 mg/dL (1.6-2.3); Potassium 4.5 mmol/L (3.4-5.0); Sodium 139 mmol/L (137-145); Total Protein 7.6 g/dL (6.3-8.2)
[2025-04-29 09:15] LABS: Alveolar/Arterial O2 Gradient 50.8 mmHg; Fractional Inspired Oxygen 24 %; HCO3 ABG 25.5 mEq/l (22.0-26.0); Oxygen Content ABG 17.6 %vol (16.0-22.0); Oxygen Saturation ABG 94.8 % (95.0-100.0); Oxyhemoglobin 93.4 % THb (90.0-100.0); PCO2 ABG 40.4 mmHg (35.0-45.0); PO2 ABG 72.2 mmHg (80.0-100.0); PO2 FiO2 Ratio Arterial Blood 3.01 %; Total Hemoglobin 13.4 g/dL (12.0-18.0); pH ABG 7.418 (7.350-7.450)
[2025-04-29 09:16] LABS: Device NASAL CANNULA; Modified Allen's Test Pass; Site Drawn RIGHT RADIAL
[2025-04-29 09:24] LABS: NT Pro B Type Natriuretic Pept 106 pg/mL (19.9-100); Troponin I < 0.012 ng/mL (0.000-0.034)
[2025-04-29 09:35] LABS: Influenza A QL RT-PCR Negative (Negative); Influenza B QL RT-PCR Negative (Negative); RSV RNA, RT-PCR Negative (Negative); SARS-CoV-2 RNA PCR Negative (Negative)
[2025-04-29 09:52] LABS: Procalcitonin 0.1 ng/mL
[2025-04-29 10:05] LABS: Lactic Acid Reflex 1.2 mmol/L (0.7-2.0)
[2025-04-29 10:12] LABS: Add Urine Microscopic? YES; Appearance Urine Clear (Clear); Bacteria Urine None Seen /hpf; Bilirubin Urine Negative (Negative); Blood Urine Negative (Negative); Color Urine Yellow (Yellow); Glucose Urine UA Negative (Negative); Ketones Urine Negative (Negative); Leukocyte Esterase Ur Negative LEU/UL (Negative); Nitrate Urine Negative (Negative); Non Pathogenic Casts 0-2; Protein Urine Trace mg/dL (Negative); RBC Urine 0-2 /hpf (0-2); Specific Grav Ur 1.018 (1.001-1.035); Squamous Epithelial Cell Urine None Seen /hpf (Few); WBC Urine 0-5 /hpf (0-3); pH Urine 6.5 (5.0-9.0)
--- NOTE | 2025-04-29 10:35 | ED_ITS ---
HPI - General Adult General Chief complaint: Shortness of Breath/Dyspnea Stated complaint: short of breath Time Seen by Provider: 04/29/25 08:26 History of Present Illness HPI narrative: Patient 69-year-old female who presents emergency department with chief complaint of shortness of breath and cough. Patient reports he wear CPAP at night for sleep apnea reports that she just traveled back from [place] and reports that since then she has been wheezing and has had a cough that has been yellowish green sputum. Patient reports feels similar to whenever she has had pneumonia in the past. Related Data Home Medications ?Medication ?Instructions ?Recorded ?Confirmed ?Last Taken ?Type alprazolam 0.5 mg tablet 0.5 mg PO TID PRN Anxiety 07/02/20 04/29/25 02/01/21 History diphenhydramine HCl 25 mg capsule 50 mg PO HS 01/21/21 04/29/25 04/28/25 History (Benadryl) duloxetine 60 mg capsule,delayed 120 mg PO DAILY 03/29/22 04/29/25 04/26/25 History release furosemide 80 mg tablet 80 mg PO DAILY PRN edema 03/29/22 04/29/25 04/26/25 History nitroglycerin 0.4 mg sublingual 0.4 mg sublingual Q5M PRN chest 03/29/22 04/29/25 Unknown History tablet pain zolpidem 10 mg tablet 5 mg PO HS 03/29/22 04/29/25 04/27/25 History ropinirole 1 mg tablet 2 mg PO HS 04/25/22 04/29/25 04/28/25 History bupropion HCl 150 mg 24 hr tablet, 300 mg PO DAILY 06/03/24 04/29/25 04/26/25 History extended release pregabalin 75 mg capsule 75 mg PO DAILY 06/03/24 04/29/25 04/27/25 History semaglutide 1 units subcut WEEKLY 06/03/24 04/29/25 04/25/25 History albuterol sulfate 90 mcg/actuation 2 puff inhalation Q4H PRN 04/29/25 04/29/25 04/29/25 History aerosol inhaler shortness of breath or wheezing Allergies Allergy/AdvReac Type Severity Reaction Status Date / Time morphine Allergy Intermediate Hives Verified 04/29/25 08:43 denosumab (From Prolia) Allergy Unknown Other Verified 04/29/25 08:43 sertraline (From Zoloft) AdvReac Severe Hallucinati Verified 04/29/25 08:43 ng Hdglyfw-NGM-HwH Reductase AdvReac Severe Muscle Pain Verified 04/29/25 08:43 Inhibitor (Droaxos-Fju-Eih Reductase Inhibitor) Review of Systems 2 Review of Systems: A 10 system review of systems was completed on the patient and is negative except for what is stated in the HPI. Nursing and ancillary documentation was reviewed. [facility] Past Medical History Medical History Adenomatous colon polyp Colon cancer screening Erosive gastritis Non-cardiac chest pain Morbid obesity with BMI of 50.0-59.9, adult Tobacco abuse Dysphagia Osteoarthritis Diastolic dysfunction Echocardiogram in December 2018 showed normal left ventricular size and function with an ejection fraction of 60% and diastolic dysfunction. Gastroesophageal reflux disease Coronary artery disease With reported history of [place] in 2016. She had a cardiac catheterization at that time, with no intervention. Type 2 diabetes mellitus Obstructive sleep apnea treated with BiPAP Hypothyroidism Anxiety Chronic obstructive pulmonary disease Surgical History Surgical History History of hysterectomy (~1999) History of total bilateral knee replacement (~2017) History of bilateral carpal tunnel release (~2005) History of tubal ligation (~1980) History of cardiac catheterization (~2017) History of bilateral cataract extraction (~2016) Family History Family History Father Chronic obstructive pulmonary disease Prostate carcinoma Diabetes mellitus Congestive heart failure Mother Cerebrovascular accident Grandparent Colon cancer Sibling Cystic fibrosis Chronic obstructive pulmonary disease Parkinson disease Social History Social History Social History: Surrogate decision maker: Dev Saeedper, spouse. Code status: Full code. Smoking packs per day: 1 Smoking cigarettes per day: 20.0 Years smoked: 54 Smoking pack-years: 54.00 Smoking status: Former smoker Tobacco type: cigarettes Additional smoking assessment comments: As of June 2020, the patient vapes. Alcohol intake: never Substance use: never Substance use type: does not use Living arrangements: with family Additional living arrangements comments: Resides in [place] with her spouse. Gender identity (if verbalized by the patient): Female Spiritual care concerns: No Exam 2 Narrative: GENERAL: Well-appearing, well-nourished, and in no acute distress. HEAD: Normocephalic, atraumatic. EYES: PERRLA and EOMI. ENT: Nares clear, no rhinorrhea or epistaxis. Mucous membranes moist. NECK: Supple. CHEST: Scattered wheezes to auscultation. No respiratory distress. HEART: Regular rate and rhythm. No murmur heard. Normal peripheral pulses. ABDOMEN: Soft, nontender, nondistended, normal active bowel sounds. EXTREMITIES: Normal range of motion. No edema. SKIN: Warm, dry, no rash. NEURO: No focal deficits. Alert and oriented x3. PSYCH: Normal mood and affect. Course Vital Signs Vital signs: Vital Signs Temperature 36.4 C L 04/29/25 08:13 Pulse Rate 72 04/29/25 08:13 Respiratory Rate 18 04/29/25 08:13 Blood Pressure 144/61 H 04/29/25 08:13 Pulse Oximetry 91 04/29/25 08:13 Oxygen Delivery Room Air 04/29/25 08:13 Temperature 36.4 C L 04/29/25 08:13 Pulse Rate 71 04/29/25 11:10 Respiratory Rate 21 H 04/29/25 11:10 Blood Pressure 133/62 04/29/25 11:10 Pulse Oximetry 96 04/29/25 11:10 Oxygen Delivery Nasal Cannula 04/29/25 10:02 Oxygen Flow Rate 1 04/29/25 10:02 Medical Decision Making [facility] Narrative Medical decision making narrative: Differential diagnosis includes pneumonia, COPD exacerbation, Laboratory studies were obtained on the patient showed a white count of 7.8 electrolytes are within normal limits ABG showed pH 7.418 pCO2 of 40.4 pCO2 of 72.2 lactic acid was 1.2 troponin was negative BNP was 106 urinalysis showed no evidence UTI COVID flu and RSV are negative Chest x-ray showed evidence of discoid atelectasis Patient was feeling somewhat better after receiving steroids and breathing treatments the patient was ambulated and is not on home oxygen and dropped to the 80s on ambulation. Due to this the patient was restarted back on oxygen and the patient will receive Rocephin and Zithromax for the discoid atelectasis probable pneumonia and will be admitted Vital Signs Vital Signs: Vital Signs Temperature 36.4 C L 04/29/25 08:13 Pulse Rate 72 04/29/25 08:13 Respiratory Rate 18 04/29/25 08:13 Blood Pressure 144/61 H 04/29/25 08:13 Pulse Oximetry 91 04/29/25 08:13 Oxygen Delivery Room Air 04/29/25 08:13 Temperature 36.4 C L 04/29/25 08:13 Pulse Rate 71 04/29/25 11:10 Respiratory Rate 21 H 04/29/25 11:10 Blood Pressure 133/62 04/29/25 11:10 Pulse Oximetry 96 04/29/25 11:10 Oxygen Delivery Nasal Cannula 04/29/25 10:02 Oxygen Flow Rate 1 04/29/25 10:02 Lab Data 04/29/25 08:53 04/29/25 08:53 Labs: Lab Results 04/29/25 04/29/25 04/29/25 Range/Units 08:53 08:53 08:53 WBC 7.8 (4.5-10.0) K/mm3 RBC 4.10 L (4.2-5.4) M/mm3 Hgb 12.7 (12.0-15.0) g/dL Hct 41.2 (37.0-47.0) % MCV 100.5 H (80-100) fl MCH 31.0 (26-34) pg MCHC 30.8 L (32-36) g/dl RDW 14.3 (11.5-14.5) % Plt Count 296 (150-375) k/mm3 MPV 9.2 (7.4-10.4) fl Immature Gran % (Auto) 0.5 (0-0.5) % Neut % (Auto) 67.1 (45.5-73.1) % Lymph % (Auto) 16.2 L (18.3-44.2) % [place] % (Auto) 10.8 H (2.6-8.5) % Eos % (Auto) 4.9 H (0-4.4) % Baso % (Auto) 0.5 (0.2-1.2) % Lymph # (Auto) 1.26 (0.9-3.2) K/mm3 [place] # (Auto) 0.8 H (0.1-0.6) K/mm3 Eos # (Auto) 0.4 H (0-0.3) K/mm3 Baso # (Auto) 0.0 (0.0-0.1) K/mm3 Abs Immat Gran (auto) 0.04 H (0.00-0.031) K/mm3 Absolute Neuts (auto) 5.2 (1.3-6.7) K/mm3 Absolute Nucleated RBC 0.000 (0.0-0.012) K/mm3 Nucleated RBC % 0.0 (0.0-0.2) % Sodium 139 (137-145) mmol/L Potassium 4.5 (3.4-5.0) mmol/L Chloride 104 (98-107) mmol/L Carbon Dioxide 29 (22-30) mmol/L Anion Gap 6 (4-12) mmol/L BUN 15 (7-17) mg/dL Creatinine 1.00 (0.7-1.0) mg/dL Estim Creat Clear Calc Not Reportable Estimated GFR 55 L (59 - ) Glucose 102 (65-110) mg/dL Lactic Acid (0.7-2.0) mmol/L Calcium 9.0 (8.4-10.2) mg/dL Magnesium 1.9 Cancelled (1.6-2.3) mg/dL Total Bilirubin 0.4 (0.2-1.3) mg/dL AST 28 (14-36) U/L ALT 23 (6-35) U/L Alkaline Phosphatase 75 (38-126) U/L Troponin I < 0.012 Cancelled (0.000-0.034) ng/mL NT-Pro-B Natriuret Pep 106 H (19.9-100) pg/mL Total Protein (6.3-8.2) g/dL Albumin (3.5-5.1) g/dL Procalcitonin ng/mL Urine Color (Yellow) Urine Appearance (Clear) Urine pH (5.0-9.0) Ur Specific [place] (1.001-1.035) Urine Protein (Negative) mg/dL Urine Glucose (UA) (Negative) mg/dL Urine Ketones (Negative) mg/dL Ur Blood (Man) (Negative) Urine Nitrate (Negative) Urine Bilirubin (Negative) Urine Urobilinogen (<2.0) mg/dL Leukocyte Esterase Rfl (Negative) JIMMY/UL Urine RBC (0-2) /hpf Urine WBC (0-3) /hpf Ur Squamous Epith Cells (Few) /hpf Urine Bacteria /hpf Urine Casts Influenza A (RT-PCR) (Negative) Influenza B (RT-PCR) (Negative) RSV (RT-PCR) (Negative) SARS-CoV-2 RNA (RT-PCR) (Negative) 04/29/25 04/29/25 04/29/25 Range/Units 08:53 09:50 10:02 WBC (4.5-10.0) K/mm3 RBC (4.2-5.4) M/mm3 Hgb (12.0-15.0) g/dL Hct (37.0-47.0) % MCV (80-100) fl MCH (26-34) pg MCHC (32-36) g/dl RDW (11.5-14.5) % Plt Count (150-375) k/mm3 MPV (7.4-10.4) fl Immature Gran % (Auto) (0-0.5) % Neut % (Auto) (45.5-73.1) % Lymph % (Auto) (18.3-44.2) % [place] % (Auto) (2.6-8.5) % Eos % (Auto) (0-4.4) % Baso % (Auto) (0.2-1.2) % Lymph # (Auto) (0.9-3.2) K/mm3 [place] # (Auto) (0.1-0.6) K/mm3 Eos # (Auto) (0-0.3) K/mm3 Baso # (Auto) (0.0-0.1) K/mm3 Abs Immat Gran (auto) (0.00-0.031) K/mm3 Absolute Neuts (auto) (1.3-6.7) K/mm3 Absolute Nucleated RBC (0.0-0.012) K/mm3 Nucleated RBC % (0.0-0.2) % Sodium (137-145) mmol/L Potassium (3.4-5.0) mmol/L Chloride (98-107) mmol/L Carbon Dioxide (22-30) mmol/L Anion Gap (4-12) mmol/L BUN (7-17) mg/dL Creatinine (0.7-1.0) mg/dL Estim Creat Clear Calc Estimated GFR (59 - ) Glucose (65-110) mg/dL Lactic Acid 1.2 (0.7-2.0) mmol/L Calcium (8.4-10.2) mg/dL Magnesium (1.6-2.3) mg/dL Total Bilirubin (0.2-1.3) mg/dL AST (14-36) U/L ALT (6-35) U/L Alkaline Phosphatase (38-126) U/L Troponin I (0.000-0.034) ng/mL NT-Pro-B Natriuret Pep Cancelled (19.9-100) pg/mL Total Protein 7.6 (6.3-8.2) g/dL Albumin 3.9 (3.5-5.1) g/dL Procalcitonin 0.1 ng/mL Urine Color Yellow (Yellow) Urine Appearance Clear (Clear) Urine pH 6.5 (5.0-9.0) Ur Specific [place] 1.018 (1.001-1.035) Urine Protein Trace (Negative) mg/dL Urine Glucose (UA) Negative (Negative) mg/dL Urine Ketones Negative (Negative) mg/dL Ur Blood (Man) Negative (Negative) Urine Nitrate Negative (Negative) Urine Bilirubin Negative (Negative) Urine Urobilinogen 1.0 (<2.0) mg/dL Leukocyte Esterase Rfl Negative (Negative) JIMMY/UL Urine RBC 0-2 (0-2) /hpf Urine WBC 0-5 (0-3) /hpf Ur Squamous Epith Cells None seen (Few) /hpf Urine Bacteria None seen /hpf Urine Casts 0-2 Influenza A (RT-PCR) Negative (Negative) Influenza B (RT-PCR) Negative (Negative) RSV (RT-PCR) Negative (Negative) SARS-CoV-2 RNA (RT-PCR) Negative (Negative) ABG Data ABG results: 04/29/25 09:01 Puncture Site Right radial ABG pH 7.418 ABG pCO2 40.4 ABG pO2 72.2 L ABG PO2/FiO2 Ratio 3.01 ABG HCO3 25.5 ABG O2 Saturation 94.8 L ABG O2 Content 17.6 ABG Base Excess 1.0 A-a Gradient 50.8 Oxyhemoglobin 93.4 Total Hemoglobin 13.4 O2 Delivery Device Nasal cannula O2 Liters/Min 1.0 FiO2 24 Discharge Plan Discharge Clinical Impression: Acute exacerbation of chronic obstructive pulmonary disease, Acute hypoxemic respiratory failure Patient Disposition: Still a Patient Condition: Stable Patient Language: Slovak Prescriptions: No Action pregabalin 75 mg capsule 75 mg PO DAILY bupropion HCl 150 mg tablet extended release 24 hr 300 mg PO DAILY levothyroxine 112 mcg tablet 112 mcg PO DAILY 90 Days Qty: 90 3RF semaglutide 1 units subcut WEEKLY alprazolam 0.5 mg Tablet 0.5 mg PO TID PRN (Reason: Anxiety) diphenhydramine HCl [Benadryl] 25 mg Capsule 50 mg PO HS furosemide 80 mg tablet 80 mg PO DAILY PRN (Reason: edema) nitroglycerin 0.4 mg tablet, sublingual 0.4 mg sublingual Q5M PRN (Reason: chest pain) zolpidem 10 mg tablet 5 mg PO HS duloxetine 60 mg capsule,delayed release(DR/EC) 120 mg PO DAILY ropinirole 1 mg tablet 2 mg PO HS albuterol sulfate 90 mcg/actuation HFA aerosol inhaler 2 puff INHALATION Q4H PRN (Reason: shortness of breath or wheezing) cholecalciferol (vitamin D3) 125 mcg (5,000 unit) tablet 125 mcg PO DAILY Qty: 90 1RF Follow-up/Referrals: Wale,DO Tenzin [Primary Care Provider] - Time of Disposition: 10:41
--- NOTE | 2025-04-29 10:48 | PC.NURSE ---
Pt failed ambulation attempt, O2 dropped to 86% and pt was unable to make it to the doorway, EDP aware
--- NOTE | 2025-04-29 11:26 | ECG_ITS ---
Test Date: 2025-04-29 11:38:59 Measurements Intervals [place] Rate: 66 P: 43 LA: 145 QRS: 78 QRSD: 85 T: 81 QT: 385 QTc: 404 Interpretive Statements SINUS RHYTHM WITH SINUS ARRHYTHMIA POSSIBLE RIGHT VENTRICULAR CONDUCTION DELAY DELAYED PRECORDIAL R/S TRANSITION NONSPECIFIC T-WAVE ABNORMALITY- ANT/HIGH LAT LEADS BASELINE ARTIFACT- I, II, III, AVR, AVL, AVF, V1 BORDERLINE ECG Compared to ECG 04/29/2025 08:21:12 NO SIGNIFICANT CHANGE Electronically Signed On 04-29-2025 12:02:31 CDT by Darin Xiong D.O.
--- NOTE | 2025-04-29 11:48 | PC.NURSE ---
This RN went into room to draw 2nd set of blood cultures. Pt. at CT.
[2025-04-29 12:17] LABS: Troponin I < 0.012 ng/mL (0.000-0.034)
--- NOTE | 2025-04-29 12:25 | PC.NURSE ---
Difficulty obtaining 2nd set of blood cultures. TARAH Tamayo RN at bedside attempting to obtain cultures with ultrasound machine.
--- NOTE | 2025-04-29 13:33 | P.HP_ITS ---
H&P: HPI History of Present Illness Date/Time: 04/29/25 13:33 Chief Complaint: Shortness of Breath Narrative: 69 y/o F with PMH of diastolic dysfunction, GERD, CAD, diabetes, DAE on CPAP, hypothyroidism, anxiety and COPD presents here with shortness of breath. The patient presents here from home via EMS on 04/29 for further evaluation of shortness of breath. She reports onset of shortness of breath over this past weekend, approximately 2-3 days ago. She was out of town in [place] for vacation when she developed her symptoms. She is currently reporting shortness of breath, a productive cough yielding yellow/green sputum, fever, chills, body aches, N/V/D, and wheezing. She denies accompanying chest pain. She has been utilizing her home inhaler without relief. She reports compliance with her CPAP at night. She reports her current symptoms feel similar to when she has previously had pneumonia. Initial VS at presentation: 97.5? F, HR 72, RR 18, 144/61, and 91% on room air. Now 95% on 1L nasal cannula. ED workup showed: No leukocytosis, no anemia, ABG showed O2 72.2%/O2 saturation 94.8% on 1 L nasal cannula, no significant electrolyte derangements, creatinine 1.0 and GFR 55, lactic acid 1.2, initial troponin negative x2, BNP 106 (normal for age), and procalcitonin 0.1. UA unremarkable. Viral PCR negative. CXR showed mild discoid atelectasis/scarring at the left midlung zone. Chest CTA showed no PE, medial lymphadenopathy, nodule in the right lower lobe measuring 1 cm. Review of Systems Review of Systems: All systems reviewed & are unremarkable except as noted in HPI and below PMFSH Past Medical History Medical History Adenomatous colon polyp Colon cancer screening Erosive gastritis Morbid obesity with BMI of 50.0-59.9, adult Tobacco abuse Dysphagia Osteoarthritis Diastolic dysfunction Echocardiogram in December 2018 showed normal left ventricular size and function with an ejection fraction of 60% and diastolic dysfunction. Gastroesophageal reflux disease Coronary artery disease With reported history of [place] in 2017. She had a cardiac catheterization at that time, with no intervention. Type 2 diabetes mellitus Obstructive sleep apnea treated with BiPAP Hypothyroidism Anxiety Chronic obstructive pulmonary disease Surgical History Surgical History History of hysterectomy (~1999) History of total bilateral knee replacement (~2017) History of bilateral carpal tunnel release (~2005) History of tubal ligation (~1980) History of cardiac catheterization (~2017) History of bilateral cataract extraction (~2015) Family History Family History Father Chronic obstructive pulmonary disease Prostate carcinoma Diabetes mellitus Congestive heart failure Mother Cerebrovascular accident Grandparent Colon cancer Sibling Cystic fibrosis Chronic obstructive pulmonary disease Parkinson disease Social History Social History Social History: Surrogate decision maker: Dev Gallo, spouse. Code status: Full code. Smoking packs per day: 1 Smoking cigarettes per day: 20.0 Years smoked: 58 Smoking pack-years: 58.00 Smoking status: Former smoker Tobacco type: cigarettes Smoking end date: 01/11/25 Additional smoking assessment comments: As of June 2020, the patient vapes. Alcohol intake: never Substance use: former Substance use type: marijuana Other substance usage details: might have a drink on her birthday Do You Feel Safe in your Home?: Yes Lack of Transportation: No Lack of Food: Never True Current Housing: I Have Housing Concerned About Future Housing: No Difficulty Paying Gas/Electric Bills: No Difficulty Paying for Meds: No Currently Unemployed: No Education: Associate Degree Difficulty w/ Childcare or Family Care: No Living arrangements: with family Additional living arrangements comments: Resides in [place] with her spouse. Gender identity (if verbalized by the patient): Female Spiritual care concerns: No Meds Home Medications and Allergies Home Medications ?Medication ?Instructions ?Recorded ?Confirmed ?Type alprazolam 0.5 mg tablet 0.5 mg PO TID PRN Anxiety 07/02/20 04/29/25 History diphenhydramine HCl 25 mg capsule 50 mg PO HS 01/21/21 04/29/25 History (Benadryl) duloxetine 60 mg capsule,delayed 120 mg PO DAILY 03/29/22 04/29/25 History release furosemide 80 mg tablet 80 mg PO DAILY PRN edema 03/29/22 04/29/25 History nitroglycerin 0.4 mg sublingual 0.4 mg sublingual Q5M PRN chest 03/29/22 04/29/25 History tablet pain zolpidem 10 mg tablet 5 mg PO HS 03/29/22 04/29/25 History ropinirole 1 mg tablet 2 mg PO HS 04/25/22 04/29/25 History bupropion HCl 150 mg 24 hr tablet, 300 mg PO DAILY 06/03/24 04/29/25 History extended release pregabalin 75 mg capsule 75 mg PO DAILY 06/03/24 04/29/25 History semaglutide 1 units subcut WEEKLY 06/03/24 04/29/25 History levothyroxine 112 mcg tablet 112 mcg PO DAILY 90 days #90 tabs 12/09/24 04/29/25 Rx cholecalciferol (vitamin D3) 125 125 mcg PO DAILY #90 tabs 01/06/25 04/29/25 Rx mcg (5,000 unit) tablet albuterol sulfate 90 mcg/actuation 2 puff inhalation Q4H PRN 04/29/25 04/29/25 History aerosol inhaler shortness of breath or wheezing Allergies Allergy/AdvReac Type Severity Reaction Status Date / Time morphine Allergy Intermediate Hives Verified 04/29/25 13:40 denosumab (From Prolia) Allergy Unknown Other Verified 04/29/25 13:40 sertraline (From Zoloft) AdvReac Severe Hallucinati Verified 04/29/25 13:40 ng Ocuaxdu-FEA-JkM Reductase AdvReac Severe Muscle Pain Verified 04/29/25 13:40 Inhibitor (Cgnckpg-Xjr-Gtr Reductase Inhibitor) Vital Signs Vital Signs - 24 hr 04/29/25 08:13 04/29/25 08:23 04/29/25 08:44 Temperature 97.5 F L Pulse Rate 72 64 69 Respiratory Rate 18 18 Blood Pressure 144/61 H 123/53 L Pulse Oximetry 91 96 Oxygen Delivery Room Air Oxygen Flow Rate 04/29/25 08:46 04/29/25 09:07 04/29/25 09:23 Temperature Pulse Rate 69 65 Respiratory Rate 17 21 H Blood Pressure Pulse Oximetry 96 Oxygen Delivery Nasal Cannula Oxygen Flow Rate 1 04/29/25 10:02 04/29/25 10:02 04/29/25 11:10 Temperature Pulse Rate 68 71 Respiratory Rate 17 21 H Blood Pressure 141/57 H 133/62 Pulse Oximetry 96 96 96 Oxygen Delivery Nasal Cannula Oxygen Flow Rate 1 04/29/25 12:55 Temperature Pulse Rate 75 Respiratory Rate 22 H Blood Pressure Pulse Oximetry 95 Oxygen Delivery Oxygen Flow Rate Exam Const: General: comfortable and no acute distress Other: , female, elderly, obese body habitus HENMT: Face/Nose/Sinus: Normal nares present Mouth: Yes moist mucous membranes Eyes: General: appearance normal, both eyes and all related structures Sclera: sclerae normal Pupils: Equal, round and reactive pupils present EOM: EOMs intact bilaterally Resp: Other: Significantly diminished bilaterally with a faint expiratory wheeze. +tachypnea, worsens with conversation without accessory muscle use. CPAP in place, tolerating well. Cardio: Rate: regular rate Rhythm: regular rhythm Other: S1-S2 present without murmur, rub, ectopy GI: Other: Abdomen soft, nondistended, nontender. Normoactive bowel sounds in all quadrants. Skin: General skin exam: normal color and no rashes or lesions noted Wounds: no wounds Neuro: Speech: normal speech Motor exam (neuro): 5/5 motor strength present throughout Sensory Exam: normal sensation Other: A&O x4 Extrem: General: normal to inspection Psych: Mental Status: mental status grossly normal Affect: normal affect Other: Good insight judgment, pleasant H&P: Results Labs Labs: Short CBC 04/29/25 Range/Units 08:53 WBC 7.8 (4.5-10.0) K/mm3 Hgb 12.7 (12.0-15.0) g/dL Hct 41.2 (37.0-47.0) % Plt Count 296 (150-375) k/mm3 [facility] 04/29/25 08:53 Sodium 139 Potassium 4.5 Chloride 104 Carbon Dioxide 29 BUN 15 Creatinine 1.00 Glucose 102 Calcium 9.0 Cardiac Enzymes 04/29/25 04/29/25 04/29/25 Range/Units 08:53 08:53 11:39 Troponin I < 0.012 Cancelled < 0.012 (0.000-0.034) ng/mL Liver Function 04/29/25 Range/Units 08:53 Total Bilirubin 0.4 (0.2-1.3) mg/dL AST 28 (14-36) U/L ALT 23 (6-35) U/L Alkaline Phosphatase 75 (38-126) U/L Albumin 3.9 (3.5-5.1) g/dL Urine 04/29/25 Range/Units 10:02 Urine Color Yellow (Yellow) Urine Appearance Clear (Clear) Urine pH 6.5 (5.0-9.0) Ur Specific [place] 1.018 (1.001-1.035) Urine Protein Trace (Negative) mg/dL Urine Glucose (UA) Negative (Negative) mg/dL Assessment and Plan Assessment and plan (1) Acute exacerbation of chronic obstructive pulmonary disease: Code(s): J44.1 - Chronic obstructive pulmonary disease with (acute) exacerbation Status: Acute Assessment and Plan: - CXR: Mild discoid atelectasis/scarring at the left midlung zone. - chest CTA: 1. No pulmonary embolism. 2. Mediastinal lymphadenopathy. 3. Nodule in the right lower lobe measuring 1 cm. Three-month follow-up CT or PET-CT is advised. - started on ceftriaxone and azithromycin for COPD exacerbation - supportive care: Tylenol p.r.n. Mucinex chema Tessalon Perles p.r.n. - start DuoNebs chema and Solu-Medrol IV - continue supplemental O2 to maintain O2 sat greater than 92%, wean as tolerated. Per ED provider, dropped into the 80s while ambulating. Will need walking O2 eval prior to DC. (2) Type 2 diabetes mellitus: Qualifiers: Diabetes mellitus complication detail: with unspecified neuropathy Diabetes mellitus complication status: with neurologic complications Diabetes mellitus press tender long goods insulin use: without longterm use Qualified Code(s): E11.40 - Type 2 diabetes mellitus with diabetic neuropathy, unspecified Code(s): E11.9 - Type 2 diabetes mellitus without complications Status: Chronic Assessment and Plan: - hypoglycemia protocol - POC blood glucose ACHS - home medication: Hold semaglutide - correct regimen ordered - high dose TIDWM and HS, based off BMI. Patient also on steroids. - A1C 5.4% on 12/09/2024 (3) DAE (obstructive sleep apnea): Code(s): G47.33 - Obstructive sleep apnea (adult) (pediatric) Status: Chronic Assessment and Plan: - continue home CPAP/BiPAP Plan Diet: Diabetic GI Prophylaxis: Not currently indicated DVT Prophylaxis: Lovenox SQ IV fluids: None Lines/Tubes: Peripheral IV Code Status: Full code Quality VTE Prophylaxis VTE prophylaxis: pharmacologic ordered Hospitalist MIPS Advance Care Plan I have confirmed that the patient's Advanced Care Plan is present, code status is documented, or surrogate decision maker is listed in patient medical record.: Yes Medication Reconciliation I have utilized all available resources to obtain, update and review the patients current medications (includes all prescriptions, OTC, herbals, cannabis, and nutritional supplements).: Yes
--- NOTE | 2025-04-29 13:55 | ADMGEN ---
This patient, Shanita Gallo, was admitted to [facility] Surg Room 325-01. Patient/family oriented to hospital policies and general routines including ID bracelet, bed and alarms, visiting hours, pain management, procedures, bathroom and other care routines, personal items, smoking policy, room service/diet, and visiting hours. Information on how to activate the Rapid Response Team has been discussed. Patient/Family are encouraged to report perceived risks to care and to ask questions if they do not understand what they are told or what they should do.
[2025-04-29] MEDS: methylPREDNISolone SOD SUCC 125 MG VIAL 60 MG IV PUSH ×2 (15:23→21:17)
[2025-04-29 16:21] LABS: Glucose Point of Care 270 mg/dl (65-105)
[2025-04-29] MEDS: INSULIN ASPART (*BKC) 100 UNITS/ML SUB-Q (18:08)
[2025-04-29] MEDS: BENZONATATE 100 MG CAPSULE PO (20:11)
[2025-04-29] MEDS: ZOLPIDEM TARTRATE (*CRX) 5 MG TABLET PO (20:11)
[2025-04-29] MEDS: rOPINIRole HCL 1 MG TABLET 2 MG PO (20:11)
[2025-04-29] MEDS: guaiFENesin 12 HR 600 MG TABCR PO (20:11)
[2025-04-29] MEDS: diphenhydrAMINE HCl CAP 25 MG CAPSULE 50 MG PO (20:11)
[2025-04-29 21:44] LABS: Glucose Point of Care 158 mg/dl (65-105)
[2025-04-30] VITALS (12 sets, daily range): BP systolic 120–135; BP diastolic 41–98; PULSE 58–82; RESP 14–22; TEMP 35.7–36.7; O2SAT 94–100
[2025-04-30] MEDS: IPRATROPIUM 0.5 MG/ALBUTEROL SULFATE 2.5 MG AMPUL.NEB 3 ML INHALATION ×4 (02:27→21:07)
[2025-04-30] MEDS: LEVOTHYROXINE SODIUM 112 MCG TABLET PO (05:47)
[2025-04-30] MEDS: methylPREDNISolone SOD SUCC 125 MG VIAL 60 MG IV PUSH ×3 (05:47→21:39)
[2025-04-30 06:14] LABS: Basophils Percent Auto 0.2 % (0.2-1.2); Hematocrit 39.3 % (37.0-47.0); Hemoglobin 12.4 g/dL (12.0-15.0); Immature Granulocyte Absolute 0.07 K/mm3 (0.00-0.031); Immature Granulocyte Percent A 0.7 % (0-0.5); Immature Platelet Fraction Pct 2.4 % (0.9-11.2); Lymphocytes Absolute Auto 0.64 K/mm3 (0.9-3.2); Lymphocytes Percent Auto 6.1 % (18.3-44.2); Mean Corpuscular HGB Conc 31.6 g/dl (32-36); Mean Corpuscular Hemoglobin 31.9 pg (26-34); Mean Platelet Volume 10.1 fl (7.4-10.4); Monocytes Absolute Auto 0.3 K/mm3 (0.1-0.6); Monocytes Percent Auto 2.4 % (2.6-8.5); Neutrophils Absolute Auto 9.6 K/mm3 (1.3-6.7); Neutrophils Percent Auto 90.6 % (45.5-73.1); Platelet Count Result 302 k/mm3 (150-375); Red Blood Count 3.89 M/mm3 (4.2-5.4); White Blood Count 10.6 K/mm3 (4.5-10.0)
[2025-04-30 06:32] LABS: Anion Gap 8 mmol/L (4-12); Blood Urea Nitrogen 25 mg/dL (7-17); Calcium 8.9 mg/dL (8.4-10.2); Carbon Dioxide 26 mmol/L (22-30); Chloride 102 mmol/L (98-107); Estimated Glomerular Filt Rate 49; Glucose 148 mg/dL (65-110); Potassium 4.6 mmol/L (3.4-5.0); Sodium 136 mmol/L (137-145)
--- NOTE | 2025-04-30 07:42 | PM.IMPN ---
Progress Note: A&P Assessment and Plan (1) Acute exacerbation of chronic obstructive pulmonary disease: Code(s): J44.1 - Chronic obstructive pulmonary disease with (acute) exacerbation Status: Acute Assessment and Plan: CXR: Mild discoid atelectasis/scarring at the left midlung zone. chest CTA: 1. No pulmonary embolism. 2. Mediastinal lymphadenopathy. 3. Nodule in the right lower lobe measuring 1 cm. Three-month follow-up CT or PET-CT is advised. started on ceftriaxone and azithromycin for COPD exacerbation supportive care: Tylenol p.r.n. Mucinex chema Tessalon Perles p.r.n. DuoNebs chema and Solu-Medrol IV continue supplemental O2 to maintain O2 sat greater than 92%, wean as tolerated. Home O2 eval prior to DC SOB and physical exam improving today (2) Type 2 diabetes mellitus: Qualifiers: Diabetes mellitus complication detail: with unspecified neuropathy Diabetes mellitus complication status: with neurologic complications Diabetes mellitus terminal block assembler insulin use: without terminal block assembler use Qualified Code(s): E11.40 - Type 2 diabetes mellitus with diabetic neuropathy, unspecified Code(s): E11.9 - Type 2 diabetes mellitus without complications Status: Chronic Assessment and Plan: - hypoglycemia protocol - POC blood glucose ACHS - home medication: Hold semaglutide - correct regimen ordered - high dose TIDWM and HS, based off BMI. Patient also on steroids. - A1C 5.4% on 12/09/2024 (3) DAE (obstructive sleep apnea): Code(s): G47.33 - Obstructive sleep apnea (adult) (pediatric) Status: Chronic Assessment and Plan: - continue home CPAP/BiPAP Plan Diet: Diabetic GI Prophylaxis: Not currently indicated DVT Prophylaxis: Lovenox SQ IV fluids: None Lines/Tubes: Peripheral IV Code Status: Full code Subjective Date/time seen: 04/30/25 07:42 Interval history: 69 y/o F with PMH of diastolic dysfunction, GERD, CAD, diabetes, DAE on CPAP, hypothyroidism, anxiety and COPD presents here with shortness of breath. 04/30/2025 Patient sitting comfortably in bed at time of exam. Denies any chest pain, n/v, abdominal pain at this time. Still has some SOB, improved since yesterday, as well as an intermittent non-productive cough. Continue to monitor for COPD exac, will likely need home O2 eval before discharge. No other concerns or complaints at this time. Review of Systems Review of Systems: All systems reviewed & are unremarkable except as noted in HPI and below Exam Narrative: Diminished hortencia faint exp wheeze, obese body habitus, tachypnea and worsens with conversation without accessory muscle use Const: General: comfortable and no acute distress Other: , female, elderly, obese body habitus HENMT: Face/Nose/Sinus: Normal nares present Mouth: Yes moist mucous membranes Eyes: General: appearance normal, both eyes and all related structures Sclera: sclerae normal Pupils: Equal, round and reactive pupils present EOM: EOMs intact bilaterally Resp: Other: Diminished bilaterally with a faint expiratory wheeze. Non-tachypneic. Cardio: Rate: regular rate Rhythm: regular rhythm Other: S1-S2 present without murmur, rub, ectopy GI: Other: Abdomen soft, nondistended, nontender. Normoactive bowel sounds in all quadrants. Skin: General skin exam: normal color and no rashes or lesions noted Wounds: no wounds Neuro: Cranial nerves: Yes Equal, round and reactive pupils present Speech: normal speech Motor exam (neuro): 5/5 motor strength present throughout Sensory Exam: normal sensation Other: A&O x4 Extrem: General: normal to inspection Psych: Mental Status: mental status grossly normal Affect: normal affect Other: Good insight judgment, pleasant Objective Data Vital Signs Vital Signs: Vital Signs - 24 hr 04/29/25 08:13 04/29/25 08:23 04/29/25 08:44 Temperature 97.5 F L Pulse Rate 72 64 69 Respiratory Rate 18 18 Blood Pressure 144/61 H 123/53 L Pulse Oximetry 91 96 Oxygen Delivery Room Air Oxygen Flow Rate 04/29/25 08:46 04/29/25 09:07 04/29/25 09:23 Temperature Pulse Rate 69 65 Respiratory Rate 17 21 H Blood Pressure Pulse Oximetry 96 Oxygen Delivery Nasal Cannula Oxygen Flow Rate 1 04/29/25 10:02 04/29/25 10:02 04/29/25 11:10 Temperature Pulse Rate 68 71 Respiratory Rate 17 21 H Blood Pressure 141/57 H 133/62 Pulse Oximetry 96 96 96 Oxygen Delivery Nasal Cannula Oxygen Flow Rate 1 04/29/25 12:55 04/29/25 14:00 04/29/25 14:13 Temperature 97.1 F L Pulse Rate 75 78 75 Respiratory Rate 22 H 20 20 Blood Pressure 134/62 Pulse Oximetry 95 96 95 Oxygen Delivery Nasal Cannula Oxygen Flow Rate 1 04/29/25 14:13 04/29/25 14:26 04/29/25 19:46 Temperature Pulse Rate 75 76 62 Respiratory Rate 20 20 22 H Blood Pressure Pulse Oximetry Oxygen Delivery Oxygen Flow Rate 04/29/25 19:53 04/29/25 19:55 04/29/25 20:04 Temperature 97.7 F Pulse Rate 66 62 Respiratory Rate 20 22 H Blood Pressure 106/49 L Pulse Oximetry 100 95 95 Oxygen Delivery Nasal Cannula Nasal Cannula Oxygen Flow Rate 1 1 04/30/25 02:27 04/30/25 04:26 Temperature 98.0 F Pulse Rate 58 L 60 Respiratory Rate 22 H 18 Blood Pressure 120/41 L Pulse Oximetry 100 Oxygen Delivery Oxygen Flow Rate Intake/Output Intake/Output: Intake & Output 04/27/25 04/28/25 04/29/25 04/30/25 23:59 23:59 23:59 23:59 Intake Total 480 0 Output Total 1100 Balance -620 0 Meds/Results Medications: Active Medications Generic Name Dose Route Start Last Admin Trade Name Freq PRN Reason Stop Dose Admin Acetaminophen 650 mg 04/29/25 11:13 Acetaminophen 325 Mg Tablet PO Q4H PRN Mild Pain (1-3) or Fever Albuterol/Ipratropium 3 ml 04/29/25 14:00 04/30/25 02:27 Ipratropium 0.5 Mg/Albuterol Sulfate 2.5 Mg Ampul.Neb 3 Ml INHALATION 3 ml Q6HRT CHEMA Administration Alprazolam 0.5 mg 04/29/25 14:00 Alprazolam (*Crx) 0.5 Mg Tablet PO TID PRN Anxiety Benzonatate 100 mg 04/29/25 13:58 04/29/25 20:11 Benzonatate 100 Mg Capsule PO 100 mg TID PRN Administration Cough Bupropion HCl 300 mg 04/30/25 09:00 Bupropion Hcl Xl (24 Hr) 150 Mg Tabcr PO DAILY CHEMA Dextrose 12.5 gm 04/29/25 13:58 Dextrose 50% 25 Gm/50 Ml Syringe IV PUSH PRN PRN Hypoglycemia Protocol Diphenhydramine HCl 50 mg 04/29/25 14:00 04/29/25 20:11 Diphenhydramine Hcl Cap 25 Mg Capsule PO 50 mg HS PRN Administration Insomnia Duloxetine HCl 120 mg 04/30/25 09:00 Duloxetine Hcl 60 Mg Capsule.Dr PO DAILY CHEMA Enoxaparin Sodium 40 mg 04/30/25 09:00 Enoxaparin 40 Mg/0.4 Ml Syringe SUB-Q DAILY CHEMA Furosemide 80 mg 04/29/25 14:00 Furosemide 80 Mg Tablet PO DAILY PRN edema Glucagon 1 mg 04/29/25 13:58 Glucagon For Inj 1 Mg Vial IM PRN PRN Hypoglycemia Protocol Glucose 15 gm 04/29/25 13:58 Glucose Oral Gel 15 Gm Of Glucse In 37.5 Gm Tube PO PRN PRN Hypoglycemia Protocol Guaifenesin 600 mg 04/29/25 21:00 04/29/25 20:11 Guaifenesin 12 Hr 600 Mg Tabcr PO 600 mg Q12HR CHEMA Administration Ceftriaxone Sodium 1 gm in 50 mls @ 100 mls/hr 04/30/25 09:00 Rocephin 1 Gm/Ns 50 Ml IVPB Q24H CHEMA Azithromycin 500 mg in 250 mls @ 250 mls/hr 04/30/25 09:00 Zithromax IVPB Q24H CHEMA Dextrose 1,000 mls @ 100 mls/hr 04/29/25 13:58 Dextrose 5% 1,000 Ml IVPB PRN PRN Hypoglycemia Protocol Insulin Aspart 4 - 8 units 04/29/25 17:00 04/29/25 18:08 Insulin Aspart (*Bkc) 100 Units/Ml SUB-Q 5 units TIDWM CHEMA Administration Protocol Insulin Aspart 2 - 4 units 04/29/25 21:00 04/29/25 21:25 Insulin Aspart (*Bkc) 100 Units/Ml SUB-Q Not Given HS CHEMA Protocol Levothyroxine Sodium 112 mcg 04/30/25 06:30 04/30/25 05:47 Levothyroxine Sodium 112 Mcg Tablet PO 112 mcg DAILY@0630 CHEMA Administration Methylprednisolone Sodium Succinate 60 mg 04/29/25 14:00 04/30/25 05:47 Methylprednisolone Sod Succ 125 Mg Vial IV PUSH 60 mg Q8HR CHEMA Administration Ondansetron HCl 4 mg 04/29/25 14:02 Ondansetron Hcl Odt 4 Mg Tablet PO Q6H PRN Nausea And Vomiting Pregabalin 75 mg 04/30/25 09:00 Pregabalin (*Crx) 75 Mg Capsule PO DAILY [facility] Ropinirole HCl 2 mg 04/29/25 21:00 04/29/25 20:11 Ropinirole Hcl 1 Mg Tablet PO 2 mg HS [facility] Administration Vitamin D 125 mcg 04/30/25 09:00 Cholecalciferol (Vitamin D3) 125 Mcg (5,000 Units) Tablet PO DAILY [facility] Zolpidem Tartrate 5 mg 04/29/25 21:00 04/29/25 20:11 Zolpidem Tartrate (*Crx) 5 Mg Tablet PO 5 mg HS CHEMA Administration Radiology Results: ITS Impressions Chest X-Ray 04/29/25 08:46 IMPRESSION: 1. Mild discoid atelectasis/scarring at the left midlung zone. Chest CTA 04/29/25 12:06 IMPRESSION: 1. No pulmonary embolism. 2. Mediastinal lymphadenopathy. 3. Nodule in the right lower lobe measuring 1 cm. Three-month follow-up CT or PET-CT is advised. Labs Labs: Laboratory Results - last 24 hr 04/29/25 04/29/25 04/29/25 08:53 08:53 08:53 WBC 7.8 RBC 4.10 L Hgb 12.7 Hct 41.2 MCV 100.5 H MCH 31.0 MCHC 30.8 L RDW 14.3 Plt Count 296 MPV 9.2 Immature Gran % (Auto) 0.5 Neut % (Auto) 67.1 Lymph % (Auto) 16.2 L [place] % (Auto) 10.8 H Eos % (Auto) 4.9 H Baso % (Auto) 0.5 Lymph # (Auto) 1.26 [place] # (Auto) 0.8 H Eos # (Auto) 0.4 H Baso # (Auto) 0.0 Abs Immat Gran (auto) 0.04 H Absolute Neuts (auto) 5.2 Absolute Nucleated RBC 0.000 Nucleated RBC % 0.0 % Immature Plt Fraction Puncture Site ABG pH ABG pCO2 ABG pO2 ABG PO2/FiO2 Ratio ABG HCO3 ABG O2 Saturation ABG O2 Content ABG Base Excess A-a Gradient Oxyhemoglobin Total Hemoglobin O2 Delivery Device O2 Liters/Min FiO2 Sodium 139 Potassium 4.5 Chloride 104 Carbon Dioxide 29 Anion Gap 6 BUN 15 Creatinine 1.00 Estim Creat Clear Calc Not Reportable Estimated GFR 55 L Glucose 102 POC Capillary Glucose Lactic Acid Calcium 9.0 Magnesium 1.9 Cancelled Total Bilirubin 0.4 AST 28 ALT 23 Alkaline Phosphatase 75 Troponin I < 0.012 Cancelled NT-Pro-B Natriuret Pep 106 H Total Protein Albumin Procalcitonin Urine Color Urine Appearance Urine pH Ur Specific [place] Urine Protein Urine Glucose (UA) Urine Ketones Ur Blood (Man) Urine Nitrate Urine Bilirubin Urine Urobilinogen Leukocyte Esterase Rfl Urine RBC Urine WBC Ur Squamous Epith Cells Urine Bacteria Urine Casts Influenza A (RT-PCR) Influenza B (RT-PCR) RSV (RT-PCR) SARS-CoV-2 RNA (RT-PCR) 04/29/25 04/29/25 04/29/25 08:53 09:01 09:50 WBC RBC Hgb Hct MCV MCH MCHC RDW Plt Count MPV Immature Gran % (Auto) Neut % (Auto) Lymph % (Auto) [place] % (Auto) Eos % (Auto) Baso % (Auto) Lymph # (Auto) [place] # (Auto) Eos # (Auto) Baso # (Auto) Abs Immat Gran (auto) Absolute Neuts (auto) Absolute Nucleated RBC Nucleated RBC % % Immature Plt Fraction Puncture Site Right radial ABG pH 7.418 ABG pCO2 40.4 ABG pO2 72.2 L ABG PO2/FiO2 Ratio 3.01 ABG HCO3 25.5 ABG O2 Saturation 94.8 L ABG O2 Content 17.6 ABG Base Excess 1.0 A-a Gradient 50.8 Oxyhemoglobin 93.4 Total Hemoglobin 13.4 O2 Delivery Device Nasal cannula O2 Liters/Min 1.0 FiO2 24 Sodium Potassium Chloride Carbon Dioxide Anion Gap BUN Creatinine Estim Creat Clear Calc Estimated GFR Glucose POC Capillary Glucose Lactic Acid 1.2 Calcium Magnesium Total Bilirubin AST ALT Alkaline Phosphatase Troponin I NT-Pro-B Natriuret Pep Cancelled Total Protein 7.6 Albumin 3.9 Procalcitonin 0.1 Urine Color Urine Appearance Urine pH Ur Specific [place] Urine Protein Urine Glucose (UA) Urine Ketones Ur Blood (Man) Urine Nitrate Urine Bilirubin Urine Urobilinogen Leukocyte Esterase Rfl Urine RBC Urine WBC Ur Squamous Epith Cells Urine Bacteria Urine Casts Influenza A (RT-PCR) Negative Influenza B (RT-PCR) Negative RSV (RT-PCR) Negative SARS-CoV-2 RNA (RT-PCR) Negative 04/29/25 04/29/25 04/29/25 10:02 11:39 16:18 WBC RBC Hgb Hct MCV MCH MCHC RDW Plt Count MPV Immature Gran % (Auto) Neut % (Auto) Lymph % (Auto) [place] % (Auto) Eos % (Auto) Baso % (Auto) Lymph # (Auto) [place] # (Auto) Eos # (Auto) Baso # (Auto) Abs Immat Gran (auto) Absolute Neuts (auto) Absolute Nucleated RBC Nucleated RBC % % Immature Plt Fraction Puncture Site ABG pH ABG pCO2 ABG pO2 ABG PO2/FiO2 Ratio ABG HCO3 ABG O2 Saturation ABG O2 Content ABG Base Excess A-a Gradient Oxyhemoglobin Total Hemoglobin O2 Delivery Device O2 Liters/Min FiO2 Sodium Potassium Chloride Carbon Dioxide Anion Gap BUN Creatinine Estim Creat Clear Calc Estimated GFR Glucose POC Capillary Glucose 270 H Lactic Acid Calcium Magnesium Total Bilirubin AST ALT Alkaline Phosphatase Troponin I < 0.012 NT-Pro-B Natriuret Pep Total Protein Albumin Procalcitonin Urine Color Yellow Urine Appearance Clear Urine pH 6.5 Ur Specific [place] 1.018 Urine Protein Trace Urine Glucose (UA) Negative Urine Ketones Negative Ur Blood (Man) Negative Urine Nitrate Negative Urine Bilirubin Negative Urine Urobilinogen 1.0 Leukocyte Esterase Rfl Negative Urine RBC 0-2 Urine WBC 0-5 Ur Squamous Epith Cells None seen Urine Bacteria None seen Urine Casts 0-2 Influenza A (RT-PCR) Influenza B (RT-PCR) RSV (RT-PCR) SARS-CoV-2 RNA (RT-PCR) 04/29/25 04/30/25 19:45 05:32 WBC 10.6 H RBC 3.89 L Hgb 12.4 Hct 39.3 MCV 101.0 H MCH 31.9 MCHC 31.6 L RDW 14.0 Plt Count 302 MPV 10.1 Immature Gran % (Auto) 0.7 H Neut % (Auto) 90.6 H Lymph % (Auto) 6.1 L [place] % (Auto) 2.4 L Eos % (Auto) 0.0 Baso % (Auto) 0.2 Lymph # (Auto) 0.64 L [place] # (Auto) 0.3 Eos # (Auto) 0.0 Baso # (Auto) 0.0 Abs Immat Gran (auto) 0.07 H Absolute Neuts (auto) 9.6 H Absolute Nucleated RBC 0.000 Nucleated RBC % 0.0 % Immature Plt Fraction 2.4 Puncture Site ABG pH ABG pCO2 ABG pO2 ABG PO2/FiO2 Ratio ABG HCO3 ABG O2 Saturation ABG O2 Content ABG Base Excess A-a Gradient Oxyhemoglobin Total Hemoglobin O2 Delivery Device O2 Liters/Min FiO2 Sodium 136 L Potassium 4.6 Chloride 102 Carbon Dioxide 26 Anion Gap 8 BUN 25 H D Creatinine 1.09 H Estim Creat Clear Calc Not Reportable Estimated GFR 49 L Glucose 148 H POC Capillary Glucose 158 H Lactic Acid Calcium 8.9 Magnesium Total Bilirubin AST ALT Alkaline Phosphatase Troponin I NT-Pro-B Natriuret Pep Total Protein Albumin Procalcitonin Urine Color Urine Appearance Urine pH Ur Specific [place] Urine Protein Urine Glucose (UA) Urine Ketones Ur Blood (Man) Urine Nitrate Urine Bilirubin Urine Urobilinogen Leukocyte Esterase Rfl Urine RBC Urine WBC Ur Squamous Epith Cells Urine Bacteria Urine Casts Influenza A (RT-PCR) Influenza B (RT-PCR) RSV (RT-PCR) SARS-CoV-2 RNA (RT-PCR) Quality VTE Prophylaxis VTE prophylaxis: pharmacologic ordered
[2025-04-30 07:50] LABS: Glucose Point of Care 188 mg/dl (65-105)
[2025-04-30] MEDS: BENZONATATE 100 MG CAPSULE PO (09:09)
[2025-04-30] MEDS: PREGABALIN (*CRX) 75 MG CAPSULE PO (09:09)
[2025-04-30] MEDS: ENOXAPARIN 40 MG/0.4 ML SYRINGE SUB-Q (09:10)
[2025-04-30] MEDS: DULoxetine HCL 60 MG CAPSULE.DR 120 MG PO (09:10)
[2025-04-30] MEDS: CHOLECALCIFEROL (VITAMIN D3) 125 MCG (5,000 UNITS) TABLET PO (09:10)
[2025-04-30] MEDS: guaiFENesin 12 HR 600 MG TABCR PO ×2 (09:10→21:39)
[2025-04-30] MEDS: buPROPion HCL XL (24 HR) 150 MG TABCR 300 MG PO (09:10)
[2025-04-30] MEDS: AZITHROMYCIN 500 MG/NS 250 ML 500 MG/250 ML BAG 250 MG IVPB (09:57)
[2025-04-30 13:07] LABS: Glucose Point of Care 135 mg/dl (65-105)
[2025-04-30 16:36] LABS: Glucose Point of Care 140 mg/dl (65-105)
[2025-04-30 21:01] LABS: Glucose Point of Care 148 mg/dl (65-105)
[2025-04-30] MEDS: ZOLPIDEM TARTRATE (*CRX) 5 MG TABLET PO (21:39)
[2025-04-30] MEDS: rOPINIRole HCL 1 MG TABLET 2 MG PO (21:39)
[2025-05-01] MEDS: IPRATROPIUM 0.5 MG/ALBUTEROL SULFATE 2.5 MG AMPUL.NEB 3 ML INHALATION ×2 (02:19→08:07)
[2025-05-01 02:21] VITALS: PULSE 63; RESP 16
[2025-05-01 02:25] VITALS: PULSE 64; O2SAT 93
[2025-05-01] MEDS: LEVOTHYROXINE SODIUM 112 MCG TABLET PO (05:39)
[2025-05-01] MEDS: methylPREDNISolone SOD SUCC 125 MG VIAL 60 MG IV PUSH (05:39)
[2025-05-01 06:00] VITALS: BP 130/55; PULSE 91; RESP 16; TEMP 36.6; O2SAT 93
--- NOTE | 2025-05-01 07:17 | PM.IMPN ---
Progress Note: A&P Assessment and Plan (1) Acute exacerbation of chronic obstructive pulmonary disease: Code(s): J44.1 - Chronic obstructive pulmonary disease with (acute) exacerbation Status: Acute Assessment and Plan: CXR: Mild discoid atelectasis/scarring at the left midlung zone. chest CTA: 1. No pulmonary embolism. 2. Mediastinal lymphadenopathy. 3. Nodule in the right lower lobe measuring 1 cm. Three-month follow-up CT or PET-CT is advised. started on ceftriaxone and azithromycin for COPD exacerbation supportive care: Tylenol p.r.n. Mucinex chema Tessalon Perles p.r.n. DuoNebs chema and Solu-Medrol IV continue supplemental O2 to maintain O2 sat greater than 92%, wean as tolerated. Home O2 eval prior to DC SOB and physical exam improving today (2) Type 2 diabetes mellitus: Qualifiers: Diabetes mellitus correction insulin use: without correction use Diabetes mellitus complication status: with neurologic complications Diabetes mellitus complication detail: with unspecified neuropathy Qualified Code(s): E11.40 - Type 2 diabetes mellitus with diabetic neuropathy, unspecified Code(s): E11.9 - Type 2 diabetes mellitus without complications Status: Chronic Assessment and Plan: - hypoglycemia protocol - POC blood glucose ACHS - home medication: Hold semaglutide - correct regimen ordered - high dose TIDWM and HS, based off BMI. Patient also on steroids. - A1C 5.4% on 12/09/2024 (3) DAE (obstructive sleep apnea): Code(s): G47.33 - Obstructive sleep apnea (adult) (pediatric) Status: Chronic Assessment and Plan: - continue home CPAP/BiPAP Plan Diet: Diabetic GI Prophylaxis: Not currently indicated DVT Prophylaxis: Lovenox SQ IV fluids: None Lines/Tubes: Peripheral IV Code Status: Full code Subjective Date/time seen: 05/01/25 07:17 Interval history: 69 y/o F with PMH of diastolic dysfunction, GERD, CAD, diabetes, DAE on CPAP, hypothyroidism, anxiety and COPD presents here with shortness of breath. 05/01/2025 Patient sitting comfortably in bed at time of exam. Denies any chest pain, n/v, abdominal pain at this time. Review of Systems Review of Systems: All systems reviewed & are unremarkable except as noted in HPI and below Exam Narrative: Diminished hortencia faint exp wheeze, obese body habitus, tachypnea and worsens with conversation without accessory muscle use Const: General: comfortable and no acute distress Other: , female, elderly, obese body habitus HENMT: Face/Nose/Sinus: Normal nares present Mouth: Yes moist mucous membranes Eyes: General: appearance normal, both eyes and all related structures Sclera: sclerae normal Pupils: Equal, round and reactive pupils present EOM: EOMs intact bilaterally Resp: Other: Diminished bilaterally with a faint expiratory wheeze. Non-tachypneic. Cardio: Rate: regular rate Rhythm: regular rhythm Other: S1-S2 present without murmur, rub, ectopy GI: Other: Abdomen soft, nondistended, nontender. Normoactive bowel sounds in all quadrants. Skin: General skin exam: normal color and no rashes or lesions noted Wounds: no wounds Neuro: Cranial nerves: Yes Equal, round and reactive pupils present Speech: normal speech Motor exam (neuro): 5/5 motor strength present throughout Sensory Exam: normal sensation Other: A&O x4 Extrem: General: normal to inspection Psych: Mental Status: mental status grossly normal Affect: normal affect Other: Good insight judgment, pleasant Objective Data Vital Signs Vital Signs: Vital Signs - 24 hr 04/30/25 08:00 04/30/25 08:24 04/30/25 08:24 Temperature Pulse Rate 82 82 Respiratory Rate 14 14 Blood Pressure Pulse Oximetry 97 Oxygen Delivery Room Air Nasal Cannula Oxygen Flow Rate 1 04/30/25 08:37 04/30/25 14:00 04/30/25 14:50 Temperature 96.3 F L Pulse Rate 80 70 74 Respiratory Rate 16 18 16 Blood Pressure 134/98 H Pulse Oximetry 94 Oxygen Delivery Oxygen Flow Rate 04/30/25 15:01 04/30/25 20:00 04/30/25 21:08 Temperature Pulse Rate 78 Respiratory Rate 16 Blood Pressure Pulse Oximetry 94 Oxygen Delivery Room Air Nasal Cannula Oxygen Flow Rate 1 04/30/25 21:09 04/30/25 21:19 04/30/25 22:00 Temperature 97.8 F Pulse Rate 60 62 59 L Respiratory Rate 16 16 18 Blood Pressure 135/58 L Pulse Oximetry 96 Oxygen Delivery Oxygen Flow Rate 04/30/25 23:15 05/01/25 02:21 05/01/25 02:25 Temperature Pulse Rate 68 63 64 Respiratory Rate 16 Blood Pressure Pulse Oximetry 94 93 Oxygen Delivery Autopap Autopap Oxygen Flow Rate 05/01/25 06:00 Temperature 97.8 F Pulse Rate 91 Respiratory Rate 16 Blood Pressure 130/55 L Pulse Oximetry 93 Oxygen Delivery Oxygen Flow Rate Intake/Output Intake/Output: Intake & Output 04/28/25 04/29/25 04/30/25 05/01/25 23:59 23:59 23:59 23:59 Intake Total 480 940 350 Output Total 1100 Balance -620 940 350 Meds/Results Medications: Active Medications Generic Name Dose Route Start Last Admin Trade Name Freq PRN Reason Stop Dose Admin Acetaminophen 650 mg 04/29/25 11:13 Acetaminophen 325 Mg Tablet PO Q4H PRN Mild Pain (1-3) or Fever Albuterol/Ipratropium 3 ml 04/29/25 14:00 05/01/25 02:19 Ipratropium 0.5 Mg/Albuterol Sulfate 2.5 Mg Ampul.Neb 3 Ml INHALATION 3 ml Q6HRT CHEMA Administration Alprazolam 0.5 mg 04/29/25 14:00 Alprazolam (*Crx) 0.5 Mg Tablet PO TID PRN Anxiety Benzonatate 100 mg 04/29/25 13:58 04/30/25 09:09 Benzonatate 100 Mg Capsule PO 100 mg TID PRN Administration Cough Bupropion HCl 300 mg 04/30/25 09:00 04/30/25 09:10 Bupropion Hcl Xl (24 Hr) 150 Mg Tabcr PO 300 mg DAILY CHEMA Administration Dextrose 12.5 gm 04/29/25 13:58 Dextrose 50% 25 Gm/50 Ml Syringe IV PUSH PRN PRN Hypoglycemia Protocol Diphenhydramine HCl 50 mg 04/29/25 14:00 04/29/25 20:11 Diphenhydramine Hcl Cap 25 Mg Capsule PO 50 mg HS PRN Administration Insomnia Duloxetine HCl 120 mg 04/30/25 09:00 04/30/25 09:10 Duloxetine Hcl 60 Mg Capsule.Dr PO 120 mg DAILY CHEMA Administration Enoxaparin Sodium 40 mg 04/30/25 09:00 04/30/25 09:10 Enoxaparin 40 Mg/0.4 Ml Syringe SUB-Q 40 mg DAILY CHEMA Administration Furosemide 80 mg 04/29/25 14:00 Furosemide 80 Mg Tablet PO DAILY PRN edema Glucagon 1 mg 04/29/25 13:58 Glucagon For Inj 1 Mg Vial IM PRN PRN Hypoglycemia Protocol Glucose 15 gm 04/29/25 13:58 Glucose Oral Gel 15 Gm Of Glucse In 37.5 Gm Tube PO PRN PRN Hypoglycemia Protocol Guaifenesin 600 mg 04/29/25 21:00 04/30/25 21:39 Guaifenesin 12 Hr 600 Mg Tabcr PO 600 mg Q12HR CHEMA Administration Ceftriaxone Sodium 1 gm in 50 mls @ 100 mls/hr 04/30/25 09:00 04/30/25 09:39 Rocephin 1 Gm/Ns 50 Ml IVPB Infused Q24H CHEMA Infusion Azithromycin 500 mg in 250 mls @ 250 mls/hr 04/30/25 09:00 04/30/25 10:57 Zithromax IVPB Infused Q24H CHEMA Infusion Dextrose 1,000 mls @ 100 mls/hr 04/29/25 13:58 Dextrose 5% 1,000 Ml IVPB PRN PRN Hypoglycemia Protocol Insulin Aspart 4 - 8 units 04/29/25 17:00 04/30/25 17:16 Insulin Aspart (*Bkc) 100 Units/Ml SUB-Q Not Given TIDWM [facility] Protocol Insulin Aspart 2 - 4 units 04/29/25 21:00 04/30/25 21:37 Insulin Aspart (*Bkc) 100 Units/Ml SUB-Q Not Given HS [facility] Protocol Levothyroxine Sodium 112 mcg 04/30/25 06:30 05/01/25 05:39 Levothyroxine Sodium 112 Mcg Tablet PO 112 mcg DAILY@0630 CHEMA Administration Methylprednisolone Sodium Succinate 60 mg 04/29/25 14:00 05/01/25 05:39 Methylprednisolone Sod Succ 125 Mg Vial IV PUSH 60 mg Q8HR CHEMA Administration Ondansetron HCl 4 mg 04/29/25 14:02 Ondansetron Hcl Odt 4 Mg Tablet PO Q6H PRN Nausea And Vomiting Pregabalin 75 mg 04/30/25 09:00 04/30/25 09:09 Pregabalin (*Crx) 75 Mg Capsule PO 75 mg DAILY CHEMA Administration Ropinirole HCl 2 mg 04/29/25 21:00 04/30/25 21:39 Ropinirole Hcl 1 Mg Tablet PO 2 mg HS CHEMA Administration Vitamin D 125 mcg 04/30/25 09:00 04/30/25 09:10 Cholecalciferol (Vitamin D3) 125 Mcg (5,000 Units) Tablet PO 125 mcg DAILY CHEMA Administration Zolpidem Tartrate 5 mg 04/29/25 21:00 04/30/25 21:39 Zolpidem Tartrate (*Crx) 5 Mg Tablet PO 5 mg HS CHEMA Administration Radiology Results: ITS Impressions Chest X-Ray 04/29/25 08:46 IMPRESSION: 1. Mild discoid atelectasis/scarring at the left midlung zone. Chest CTA 04/29/25 12:06 IMPRESSION: 1. No pulmonary embolism. 2. Mediastinal lymphadenopathy. 3. Nodule in the right lower lobe measuring 1 cm. Three-month follow-up CT or PET-CT is advised. Labs Labs: Laboratory Results - last 24 hr 04/30/25 04/30/25 04/30/25 07:46 11:53 16:17 POC Capillary Glucose 188 H 135 H 140 H 04/30/25 20:52 POC Capillary Glucose 148 H Quality VTE Prophylaxis VTE prophylaxis: pharmacologic ordered
[2025-05-01 08:09] VITALS: PULSE 87; RESP 20; O2SAT 92
[2025-05-01 08:23] LABS: Glucose Point of Care 136 mg/dl (65-105)
[2025-05-01 08:42] LABS: Basophils Percent Auto 0.1 % (0.2-1.2); Hematocrit 41.2 % (37.0-47.0); Hemoglobin 13.1 g/dL (12.0-15.0); Immature Granulocyte Absolute 0.29 K/mm3 (0.00-0.031); Immature Granulocyte Percent A 1.6 % (0-0.5); Lymphocytes Absolute Auto 0.81 K/mm3 (0.9-3.2); Lymphocytes Percent Auto 4.4 % (18.3-44.2); Mean Corpuscular HGB Conc 31.8 g/dl (32-36); Mean Corpuscular Hemoglobin 31.5 pg (26-34); Mean Platelet Volume 9.9 fl (7.4-10.4); Monocytes Absolute Auto 0.4 K/mm3 (0.1-0.6); Monocytes Percent Auto 2.4 % (2.6-8.5); Neutrophils Percent Auto 91.5 % (45.5-73.1); Platelet Count Result 349 k/mm3 (150-375); Red Blood Count 4.16 M/mm3 (4.2-5.4); White Blood Count 18.5 K/mm3 (4.5-10.0)
[2025-05-01 08:57] LABS: Alanine Aminotransferase 25 U/L (6-35); Albumin Level 3.8 g/dL (3.5-5.1); Alkaline Phosphatase 60 U/L (38-126); Anion Gap 10 mmol/L (4-12); Aspartate Amino Transferase 35 U/L (14-36); Bilirubin,Total 0.3 mg/dL (0.2-1.3); Blood Urea Nitrogen 30 mg/dL (7-17); Carbon Dioxide 22 mmol/L (22-30); Chloride 105 mmol/L (98-107); Estimated Glomerular Filt Rate 58; Glucose 123 mg/dL (65-110); Potassium 5.2 mmol/L (3.4-5.0); Sodium 137 mmol/L (137-145); Total Protein 7.2 g/dL (6.3-8.2)
[2025-05-01] MEDS: PREGABALIN (*CRX) 75 MG CAPSULE PO (09:07)
[2025-05-01] MEDS: CHOLECALCIFEROL (VITAMIN D3) 125 MCG (5,000 UNITS) TABLET PO (09:07)
[2025-05-01] MEDS: ENOXAPARIN 40 MG/0.4 ML SYRINGE SUB-Q (09:07)
[2025-05-01] MEDS: DULoxetine HCL 60 MG CAPSULE.DR 120 MG PO (09:07)
[2025-05-01] MEDS: buPROPion HCL XL (24 HR) 150 MG TABCR 300 MG PO (09:07)
[2025-05-01] MEDS: guaiFENesin 12 HR 600 MG TABCR PO (09:07)
[2025-05-01] MEDS: AZITHROMYCIN 500 MG/NS 250 ML 500 MG/250 ML BAG 250 MG IVPB (10:00)
--- NOTE | 2025-05-01 10:42 | P.DS_ITS ---
DS: Admitting Diagnosis Discharge Date 05/01/2025 Admitting Diagnosis COPD exacerbation DS: Discharge Diagnosis Discharge Diagnosis (1) Acute exacerbation of chronic obstructive pulmonary disease: Code(s): J44.1 - Chronic obstructive pulmonary disease with (acute) exacerbation Status: Acute (2) Type 2 diabetes mellitus: Qualifiers: Diabetes mellitus rn long term care insulin use: without rn long term care use Diabetes mellitus complication status: with neurologic complications Diabetes mellitus complication detail: with unspecified neuropathy Qualified Code(s): E11.40 - Type 2 diabetes mellitus with diabetic neuropathy, unspecified Code(s): E11.9 - Type 2 diabetes mellitus without complications Status: Chronic (3) DAE (obstructive sleep apnea): Code(s): G47.33 - Obstructive sleep apnea (adult) (pediatric) Status: Chronic DS: Summary Hospital Course Reason for hospitalization: Shortness of breath Hospital Course: 69 y/o F with PMH of diastolic dysfunction, GERD, CAD, diabetes, DAE on CPAP, hypothyroidism, anxiety and COPD presents here with shortness of breath. The patient presents here from home via EMS on 04/29 for further evaluation of shortness of breath. She reports onset of shortness of breath over this past weekend, approximately 2-3 days ago. She was out of town in [place] for vacation when she developed her symptoms. She is currently reporting shortness of breath, a productive cough yielding yellow/green sputum, fever, chills, body aches, N/V/D, and wheezing. She denies accompanying chest pain. She has been utilizing her home inhaler without relief. She reports compliance with her CPAP at night. She reports her current symptoms feel similar to when she has previously had pneumonia. Initial VS at presentation: 97.5? F, HR 72, RR 18, 144/61, and 91% on room air. Now 95% on 1L nasal cannula. ED workup showed: No leukocytosis, no anemia, ABG showed O2 72.2%/O2 saturation 94.8% on 1 L nasal cannula, no significant electrolyte derangements, creatinine 1.0 and GFR 55, lactic acid 1.2, initial troponin negative x2, BNP 106 (normal for age), and procalcitonin 0.1. UA unremarkable. Viral PCR negative. CXR showed mild discoid atelectasis/scarring at the left midlung zone. Chest CTA showed no PE, medial lymphadenopathy, nodule in the right lower lobe measuring 1 cm. Blood cultures prelim result negative. On 04/30, pt did have a mildly elevated WBC, but on 05/01, she had Leukocytosis of 18.5 likely secondary to IV methylpre dnisone use. This is supported by 0.0 eosinophil count. Pt improved over the course of her hospitalization and on 05/01 she stated that she felt back to what her baseline is and expressed interest in being discharged. Her lung cosby were diminished but clear. Given afebrile and chest XR not indicative of any infectious process, pneumonia less likely. Overall pts disposition and clinical impression improved greatly and symptoms likely attributed to COPD exacerbation given overall response to duoneb and glucocorticoid treatments. Pt is otherwise stable for discharge given stable clinical picture, blood work and vital signs. Plan for discharge home at this time. Pt is amenable to this. Status at Discharge Functional status at discharge: independent ambulation Overall status at discharge: patient is back to baseline Time Spent with Patient Time attestation: Total time spent providing and/or coordinating discharge services: 41 Exam Narrative: No respiratory distress. obese body habitus, Non-tachypneic Const: Other: , female, elderly, obese body habitus Resp: Other: Slightly diminished lung sounds but no wheezing, crackles, rhonchi. Non- tachypneic. Cardio: Other: S1-S2 present without murmur, rub, ectopy GI: Other: Abdomen soft, nondistended, nontender. Normoactive bowel sounds in all quadrants. Neuro: Other: A&O x4 Psych: Other: Good insight judgment, pleasant DS: Data Data Completed and Pending Labs on day of discharge: Labs from last 24 hours 05/01/25 05/01/25 04/30/25 08:19 07:44 20:52 WBC 18.5 H RBC 4.16 L Hgb 13.1 Hct 41.2 MCV 99.0 MCH 31.5 MCHC 31.8 L RDW 14.0 Plt Count 349 MPV 9.9 Immature Gran % (Auto) 1.6 H Neut % (Auto) 91.5 H Lymph % (Auto) 4.4 L [place] % (Auto) 2.4 L Eos % (Auto) 0.0 Baso % (Auto) 0.1 L Lymph # (Auto) 0.81 L [place] # (Auto) 0.4 Eos # (Auto) 0.0 Baso # (Auto) 0.0 Abs Immat Gran (auto) 0.29 H Absolute Neuts (auto) 17.0 H Absolute Nucleated RBC 0.000 Nucleated RBC % 0.0 Sodium 137 Potassium 5.2 H Chloride 105 Carbon Dioxide 22 Anion Gap 10 BUN 30 H Creatinine 0.95 Estim Creat Clear Calc Not Reportable Estimated GFR 58 L Glucose 123 H POC Capillary Glucose 136 H 148 H Calcium 9.0 Total Bilirubin 0.3 AST 35 ALT 25 Alkaline Phosphatase 60 Total Protein 7.2 Albumin 3.8 04/30/25 04/30/25 16:17 11:53 WBC RBC Hgb Hct MCV MCH MCHC RDW Plt Count MPV Immature Gran % (Auto) Neut % (Auto) Lymph % (Auto) [place] % (Auto) Eos % (Auto) Baso % (Auto) Lymph # (Auto) [place] # (Auto) Eos # (Auto) Baso # (Auto) Abs Immat Gran (auto) Absolute Neuts (auto) Absolute Nucleated RBC Nucleated RBC % Sodium Potassium Chloride Carbon Dioxide Anion Gap BUN Creatinine Estim Creat Clear Calc Estimated GFR Glucose POC Capillary Glucose 140 H 135 H Calcium Total Bilirubin AST ALT Alkaline Phosphatase Total Protein Albumin Preliminary micro results at discharge 04/29/25 12:40 Blood Culture - Preliminary Blood 04/29/25 11:39 Blood Culture - Preliminary Blood Discharge Plan Discharge Attending physician on discharge: Gonzalo Cooley Consulting providers: Marques Mcguire Discharging Clinician: Gonzalo Cooley Anticipated Discharge Date/Time: 05/01/25 10:35 Patient Disposition: Home Activity: as tolerated Diet: as tolerated Discharge Instructions: Discharge disposition: Stable Take medications as prescribed. You will be prescribed 40mg Prednisone to be taken daily. Monitor blood pressures Take caution while standing, rising, or moving Change positions slowly taking a break between each position change If you standing feel dizzy sit back down and take a break Encouraged to continue with yearly vaccinations Return to the emergency department if he developed sudden shortness of breath, chest pain, nausea, vomiting, upset stomach or intractable diarrhea Return to the emergency department if you develop fever greater than 101.5 Follow-up with the primary care physician within 1-2 weeks Thank you for [facility] for your healthcare needs Patient Instructions: Antibiotic Form Patient Language: Austrian Stand Alone Forms: General Discharge Information Follow-up/Referrals: Wale,DO Tenzin [Primary Care Provider] - Discharge Medications: New prednisone 10 mg tablet 40 mg PO DAILY 5 Days Qty: 20 0RF Continued pregabalin 75 mg capsule 75 mg PO DAILY bupropion HCl 150 mg tablet extended release 24 hr 300 mg PO DAILY levothyroxine 112 mcg tablet 112 mcg PO DAILY 90 Days Qty: 90 3RF semaglutide 1 units subcut WEEKLY alprazolam 0.5 mg Tablet 0.5 mg PO TID PRN (Reason: Anxiety) diphenhydramine HCl [Benadryl] 25 mg Capsule 50 mg PO HS furosemide 80 mg tablet 80 mg PO DAILY PRN (Reason: edema) nitroglycerin 0.4 mg tablet, sublingual 0.4 mg sublingual Q5M PRN (Reason: chest pain) zolpidem 10 mg tablet 5 mg PO HS duloxetine 60 mg capsule,delayed release(DR/EC) 120 mg PO DAILY ropinirole 1 mg tablet 2 mg PO HS albuterol sulfate 90 mcg/actuation HFA aerosol inhaler 2 puff INHALATION Q4H PRN (Reason: shortness of breath or wheezing) cholecalciferol (vitamin D3) 125 mcg (5,000 unit) tablet 125 mcg PO DAILY Qty: 90 1RF Date of admission: 04/30/25 10:18 Primary Care Provider: Wale,Tenzin Admitting Provider: Donald Nagel Attending physician on admission: Donald Nagel Condition: Stable Quality VTE Prophylaxis VTE prophylaxis: pharmacologic ordered
== END 2025-05-01 11:25 | disposition home or self-care (01) | DRG 191 ==
LOC: ANHED 11:28 → ANH3MEDSUR 12:10
PROVIDERS: Student in an Organized Health Care Education/Training Program; Admitting Provider Internal Medicine; Emergency Provider Emergency Medicine; PCP Student in an Organized Health Care Education/Training Program; Visit Provider Physician Assistant
DX: J44.1 Chronic obstructive pulmonary disease with (acute) exacerbation (principal); Z68.43 Body mass index [BMI] 50.0-59.9, adult; R09.02 Hypoxemia; E11.42 Type 2 diabetes mellitus with diabetic polyneuropathy; G47.33 Obstructive sleep apnea (adult) (pediatric); I25.10 Atherosclerotic heart disease of native coronary artery without angina pectoris; K21.9 Gastro-esophageal reflux disease without esophagitis; E03.9 Hypothyroidism, unspecified; F41.9 Anxiety disorder, unspecified; D72.828 Other elevated white blood cell count; E66.01 Morbid (severe) obesity due to excess calories; M19.90 Unspecified osteoarthritis, unspecified site; Z96.653 Presence of artificial knee joint, bilateral; I25.2 Old myocardial infarction; Z90.710 Acquired absence of both cervix and uterus; Z98.42 Cataract extraction status, left eye; Z98.41 Cataract extraction status, right eye; Z87.891 Personal history of nicotine dependence
CPT/HCPCS: 36415; 36600; 71046; 71275; 80048; 80053; 81001; 82805; 82948; 83605; 83735; 83880; 84145; 84484; 85018; 85025; 85055; 87040; 87637; 93005; 94640; 96365; 96367; 96372; 96375; 99285; A9270; G0378; J0456; J0696; J1650; J1815; J2919; Q9967